=== PATIENT | female | born 1960 | race Caucasian/White ===

== ENCOUNTER 2022-11-04 22:42 | Emergency (ER) | payer BC, SELFPAY ==
[2022-11-04 22:56] VITALS: BP 165/88; PULSE 85; RESP 16; TEMP 36.7; O2SAT 98; BMI 24.2
--- NOTE | 2022-11-04 23:48 | ED_ITS ---
HPI - Abdominal Pain General Chief Complaint: Abdominal Pain Stated Complaint: FLANK PAIN, Hx kidney stones Time Seen by Provider: 11/04/22 23:25 Source: patient Mode of arrival: walk-in History of Present Illness HPI narrative: This 62-year-old female presents for evaluation of left flank pain with radiation into her left lower quadrant associated with hematuria and nausea. The patient states that she had some pink tinge in her urine yesterday but otherwise felt okay. She went to work today and came home and started having left-sided flank pain with radiation to left lower quadrant, increasing hematuria and nausea. She has not had a fever. She denies any chest pain or shortness of breath. She denies any dizziness or syncope. She had a kidney stone in the past that required lithotripsy with Dr. Mcnamara. Related Data Allergies Allergy/AdvReac Type Severity Reaction Status Date / Time Penicillins Allergy Severe Verified 11/04/22 22:55 Sulfa (Sulfonamide Allergy Severe Verified 11/04/22 22:55 Antibiotics) Review of Systems ROS Status of ROS 10 or more systems reviewed and unremarkable except as noted in history and below Exam Narrative Exam Narrative: Nurses note and vital signs reviewed and patient is not hypoxic. General: Nontoxic but uncomfortable-appearing middle-aged female, no respiratory distress, no active vomiting Skin: Warm, dry, no pallor noted. There is no rash noted. Head: Normocephalic, atraumatic Eye: Normal conjunctiva, no drainage, EOMI. PERRL Ears, Nose, Mouth, and Throat: oral mucosa is moist. Cardiovascular: Regular Rate and Rhythm S1-S2, no murmurs rubs or gallops, pulses are brisk and equal bilaterally Respiratory: Patient is in no distress, no accessory muscle use, lungs are clear to auscultation, no wheezing, rales or rhonchi Back: Left lower lumbar tenderness GI: Normal bowel sounds,Tenderness to palpation in the left lower quadrant, no rebound guarding rigidity appreciated left CVA tenderness Musculoskeletal: The patient has no evidence of calf tenderness, no pitting edema, symmetrical pulses noted bilaterally Neurological: A&O x4, normal speech Psychiatric: Cooperative Constitutional Vital Signs, click to edit/add: Last Vital Signs Temp 98.1 F 11/04/22 22:56 Pulse 85 11/04/22 22:56 Resp 16 11/04/22 22:56 BP 165/88 H 11/04/22 22:56 Pulse Ox 98 11/04/22 22:56 O2 Del Method Room Air 11/04/22 22:56 Course Reevaluation(s) Reevaluation #1: Pt re-evaluated and is feeling better. Time: 00:57 Consultations Consultation #1: Case discussed with Dr Mcnamara who will see the patient in his office in the next 1-2 days Time: 00:57 Vital Signs Vital signs: Vital Signs Temperature 98.1 F 11/04/22 22:56 Pulse Rate 85 11/04/22 22:56 Respiratory Rate 16 11/04/22 22:56 Blood Pressure 165/88 H 11/04/22 22:56 Pulse Oximetry 98 11/04/22 22:56 Oxygen Delivery Method Room Air 11/04/22 22:56 Temperature 98.1 F 11/04/22 22:56 Pulse Rate 85 11/04/22 22:56 Respiratory Rate 16 11/04/22 22:56 Blood Pressure 165/88 H 11/04/22 22:56 Pulse Oximetry 98 11/04/22 22:56 Oxygen Delivery Method Room Air 11/04/22 22:56 MDM - Abdominal Pain MDM Narrative Medical decision making narrative: This 62-year-old female with a history of kidney stones that has had to have lithotripsy in the past presents for evaluation of left flank pain and hematuria that started yesterday. She has not had a fever but has been cold. Her vital signs were stable with an elevated blood pressure. She was tender in the left flank and left lower quadrant. An IV was placed and she was medicated with IV fluids, Toradol and Zofran. On reevaluation she states she is feeling better. She has a normal white count and hemoglobin. Her electrolytes are normal The exception of a mildly elevated glucose at 141. She does not have a history of diabetes. She has a normal BUN/creatinine. CT scan of the abdomen and pelvis shows a 1 x 1 x 1 x 1 x 2.7 cm long calculus within the proximal left ureter with moderate to severe left hydronephrosis. It also shows large nonobstructive left renal staghorn calculi and scattered colonic diverticula without evidence of acute inflammation, normal appendix and status post hysterectomy. And reevaluation she states she is feeling better as far as her pain goes. The case was discussed with Dr. Mcnamara, he has taken care of this patient in the past. He states that he will see her as an outpatient in the office in the next 1-2 days. She will be discharged home with 2 [place] and Zofran and a prescription for the same. Her urinalysis does not show any infection but does show large blood. Medical Records Medical records narrative: The [address] [address] [address] Scan Report Signed Patient: KRYSTINA BANEGAS MR#: [id number] : 1960 Acct:[id number] Age/Sex: 62 / F ADM Date: 11/04/22 Loc: ER Attending Dr: Ordering Physician: Danilo Sanchez Date of Service: 11/04/22 Procedure(s): CT abdomen pelvis wo con Accession Number(s): [id number] cc: Sal Black M.D.~ The [place] [address] Patient Name: KRYSTINA BANEGAS MRN: [id number] date: 1960 Sex: F Assigned Patient Location: ER Current Patient Location: ER Accession/Order Number: [id number] Exam Date: 11/04/2022 23:54 Report Date: 11/05/2022 00:26 At the request of: DANILO SANCHEZ Procedure: CT abdomen pelvis wo con EXAM: CT abdomen pelvis wo con HISTORY: left flank pain COMPARISON: None. TECHNIQUE: Noncontrast axial CT images through the abdomen and pelvis were obtained with coronal and sagittal reformats. Dose reduction techniques were achieved by using automated exposure control and/or adjustment of mA and/or kV according to patient size and/or use of iterative reconstruction technique. FINDINGS: There is mild bibasilar atelectasis. Abdomen: Please note that the sensitivity for detection of focal lesions or vascular disease is markedly reduced without intravenous contrast. The liver and spleen are unremarkable. There is no intra or extrahepatic biliary duct dilatation. The gallbladder is unremarkable. There are large nonobstructive left renal staghorn calculi. There is a 1.1 x 1.1 x 2.7 cm long calculus within the proximal left ureter with moderate to severe left hydronephrosis. There is a right renal cyst. There are scattered colonic diverticula without evidence of acute inflammation. Otherwise, the pancreas, adrenal glands, right kidney, and bowel loops, including the appendix, are unremarkable. There is no mesenteric or retroperitoneal lymphadenopathy. There is a small fat-containing umbilical hernia. Pelvis: The bladder and rectum are unremarkable. There is no iliac or inguinal lymphadenopathy. The patient is status post hysterectomy. There is mild to moderate atherosclerotic disease. Bone windows show no aggressive osseous lesions. CT/CT abdomen pelvis wo con IMPRESSION: 1. There is a 1.1 x 1.1 x 2.7 cm long calculus within the proximal left ureter with moderate to severe left hydronephrosis. 2. Large nonobstructive left renal staghorn calculi. 2. Scattered colonic diverticula without evidence of acute inflammation. 4. Normal appendix. 5. Status post hysterectomy. Lab Data Labs: Lab Results 11/04/22 11/04/22 Range/Units 00:15 23:25 WBC 11.7 H (4.0-11.0) 10^3/uL RBC 4.62 (4.20-5.40) 10^6/uL Hgb 14.2 (12.0-16.0) g/dL Hct 43.1 (36.0-48.0) % MCV 93.3 (81.0-99.0) fL MCH 30.7 (26.7-34.0) pg MCHC 32.9 (29.9-35.2) g/dL RDW 12.4 (11.0-15.0) % Plt Count 184 (150-450) 10^3/uL MPV 10.8 (9.5-13.5) fL Neut % (Auto) 60.2 (43.0-75.0) % Lymph % (Auto) 26.3 (20.5-60.0) % [place] % (Auto) 10.8 (1.7-12.0) % Eos % (Auto) 1.8 (0.9-7.0) % Baso % (Auto) 0.5 (0.2-2.0) % Neut # (Auto) 7.0 H (1.4-6.5) 10^3/uL Lymph # (Auto) 3.1 (1.2-3.8) 10^3/uL [place] # (Auto) 1.3 H (0.3-0.8) 10^3/uL Eos # (Auto) 0.2 (0.0-0.7) 10^3/uL Baso # (Auto) 0.1 (0.0-0.1) 10^3/uL Abs Immat Gran (auto) 0.05 H (0.00-0.03) 10^3/uL Imm/Tot Granulo (auto) 0.4 (0.0-0.5) % Sodium 139 (136-145) mmol/L Potassium 3.9 (3.5-5.1) mmol/L Chloride 105 (98-107) mmol/L Carbon Dioxide 27.9 (21.0-32.0) mmol/L Anion Gap 10.0 BUN 17.0 (7.0-18.0) mg/dL Creatinine 0.75 (0.55-1.02) mg/dL Est GFR ( Amer) >60 (>=60) Est GFR (Non-Af Amer) >60 (>=60) BUN/Creatinine Ratio 22.7 Glucose 141 H (74-106) mg/dL Calcium 8.9 (8.5-10.1) mg/dL Total Bilirubin 0.4 (0.2-1.0) mg/dL AST 22 (15-37) U/L ALT 21 (14-59) U/L Alkaline Phosphatase 93 (46-116) U/L Total Protein 7.5 (6.4-8.2) g/dL Albumin 4.0 (3.4-5.0) g/dL Globulin 3.5 g/dL Albumin/Globulin Ratio 1.1 Urine Color Yellow (YELLOW) Urine Clarity Clear (CLEAR) Urine pH 6.0 (5.0-9.0) Ur Specific [place] 1.020 (1.005-1.025) Urine Protein Trace (NEG/TRACE) mg/dL Urine Glucose (UA) >=1000 A (NEGATIVE) mg/dL Urine Ketones Negative (NEGATIVE) mg/dL Urine Occult Blood Large A (NEGATIVE) Urine Nitrite Negative (NEGATIVE) Urine Bilirubin Negative (NEGATIVE) Urine Urobilinogen 0.2 (0.2-1.0) EU/dL Ur Leukocyte Esterase Negative (NEGATIVE) Urine RBC 20-50 A (0-2) #/HPF Urine WBC 0-2 A (NONE SEEN) #/HPF Ur Squamous Epith Cells Rare (NONE/RARE) #/LPF Urine Crystals None seen (None Seen) #/HPF Urine Bacteria Small A (NONE SEEN) #/HPF Urine Casts None seen (NONE SEEN) #/LPF Urine Mucus None seen (NONE SEEN) Urine Yeast Seen A (NONE SEEN) Ur Culture Indicated? Yes Discharge Plan Discharge Chief Complaint: Abdominal Pain Clinical Impression: Calculus of kidney Patient Disposition: Home, Self-Care Time of Disposition Decision: 01:09 Condition: Good Instructions: Kidney Stones (ED), Hydronephrosis (ED) Additional Instructions: call Dr Ham's office tomorrow for an appointment later this week. Use [place] for pain, zofran for nausea, Return to the ED for intractable pain, vomiting, inability to tolerate your medications or any concerns. Stand Alone Forms: Portal Instructions Referrals: Sal Black MD [Primary Care Provider] - 1 week Discharge Date/Time: 11/05/22 01:43
[2022-11-04 23:54] LABS: Basophils Absolute Auto 0.1 10^3/uL (0.0-0.1); Basophils Percent Auto 0.5 % (0.2-2.0); Eosinophils Absolute Auto 0.2 10^3/uL (0.0-0.7); Eosinophils Percent Auto 1.8 % (0.9-7.0); Hematocrit 43.1 % (36.0-48.0); Hemoglobin 14.2 g/dL (12.0-16.0); Immature Granulocytes Abs Auto 0.05 10^3/uL (0.00-0.03); Immature Granulocytes Pct Auto 0.4 % (0.0-0.5); Lymphocytes Absolute Auto 3.1 10^3/uL (1.2-3.8); Lymphocytes Percent Auto 26.3 % (20.5-60.0); Mean Corpuscular HGB Conc 32.9 g/dL (29.9-35.2); Mean Corpuscular Hemoglobin 30.7 pg (26.7-34.0); Mean Corpuscular Volume 93.3 fL (81.0-99.0); Mean Platelet Volume 10.8 fL (9.5-13.5); Monocytes Absolute Auto 1.3 10^3/uL (0.3-0.8); Monocytes Percent Auto 10.8 % (1.7-12.0); Neutrophils Percent Auto 60.2 % (43.0-75.0); Platelet Count 184 10^3/uL (150-450); Red Blood Count 4.62 10^6/uL (4.20-5.40); Red Cell Distribution Width 12.4 % (11.0-15.0); White Blood Count 11.7 10^3/uL (4.0-11.0)
[2022-11-05 00:06] LABS: Alanine Aminotransferase 21 U/L (14-59); Albumin Globulin Ratio 1.1; Alkaline Phosphatase 93 U/L (46-116); Aspartate Amino Transferase 22 U/L (15-37); BUN Creatinine Ratio 22.7; Bilirubin Total 0.4 mg/dL (0.2-1.0); Calcium 8.9 mg/dL (8.5-10.1); Carbon Dioxide 27.9 mmol/L (21.0-32.0); Chloride 105 mmol/L (98-107); Estimated GFR (African America >60 (>=60); Estimated GFR (Non-African Ame >60 (>=60); Globulin 3.5 g/dL; Glucose 141 mg/dL (74-106); Potassium 3.9 mmol/L (3.5-5.1); Sodium 139 mmol/L (136-145); Total Protein 7.5 g/dL (6.4-8.2)
[2022-11-05] MEDS: 0.9 % SODIUM CHLORIDE 1,000 ML 1000 ML IV (00:08)
[2022-11-05] MEDS: KETOROLAC TROMETHAMINE 30 MG/ML VIAL IVP (00:19)
[2022-11-05] MEDS: ONDANSETRON PF 4 MG/2 ML VIAL IV (00:19)
[2022-11-05 00:44] LABS: Bilirubin Urine NEGATIVE (NEGATIVE); Blood Urine LARGE (NEGATIVE); Clarity Urine CLEAR (CLEAR); Color Urine YELLOW (YELLOW); Glucose Urine UA >=1000 mg/dL (NEGATIVE); Ketones Urine NEGATIVE (NEGATIVE); Leukocyte Esterase Urine NEGATIVE (NEGATIVE); Nitrite Urine NEGATIVE (NEGATIVE); Protein Urine TRACE mg/dL (NEG/TRACE); Urobilinogen Urine 0.2 EU/dL (0.2-1.0)
[2022-11-05 00:56] LABS: RBC Urine 20-50 #/HPF (0-2); WBC Urine 0-2 #/HPF (NONE SEEN)
[2022-11-05 00:57] LABS: Cast Seen? NONE SEEN #/LPF (NONE SEEN); Crystals Seen? None Seen #/HPF (None Seen); Mucus Urine NONE SEEN (NONE SEEN); Squamous Epithelial Cell Urine RARE #/LPF (NONE/RARE)
[2022-11-05 00:59] LABS: Bacteria Urine SMALL #/HPF (NONE SEEN); Urine Culture Indicated YES
[2022-11-05] MEDS: HYDROCODONE/ACETAMINOPHEN 5-325 MG TABLET 1 TAB PO (01:30)
[2022-11-05] MEDS: HYDROCODONE/ACETAMINOPHEN 5-325 MG TABLET 2 TAB PO (01:30)
[2022-11-05] MEDS: ONDANSETRON 4 MG RAPDIS TABLET SL (01:31)
== END 2022-11-05 01:43 | disposition home or self-care (01) ==
PROVIDERS: Emergency Provider Emergency Medicine; PCP Family Medicine
DX: N20.0 Calculus of kidney (principal); Z90.710 Acquired absence of both cervix and uterus; Z87.442 Personal history of urinary calculi
CPT/HCPCS: 36415; 74176; 80053; 81001; 85025; 87086; 96374; 96375; 99284

== ENCOUNTER 2022-11-06 13:15 | Observation (INO) | payer BC, SELFPAY ==
[2022-11-06 12:42] VITALS: BP 144/82; PULSE 72; RESP 20; TEMP 36.5; O2SAT 95; BMI 24.4
[2022-11-06 14:05] VITALS: BP 142/82; PULSE 65; RESP 16; TEMP 36.5; O2SAT 98
[2022-11-06 15:02] LABS: Prothrombin Time 9.5 sec (9.0-11.6)
[2022-11-06 15:08] LABS: INR <0.93
[2022-11-06 15:16] LABS: Anion Gap 12.1; BUN Creatinine Ratio 15.1; Calcium 8.6 mg/dL (8.5-10.1); Carbon Dioxide 27.4 mmol/L (21.0-32.0); Chloride 104 mmol/L (98-107); Creatine Kinase 72 U/L (26-192); Creatine Kinase MB 1.25 ng/mL (<=3.60); Estimated GFR (African America >60 (>=60); Estimated GFR (Non-African Ame 53 (>=60); Glucose 128 mg/dL (74-106); Potassium 3.5 mmol/L (3.5-5.1); Sodium 140 mmol/L (136-145); Troponin I High Sensitivity 6.4 pg/mL (4.0-51.3)
[2022-11-06] MEDS: KETOROLAC TROMETHAMINE 30 MG/ML VIAL IVP (15:22)
[2022-11-06] MEDS: LACTATED RINGER'S SOLUTION 1,000 ML 100 ML IV (15:22)
[2022-11-06 16:14] VITALS: O2SAT 93
--- NOTE | 2022-11-06 17:34 | ECG_ITS ---
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
[2022-11-06 19:27] VITALS: O2SAT 94
[2022-11-06 19:54] VITALS: BP 130/72; PULSE 68; RESP 16; TEMP 36.7; O2SAT 93
[2022-11-07] VITALS (9 sets, daily range): BP systolic 109–146; BP diastolic 64–79; PULSE 62–88; RESP 12–17; TEMP 36.1–36.8; O2SAT 90–97
[2022-11-07] MEDS: LACTATED RINGER'S SOLUTION 1,000 ML 100 ML IV (00:38)
[2022-11-07 05:00] LABS: Basophils Percent Auto 0.3 % (0.2-2.0); Eosinophils Absolute Auto 0.3 10^3/uL (0.0-0.7); Eosinophils Percent Auto 2.7 % (0.9-7.0); Hematocrit 37.4 % (36.0-48.0); Hemoglobin 12.2 g/dL (12.0-16.0); Immature Granulocytes Abs Auto 0.04 10^3/uL (0.00-0.03); Immature Granulocytes Pct Auto 0.4 % (0.0-0.5); Lymphocytes Absolute Auto 2.1 10^3/uL (1.2-3.8); Lymphocytes Percent Auto 22.7 % (20.5-60.0); Mean Corpuscular HGB Conc 32.6 g/dL (29.9-35.2); Mean Corpuscular Hemoglobin 30.7 pg (26.7-34.0); Mean Platelet Volume 9.3 fL (9.5-13.5); Monocytes Absolute Auto 1.2 10^3/uL (0.3-0.8); Neutrophils Absolute Auto 5.5 10^3/uL (1.4-6.5); Neutrophils Percent Auto 60.9 % (43.0-75.0); Platelet Count 218 10^3/uL (150-450); Red Blood Count 3.98 10^6/uL (4.20-5.40); White Blood Count 9.1 10^3/uL (4.0-11.0)
[2022-11-07 05:02] LABS: Anion Gap 12.6; BUN Creatinine Ratio 16.5; Calcium 8.1 mg/dL (8.5-10.1); Carbon Dioxide 25.3 mmol/L (21.0-32.0); Chloride 107 mmol/L (98-107); Estimated GFR (African America >60 (>=60); Estimated GFR (Non-African Ame 58 (>=60); Glucose 148 mg/dL (74-106); Potassium 3.9 mmol/L (3.5-5.1); Sodium 141 mmol/L (136-145)
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
[2022-11-07] MEDS: LACTATED RINGER'S SOLUTION 1,000 ML 50 ML IV (06:54)
[2022-11-07] MEDS: GENTAMICIN SULFATE 120 MG in 0.9 % SODIUM CHLORIDE 100 ML 206 MG IV (07:36)
--- NOTE | 2022-11-07 07:48 | P.URON_ITS ---
Urology Surgery Operative Note Operative Note Procedure Date: 11/07/22 Time Out Performed: yes Pre-op Diagnosis: obstructing left ureteral stone and left renal pelvis stones Post-op Diagnosis: same as pre-op Procedures performed: #1. Cystoscopy. #2. Left retrograde pyelogram. #3. Placement of 6 Bahamian variable length left ureteral stent Anesthesia: General-LMA Primary Surgeon: Steve Mcnamara Complications: none Estimated blood loss (mL): 0 Findings: large 2 cm left mid ureteral calculus. Ipsilateral large renal pelvis calculi Specimens: non- Indications for Procedures: this lady has a 2.7 cm left proxximal ureteral calculus and ipsilateral renal pelvis calculi. She has been to the Emergency Room once. She was admitted for pain management yesterday. She now presents for cystoscopy and retrograde and left stent placement. She has signed an informed consent for these procedures after risks were explained. Detailed description of Procedure: The patient was brought to the operating room and placed on the operating room table in the supine position. SCDs were placed on the lower extremities and turned on and functioning during the entire case. Timeout was done by all parties in the room. We all agreed upon the patient's identification and the planned procedures for this patient. Genn. anesthesia was then administered. The patient was then repositioned into the modified dorsal lithotomy position. All pressure points were satisfactorily padded. Genitalia were sterilely prepped and draped in usual fashion.at this time I started by passing a 22 Bahamian Olympus cystoscope per urethra and into the bladder. Careful panendoscopy showed no evidence of any tumors or stones. While using fluoroscopy I could clearly see her large proximal ureteral calculus at the L3 level. I could also see the ipsilateral renal calculi. I then passed a 8 [place]amian cone-tipped catheter through the scope and cannulated the left ureter. Contrast was injected in a retrograde manner. Fortunately, contrast was able to get beyond the stone and into the kidney. I then passed a Glidewire through the scope and cannulated the left ureter. I was able to get the wire beyond the stone fairly easily. I then passed a 6 [place]amian variable length ureteral stent over the wire. When I got up to the stone the stone simply ascended towards the kidney. I was able to get the stent beyond the stone and beyond the renal calculi into the renal pelvis. The wire was removed and there were good curls in the kidney and in the bladder. The bladder was drained of its contents and the scope was then removed. She was then transferred to a [facility] bed and wheeled to PACU in stable condition.
[2022-11-07] MEDS: IOHEXOL 240 MG/ML - 50 ML VIAL INJ (08:03)
--- NOTE | 2022-11-12 10:06 | CM.DCFOLLOWU ---
Person spoke with: patient How are you feeling? better How is your pain? taking her pain meds and can tell when they wear off Did you understand your discharge instructions? yes Do you have any questions about your discharge instructions? no Were you given any prescriptions at discharge? yes Were you able to get your prescriptions filled? yes Do you understand how to take your medications as ordered? yes Do you have any questions about your follow up appointment and do you plan to keep your follow up appointment? no questions, pre-registered for x-ray tomorrow and follow up Friday Is there anything else that you would like to discuss? no Questions/Comments/Concerns/Other:
== END 2022-11-07 11:16 | disposition home or self-care (01) ==
LOC: ICU 19:18 → MS 11-07 07:07 → ICU 11-07 09:19 → MS 11-07 09:19
PROVIDERS: Urology; Admitting Provider Family Medicine; PCP Family Medicine; Visit Provider Family Medicine
PROC: (CPT 52332; principal; 2022-11-07 07:30)
DX: N13.2 Hydronephrosis with renal and ureteral calculous obstruction (principal); Z87.442 Personal history of urinary calculi; E11.9 Type 2 diabetes mellitus without complications; M19.90 Unspecified osteoarthritis, unspecified site; E78.00 Pure hypercholesterolemia, unspecified; Z90.710 Acquired absence of both cervix and uterus; Z79.899 Other long term (current) drug therapy; Z87.891 Personal history of nicotine dependence
CPT/HCPCS: 52332; 36415; 74420; 80048; 82550; 82553; 84484; 85025; 85610; 85730; 93005; 94761; 96374; C1874; G0378; G0379; J2704; Q9966

== ENCOUNTER 2022-11-13 08:26 | Outpatient (OUT) | payer BC, SELFPAY ==
--- NOTE | 2022-11-13 08:34 | XR_ITS ---
The [address] [address] Patient Name: KRYSTINA BANEGAS MRN: [id number] date: 1960 Sex: F Assigned Patient Location: [facility] Current Patient Location: [facility] Accession/Order Number: [id number] Exam Date: 11/13/2022 08:40 Report Date: 11/13/2022 09:15 At the request of: NON-STAFF PHYSICIAN Procedure: XR abdomen 1V EXAMINATION: XR abdomen 1V HISTORY: Kidney Stone N20.0 ; left kidney stone COMPARISON: CT abdomen pelvis 11/04/2022 FINDINGS: KIDNEY/URETER - RIGHT: No visible renal or ureteral calcifications. KIDNEY/URETER - LEFT: Multiple large calcifications throughout the renal collecting system and within the renal pelvis. Left ureteral stent which appears to be in good position. PELVIS: No convincing ureteral stones. Pelvic calcifications favor phleboliths. BOWEL: No abnormal dilation or deviation. BONES: No acute abnormality. OTHER: Negative. No abnormal gaseous collections. XR/XR abdomen 1V IMPRESSION: 1. Marked left nephrolithiasis (numerous large stones). Persistent large calcification within left renal pelvis. 2. Interval placement of left ureteral stent. Previously seen left ureteral stone is no longer present. Electronically authenticated by: RUBI MOODY Date: 11/13/2022 09:15
== END 2022-11-13 08:27 | disposition home or self-care (01) ==
LOC: RAD 08:26
PROVIDERS: PCP Family Medicine
DX: N20.0 Calculus of kidney (principal)
CPT/HCPCS: 74018

== ENCOUNTER 2022-12-23 13:03 | Outpatient (OUT) | payer BC, SELFPAY ==
[2022-12-23 10:12] LABS: Basophils Absolute Auto 0.1 10^3/uL (0.0-0.1); Basophils Percent Auto 0.7 % (0.2-2.0); Eosinophils Absolute Auto 0.3 10^3/uL (0.0-0.7); Eosinophils Percent Auto 3.5 % (0.9-7.0); Hematocrit 31.3 % (36.0-48.0); Hemoglobin 9.7 g/dL (12.0-16.0); Immature Granulocytes Abs Auto 0.04 10^3/uL (0.00-0.03); Immature Granulocytes Pct Auto 0.6 % (0.0-0.5); Lymphocytes Absolute Auto 2.4 10^3/uL (1.2-3.8); Mean Corpuscular Hemoglobin 30.2 pg (26.7-34.0); Mean Corpuscular Volume 97.5 fL (81.0-99.0); Mean Platelet Volume 8.8 fL (9.5-13.5); Monocytes Absolute Auto 0.6 10^3/uL (0.3-0.8); Monocytes Percent Auto 8.6 % (1.7-12.0); Neutrophils Absolute Auto 3.8 10^3/uL (1.4-6.5); Neutrophils Percent Auto 52.6 % (43.0-75.0); Platelet Count 388 10^3/uL (150-450); Red Blood Count 3.21 10^6/uL (4.20-5.40); Red Cell Distribution Width 13.2 % (11.0-15.0); White Blood Count 7.2 10^3/uL (4.0-11.0)
[2022-12-23 10:33] LABS: Anion Gap 12.1; BUN Creatinine Ratio 25.8; Calcium 8.7 mg/dL (8.5-10.1); Chloride 106 mmol/L (98-107); Estimated GFR (African America >60 (>=60); Estimated GFR (Non-African Ame >60 (>=60); Glucose 112 mg/dL (74-106); Potassium 4.1 mmol/L (3.5-5.1); Sodium 139 mmol/L (136-145)
[2022-12-23 11:40] LABS: Bilirubin Urine NEGATIVE (NEGATIVE); Blood Urine LARGE (NEGATIVE); Clarity Urine CLEAR (CLEAR); Color Urine LT. YELLOW (YELLOW); Glucose Urine UA >=1000 mg/dL (NEGATIVE); Ketones Urine NEGATIVE (NEGATIVE); Leukocyte Esterase Urine NEGATIVE (NEGATIVE); Nitrite Urine NEGATIVE (NEGATIVE); Protein Urine 30 mg/dL (NEG/TRACE); Specific Gravity Urine 1.025 (1.005-1.025); Urobilinogen Urine 0.2 EU/dL (0.2-1.0)
[2022-12-23 11:44] LABS: WBC Urine NONE SEEN #/HPF (NONE SEEN)
[2022-12-23 11:45] LABS: Bacteria Urine NONE SEEN #/HPF (NONE SEEN); Cast Seen? NONE SEEN #/LPF (NONE SEEN); Crystals Seen? None Seen #/HPF (None Seen); Mucus Urine NONE SEEN (NONE SEEN); RBC Urine 0-2 #/HPF (0-2); Squamous Epithelial Cell Urine NONE SEEN #/LPF (NONE/RARE); Urine Culture Indicated ALREADY ORDERED
== END 2022-12-23 13:04 | disposition home or self-care (01) ==
LOC: LAB 12-24 13:03
PROVIDERS: PCP Family Medicine
DX: N20.0 Calculus of kidney (principal); N39.0 Urinary tract infection, site not specified
CPT/HCPCS: 36415; 80048; 81001; 85025; 87086

== ENCOUNTER 2023-02-14 07:48 | Outpatient (OUT) | payer BC, SELFPAY ==
[2023-02-14 08:15] LABS: Basophils Absolute Auto 0.1 10^3/uL (0.0-0.1); Basophils Percent Auto 0.9 % (0.2-2.0); Eosinophils Absolute Auto 0.1 10^3/uL (0.0-0.7); Eosinophils Percent Auto 0.9 % (0.9-7.0); Hematocrit 37.6 % (36.0-48.0); Hemoglobin 11.5 g/dL (12.0-16.0); Immature Granulocytes Abs Auto 0.02 10^3/uL (0.00-0.03); Immature Granulocytes Pct Auto 0.4 % (0.0-0.5); Lymphocytes Absolute Auto 1.6 10^3/uL (1.2-3.8); Lymphocytes Percent Auto 30.6 % (20.5-60.0); Mean Corpuscular HGB Conc 30.6 g/dL (29.9-35.2); Mean Corpuscular Hemoglobin 26.4 pg (26.7-34.0); Mean Corpuscular Volume 86.4 fL (81.0-99.0); Mean Platelet Volume 9.1 fL (9.5-13.5); Monocytes Percent Auto 18.3 % (1.7-12.0); Neutrophils Absolute Auto 2.6 10^3/uL (1.4-6.5); Neutrophils Percent Auto 48.9 % (43.0-75.0); Platelet Count 266 10^3/uL (150-450); Red Blood Count 4.35 10^6/uL (4.20-5.40); Red Cell Distribution Width 13.8 % (11.0-15.0); White Blood Count 5.3 10^3/uL (4.0-11.0)
[2023-02-14 08:35] LABS: Bilirubin Urine NEGATIVE (NEGATIVE); Blood Urine NEGATIVE (NEGATIVE); Clarity Urine CLEAR (CLEAR); Color Urine LT. YELLOW (YELLOW); Glucose Urine UA >=1000 mg/dL (NEGATIVE); Ketones Urine NEGATIVE (NEGATIVE); Leukocyte Esterase Urine NEGATIVE (NEGATIVE); Nitrite Urine NEGATIVE (NEGATIVE); Protein Urine NEGATIVE (NEG/TRACE); Urobilinogen Urine 0.2 EU/dL (0.2-1.0)
[2023-02-14 08:53] LABS: WBC Urine 0-2 #/HPF (NONE SEEN)
[2023-02-14 08:53] LABS: Estimated Average Glucose 137 mg/dL; Glycohemoglobin A1C 6.4 % (4.5-6.2)
[2023-02-14 08:54] LABS: Bacteria Urine TRACE #/HPF (NONE SEEN); Cast Seen? NONE SEEN #/LPF (NONE SEEN); Crystals Seen? None Seen #/HPF (None Seen); Mucus Urine TRACE (NONE SEEN); RBC Urine 0-2 #/HPF (0-2); Squamous Epithelial Cell Urine FEW #/LPF (NONE/RARE); Urine Culture Indicated ALREADY ORDERED
[2023-02-14 09:38] LABS: Alanine Aminotransferase 30 U/L (14-59); Albumin Level 3.9 g/dL (3.4-5.0); Alkaline Phosphatase 77 U/L (46-116); Anion Gap 15.7; Aspartate Amino Transferase 21 U/L (15-37); BUN Creatinine Ratio 16.2; Bilirubin Total 0.3 mg/dL (0.2-1.0); Calcium 8.5 mg/dL (8.5-10.1); Carbon Dioxide 26.2 mmol/L (21.0-32.0); Chloride 104 mmol/L (98-107); Chol HDL Ratio 2.8; Cholesterol 151 mg/dL (<=200); Estimated GFR (African America >60 (>=60); Estimated GFR (Non-African Ame >60 (>=60); Free T3 1.98 pg/mL (2.18-3.98); Globulin 3.8 g/dL; Glucose 105 mg/dL (74-106); HDL Cholesterol 54 mg/dL (40-60); LDL Cholesterol Calculated 88.2 mg/dL; Potassium 3.9 mmol/L (3.5-5.1); Sodium 142 mmol/L (136-145); Thyroid Stimulating Hormone 1.332 uIU/mL (0.358-3.740); Total Protein 7.7 g/dL (6.4-8.2); Triglycerides 44 mg/dL (<=150); VLDL CHOLESTEROL 8.8 mg/dL
== END 2023-02-14 07:49 | disposition home or self-care (01) ==
LOC: LAB 07:53
PROVIDERS: PCP Family Medicine; Visit Provider Family Medicine
DX: Z00.00 Encounter for general adult medical examination without abnormal findings (principal); R50.9 Fever, unspecified
CPT/HCPCS: 36415; 80053; 80061; 81001; 82306; 83036; 83540; 84436; 84443; 84481; 85025; 87086; 87186

== ENCOUNTER 2023-04-01 14:57 | Outpatient (OUT) | payer BC, SELFPAY ==
--- NOTE | 2023-04-01 15:25 | MM_ITS ---
Patient Name: KRYSTINA BANEGAS MR#: [id number] : 1960 Exam Date: 04/01/2023 Ordering Doctor: DR Sal Black . RADIOLOGY REPORT PROCEDURE: MM TOMOSYNTHESIS SCREENING BI COMPARISON: MG MAMM SCREEN KASEY W CAD, 02/01/2020. MG MAMM SCREEN 3D KASEY CAD, 02/01/2021. INDICATIONS: screening Calculator Name NCI Breast Cancer Risk Assessment Tool 5 Year Breast Cancer Risk 1.10% Lifetime Breast Cancer Risk 5.20% Personal Breast Cancer No Personal Ovarian Cancer No Treatments None Family Cancers Aunt-paternal with breast cancer at age ~74. LOCATION: The [facility] BREAST COMPOSITION: Scattered areas fibroglandular density. FINDINGS: DIAGNOSTIC CATEGORY 2--BENIGN FINDING. NO CHANGE FROM COMPARISON. Scattered benign-appearing nodules are present. Scattered benign-appearing calcifications are present. Scattered benign-appearing lymph nodes are present. RIGHT BREAST: No significant suspicious finding. LEFT BREAST: No significant suspicious finding. RECOMMENDATIONS: ROUTINE MAMMOGRAM AND CLINICAL EVALUATION IN 12 MONTHS. PLEASE NOTE: A NORMAL MAMMOGRAM DOES NOT EXCLUDE THE POSSIBILITY OF BREAST CANCER. A CLINICALLY SUSPICIOUS PALPABLE LUMP SHOULD BE BIOPSIED. Dictated by: Saul Chiu MD on 04/02/2023 at 09:39 Approved by: Saul Chiu MD on 04/02/2023 at 09:41
== END 2023-04-01 14:58 | disposition home or self-care (01) ==
LOC: MAMMO 14:57
PROVIDERS: PCP Family Medicine; Visit Provider Family Medicine
DX: Z12.31 Encounter for screening mammogram for malignant neoplasm of breast (principal); Z80.3 Family history of malignant neoplasm of breast
CPT/HCPCS: 77063; 77067

== ENCOUNTER 2023-09-09 16:04 | Outpatient (OUT) | payer BC, SELFPAY ==
--- OUTSIDE RECORDS SUMMARY | 2023-09-09 16:14 | XMS_ITS | CCD ---
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 0737 Anesthesia Stop: 0850 Procedure: CYSTOURETHROSCOPY W/ URETEROSCOPY AND/OR PYELOSCOPY W/ LITHOTRIPSY INCLUDE INSERTION OF INDWELLING URETERAL STENT THULIUM (Left: Ureter) Diagnosis: Nephrolithiasis (Nephrolithiasis [N20.0]) Surgeons: Farheen Thompson MD Responsible Provider: Farzana Lopez MD Anesthesia Type: general ASA Status: 3 Anesthesia Type: general Airway Type: LMA Last Vitals Vitals Value Taken Time BP 130/70 01/06/2330 Temp 36.4 ?C (97.6 ?F) 01/06/23 0854 HR SpO2 75 01/06/23 0854 Resp 12 01/06/23929 SpO2 96 % 10/09/23 0930 Post Anesthesia Patient Status Patient Evaluation: bedside. Anticipated Disposition: phase 2 then home. Neurological Status: aware and responsive. Pulmonary Status: breathing comfortably on room air Airway Control: returned to baseline unsupported. Cardiovascular Status: stable. Pain Management: clinically adequate Postoperative Hydration: acceptable. Intraoperative Events: no significant anesthesia events Post Operative Nausea/Vomiting Status: no significant post operative nausea or vomiting Recommendation: continue current plan of care. Anesthesia Observations No Documentation SIGNATURE: Farzana Lopez MD PATIENT NAME: Krystina Saldivar DATE: January 06, 2023 TIME: 11:48 AM CSN: [id number] [facility] ANES PRE-OPon 01-06-2023 ANES PRE-OP HNO ID: [id number] Author: Farzana Lopez MD Service: Anesthesiology Author Type: Anesthesiologist Type: Anesthesia Preprocedure Evaluation Filed: 01/06/2023 7:24 AM Note Text: ANESTHESIOLOGY DAY OF SURGERY NOTE : 1960 Procedure Information Date/Time: 01/06/23729 Procedure: CYSTOURETHROSCOPY W/ URETEROSCOPY AND/OR PYELOSCOPY W/ LITHOTRIPSY INCLUDE INSERTION OF INDWELLING URETERAL STENT THULIUM (Left: Ureter) Location: AV OR01 / AV OR Surgeons: Farheen Thompson MD Estimated body mass index is 24.2 kg/m? as calculated from the following: Height as of 12/11/22: 167.6 cm (5' 6 ). Weight as of 12/11/22: 68 kg (149 lb 14.6 oz). Most recent hematocrit and potassium results: Hematocrit 28.0 12/12/2022 Potassium 4.0 12/11/2022 Relevant Problems ENDO (+) Diabetes mellitus type 2, controlled, without complications (HCC) -RENAL (+) Nephrolithiasis I - PHYSICAL EVALUATION AIRWAY Patient intubated: No. Tracheostomy tube not present Mallampati: II. Neck ROM: full ROM without neurological symptoms. Mouth opening: adequate. Short neck: no. Thick neck: no DENTAL Dental findings: teeth intact. II - ANESTHESIA PLAN ASA Score: 3 Anesthetic Plan: general Airway type: LMA The patient is not a current smoker. NPO Status: adequate Beta Maday Administration of chronic beta maday medication not planned. Monitoring Plan Monitoring plan: standard ASA. Post Procedure Analgesic Plan Postoperative analgesic plan: multimodal analgesia. Informed Consent Anesthetic risks, benefits, alternatives, personnel and consent discussed: yes. Patient / Responsible Alliance Party agrees to proceed: yes Patient / Surrogate agrees to blood products: Yes Significant changes in the patient condition since the History and Physical, not otherwise documented in primary service progress note: no. Potential Anesthesia issues that may suggest increased risk of complications or contraindication to planned procedure: none. Vitals Value Taken Time BP 110/72 01/06/23637 Pulse Resp 16 01/06/23637 Temp 36.1 ?C (97 ?F) 01/06/23637 SpO2 98 % 01/06/23637 Facility-Administered Medications as of 01/06/2023 Medication Dose Route Frequency - lidocaine (PF) 10 mg/mL (1 %) 1-2 mg injection (XYLOCAINE) 0.1-0.2 mL INTRADERMAL PRN - NaCl 0.9% iv infusion 75 mL/hr INTRAVENOUS CONTINUOUS - NaCl 0.9% iv flush bag 20 mL INTRAVENOUS PRN - ceFAZolin iv piggyback 2 g in D5W (iso-osmotic) 100 mL (ANCEF) 2 g INTRAVENOUS Pre-Op Once - [COMPLETED] ceFAZolin iv piggyback 1 g in D5W (iso-osmotic) 50 mL (ANCEF) 1 g INTRAVENOUS q 8 H - [] keTORolac 15 mg injection (Toradol) 15 mg INTRAVENOUS q 6 H PRN Outpatient Medications as of 01/06/2023 Medication Sig - simvastatin (ZOCOR) 20 mg tablet Take 20 mg by mouth daily at bedtime. - empagliflozin (JARDIANCE) 25 mg tablet Take 25 mg by mouth daily with breakfast. - solifenacin 10 mg tablet Take 5 mg by mouth once daily. - [] cephALEXin (KEFLEX) 500 mg capsule Take 1 capsule by mouth three times daily for 3 days. - [] phenazopyridine (PYRIDIUM) 200 mg tablet Take 1 tablet by mouth three times daily as needed for pain for up to 3 days. - tamsulosin (FLOMAX) 0.4 mg Take 1 capsule by mouth once daily for 14 days. 30 minutes after the same meal each day. - keTORolac (TORADOL) 10 mg tablet Take 10 mg by mouth every 12 hours as needed for pain. - ondansetron (ZOFRAN) 4 mg tablet Take 4 mg by mouth every 8 hours as needed for nausea/vomiting. - ibuprofen (MOTRIN) 800 mg tablet Take 800 mg by mouth every 6 hours as needed. I have interviewed and examined the patient. I have reviewed the medical record and/or the pre-anesthesia evaluation, pertinent labs, and test results. This contains updated information obtained within 48 hours of Surgery/Procedure. SIGNATURE: Farzana Lopez MD PATIENT NAME: Krystina Saldivar DATE: January 06, 2023 TIME: 7:24 AM CSN: [id number] [facility] CALCULI ANALYSISon 3 Calculus analysis [Interp] [facility] Comment on above: Order Comment: Speci men Type: CALCULUS SPECIMEN Ordering Facility: [facility] Address: [address] [place] [address] Result Comment: This test was developed and its performance characteristics determined by [facility] Pathology [facility] [place] (-[facility]). It has not been cleared or approved by the FDA. [facility] is regulated under CLIA as qualified to perform high-complexity testing. This test is used for clinical purposes. It should not be regarded as investigational or for research. Performed By: #### C SA #### [facility] CLIA [id number] [address] [place] [address] [place] CALCULUS COLOR BROWN Normal [facility] Comment on above: Order Comment: Speci men Type: CALCULUS SPECIMEN Ordering Facility: [facility] Address: [address] [place] [address] Performed By: #### C SA #### [facility] CLIA [id number] [address] [place] [address] [place] CALCULUS COMPOSITION 1 100% Uric Acid [facility] Comment on above: Order Comment: Speci men Type: CALCULUS SPECIMEN Ordering Facility: [facility] Address: [address] [place] [address] Performed By: #### C SA #### [facility] CLIA [id number] [id number] [place] CALCULUS SIZE AND WT Multiple pieces. 0.0774 GRAMS Normal [facility] Comment on above: Order Comment: Speci men Type: CALCULUS SPECIMEN Ordering Facility: [facility] Address: [address] [place] [address] Performed By: #### C SA #### [facility] CLIA [id number] [address] [place] CALCULUS TYPE CALCULI/CALCULUS Normal [facility] Comment on above: Order Comment: Speci men Type: CALCULUS SPECIMEN Ordering Facility: [facility] Address: [address] [place] [address] Performed By: #### C SA #### [facility] CLIA [id number] [address] [place] GLUCOSE, BLOOD (POC)on 01-06 Glucose [Mass/Vol] 93 mg/dL 74 - 99 mg/dL [facility] HISTORY PHYSICALon HISTORY PHYSICAL HNO ID: [id number] Author: Farheen Thompson MD Service: Urology Author Type: Physician Type: HANDP Filed: 01/06/2023 7:32 AM Note Text: Preoperative HANDP Chief complaint: Patient is here today for management of left kidney stones History, update from last visit: Previous notes, reviewed, no significant new changes, patient is doing well, denies fever, abdominal pain, nausea or vomiting, no new voiding symptoms or constipation. Examination: Patient is awake and alert , oriented to time, person, place. Chest: unlabored breathing, equal on both sides. Heart: regular rate and rhythm, normal peripheral pulsations. Abdomen: Soft, non tender, non distended All lab results, imaging reviewed and there was no change. Assessment and plan of management: Patient is here today for management of left kidney stones Plan for left URS All patient's questions were discussed in details, outline of procedure and recovery discussed. Surgical site : left ureter and kidney Farheen Thompson MD January 06, 2023 7:31 AM [facility] HISTORY PHYSICAL HNO ID: [id number] Author: Marisol Cameron PA-C Service: Anesthesiology Author Type: Physician Orthotic Aide Type: HANDP Filed: 01/06/2023 7:22 AM Note Text: Preoperative HISTORY AND PHYSICAL EXAM SERVICE DATE: 01/06/2023 SERVICE TIME: 7:15 AM Subjective: CC: nephrolithiasis HPI: Patient is a 62 year old female presenting to pre-anesthesia consultation. Patient has a history of kidney stones. She recently underwent left perc neph on 12/11/22. She continues to have left flank pain and hematuria with discomfort with urination if she is too active. No fever or chills, but she does have fatigue. She has been diagnosed with nephrolithiasis and recommended for CYSTOURETHROSCOPY W/ URETEROSCOPY AND/OR PYELOSCOPY W/ LITHOTRIPSY INCLUDE INSERTION OF INDWELLING URETERAL STENT THULIUM - Left which is scheduled to be done today. PAST MEDICAL HISTORY Diagnosis Date Arthritis Bilateral nephrolithiasis Diabetes mellitus (HCC) H/O: hysterectomy High cholesterol Staghorn calculus PAST SURGICAL HISTORY Procedure Laterality Date LIGATE FALLOPIAN TUBE Bilateral TOTAL ABDOM HYSTERECTOMY URETERAL STENT PLACEMENT 11/07/2022 No family history on file. Social History Tobacco Use Smoking status: Former Packs/day: 1 Types: Cigarettes Quit date: 03/31/1997 Years since quittin.7 Smokeless tobacco: Never Substance Use Topics Alcohol use: Yes Comment: social drinker on weekends Drug use: Never No current facility-administered medications on file prior to encounter. Current Outpatient Medications on File Prior to Encounter Medication Sig simvastatin (ZOCOR) 20 mg tablet Take 20 mg by mouth daily at bedtime. empagliflozin (JARDIANCE) 25 mg tablet Take 25 mg by mouth daily with breakfast. solifenacin 10 mg tablet Take 5 mg by mouth once daily. tamsulosin (FLOMAX) 0.4 mg Take 1 capsule by mouth once daily for 14 days. 30 minutes after the same meal each day. keTORolac (TORADOL) 10 mg tablet Take 10 mg by mouth every 12 hours as needed for pain. ondansetron (ZOFRAN) 4 mg tablet Take 4 mg by mouth every 8 hours as needed for nausea/vomiting. ibuprofen (MOTRIN) 800 mg tablet Take 800 mg by mouth every 6 hours as needed. ALLERGIES Allergen Reactions Penicillins Rash Verbal- not for sure of reaction Percocet [Oxycodone* Vomiting Sulfa (Sulfonamide * Rash Verbal- not for sure of reaction REVIEW OF SYSTEMS GENERAL: No weight loss, malaise or fevers NEURO: No history of headaches, syncope, paralysis, seizures or tremors RESPIRATORY: +former smoker Negative for cough, hemoptysis, wheezing, COPD, dyspnea or shortness of breath CARDIOVASCULAR: +HLD Negative for chest pain, leg swelling, hypertension, CHF or palpitations GI: No nausea, vomiting, or diarrhea : No history of dysuria, frequency or incontinence, See HPI ENDOCRINE: +DMII Denies any history of other endocrine symptoms/problems. HEMATOLOGY/LYMPHOLOGY : Negative for prolonged bleeding, bruising easily or swollen nodes SKIN: Negative for rashes Objective BP 110/72 Temp (Src) 97 (Temporal) Resp 16 SpO2 98% O2 Therapy: Room Air PHYSICAL EXAM: The remainder of the physical exam is noncontributory. GENERAL: Alert and oriented SKIN: Normal color, no rash, no lesions. LUNGS: Lungs clear to auscultation, Good diaphragmatic excursion CARDIAC: Normal S1 and S2; no rubs, murmurs, or gallops, RRR NEUROLOGICAL: Normal cognition and motor skills. Diagnostic tests reviewed for today's visit: Lab Value Units Date High Low HB 9.2 g/dL 12/12/2022 15.5 11.5 HCT 28.0 % 12/12/2022 46.0 36.0 WBC 15.79 k/uL 12/12/2022 11.00 3.70 PLT 238 k/uL 12/12/2022 400 150 NA 140 mmol/L 12/11/2022 144 136 K 4.0 mmol/L 12/11/2022 5.1 3.7 GLUC 265 mg/dL 12/11/2022 99 74 BUN 12 mg/dL 12/11/2022 21 7 CREAT 0.64 mg/dL 12/11/2022 0.96 0.58 PTSEC 9.7 sec 11/29/2022 13.0 9.7 INR 0.9 no uni* 11/29/2022 1.3 0.9 APTT 27.1 sec 11/29/2022 32.4 23.0 ALT 17 U/L 11/29/2022 38 7 AST 22 U/L 11/29/2022 35 13 TBILI 0.4 mg/dL 11/29/2022 1.3 0.2 TSH No results within date range. Lab Value Units Date High Low HCGQT No results within date range. UHCG No results within date range. HCG, BODY* No results within date range. Lab Value Units Date High Low ABORHD No results within date range. ABSCREEN No results within date range. No results found for: HBA1C No new labs or tests Labs reviewed from 12/23/22- Scanned into chart. Airway: METS: Climb a flight of stairs or walk up a hill (5.50 METs) Patient denies any chest pain or undue shortness of breath with the above physical activity. ANESTHESIA FINDINGS: Intubation History: No history of difficult intubation Significant Anesthesia Considerations: None Airway Exam: General: Normal appearance Mallampati Score is CLASS II Neck: Normal appearance and function, Distance from hyoid to mentum during neck extension is at least 3 finger breath (more content not included)... Normal [facility] OPERATIVE NOon 01-06-2023 OPERATIVE NO HNO ID: [id number] Author: Farheen Thompson MD Service: Urology Author Type: Physician Type: Operative Report Filed: 01/06/2023 8:49 AM Note Text: OPERATIVE/PROCEDURE REPORT LOG ID: [id number] NAME: Krystina Saldivar : 1960 Surgery/Procedure Date: 01/06/2023 Incision/Procedure Start Time: 7:56 AM Incision Close/Procedure End Time: 8:43 AM Surgeon(s)/Procedural ist(s) and Orthotic Aide(s): Surgeon(s) and Role: * Farheen Thompson MD - Primary * Kade Posey MD - Resident - Assisting Operation: Cystourethroscopy with: LEFT ureteroscopy and pyleoscopy with, stone extraction with removal of double J ureteral stent Physician time for fluoroscopic imaging and interpretation <1hr Anatomic Site: Kidney, Laterality: Left Ureter, Laterality: Left Approach: Endoscopic Device/ Drain: none EBL: 0ml IV Fluid Intake: 1500ml Urine Output: Not applicable/ Not measured Specimens/Cultures: ID Type Source Tests Collected by Time Destination 1 : Left Kidney Stones Calculus CALCULI/CALCULUS CALCULI ANALYSIS Farheen Thompson MD 01/06/2023 8:13 AM Anesthesia: General Findings: Stone Medicine Bow: Primary stone 6 mm lower pole; All other mm stones in the lower pole Irrigation: Deville bag; max pressure gravity Fluoroscopy: Time: 14.6 s; Cumulative dose: 1.95 mGy Anatomic Findings: stones in the lower pole. Very small round Other: edema at the ureteral orifice. Operative Indications: This is a 62 year old year old female with LEFT nephrolithiasis and s/p complex PCNL. Calculus/ calculi were identified on preoperative imaging and the patient after discussing the risks, benefits, and alternatives of the procedure has elected to pursue endoscopic management. Procedure Details: The patient was correctly identified and the operative plan was confirmed with the patient and the operative team. An appropriate dose of antibiotics (Ancef) was administered intravenously within 1 hour prior to the procedure and sequential compression devices were applied to the lower extremities and activated prior to induction of anesthesia. General anesthesia was induced. The patient was placed in lithotomy position. All pressure points were padded per protocol and the operative area was prepped and draped in the standard sterile fashion. Visualization Developer fluoroscopy was performed and the calculus identified on preoperative imaging appeared radiopaque. A rigid cystoscope was inserted into the urethral meatus, and cystourethroscopy was performed. A 0.038 glidewire was then passed through the left ureteral orifice advanced in retrograde fashion to the renal pelvis under fluoroscopic guidance. A Storz flexible ureteroscope was then advanced into the renal pelvis. Systematic pyeloscopy was performed.The stones were identified. The stones were removed using a Halo basket or N'Compass basket. A limited retrograde pyelogram was performed and there were no filling defects or extravasation noted. Pyeloscopy performed agai to ensure all calyces were seen. The scope was then removed and the ureter was examined upon removal of the scope, and there were no residual fragments or injury along the course of the ureter. The bladder was drained, stone fragments sent for analysis, the patient repositioned in supine position, extubated and transferred to the PACU in stable condition. Accidental Punctures or Lacerations: Not applicable Complications: None Pre-Op/Pre-Procedure Diagnosis: left calculus/calculi Post-Op/Post-Procedur e Diagnosis: consistent with pre-procedural diagnosis. Post-Op Plan of Care: F/up in 1 month I/primary surgeon/proceduralist performed the procedure with assistance. SIGNATURE: Farheen Thompson MD PATIENT NAME: Krystina Saldivar DATE: January 06, 2023 TIME: 8:45 AM PAGER/CONTACT #: [phone] [facility] 12-23-2022 BRIAN Telephone (UROBEAU) KRYSTINA SALDIVAR ([id number]) 1960 F Date Time Provider Department 12/23/22 NICHOLE MORGAN During your visit today, we recorded the following information about you: Nichole Morgan RN 12/23/2022 12:54 PM Addendum Called and spoke with patient to update her regarding her stone analysis results. Informed her that the stone was uric acid and that Dr. Thompson would like her to start potassium citrate for dissolution and prevention of stent encrustation. She would like patient to follow up with [facility] and complete a 24 hour urine test. Will request for [facility] to be sent to patient, provided office number to arrange follow up in about 6-8 weeks. Advised that she should complete the 24 hour urine test after her procedure in December. Patient states she completed her pre-op labs and culture today at [facility], will wait for those results to be sent over. Patient currently not scheduled for PACC or midlevel HANDP. Requested for schedulers to schedule patient for either Virtual PACC appointment since she just completed one on 11/29 or mid level HANDP morning of surgery. Patient voiced understanding. Nichole Morgan RN December 23, 2022 12:54 PM Nichole Morgan RN 12/25/2022 9:03 AM Signed Called patient to inform her that external labs and ucx were received. Given ucx results of mixed micro, will have 3 day course of antibiotics sent in to begin 3 days prior to surgery. Patient aware she should start on 01/03. Nichole Morgan RN December 25, 2022 9:02 AM Nichole Morgan RN 12/25/2022 9:03 AM Signed Addended by: NICHOLE MORGAN on: 12/25/2022 09:03 AM Modules accepted: Orders Matilda Gray MD 12/25/2022 5:19 PM Signed Addended by: MATILDA GRAY on: 12/25/2022 05:19 PM Modules accepted: Orders Allergies As of Date: 12/23/2022 Noted Allergy Reaction PENICILLINS 11/18/2022 2 - Rash Comments: Verbal- not for sure of reaction PERCOCET (OXYCODONE-ACETAMINOP HEN)11/18/2022 11 - Vomiting SULFA (SULFONAMIDE ANTIBIOTICS) 11/18/2022 2 - Rash Comments: Verbal- not for sure of reaction Date Reviewed: 12/11/2022 Reviewed by: Sweetie Zhu RN - Fully Assessed Reason for Visit: Results [95] Primary Visit Diagnosis:Urinary tract infection without hematuria, site unspecified [N39.0] Order(s):ciprofloxaci n HCl (CIPRO) 500 mg tabletTake 1 tablet by mouth twice daily for 3 days. Please start 3 days prior to surgeryDisp: 6 tabletRfl: 0 Prescriptions as of 12/25/2022 - ciprofloxacin HCl (CIPRO) 500 mg tablet Take 1 tablet by mouth twice daily for 3 days. Please start 3 days prior to surgery - potassium citrate ER (UROCIT-K 10) 10 mEq (1,080 mg) Take 2 tablets by mouth twice daily. - tamsulosin (FLOMAX) 0.4 mg Take 1 capsule by mouth once daily for 14 days. 30 minutes after the same meal each day. - simvastatin (ZOCOR) 20 mg tablet Take 20 mg by mouth daily at bedtime. - empagliflozin (JARDIANCE) 25 mg tablet Take 25 mg by mouth daily with breakfast. - keTORolac (TORADOL) 10 mg tablet Take 10 mg by mouth every 12 hours as needed for pain. - solifenacin 10 mg tablet Take 5 mg by mouth once daily. - ondansetron (ZOFRAN) 4 mg tablet Take 4 mg by mouth every 8 hours as needed for nausea/vomiting. - ibuprofen (MOTRIN) 800 mg tablet Take 800 mg by mouth every 6 hours as needed. Problem List As Of Date 12/23/2022 Noted Resolved Nephrolithiasis [N20.0] 11/29/2022 Diabetes mellitus type 2, controlled, without c*11/29/2022 Hypercholesteremia [E78.00] 11/29/2022 Prescriptions ordered this encounter Disp Refills Start End CIPROFLOXACIN 500 MG TABLET 6 ta* 0 12/25/2022 12/28/2022 Route: ORAL Sig: Take 1 tablet by mouth twice daily for 3 days. Please start 3 days prior to surgery Encounter Status:Closed by NICHOLE MORGAN on 12/23/22 [facility] Luis 12-17-2022 CNPN Telephone (ALEX) KRYSTINA SALDIVAR ([id number]) 1960 F Date Time Provider Department 12/17/22 NICHOLE MORGAN During your visit today, we recorded the following information about you: Nichole Morgan RN 12/17/2022 10:58 AM Addendum Called and spoke with patient regarding incoming call message and symptoms: Patient had LPCNL surgery on 12/11/[address] Thompson. Patient states that she started to have numbness in her right hip down to her right knee cap since Friday12/13/2022. Since last night she also started to develop some numbness in her right arm, describing it as a heavy, tingling feeling, especially when she tries to lift her right arm up. She currently denies any erythema, swelling or pain in her arm or leg, also denies any chest tightness, shortness of breath, chest pain radiating to her right arm, facial weakness or trouble speaking. Patient is still able to walk despite the numbness, has still been able to sweep the floors, do her laundry and go for walks. Overall, her legs have not had any improvement since Friday, and her right arm continues to feel numb and tingly. Patient also states that since surgery her blood sugars have been elevated around 250-300. She spoke with her primary care provider today who prescribed Metformin, which she will take in combination with her Jardiance. Primary care provider advised that his office will be reaching back out to her today at some point regarding her numbness as well. Strongly encourage patient to go to the emergency room given right sided numbness and tingling and acute onset of right arm numbness. Voiced concerns for symptoms of a possible stroke. Patient states that she will continue to monitor but would ultimately like to speak with her PCP when he returns her call. She states she will have a low threshold for the emergency room should her numbness become worse or she develops any of the symptoms described above. Will provide update to Dr. Thompson. Patient would also like her stent removed locally after her 01/06 procedure and is inquiring if this can be set up now for two weeks after her surgery. Advised will consult with Dr. Thompson regarding this as well. Nichole Morgan RN December 17, 2022 10:35 AM ----- Message from Qian Sellers sent at 12/17/2022 8:58 AM EDT ----- Regarding: Post op update Contact: Pt has numbness down upper right leg, from hip to kneecap, feels like it's asleep. She said her sugar levels have also been high. She spoke with her local pcp and he recommended she reach out to our office. Could someone please advise and call her back? Thank you. Nichole Morgan RN 12/18/2022 10:19 AM Addendum Called and spoke with patient to to discuss update and inquire how she is feeling today. Patient states that her right arm is starting to feel better and the numbness has decreased, however, her right leg numbness has not decreased at this time. She also reports waking up last night with some mild, sharp pain in her right leg, She is not sure if it was just the way she was sleeping on her leg, but it is currently not painful. Patient states that she still has not heard from her primary care provider, but he should be following up with her today. Advised that there is a low suspicion for post-op neuropraxia since there was a 48 hour delay with the onset of symptoms. Again encouraged patient to report to the emergency room should her symptoms worsen, if she develops any severe continuous pain, or she develops any of the symptoms discussed yesterday. Patient voiced understanding. Nichole Morgan RN December 18, 2022 10:18 AM Allergies As of Date: 12/17/2022 Noted Allergy Reaction PENICILLINS 11/18/2022 2 - Rash Comments: Verbal- not for sure of reaction PERCOCET (OXYCODONE-ACETAMINOP HEN)11/18/2022 11 - Vomiting SULFA (SULFONAMIDE ANTIBIOTICS) 11/18/2022 2 - Rash Comments: Verbal- not for sure of reaction Date Reviewed: 12/11/2022 Reviewed by: Sweetie Zhu RN - Fully Assessed Reason for Visit: Returning Patient's Call [[id number]] Prescriptions as of 12/18/2022 - tamsulosin (FLOMAX) 0.4 mg Take 1 capsule by mouth once daily for 14 days. 30 minutes after the same meal each day. - simvastatin (ZOCOR) 20 mg tablet Take 20 mg by mouth daily at bedtime. - empagliflozin (JARDIANCE) 25 mg tablet Take 25 mg by mouth daily with breakfast. - keTORolac (TORADOL) 10 mg tablet Take 10 mg by mouth every 12 hours as needed for pain. - solifenacin 10 mg tablet Take 5 mg by mouth once daily. - ondansetron (ZOFRAN) 4 mg tablet Take 4 mg by mouth every 8 hours as needed for nausea/vomiting. - ibuprofen (MOTRIN) 800 mg tablet Take 800 mg by mouth every 6 hours as needed. Problem List As Of Date 12/17/2022 Noted Resolved (more content not included)... Normal [facility] 12-13-2022 [facility] Telephone (URFMOB) KRYSTINA SALDIVAR ([id number]) 1960 F Date Time Provider Department 12/13/22 FARHEEN THOMPSON During your visit today, we recorded the following information about you: Camila Chaney 12/13/2022 9:35 AM Signed Patient scheduled for surgery on 01/06 at [facility] for CYSTOURETHROSCOPY W/ URETEROSCOPY AND/OR PYELOSCOPY W/ LITHOTRIPSY INCLUDE INSERTION OF INDWELLING URETERAL STENT . Patient will be informed of surgery time the day before surgery between 1pm-4pm. [facility] will contact patient if appointment is needed. Was Urine Culture ordered or done: Yes done at local hospital Does patient have catheter or nephrostomy tube:No If yes was Urology nurse appointment made: NA Was lab appointment made: NA Date range patient was told to go to lab: NA Faxed order to local hospital Allergies As of Date: 12/13/2022 Noted Allergy Reaction PENICILLINS 11/18/2022 2 - Rash Comments: Verbal- not for sure of reaction PERCOCET (OXYCODONE-ACETAMINOP HEN)11/18/2022 11 - Vomiting SULFA (SULFONAMIDE ANTIBIOTICS) 11/18/2022 2 - Rash Comments: Verbal- not for sure of reaction Date Reviewed: 12/11/2022 Reviewed by: Sweetie Zhu, RN - Fully Assessed Reason for Visit: Scheduling [3921] Prescriptions as of 12/13/2022 - cephALEXin (KEFLEX) 500 mg capsule Take 1 capsule by mouth three times daily for 3 days. - phenazopyridine (PYRIDIUM) 200 mg tablet Take 1 tablet by mouth three times daily as needed for pain for up to 3 days. - tamsulosin (FLOMAX) 0.4 mg Take 1 capsule by mouth once daily for 14 days. 30 minutes after the same meal each day. - simvastatin (ZOCOR) 20 mg tablet Take 20 mg by mouth daily at bedtime. - empagliflozin (JARDIANCE) 25 mg tablet Take 25 mg by mouth daily with breakfast. - keTORolac (TORADOL) 10 mg tablet Take 10 mg by mouth every 12 hours as needed for pain. - solifenacin 10 mg tablet Take 5 mg by mouth once daily. - ondansetron (ZOFRAN) 4 mg tablet Take 4 mg by mouth every 8 hours as needed for nausea/vomiting. - ibuprofen (MOTRIN) 800 mg tablet Take 800 mg by mouth every 6 hours as needed. Problem List As Of Date 12/13/2022 Noted Resolved Nephrolithiasis [N20.0] 11/29/2022 Diabetes mellitus type 2, controlled, without c*11/29/2022 Hypercholesteremia [E78.00] 11/29/2022 Encounter Status:Closed by CAMILA CHANEY on 12/13/22 Normal [facility] CBC W Auto Differential pane l (Bld)on 12-12-2022 Basophils (Bld) [#/Vol] 10*3/uL Normal <0.11 [facility] Comment on above: Order Comment: Speci men Type: BLOOD SPECIMENOrdering Facility: [facility] Address: [address] [place] [address] Performed By: #### 5 7021-8 ####[facility] LABIA [id number] [address] [place] Basophils/100 WBC (Bld) 0.1 % Normal [facility] Comment on above: Order Comment: Speci men Type: BLOOD SPECIMENOrdering Facility: [facility] Address: [address] [place] [address] Performed By: #### 5 7021-8 ####[facility] LABCLIA [id number] [place] [address] [place] Differential cell count method Nom (Bld) Auto Normal [facility] Comment on above: Order Comment: Speci men Type: BLOOD SPECIMENOrdering Facility: [facility] Address: [address] [address] Performed By: #### 5 7021-8 ####[facility] LABCLIA [id number] [address] [place] Eosinophils (Bld) [#/Vol] 10*3/uL Normal <0.46 [facility] Comment on above: Order Comment: Speci men Type: BLOOD SPECIMENOrdering Facility: [facility] Address: [address] [place] [address] Performed By: #### 5 7021-8 ####[facility] LABCLIA [id number] [place] [address] [place] Eosinophils/100 WBC (Bld) 0.0 % Normal [facility] Comment on above: Order Comment: Speci men Type: BLOOD SPECIMENOrdering Facility: [facility] Address: [address] [place] [address] Performed By: #### 5 7021-8 ####[facility] LABCLIA [id number] [place] [address] [place] Erythrocyte distribution width (RBC) [Ratio] 12.0 % Normal 11.5-15.0 [facility] Comment on above: Order Comment: Speci men Type: BLOOD SPECIMENOrdering Facility: [facility] Address: [address] [place], [place] [address] Performed By: #### 5 7021-8 ####[facility] LABCLIA [id number] [place] [address] [place] Hematocrit (Bld) [Volume fraction] 28.8 % Low 36.0-46.0 [facility] Comment on above: Order Comment: Speci men Type: BLOOD SPECIMENOrdering Facility: [facility] Address: [address] [place], [place] [address] Performed By: #### 5 7021-8 ####[facility] LABCLIA [id number] [place] [address] [place] Hemoglobin (Bld) [Mass/Vol] 9.6 g/dL Low 11.5-15.5 [facility] Comment on above: Order Comment: Speci men Type: BLOOD SPECIMENOrdering Facility: [facility] Address: [address] Performed By: #### 5 7021-8 ####[facility] LABCLIA [id number] [place] [address] [place] Immature granulocytes (Bld) [#/Vol] 0.07 10*3/uL Normal <0.10 [facility] Comment on above: Order Comment: Speci men Type: BLOOD SPECIMENOrdering Facility: [facility] Address: [address] Performed By: #### 5 7021-8 ####[facility] LABCLIA [id number] [address] STATES OF [facility] Immature granulocytes/100 WBC (Bld) 0.8 % Normal [facility] Comment on above: Order Comment: Speci men Type: BLOOD SPECIMENOrdering Facility: [facility] Address: [address] [place], [place] [address] Performed By: #### 5 7021-8 ####[facility] LABCLIA [id number] [place] [address] [place] Lymphocytes (Bld) [#/Vol] 0.89 10*3/uL Low 1.00-4.00 [facility] Comment on above: Order Comment: Speci men Type: BLOOD SPECIMENOrdering Facility: [facility] Address: [address] Performed By: #### 5 7021-8 ####[facility] LABCLIA [id number] [place] [address] [place] Lymphocytes/100 WBC (Bld) 10.1 % Normal [facility] Comment on above: Order Comment: Speci men Type: BLOOD SPECIMENOrdering Facility: [facility] Address: [address] [place], [place] [address] Performed By: #### 5 7021-8 ####[facility] LABCLIA [id number] [address] STATES [facility] MCH (RBC) [Entitic mass] 30.7 pg Normal 26.0-34.0 [facility] Comment on above: Order Comment: Speci men Type: BLOOD SPECIMENOrdering Facility: [facility] Address: [address] [place] [address] Performed By: #### 5 7021-8 ####[facility] LABCLIA [id number] [address] MCHC (RBC) [Mass/Vol] 33.3 g/dL Normal 30.5-36.0 [facility] Comment on above: Order Comment: Speci men Type: BLOOD SPECIMENOrdering Facility: [facility] Address: [address] [place] [address] Performed By: #### 5 7021-8 ####[facility] LABIA [id number] [address] OF [facility] MCV (RBC) [Entitic vol] 92.0 fL Normal 80.0-100.0 [facility] Comment on above: Order Comment: Speci men Type: BLOOD SPECIMENOrdering Facility: [facility] Address: [address] [place] [address] Performed By: #### 5 7021-8 ####[facility] LABIA [id number] [place] [address] [place] Monocytes (Bld) [#/Vol] 0.21 10*3/uL Normal <0.87 [facility] Comment on above: Order Comment: Speci men Type: BLOOD SPECIMENOrdering Facility: [facility] Address: [address] [place], [place] [address] Performed By: #### 5 7021-8 ####[facility] LABCLIA [id number] [address] [place] Monocytes/100 WBC (Bld) 2.4 % Normal [facility] Comment on above: Order Comment: Speci men Type: BLOOD SPECIMENOrdering Facility: [facility] Address: [address] Performed By: #### 5 7021-8 ####[facility] LABCLIA [id number] [place] [address] [place] Neutrophils (Bld) [#/Vol] 7.66 10*3/uL High 1.45-7.50 [facility] Comment on above: Order Comment: Speci men Type: BLOOD SPECIMENOrdering Facility: [facility] Address: [address] [address] Performed By: #### 5 7021-8 ####[facility] LABCLIA [id number] [place] [address] [place] Neutrophils/100 WBC (Bld) 86.6 % Normal [facility] Comment on above: Order Comment: Speci men Type: BLOOD SPECIMENOrdering Facility: [facility] Address: [address] Performed By: #### 5 7021-8 ####[facility] LABCLIA [id number] [place] [address] [place] Nucleated RBC (Bld) [#/Vol] 10*3/uL Normal <0.01 [facility] Comment on above: Order Comment: Speci men Type: BLOOD SPECIMENOrdering Facility: [facility] Address: [address] Performed By: #### 5 7021-8 ####[facility] LABCLIA [id number] [place] [address] [place] Nucleated RBC/100 WBC (Bld) [Ratio] 0.0 /100 WBC Normal [facility] Comment on above: Order Comment: Speci men Type: BLOOD SPECIMENOrdering Facility: [facility] Address: [address] Performed By: #### 5 7021-8 ####[facility] LABCLIA [id number] [place] [address] [place] Platelet mean volume (Bld) [Entitic vol] 9.4 fL Normal 9.0-12.7 [facility] Comment on above: Order Comment: Speci men Type: BLOOD SPECIMENOrdering Facility: [facility] Address: [address] [place], [place] [address] Performed By: #### 5 7021-8 ####[facility] LABIA [id number] [place] [address] [place] Platelets (Bld) [#/Vol] 220 10*3/uL Normal 150-400 [facility] Comment on above: Order Comment: Speci men Type: BLOOD SPECIMENOrdering Facility: [facility] Address: [address] [place], [place] [address] Performed By: #### 5 7021-8 ####[facility] LABIA [id number] [place] [address] [place] RBC (Bld) [#/Vol] 3.13 10*6/uL Low 3.90-5.20 [facility] Comment on above: Order Comment: Speci men Type: BLOOD SPECIMENOrdering Facility: [facility] Address: [address] [place], [place] [address] Performed By: #### 5 7021-8 ####[facility] LABIA [id number] [place] [address] [place] WBC (Bld) [#/Vol] 8.84 10*3/uL Normal 3.70-11.00 [facility] Comment on above: Order Comment: Speci men Type: BLOOD SPECIMENOrdering Facility: [facility] Address: [address] [place], [place] [address] Performed By: #### 5 7021-8 ####[facility] LABIA [id number] [place] [address] [place] CBC panel Auto (Bld)on 12-12 Erythrocyte distribution width (RBC) [Ratio] 11.9 % Normal 11.5-15.0 [facility] Comment on above: Order Comment: Speci men Type: BLOOD SPECIMEN Ordering Facility: [facility] Address: [address] [place] [address] Performed By: #### 5 8410-2 #### [facility] LAB IA [id number] [address] [place] [address] [place] Hematocrit (Bld) [Volume fraction] 28.0 % Low 36.0-46.0 [facility] Comment on above: Order Comment: Speci men Type: BLOOD SPECIMEN Ordering Facility: [facility] Address: [address] [place] [address] Performed By: #### 5 8410-2 #### [facility] LAB [place] [id number] [address] [place] [address] [place] Hemoglobin (Bld) [Mass/Vol] 9.2 g/dL Low 11.5-15.5 [facility] Comment on above: Order Comment: Speci men Type: BLOOD SPECIMEN Ordering Facility: [facility] Address: [address] [place] [address] Performed By: #### 5 8410-2 #### [facility] [place] [id number] [address] [place] [address] [place] MCH (RBC) [Entitic mass] 30.4 pg Normal 26.0-34.0 [facility] Comment on above: Order Comment: Speci men Type: BLOOD SPECIMEN Ordering Facility: [facility] Address: [address] [place] [address] Performed By: #### 5 8410-2 #### [facility] CLIA [id number] [address] [place] [address] [place] MCHC (RBC) [Mass/Vol] 32.9 g/dL Normal 30.5-36.0 [facility] Comment on above: Order Comment: Speci men Type: BLOOD SPECIMEN Ordering Facility: [facility] Address: [address] [place] [address] Performed By: #### 5 8410-2 #### [facility] CLIA [id number] [address] [place] [address] [place] MCV (RBC) [Entitic vol] 92.4 fL Normal 80.0-100.0 [facility] Comment on above: Order Comment: Speci men Type: BLOOD SPECIMEN Ordering Facility: [facility] Address: [address] Performed By: #### 5 8410-2 #### [facility] CLIA [id number] [address] [place] [address] [place] Nucleated RBC (Bld) [#/Vol] 10*3/uL Normal <0.01 [facility] Comment on above: Order Comment: Speci men Type: BLOOD SPECIMEN Ordering Facility: [facility] Address: [address] [place] [address] Performed By: #### 5 8410-2 #### [facility] CLIA [id number] [address] [place] [address] [place] Platelet mean volume (Bld) [Entitic vol] 9.6 fL Normal 9.0-12.7 [facility] Comment on above: Order Comment: Speci men Type: BLOOD SPECIMEN Ordering Facility: [facility] Address: [address] [place] [address] Performed By: #### 5 8410-2 #### [facility] CLIA [id number] [address] [place] [address] [place] Platelets (Bld) [#/Vol] 238 10*3/uL Normal 150-400 [facility] Comment on above: Order Comment: Speci men Type: BLOOD SPECIMEN Ordering Facility: [facility] Address: [address] [id number] Performed By: #### 5 8410-2 #### [facility] CLIA [id number] [address] [place] [address] [place] RBC (Bld) [#/Vol] 3.03 10*6/uL Low 3.90-5.20 [facility] Comment on above: Order Comment: Speci men Type: BLOOD SPECIMEN Ordering Facility: [facility] Address: [address] [place] [address] Performed By: #### 5 8410-2 #### [facility] CLIA [id number] [address] [place] [address] [place] WBC (Bld) [#/Vol] 15.79 10*3/uL High 3.70-11.00 [facility] Comment on above: Order Comment: Speci men Type: BLOOD SPECIMEN Ordering Facility: [facility] Address: [address] [place] [address] Performed By: #### 5 8410-2 #### [facility] CLIA [id number] [address] [place] [address] [place] CNDSon 12-12-2022 CNDS HNO ID: [id number] Author: Farheen Thompson MD Service: Urology Author Type: Physician Type: Discharge Summary Filed: 12/12/2022 6:50 PM Note Text: [place] [address] or ([phone]) [facility] D E N T I A L I N F O R M A T I O N STANDARD [facility] DOCUMENT DISCHARGE SUMMARY Patient Name: Krystina Saldivar Patient Admission Date: 12/11/2022 Discharge Date: 12/12/2022 Attending Physician: Farheen Thompson MD Principal Diagnosis: Left Nephrolithiasis Operations During Hospitalization: Procedure(s) (LRB): standard and mini PERC NEPHROLITHOTOMY LITHOTRIPSY,STONE EXTRACTION,ANTEGRADE URETEROSCOPY,STENT PLACEMENT WHEN PERFORMED INCD IMAGING UP TO 2cm (Left) Procedures Performed While Hospitalized: Intubation Reason for Hospitalization: 62 year old female with of Arthritis,DM, Nephrolithiasis, left staghorn calculus. Hospital Course: Krystina Saldivar underwent Procedure(s) (LRB): standard and mini PERC NEPHROLITHOTOMY LITHOTRIPSY,STONE EXTRACTION,ANTEGRADE URETEROSCOPY,STENT PLACEMENT WHEN PERFORMED INCD IMAGING UP TO 2cm (Left) on 12/11/2022. Subsequently was transferred to a regular nursing unit. Pain was initially controlled with intravenous/oral analgesia. Then diet was advanced as tolerated and they were transitioned to oral pain medication as well as restarted on prior to admission medications. On post-operative day 1, CT Flank showed few residual left renal calculi which was non unexpected given the complexity and size of her initial stone burden. She was afebrile for approximately 24 hours, without signs of ongoing blood loss, ambulating without difficulty, tolerating a regular diet, passing flatus, and pain was adequately controlled with oral medication. The patient was discharged home with a plan for a second stage URS to remove the residual stones. The bishop catheter was removed and she passed a trial of void. Patient Condition at Discharge: Improved Discharge Disposition: Home Information Provided to the Patient: Patient was given a copy of Discharge Instructions Discharge Medications: Medication List START taking these medications cephALEXin 500 mg capsule Commonly known as: KEFLEX Take 1 capsule by mouth three times daily for 3 days. phenazopyridine 200 mg tablet Commonly known as: PYRIDIUM Take 1 tablet by mouth three times daily as needed for pain for up to 3 days. tamsulosin 0.4 mg Commonly known as: FLOMAX Take 1 capsule by mouth once daily for 14 days. 30 minutes after the same meal each day. CONTINUE taking these medications ibuprofen 800 mg tablet Commonly known as: MOTRIN JARDIANCE 25 mg tablet Generic drug: empagliflozin keTORolac 10 mg tablet Commonly known as: Toradol solifenacin 10 mg tablet ZOCOR 20 mg tablet Generic drug: simvastatin ZOFRAN 4 mg tablet Generic drug: ondansetron Where to Get Your Medications These medications were sent to e- [id number] [place] [address] - [address] [place] [address] [address] cephALEXin 500 mg capsule phenazopyridine 200 mg tablet tamsulosin 0.4 mg Future Appointments: No future appointments. Electronically SIGNED by Licensed Independent Practitioner: Kade Lake MD [facility] STAFF PHYSICIAN NOTE OF PERSONAL INVOLVEMENT IN CARE I have reviewed the consult/ progress note obtained and documented by the fellow, resident or mid level provider and I personally participated in the romero components as well as updated the note. I have discussed the case and management of the patient's care. Farheen Thompson MD [facility] KRYSTINA SALDIVAR ([id number]) 1960 F Date Time Provider Department 12/12/22 ELA ROB During your visit today, we recorded the following information about you: Ela Rob RN 12/12/2022 12:26 PM Signed Called patient to discuss scheduling surgery with Dr. Thompson. No answer, VM left. Ela Christian RN, RN 12/12/2022 1:15 PM Signed [facility] Sam[facility] RN (Call me) Pt missed your call below. She can be reached at the above number when you have a chance. Thanks Ela Rob RN 12/12/2022 1:30 PM Signed Returned patient's call and discussed scheduling her URS with Dr. Thompson. Patient agreed to first available January 06. She will do blood work and urine locally 2 weeks prior. Will fax orders to [facility]. Fax #: [phone] Patient is faxing short term disability paperwork to our office to fill out. Discussed return date for work to be January 13 to give time for recovery after PCNL and URS. 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 - phenazopyridine (PYRIDIUM) 200 mg tablet Take 1 tablet by mouth three times daily as needed for pain for up to 3 days. - tamsulosin (FLOMAX) 0.4 mg Take 1 capsule by mouth once daily for 14 days. 30 minutes after the same meal each day. - simvastatin (ZOCOR) 20 mg tablet Take 20 mg by mouth daily at bedtime. - empagliflozin (JARDIANCE) 25 mg tablet Take 25 mg by mouth daily with breakfast. - keTORolac (TORADOL) 10 mg tablet Take 10 mg by mouth every 12 hours as needed for pain. - solifenacin 10 mg tablet Take 5 mg by mouth once daily. - ondansetron (ZOFRAN) 4 mg tablet Take 4 mg by mouth every 8 hours as needed for nausea/vomiting. - ibuprofen (MOTRIN) 800 mg tablet Take 800 mg by mouth every 6 hours as needed. Facility-Administered Medications as of 12/12/2022 - ceFAZolin iv piggyback 1 g in D5W (iso-osmotic) 50 mL (ANCEF) - NaCl 0.9% iv flush bag - dextrose 15 gram/32 mL 15 g (TRUEPLUS) - glucagon 1 mg injection - dextrose 10% iv bolus - acetaminophen 650 mg tab(s) (TYLENOL) - docusate sodium 100 mg cap(s) (COLACE) - insulin lispro injection (rapid acting) (HumaLOG) - lactated ringers iv infusion - heparin 5,000 Units injection - phenazopyridine 200 mg tab(s) (PYRIDIUM) - trospium 20 mg tab(s) (SANCTURA) - tamsulosin 0.4 mg cap(s) (FLOMAX) - keTORolac 15 mg injection (Toradol) Problem List As Of Date 12/12/2022 Noted Resolved Nephrolithiasis [N20.0] 11/29/2022 Diabetes mellitus type 2, controlled, without c*11/29/2022 Hypercholesteremia [E78.00] 11/29/2022 Encounter Status:Closed by ELA ROB RN on 12/12/[address] [facility] [address] FLANK WO IVCONon 12-13-19 CT FLANK WO IVCON * * *Final Report* * * DATE OF EXAM: Dec 12 2022 7:26AM [facility] 0529 - CT FLANK WO IVCON / PROCEDURE REASON: Nephrolithiasis, symptomatic/complicat ed * * * * Physician Interpretation * * * * EXAMINATION: CT ABDOMEN AND PELVIS WITHOUT IV CONTRAST (Renal stone protocol) CLINICAL HISTORY: left staghorn calculus ?now 1 Day Post-Op?s/p L PCNL, URS and L JJ stent placement 12/11/2022. Assess for retained stones ? TECHNIQUE: Non-contrast imaging of the abdomen and pelvis was performed through the urinary tract. Study performed without intravenous or oral contrast to evaluate for urinary tract calculus. MQ: [id number] Contrast: IV contrast: None Oral contrast: None CT Radiation dose: Integrated dose-length product (DLP) for this visit = 182 mGy*cm. CT Dose Reduction Employed: Automated exposure control (AEC) COMPARISON: 11/04/2022 RESULT: Limitations: Unenhanced imaging is limited for the evaluation of some renal and other intra-abdominal and pelvic pathology. Urinary Tract: Right kidney and ureter: No calculus. No hydronephrosis. 1.1 cm RIGHT posterior interpolar region cyst. Left kidney and ureter: LEFT nephroureteral stent in place. Minimal bullous of the collecting system. Few residual small renal calculi are seen; largest lower pole calculus measures 6 mm (2:53, interpolar region calculus measures 5 mm (2:49) cluster of calculi in the upper calyceal system measures 7 mm. Small amount of calyceal gas, an expected change. Trace perinephric hemorrhagic products (2:50). Bladder: Urinary bladder is decompressed by a Bishop catheter. Abdomen and Pelvis: Liver: Unremarkable. Biliary: The gallbladder is unremarkable. Spleen: No splenomegaly. Pancreas: Unremarkable. Adrenals: Normal. GI Tract: No bowel dilation. Lymph Nodes: No lymphadenopathy. Mesentery/peritoneum: No ascites. Vasculature: Atherosclerotic aortoiliac calcification, no aneurysm. Pelvis: No mass or ascites. Bones and Soft Tissues: No acute abnormality. Lower thorax: Unremarkable. Visualization Developer (topogram) images: No additional findings. IMPRESSION: Few residual LEFT renal calculi as described. Mild colitis of the LEFT renal collecting system. Nephroureteral stent in place. Trace LEFT perinephric hemorrhagic products Reliability Specialist[facility] Transcribe Date/Time: Dec 12 2022 8:37A Dictated by : JENNIFER JEFF MD This examination was interpreted and the report reviewed and electronically signed by: JENNIFER JEFF MD on Dec 12 2022 8:47AM EST [id number] Normal [facility] Gas and Carbon monoxide pane l (BldV)on 12-12-2022 BASE DEFICIT, VENOUS -5 mmol/L Low -2-[facility] Comment on above: Order Comment: Speci men Type: VENOUS BLOOD SPECIMEN Ordering Facility: [facility] Address: [address] [place], [place] [address] Performed By: #### 2 4344-4 #### [facility] CLIA [id number] [address] [facility] [place] [address] [place] Body temperature 98.6 [degF] Normal [facility] Comment on above: Order Comment: Speci men Type: VENOUS BLOOD SPECIMEN Ordering Facility: [facility] Address: [address] [place], [place] [address] Performed By: #### 2 4344-4 #### [facility] CLIA [id number] [address] [place] [address] [place] Calcium.ionized (Bld) [Mass/Vol] 1.19 mmol/L Normal 1.08-1.30 [facility] Comment on above: Order Comment: Speci men Type: VENOUS BLOOD SPECIMEN Ordering Facility: [facility] Address: [address] [place], [place] [address] Performed By: #### 2 4344-4 #### [facility] [place] [id number] [address] [place] [address] [place] Calcium.ionized adjusted to pH 7.4 (BldA) [Moles/Vol] 1.20 mmol/L Normal 1.08-1.30 [facility] Comment on above: Order Comment: Speci men Type: VENOUS BLOOD SPECIMEN Ordering Facility: [facility] Address: [address] [place], [place] [address] Performed By: #### 2 4344-4 #### [facility] [place] [id number] [address] [place] [address] [place] Carboxyhemoglobin (BldV) [Mass fraction] 1.8 % Normal 0.0-2.0 [facility] Comment on above: Order Comment: Speci men Type: VENOUS BLOOD SPECIMEN Ordering Facility: [facility] Address: [address] [place] [address] Result Comment: Carb oxyhemoglobin Reference Range for Smokers: 2.0-8.0% Performed By: #### 2 4344-4 #### [facility] [place] [id number] [address] [place] [address] [place] CO2 (BldV) [Partial pressure] 28 mm[Hg] Low 42-55 [facility] Comment on above: Order Comment: Speci men Type: VENOUS BLOOD SPECIMEN Ordering Facility: [facility] Address: [address] [place] [address] Performed By: #### 2 4344-4 #### [facility] CLIA [id number] [address] [place] [address] [place] Glucose [Mass/Vol] 264 mg/dL High 60-105 [facility] Comment on above: Order Comment: Speci men Type: VENOUS BLOOD SPECIMEN Ordering Facility: [facility] Address: [address] [place] [address] Performed By: #### 2 4344-4 #### [facility] CLIA [id number] [address] [place] [address] [place] HCO3 (Bld) [Moles/Vol] 18 mmol/L Low 24-28 [facility] Comment on above: Order Comment: Speci men Type: VENOUS BLOOD SPECIMEN Ordering Facility: [facility] Address: [address] Performed By: #### 2 4344-4 #### [facility] CLIA [id number] [address] [place] [id number] [place] Hematocrit (Bld) [Volume fraction] 31.9 % Low 36.0-46.0 [facility] Comment on above: Order Comment: Speci men Type: VENOUS BLOOD SPECIMEN Ordering Facility: [facility] Address: [address] [place] [address] Performed By: #### 2 4344-4 #### [facility] CLIA [id number] [address] [place] [id number] [place] Hemoglobin (Bld) [Mass/Vol] 10.3 g/dL Low 11.5-15.5 [facility] Comment on above: Order Comment: Speci men Type: VENOUS BLOOD SPECIMEN Ordering Facility: [facility] Address: [address] [place] [address] Performed By: #### 2 4344-4 #### [facility] CLIA [id number] [address] [place] [id number] [place] Lactate [Moles/Vol] 4.0 mmol/L High 0.5-2.2 [facility] Comment on above: Order Comment: Speci men Type: VENOUS BLOOD SPECIMEN Ordering Facility: [facility] Address: [address] Performed By: #### 2 4344-4 #### [facility] CLIA [id number] [address] [place] [address] [place] Methemoglobin (Bld) [Mass fraction] 1.8 % High 0.0-1.5 [facility] Comment on above: Order Comment: Speci men Type: VENOUS BLOOD SPECIMEN Ordering Facility: [facility] Address: [address] [place] [address] Performed By: #### 2 4344-4 #### [facility] CLIA [id number] [address] [place] [address] [place] O2 THERAPY RA=Room Air Normal [facility] Comment on above: Order Comment: Speci men Type: VENOUS BLOOD SPECIMEN Ordering Facility: [facility] Address: [address] [place], [place] [address] Performed By: #### 2 4344-4 #### [facility] CLIA [id number] [address] [place] [address] [place] Oxygen (BldV) [Partial pressure] 113 mm[Hg] High 35-45 [facility] Comment on above: Order Comment: Speci men Type: VENOUS BLOOD SPECIMEN Ordering Facility: [facility] Address: [address] [place], [place] [address] Performed By: #### 2 4344-4 #### [facility] CLIA [id number] [address] [place] [address] [place] Oxygen saturation in Venous blood 99 % High 60-85 [facility] Comment on above: Order Comment: Speci men Type: VENOUS BLOOD SPECIMEN Ordering Facility: [facility] Address: [address] [place] [id number] Performed By: #### 2 4344-4 #### [facility] CLIA [id number] [address] [place] [address] [place] Oxyhemoglobin (BldV) [Mass fraction] 95 % High 60-85 [facility] Comment on above: Order Comment: Speci men Type: VENOUS BLOOD SPECIMEN Ordering Facility: [facility] Address: [address] [place] [address] Performed By: #### 2 4344-4 #### [facility] CLIA [id number] [address] [place] [address] [place] pH (BldV) 7.42 [pH] Normal 7.32-7.42 [facility] Comment on above: Order Comment: Speci men Type: VENOUS BLOOD SPECIMEN Ordering Facility: [facility] Address: [address] Performed By: #### 2 4344-4 #### [facility] CLIA [id number] [address] [place] [address] [place] Potassium [Moles/Vol] 4.3 mmol/L Normal 3.5-5.0 [facility] Comment on above: Order Comment: Speci men Type: VENOUS BLOOD SPECIMEN Ordering Facility: [facility] Address: [address] [place] [address] Performed By: #### 2 4344-4 #### [facility] CLIA [id number] [address] [place] [address] [place] Sodium [Moles/Vol] 137 mmol/L Normal 136-144 [facility] Comment on above: Order Comment: Speci men Type: VENOUS BLOOD SPECIMEN Ordering Facility: [facility] Address: [address] [place] [address] Performed By: #### 2 4344-4 #### [facility] CLIA [id number] [address] [place] [address] [place] ANES POSTPROC EVALon 023 ANES POSTPROC EVAL HNO ID: [id number] Author: Fran Medina MD Service: ? Author Type: Anesthesiologist Type: Anesthesia Postprocedure Evaluation Filed: 12/11/2022 6:30 PM Note Text: POST ANESTHESIA EVALUATION NOTE : 1960 Procedure Summary Date: 12/11/22 Room / Location: [address] Anesthesia Start: 1500 Anesthesia Stop: 1759 Procedure: standard and mini PERC NEPHROLITHOTOMY LITHOTRIPSY,STONE EXTRACTION,ANTEGRADE URETEROSCOPY,STENT PLACEMENT WHEN PERFORMED INCD IMAGING UP TO 2cm (Left: Kidney) Diagnosis: Nephrolithiasis (Nephrolithiasis [N20.0]) Surgeons: Farheen Thompson MD Responsible Provider: Fran Medina MD Anesthesia Type: general ASA Status: 3 Anesthesia Type: general Airway Type: ETT Last Vitals Vitals Value Taken Time BP 90/60 12/11/22 1815 Temp 12/11/22 1827 Pulse 71 12/11/22 1826 Resp 8 12/11/22 1826 SpO2 98 % 12/11/22 1826 Vitals shown include unvalidated device data. Post Anesthesia Patient Status Patient Evaluation: bedside. Neurological Status: sleepy but arousable. Pulmonary Status: breathing comfortably on supplemental oxygen Airway Control: returned to baseline unsupported. Cardiovascular Status: stable. Pain Management: clinically adequate Intraoperative Events: no significant anesthesia events Post Operative Nausea/Vomiting Status: no significant post operative nausea or vomiting Recommendation: continue current plan of care. Other Remarks: Baseline B/P appears to be systolic of 120. Intraoperatively had episodes of hypotension that responded to pressors and fluid.. Anesthesia Observations No Documentation SIGNATURE: Fran Medina MD PATIENT NAME: Krystina Saldivar DATE: December 11, 2022 TIME: 6:27 PM CSN: [id number] Normal [facility] ANES PRE-OPon 12-11-2022 ANES PRE-OP HNO ID: [id number] Author: Fran Medina MD Service: ? Author Type: Anesthesiologist Type: Anesthesia Preprocedure Evaluation Filed: 12/11/2022 3:29 PM Note Text: ANESTHESIOLOGY DAY OF SURGERY NOTE : 1960 Procedure Information Anesthesia Start Date/Time: 12/11/22 1500 Procedure: standard and mini PERC NEPHROLITHOTOMY LITHOTRIPSY,STONE EXTRACTION,ANTEGRADE URETEROSCOPY,STENT PLACEMENT WHEN PERFORMED INCD IMAGING UP TO 2cm (Left: Kidney) Location: MAIN OR[facility] Surgeons: Farheen Thompson MD Estimated body mass index is 23.89 kg/m? as calculated from the following: Height as of 11/29/22: 167.6 cm (5' 6 ). Weight as of 11/29/22: 67.1 kg (148 lb). Most recent hematocrit and potassium results: Hematocrit 44.3 11/29/2022 Potassium 4.2 11/29/2022 Relevant Problems No relevant active problems I - PHYSICAL EVALUATION AIRWAY Patient intubated: No. Tracheostomy tube not present Mallampati: II. TM distance: >3 FB. Neck ROM: full ROM without neurological symptoms. Mouth opening: adequate. Short neck: no. Thick neck: no II - ANESTHESIA PLAN ASA Score: 2 Anesthetic Plan: general Airway type: ETT Beta Maday Monitoring Plan Monitoring plan: standard ASA. Post Procedure Analgesic Plan Postoperative analgesic plan: multimodal analgesia. Informed Consent Anesthetic risks, benefits, alternatives, personnel and consent discussed: yes. Patient / Responsible Alliance Party agrees to proceed: yes Patient / Surrogate agrees to blood products: Yes Potential Anesthesia issues that may suggest increased risk of complications or contraindication to planned procedure: none. Vitals Value Taken Time BP 153/74 12/11/22 1034 Pulse Resp 18 12/11/22 1034 Temp 36.4 ?C (97.5 ?F) 12/11/22 1034 SpO2 99 % 12/11/22 1034 Facility-Administered Medications as of 12/11/2022 Medication Dose Route Frequency - lidocaine (PF) 10 mg/mL (1 %) 1-2 mg injection (XYLOCAINE) 0.1-0.2 mL INTRADERMAL PRN Or - lidocaine 1% 0.25 mL subcutaneous j-tip syringe (XYLOCAINE) 0.25 mL SUBCUTANEOUS PRN - NaCl 0.9% iv infusion 75 mL/hr INTRAVENOUS CONTINUOUS - NaCl 0.9% iv flush bag 20 mL INTRAVENOUS PRN - ceFAZolin iv piggyback 2 g in D5W (iso-osmotic) 100 mL (ANCEF) 2 g INTRAVENOUS Pre-Op Once No current outpatient medications on file as of 12/11/2022. I have interviewed and examined the patient. I have reviewed the medical record and/or the pre-anesthesia evaluation, pertinent labs, and test results. This contains updated information obtained within 48 hours of Surgery/Procedure. SIGNATURE: Fran Medina MD PATIENT NAME: Krystina Saldivar DATE: December 11, 2022 TIME: 3:29 PM CSN: [id number] Normal [facility] PRE-OP HNO ID: [id number] Author: Marek Friedman MD Service: ? Author Type: Anesthesiologist Type: Anesthesia Preprocedure Evaluation Filed: 12/11/2022 2:02 PM Note Text: ANESTHESIOLOGY DAY OF SURGERY NOTE : 1960 Procedure Information Date/Time: 12/11/22 1215 Procedure: standard and mini PERC NEPHROLITHOTOMY LITHOTRIPSY,STONE EXTRACTION,ANTEGRADE URETEROSCOPY,STENT PLACEMENT WHEN PERFORMED INCD IMAGING UP TO 2cm (Left: Kidney) Location: MA[facility] OR[facility] Surgeons: Farheen Thompson MD Estimated body mass index is 23.89 kg/m? as calculated from the following: Height as of 11/29/22: 167.6 cm (5' 6 ). Weight as of 11/29/22: 67.1 kg (148 lb). Most recent hematocrit and potassium results: Hematocrit 44.3 11/29/2022 Potassium 4.2 11/29/2022 Relevant Problems ENDO (+) Diabetes mellitus type 2, controlled, without complications (HCC) -RENAL (+) Nephrolithiasis I - PHYSICAL EVALUATION AIRWAY Patient intubated: No. Tracheostomy tube not present Mallampati: I. TM distance: >3 FB. Neck ROM: full ROM without neurological symptoms. Mouth opening: adequate. Short neck: no. Thick neck: no II - ANESTHESIA PLAN ASA Score: 3 Anesthetic Plan: general NPO Status: adequate Beta Maday Monitoring Plan Monitoring plan: standard ASA. Post Procedure Analgesic Plan Postoperative analgesic plan: multimodal analgesia. Informed Consent Anesthetic risks, benefits, alternatives, personnel and consent discussed: yes. Patient / Responsible Alliance Party agrees to proceed: yes Patient / Surrogate agrees to blood products: blood products not planned DNR status not reviewed with patient and/or family prior to surgery. Significant changes in the patient condition since the History and Physical, not otherwise documented in primary service progress note: no. Potential Anesthesia issues that may suggest increased risk of complications or contraindication to planned procedure: none. Vitals Value Taken Time BP 153/74 12/11/22 1034 Pulse Resp 18 12/11/22 1034 Temp 36.4 ?C (97.5 ?F) 12/11/22 1034 SpO2 99 % 12/11/22 1034 Facility-Administered Medications as of 12/11/2022 Medication Dose Route Frequency - lidocaine (PF) 10 mg/mL (1 %) 1-2 mg injection (XYLOCAINE) 0.1-0.2 mL INTRADERMAL PRN Or - lidocaine 1% 0.25 mL subcutaneous j-tip syringe (XYLOCAINE) 0.25 mL SUBCUTANEOUS PRN - NaCl 0.9% iv infusion 75 mL/hr INTRAVENOUS CONTINUOUS - NaCl 0.9% iv flush bag 20 mL INTRAVENOUS PRN - ceFAZolin iv piggyback 2 g in D5W (iso-osmotic) 100 mL (ANCEF) 2 g INTRAVENOUS Pre-Op Once No current outpatient medications on file as of 12/11/2022. I have interviewed and examined the patient. I have reviewed the medical record and/or the pre-anesthesia evaluation, pertinent labs, and test results. This contains updated information obtained within 48 hours of Surgery/Procedure. SIGNATURE: Marek Friedman MD PATIENT NAME: Krystina Saldivar DATE: December 11, 2022 TIME: 2:02 PM CSN: [id number] Normal [facility] BRIEF OP NOTon 12-11-2022 BRIEF OP NOT HNO ID: [id number] Author: Kade Posey MD Service: Urology Author Type: Resident Type: Brief Op Note Filed: 12/11/2022 5:47 PM Note Text: BRIEF OPERATIVE NOTE LOG ID: [id number] Surgery/Procedure Date: 12/11/2022 Incision/Procedure Start Time: 3:31 PM Incision Close/Procedure End Time: 5:34PM Surgeon(s)/Procedural ist(s) and Orthotic Aide(s): Surgeon(s) and Role: * Farheen Thompson MD - Primary * Kade Posey MD - Resident - Assisting No Additional Staff Procedure(s): Procedure(s): standard and mini PERC NEPHROLITHOTOMY LITHOTRIPSY,STONE EXTRACTION,ANTEGRADE URETEROSCOPY,STENT PLACEMENT WHEN PERFORMED INCD IMAGING UP TO 2cm Anesthesia: General Findings: Numerous large stones in Left renal pelvis and calyces. Removal of Left JJ stent, placement of new 6x26 JJ stent Estimated Blood Loss: 150 mls Specimens: ID Type Source Tests Collected by Time Destination 1 : Calculus CALCULI/CALCULUS CALCULI ANALYSIS Farheen Thompson MD 12/11/2022 5:22 PM Complications: None DRAINS: 16F Bishop catheter, Left 6x26 JJ stent Pre-Op/Pre-Procedure Diagnosis: Pre-Op Diagnosis Codes: * Nephrolithiasis [N20.0] Post-Op/Post-Procedur e Diagnosis: Same as Preop SIGNATURE: Kade Lake MD PATIENT NAME: Krystina Saldivar DATE: December 11, 2022 TIME: 5:44 PM PAGER/CONTACT #: [phone] Normal [facility] Basic metabolic 2000 panelon 12-11-2022 Anion gap [Moles/Vol] 8 mmol/L Low 9-18 [facility] Comment on above: Order Comment: Speci men Type: VENOUS BLOOD SPECIMEN Ordering Facility: [facility] Address: [address] [place] [address] Performed By: #### 2 4344-4 #### [facility] CLIA [id number] [address] [place] [address] [place] Calcium [Mass/Vol] 7.7 mg/dL Low 8.5-10.2 [facility] Comment on above: Order Comment: Speci men Type: VENOUS BLOOD SPECIMEN Ordering Facility: [facility] Address: [address] [place] [address] Performed By: #### 2 4344-4 #### [facility] CLIA [id number] [address] [place] [address] [place] Chloride [Moles/Vol] 112 mmol/L High 97-105 [facility] Comment on above: Order Comment: Speci men Type: VENOUS BLOOD SPECIMEN Ordering Facility: [facility] Address: [address] Performed By: #### 2 4344-4 #### [facility] CLIA [id number] [address] [place] [address] [place] CO2 [Moles/Vol] 20 mmol/L Low 22-30 [facility] Comment on above: Order Comment: Speci men Type: VENOUS BLOOD SPECIMEN Ordering Facility: [facility] Address: [address] [place] [address] Performed By: #### 2 4344-4 #### [facility] CLIA [id number] [facility] [place] Creatinine [Mass/Vol] 0.64 mg/dL Normal 0.58-0.96 [facility] Comment on above: Order Comment: Speci men Type: VENOUS BLOOD SPECIMEN Ordering Facility: [facility] Address: [address] Performed By: #### 2 4344-4 #### [facility] CLIA [id number] [address] [place] [address] [facility] Creatinine and Glomerular filtration rate.predicted panel (S/P/Bld) 101 mL/min/1.73m??? Normal >=60 [facility] Comment on above: Order Comment: Speci men Type: VENOUS BLOOD SPECIMEN Ordering Facility: [facility] Address: [address] Result Comment: Aranza mated Glomerular Filtration Rate (eGFR) is calculated using the 2020 CKD-EPI creatinine equation. This equation utilizes serum creatinine, sex, and age as parameters. The creatinine assay has traceable calibration to isotope dilution-mass spectrometry. Refer to KDIGO guidelines for clinical interpretation. In patients with unstable renal function, e.g. those with acute kidney injury, the eGFR may not accurately reflect actual GFR. Performed By: #### 2 4344-4 #### [facility] CLIA [id number] [address] [place] [address] [place] Glucose [Mass/Vol] 265 mg/dL High 74-99 [facility] Comment on above: Order Comment: Speci men Type: VENOUS BLOOD SPECIMEN Ordering Facility: [facility] Address: [address] [address] Result Comment: The [place] [employer] (ADA) provides guidance for cutoff values for fasting glucose and random glucose. The ADA defines fasting as no caloric intake for at least 8 hours. Fasting plasma glucose results between 100 to 125 mg/dL indicate increased risk for diabetes (prediabetes). Fasting plasma glucose results greater than or equal to 126 mg/dL meet the criteria for diagnosis of diabetes. In the absence of unequivocal hyperglycemia, results should be confirmed by repeat testing. In a patient with classic symptoms of hyperglycemia or hyperglycemic crisis, random plasma glucose results greater than or equal to 200 mg/dL meet the criteria for diagnosis of diabetes. Reference: Standards of Medical Care in Diabetes 2016, [place] [employer]. Diabetes Care. 2016.39(Suppl 1). Performed By: #### 2 4344-4 #### [facility] CLIA [id number] [address] [place] [address] [place] Potassium [Moles/Vol] 4.0 mmol/L Normal 3.7-5.1 [facility] Comment on above: Order Comment: Speci men Type: VENOUS BLOOD SPECIMEN Ordering Facility: [facility] Address: [address] Performed By: #### 2 4344-4 #### [facility] CLIA [id number] [address] [place] [address] [place] Sodium [Moles/Vol] 140 mmol/L Normal 136-144 [facility] Comment on above: Order Comment: Speci men Type: VENOUS BLOOD SPECIMEN Ordering Facility: [facility] Address: [address] [address] Performed By: #### 2 4344-4 #### [facility] CLIA [id number] [address] [place] [address] [place] Urea nitrogen [Mass/Vol] 12 mg/dL Normal 7-21 [facility] Comment on above: Order Comment: Speci men Type: VENOUS BLOOD SPECIMEN Ordering Facility: [facility] Address: [address] [place] [address] Performed By: #### 2 4344-4 #### [facility] CLIA [id number] [address] [place] [address] [place] CALCULI ANALYSISon 3 Calculus analysis [Interp] Normal [facility] Comment on above: Order Comment: Speci men Type: VENOUS BLOOD SPECIMEN Ordering Facility: [facility] Address: [address] [place] [address] Result Comment: This test was developed and its performance characteristics determined by [facility] [place] ([facility]). It has not been cleared or approved by the FDA. [facility] is regulated under CLIA as qualified to perform high-complexity testing. This test is used for clinical purposes. It should not be regarded as investigational or for research. Performed By: #### 2 4344-4 #### [facility] CLIA [id number] [address] [place] [address] [place] CALCULUS COLOR FABIAN Normal [facility] Comment on above: Order Comment: Speci men Type: VENOUS BLOOD SPECIMEN Ordering Facility: [facility] Address: [address] Performed By: #### 2 4344-4 #### [facility] CLIA [id number] [address] [place] [place] [address] [place] CALCULUS COMPOSITION 1 100% Uric Acid Normal [facility] Comment on above: Order Comment: Speci men Type: VENOUS BLOOD SPECIMEN Ordering Facility: [facility] Address: [address] [place] [address] Performed By: #### 2 4344-4 #### [facility] CLIA [id number] [address] [place] [address] [place] CALCULUS SIZE AND WT Multiple pieces. 6.9620 GRAMS Normal [facility] Comment on above: Order Comment: Speci men Type: VENOUS BLOOD SPECIMEN Ordering Facility: [facility] Address: [address] [place] [address] Performed By: #### 2 4344-4 #### [facility] CLIA [id number] [address] [place] [address] [place] CALCULUS TYPE Calculus, CALCULI/CALCULUS Normal [facility] Comment on above: Order Comment: Speci men Type: VENOUS BLOOD SPECIMEN Ordering Facility: [facility] Address: [address] [place] [address] Performed By: #### 2 4344-4 #### [facility] CLIA [id number] [address] [place] [address] [place] CBC W Auto Differential pane l (Bld)on 12-11-2022 Basophils (Bld) [#/Vol] 0.03 10*3/uL Normal <0.11 [facility] Comment on above: Order Comment: Speci men Type: BLOOD SPECIMENOrdering Facility: [facility] Address: [address] [place] [address] Performed By: #### 5 7021-8 ####[facility] [id number] [place] [address] [place] Basophils/100 WBC (Bld) 0.4 % Normal [facility] Comment on above: Order Comment: Speci men Type: BLOOD SPECIMENOrdering Facility: [facility] Address: [address] [place] [address] Performed By: #### 5 7021-8 ####[facility] [id number] [place] [address] [place] Differential cell count method Nom (Bld) Auto Normal [facility] Comment on above: Order Comment: Speci men Type: BLOOD SPECIMENOrdering Facility: [facility] Address: [address] Performed By: #### 5 7021-8 ####[facility] [id number] [place] [address] [place] Eosinophils (Bld) [#/Vol] 0.09 10*3/uL Normal <0.46 [facility] Comment on above: Order Comment: Speci men Type: BLOOD SPECIMENOrdering Facility: [facility] Address: [address] Performed By: #### 5 7021-8 ####[facility] [id number] [address] [place] Eosinophils/100 WBC (Bld) 1.2 % Normal [facility] Comment on above: Order Comment: Speci men Type: BLOOD SPECIMENOrdering Facility: [facility] Address: [address] [place], [place] [address] Performed By: #### 5 7021-8 ####[facility] [id number] [place] [address] [place] Erythrocyte distribution width (RBC) [Ratio] 12.0 % Normal 11.5-15.0 [facility] Comment on above: Order Comment: Speci men Type: BLOOD SPECIMENOrdering Facility: [facility] Address: [address] Performed By: #### 5 7021-8 ####[facility]IA [id number] [place] [address] [place] Hematocrit (Bld) [Volume fraction] 35.2 % Low 36.0-46.0 [facility] Comment on above: Order Comment: Speci men Type: BLOOD SPECIMENOrdering Facility: [facility] Address: [address] Performed By: #### 5 7021-8 ####[facility]IA [id number] [place] [address] [place] Hemoglobin (Bld) [Mass/Vol] 11.4 g/dL Low 11.5-15.5 [facility] Comment on above: Order Comment: Speci men Type: BLOOD SPECIMENOrdering Facility: [facility] Address: [address] [place] [address] Performed By: #### 5 7021-8 ####[facility] [id number] [place] [address] [place] Immature granulocytes (Bld) [#/Vol] 0.05 10*3/uL Normal <0.10 [facility] Comment on above: Order Comment: Speci men Type: BLOOD SPECIMENOrdering Facility: [facility] Address: [address] [place] [address] Performed By: #### 5 7021-8 ####[facility]IA [id number] [place] [address] [place] Immature granulocytes/100 WBC (Bld) 0.7 % Normal [facility] Comment on above: Order Comment: Speci men Type: BLOOD SPECIMENOrdering Facility: [facility] Address: [address] [place] [address] Performed By: #### 5 7021-8 ####[facility]IA [id number] [place] [address] [place] Lymphocytes (Bld) [#/Vol] 1.35 10*3/uL Normal 1.00-4.00 [facility] Comment on above: Order Comment: Speci men Type: BLOOD SPECIMENOrdering Facility: [facility] Address: [address] [place] [address] Performed By: #### 5 7021-8 ####[facility]IA [id number] [place] [address] [place] Lymphocytes/100 WBC (Bld) 18.2 % Normal [facility] Comment on above: Order Comment: Speci men Type: BLOOD SPECIMENOrdering Facility: [facility] Address: [address] [place], [place] [address] Performed By: #### 5 7021-8 ####[facility]CLIA [id number] [address] STATES OF [facility] MCH (RBC) [Entitic mass] 30.4 pg Normal 26.0-34.0 [facility] Comment on above: Order Comment: Speci men Type: BLOOD SPECIMENOrdering Facility: [facility] Address: [address] [place], [place] [address] Performed By: #### 5 7021-8 ####[facility]IA [id number] [address] [place] MCHC (RBC) [Mass/Vol] 32.4 g/dL Normal 30.5-36.0 [facility] Comment on above: Order Comment: Speci men Type: BLOOD SPECIMENOrdering Facility: [facility] Address: [address] [place], [place] [address] Performed By: #### 5 7021-8 ####[facility]CLIA [id number] [place] [address] [place] MCV (RBC) [Entitic vol] 93.9 fL Normal 80.0-100.0 [facility] Comment on above: Order Comment: Speci men Type: BLOOD SPECIMENOrdering Facility: [facility] Address: [address] [place], [place] [address] Performed By: #### 5 7021-8 ####[facility]IA [id number] [place] [address] [place] Monocytes (Bld) [#/Vol] 0.20 10*3/uL Normal <0.87 [facility] Comment on above: Order Comment: Speci men Type: BLOOD SPECIMENOrdering Facility: [facility] Address: [address] Performed By: #### 5 7021-8 ####[facility]IA [id number] [address] [place] Monocytes/100 WBC (Bld) 2.7 % Normal [facility] Comment on above: Order Comment: Speci men Type: BLOOD SPECIMENOrdering Facility: [facility] Address: [address] Performed By: #### 5 7021-8 ####[facility]IA [id number] [place] [address] [place] Neutrophils (Bld) [#/Vol] 5.69 10*3/uL Normal 1.45-7.50 [facility] Comment on above: Order Comment: Speci men Type: BLOOD SPECIMENOrdering Facility: [facility] Address: [address] Performed By: #### 5 7021-8 ####[facility]IA [id number] [place] [address] [place] Neutrophils/100 WBC (Bld) 76.8 % Normal [facility] Comment on above: Order Comment: Speci men Type: BLOOD SPECIMENOrdering Facility: [facility] Address: [address] Performed By: #### 5 7021-8 ####[facility]IA [id number] [place] [address] [place] Nucleated RBC (Bld) [#/Vol] 10*3/uL Normal <0.01 [facility] Comment on above: Order Comment: Speci men Type: BLOOD SPECIMENOrdering Facility: [facility] Address: [address] Performed By: #### 5 7021-8 ####[facility]IA [id number] [place] [address] [place] Nucleated RBC/100 WBC (Bld) [Ratio] 0.0 /100 WBC Normal [facility] Comment on above: Order Comment: Speci men Type: BLOOD SPECIMENOrdering Facility: [facility] Address: [address] [place] [address] Performed By: #### 5 7021-8 ####[facility]IA [id number] [place] [address] [place] Platelet mean volume (Bld) [Entitic vol] 9.2 fL Normal 9.0-12.7 [facility] Comment on above: Order Comment: Speci men Type: BLOOD SPECIMENOrdering Facility: [facility] Address: [address] [place] [address] Performed By: #### 5 7021-8 ####[facility]IA [id number] [place] [address] [place] Platelets (Bld) [#/Vol] 216 10*3/uL Normal 150-400 [facility] Comment on above: Order Comment: Speci men Type: BLOOD SPECIMENOrdering Facility: [facility] Address: [address] [place], [place] [address] Performed By: #### 5 7021-8 ####[facility]IA [id number] [place] [address] [place] RBC (Bld) [#/Vol] 3.75 10*6/uL Low 3.90-5.20 [facility] Comment on above: Order Comment: Speci men Type: BLOOD SPECIMENOrdering Facility: [facility] Address: [address] [place], [place] [address] Performed By: #### 5 7021-8 ####[facility]IA [id number] [place] [address] [place] WBC (Bld) [#/Vol] 7.41 10*3/uL Normal 3.70-11.00 [facility] Comment on above: Order Comment: Speci men Type: BLOOD SPECIMENOrdering Facility: [facility] Address: [address] [facility] [place] [address] Performed By: #### 5 7021-8 ####[facility]IA [id number] FÁTIMA RAMIREZ [id number] [place] [address] [place] OPERATIVE NOon 12-11-2022 OPERATIVE NO HNO ID: [id number] Author: Farheen Thompson MD Service: Urology Author Type: Physician Type: Operative Report Filed: 12/12/2022 12:49 PM Note Text: OPERATIVE/PROCEDURE REPORT LOG ID: [id number] NAME: Krystina Saldivar : 1960 Surgery/Procedure Date: 12/11/2022 Incision/Procedure Start Time: 3:31 PM Incision Close/Procedure End Time: 5:34 PM Surgeon(s)/Procedural ist(s) and Orthotic Aide(s): Surgeon(s) and Role: * Farheen Thompson MD - Primary * Kade Posey MD - Resident - Assisting Procedure(s): Cystourethroscopy Laterality: LEFT Retrograde pyelogram Percutaneous renal access with ultrasound guidance and fluoroscopic confirmation Flexible ureteroscopy - antegrade and retrograde Dilation of renal access tract to 18Fr percutaneous nephrolithotomy > 2 cm max dimension, using Laser lithotripsy Antegrade flexible ureteroscopy Retrograde JJ stent insertion after Removal of indwelling stent physician time for fluoroscopic imaging and interpretation >1hr Anesthesia: General Findings Stone Medicine Bow: Primary stone 37 mm renal pelvis and lower pole; Additional stone(s) 10 mm, 20, 11mm upper pole and additional lower pole stones. Access: 1 tract(s), combined fluoroscopic/ultrasou nd-guided access without endoscopic visualization, lower pole calyx; 6 puncture attempt(s) - the needle became clogged with stone substance and the wires would not pass through and leading to several access attempts in the same lower pole calyx. Sheath: 18 Fr x 13 cm ClearPetra mini-PCNL sheath, 5 mm incision Lithotriptor: N/A Laser: 365-micron SOLTIVE thulium fiber laser; 1 J and 10 Hz Irrigation: Pressurized-bag; max pressure 90 mmHg Anatomic Findings: The stones were all round ranging from mm in size to several cm. Compound lower pole calyx. Ureter was clear of stone Operative Indications: This is a 62 year old year old female with a complex left staghorn calculus and s/p ureteral stent for ureteral stone obstruction who after discussing the risks, benefits, and alternatives of the procedure has elected to pursue management of their condition via the aforementioned surgery. Procedure Details: The patient was correctly identified and the operative plan was confirmed with the patient and the operative team. A weight appropriate dose of prophylactic antibiotics (Ancef) was administered intravenously prior to the procedure and sequential compression devices were applied to the lower extremities and activated prior to induction of anesthesia. General anesthesia was induced. The patient was then placed in the prone position. All pressure points were padded per protocol and the operative area was prepped and draped in the standard sterile fashion. A flexible cystoscope was inserted into the urethral meatus, and cystourethroscopy was performed. Attention was turned to the left ureteral orifice, which was successfully cannulated using a 0.038 hybrid guidewire and advanced to the kidney with good coil noted in the kidney on fluoroscopy alongside the ureteral stent. The stent was then grasped and externalized and then cannulated with a 0.038 glidewire which was advanced to the renal pelvis. The stent was removed intact. The glidewire was secured as a safety wire. A retrograde pyelogram was performed. Using the [id number] Ultrasound probe, renal US was performed. The target lower pole calyx was selected. The 18-gauge Chiba percutaneous access needle was then used to access the calyx with ultrasound guidance and a needle guide. Once the needle was within the collecting system, the inner stylet was removed but no efflux was observed. A retrograde pyelogram was performed and the needle appeared in. Next, a 0.038 hybrid wire advanced through the needle and into the renal pelvis. A 4Fr glidecatheter was advanced over the wire and into the renal pelvis but with attempts to manipulate the wire down the ureter, the access was lost. With US, access was obtained again in the same calyx. This time the needle became occluded with stone debris and the wires could not advance. Two new needles were utilized until a wire could be advanced. This time it curled in the occluded calyx. An 5mm incision was made in the skin. Serial dilation of the renal access tract was performed with the 6Fr and 8Fr fascial dilators followed by the dual lumen catheter with fluoroscopic guidance and confirmation, and to place a working wire; Amplatz Stiff Wire. The 18Fr x 13cm ClearPetra suction renal access sheath was advanced over the working wire and entered the collecting system fluoroscopically. Rigid nephroscopy was then performed, and immediately numerous small round stones were visualized and removed with suction through the sheath. Laser lithotripsy was used to fragment larger smooth stones and the fragments evacuated. The lower pole calyx was a compound calyx and there was a very large stone sandip (more content not included)... Normal [facility] Bacteria Ur Culton 3 Bacteria identified Cx Nom (U) CULTURE, URINE: No growth (<1,000 CFU/ml) Normal [facility] Comment on above: Performed By: #### 6 30-4 ####[facility] [id number] [place] [address] [place] [facility] CBC W Auto Differential pane l (Bld)on 11-29-2022 Basophils (Bld) [#/Vol] 0.05 10*3/uL Normal <0.11 [facility] Comment on above: Order Comment: Speci men Type: BLOOD SPECIMENOrdering Facility: [facility] Address: [address] [address] Performed By: #### 5 7021-8 ####[facility] [id number] [address] [place] Basophils/100 WBC (Bld) 0.6 % Normal [facility] Comment on above: Order Comment: Speci men Type: BLOOD SPECIMENOrdering Facility: [facility] Address: [address] [address] Performed By: #### 5 7021-8 ####[facility]IA [id number] [address] [place] Differential cell count method Nom (Bld) Auto Normal [facility] Comment on above: Order Comment: Speci men Type: BLOOD SPECIMENOrdering Facility: [facility] Address: [address] Performed By: #### 5 7021-8 ####[facility] [id number] [place] [address] [place] Eosinophils (Bld) [#/Vol] 0.28 10*3/uL Normal <0.46 [facility] Comment on above: Order Comment: Speci men Type: BLOOD SPECIMENOrdering Facility: [facility] Address: [address] Performed By: #### 5 7021-8 ####[facility]IA [id number] [address] [place] Eosinophils/100 WBC (Bld) 3.6 % Normal [facility] Comment on above: Order Comment: Speci men Type: BLOOD SPECIMENOrdering Facility: [facility] Address: [address] [place], [place] [address] Performed By: #### 5 7021-8 ####[facility] [id number] [place] [address] [place] Erythrocyte distribution width (RBC) [Ratio] 11.9 % Normal 11.5-15.0 [facility] Comment on above: Order Comment: Speci men Type: BLOOD SPECIMENOrdering Facility: [facility] Address: [address] Performed By: #### 5 7021-8 ####[facility]IA [id number] [address] [place] Hematocrit (Bld) [Volume fraction] 44.3 % Normal 36.0-46.0 [facility] Comment on above: Order Comment: Speci men Type: BLOOD SPECIMENOrdering Facility: [facility] Address: [address] [place], [place] [address] Performed By: #### 5 7021-8 ####[facility] [id number] [place] [address] [place] Hemoglobin (Bld) [Mass/Vol] 14.4 g/dL Normal 11.5-15.5 [facility] Comment on above: Order Comment: Speci men Type: BLOOD SPECIMENOrdering Facility: [facility] Address: [address] [place] [address] Performed By: #### 5 7021-8 ####[facility]IA [id number] [place] [address] [place] Immature granulocytes (Bld) [#/Vol] 10*3/uL Normal <0.10 [facility] Comment on above: Order Comment: Speci men Type: BLOOD SPECIMENOrdering Facility: [facility] Address: [address] [place] [address] Performed By: #### 5 7021-8 ####[facility] LABIA [id number] [address] [place] Immature granulocytes/100 WBC (Bld) 0.3 % Normal [facility] Comment on above: Order Comment: Speci men Type: BLOOD SPECIMENOrdering Facility: [facility] Address: [address] [place] [address] Performed By: #### 5 7021-8 ####[facility] LABIA [id number] [place] [address] [place] Lymphocytes (Bld) [#/Vol] 2.82 10*3/uL Normal 1.00-4.00 [facility] Comment on above: Order Comment: Speci men Type: BLOOD SPECIMENOrdering Facility: [facility] Address: [address] [place] [address] Performed By: #### 5 7021-8 ####[facility] LABIA [id number] [id number], [place] [address] [place] Lymphocytes/100 WBC (Bld) 35.9 % Normal [facility] Comment on above: Order Comment: Speci men Type: BLOOD SPECIMENOrdering Facility: [facility] Address: [address] [place], [place] [id number] Performed By: #### 5 7021-8 ####[facility] LABCLIA [id number] [address] MCH (RBC) [Entitic mass] 30.3 pg Normal 26.0-34.0 [facility] Comment on above: Order Comment: Speci men Type: BLOOD SPECIMENOrdering Facility: [facility] Address: [address] [place], [place] [address] Performed By: #### 5 7021-8 ####[facility] LABIA [id number] [address] [place] MCHC (RBC) [Mass/Vol] 32.5 g/dL Normal 30.5-36.0 [facility] Comment on above: Order Comment: Speci men Type: BLOOD SPECIMENOrdering Facility: [facility] Address: [address] [place], [place] [address] Performed By: #### 5 7021-8 ####[facility] LABIA [id number] [address] [place] MCV (RBC) [Entitic vol] 93.3 fL Normal 80.0-100.0 [facility] Comment on above: Order Comment: Speci men Type: BLOOD SPECIMENOrdering Facility: [facility] Address: [address] [place], [place] [id number] Performed By: #### 5 7021-8 ####[facility] LABCLIA [id number] [address] [place] Monocytes (Bld) [#/Vol] 0.69 10*3/uL Normal <0.87 [facility] Comment on above: Order Comment: Speci men Type: BLOOD SPECIMENOrdering Facility: [facility] Address: [address] Performed By: #### 5 7021-8 ####[facility] LABCLIA [id number] [address] [place] Monocytes/100 WBC (Bld) 8.8 % Normal [facility] Comment on above: Order Comment: Speci men Type: BLOOD SPECIMENOrdering Facility: [facility] Address: [address] Performed By: #### 5 7021-8 ####[facility] LABCLIA [id number] [place] [address] [place] Neutrophils (Bld) [#/Vol] 4.00 10*3/uL Normal 1.45-7.50 [facility] Comment on above: Order Comment: Speci men Type: BLOOD SPECIMENOrdering Facility: [facility] Address: [address] Performed By: #### 5 7021-8 ####[facility] LABIA [id number] [address] [place] Neutrophils/100 WBC (Bld) 50.8 % Normal [facility] Comment on above: Order Comment: Speci men Type: BLOOD SPECIMENOrdering Facility: [facility] Address: [address] Performed By: #### 5 7021-8 ####[facility] LABCLIA [id number] [place] [address] [place] Nucleated RBC (Bld) [#/Vol] 10*3/uL Normal <0.01 [facility] Comment on above: Order Comment: Speci men Type: BLOOD SPECIMENOrdering Facility: [facility] Address: [address] Performed By: #### 5 7021-8 ####[facility] LABCLIA [id number] [place] [address] [place] Nucleated RBC/100 WBC (Bld) [Ratio] 0.0 /100 WBC Normal [facility] Comment on above: Order Comment: Speci men Type: BLOOD SPECIMENOrdering Facility: [facility] Address: [address] [place] [address] Performed By: #### 5 7021-8 ####[facility] LABCLIA [id number] [place] [address] [place] Platelet mean volume (Bld) [Entitic vol] 11.1 fL Normal 9.0-12.7 [facility] Comment on above: Order Comment: Speci men Type: BLOOD SPECIMENOrdering Facility: [facility] Address: [address] [place] [address] Performed By: #### 5 7021-8 ####[facility] LABCLIA [id number] [place] [address] [place] Platelets (Bld) [#/Vol] 152 10*3/uL Normal 150-400 [facility] Comment on above: Order Comment: Speci men Type: BLOOD SPECIMENOrdering Facility: [facility] Address: [address] [place], [place] [address] Performed By: #### 5 7021-8 ####[facility] LABCLIA [id number] [place] [address] [place] RBC (Bld) [#/Vol] 4.75 10*6/uL Normal 3.90-5.20 [facility] Comment on above: Order Comment: Speci men Type: BLOOD SPECIMENOrdering Facility: [facility] Address: [address] [place], [place] [address] Performed By: #### 5 7021-8 ####[facility] LABCLIA [id number] [place] [address] [place] WBC (Bld) [#/Vol] 7.86 10*3/uL Normal 3.70-11.00 [facility] Comment on above: Order Comment: Speci men Type: BLOOD SPECIMENOrdering Facility: [facility] Address: [address] [id number] Performed By: #### 5 7021-8 ####[facility] LABCLIA [id number] FÁTIMA RAMIREZ [id number] [facility] CNOVon 11-29-2022 CNOV Office Visit (UROLMN ) KRYSTINA SALDIVAR ([id number]) 1960 F Date Time Provider Department 11/29/22 3:00 PM JOSH NOEL During your visit today, we recorded the following information about you: Pulse Blood pressure Weight Height 70/minute 122/81 67.1 kg 1.676 m Josh Noel APRN.CEMETERY LABORER 11/29/2022 3:57 PM Signed [facility] PRE-OP NOTE Krystina Saldivar is a 62 year old female. Pre-op Date: November 29, 2022 Date of Procedure: 12/11/22 Procedure/Surgery: standard and mini PERC NEPHROLITHOTOMY LITHOTRIPSY,STONE EXTRACTION,ANTEGRADE URETEROSCOPY,STENT PLACEMENT WHEN PERFORMED INCD IMAGING UP TO 2cm Diagnosis: nephrolithiasis Primary Surgeon: MD Thompson Anna There were no vitals taken for this visit. Pain Assessment: Are you currently having pain? No 0 on a scale of 0 to 10 Surgical Guide Book Status: Patient given book today. Dialysis Guide Book Status: N/A Allergies Reviewed: Yes Medications Reviewed: Yes Is patient currently on oral steroids?: No Has the patient had a UTI in the past month?: No. Does the patient have any artificial joints (last 2 years), metal parts, pacemakers or cardiac/ureteral stents in place?: No Does the patient have diabetes?: Yes Is the patient routinely taking anticoagulants?: No. Can the patient have an IV put in either arm?: Yes Urine Dip Complete?: Yes URINE CULTURE COMPLETE?: Yes Ostomy/Stoma Nurse appointment made/completed: N/A IMPACT/Medical Clearance: Cleared per [facility] - Yes [facility]: Cleared per [facility] - N/A All testing on cureform has been scheduled: Yes Consent Signed: Yes. DOS Orders Placed and Signed: No. Pre-op HANDP Done by Impact: Yes. PATIENT INSTRUCTIONS FOR SURGERY 1.) DO NOT HAVE ANYTHING TO EAT AFTER MIDNIGHT THE DAY BEFORE SURGERY except for certain morning medications as instructed by the doctor. Candy, mints, gum, and smoking are NOT permitted. You may drink clear liquids (Sprite, water, romeo carlos) up to two hours before your arrival time on the day of surgery. 2.) Medications to be taken on the morning of surgery with a few sips of water: per IMPACT 3.) Please bring all your prescribed inhalers (if you have any you normally take) to the hospital. 4.) Arrival time: Call for arrival. 5.) Prep given: No 6.) Lovenox instructions given: N/A 7.) Patient reminded that surgery time provided day before surgery is tentative based on potential changes with transplants. Recommendations: This patient is optimally prepared for surgery pending LABS. Josh Noel APRN.CNP Electronically signed Josh Noel APRN.CNP 11/29/2022 3:23 PM Signed Dietary Restrictions: - No solid food after midnight. - You may have 12 ounces of clear liquids (water, clear juices such as apple juice or gatorade, carbonated beverages, clear tea, black coffee, jello) until 2 hours before scheduled arrival at facility. - Do not drink any alcohol after midnight the night before your surgery. Arrival Time: Your arrival time will be provided to you the day before surgery. If you do not hear from surgery scheduling by 3:00 pm the day prior to your surgery, you can contact Urology Surgery at [phone]. We would like to reminded you that surgery time provided is tentative based on potential changes with transplant surgeries. Please check in at desk J1-9 in the [facility] ([facility] [place], [address] [place] [address]) Medications: Unless instructed differently below, stay on all of your medications until your surgery. Approved medications to take the morning of surgery with a sip of water: per anesthesia Blood Thinning Medications: - Stop NSAIDS (Ibuprofen, Advil, Aleve, Motrin, Celebrex, Mobic, etc.) 7 days before surgery, as directed by your surgeon. - Stop Aspirin 7 days before surgery, as directed by your surgeon. - Stop Vitamin E, ALL multi-vitamins, herbals and dietary supplements 7 days before surgery. - You may take Tylenol (Acetaminophen) or any of your pain medications that do not contain aspirin or NSAIDS as needed. Important Reminders: - If you are prescribed inhalers for breathing, continue using them. - Candy, mints, and tobacco products are NOT permitted the morning of surgery. - Hearing aids, dentures and glasses may be worn the morning of surgery. - NO jewelry, body piercings, makeup, hairpins or contacts are to be worn the day of surgery. Allergies As of Date: 11/29/2022 Noted Allergy Reaction PENICILLINS 11/18/2022 2 - Rash Comments: Verbal- not for sure of reaction PERCOCET (OXYCODONE-ACETAMINOP HEN)11/18/2022 11 - Vomiting SULFA (SULFONAMIDE ANTIBIOTICS) 11/18/2022 2 - Rash Comments: Verbal- not for sure of reaction Date Reviewed: 11/29/2022 Reviewed by: Josh Noel APRN.CEMETERY LABORER - Fully Assessed Reason for Visit: Pre-Op Exam [87] Primary Visit Diagnosis:Pre-op chest exam [Z01.8 (more content not included)... Normal [facility] Comprehensive metabolic 2000 panelon 11-29-2022 Albumin [Mass/Vol] 4.8 g/dL Normal 3.9-4.9 [facility] Comment on above: Order Comment: Speci mone Type: BLOOD SPECIMENOrdering Facility: [facility] Address: [address] [id number] Performed By: #### 2 4323-8 ####[facility] LABCLIA [id number] [place] [address] [place] ALP [Catalytic activity/Vol] 84 U/L Normal 34-123 [facility] Comment on above: Order Comment: Speci men Type: BLOOD SPECIMENOrdering Facility: [facility] Address: [address] [address] Performed By: #### 2 4323-8 ####[facility] LABCLIA [id number] [address] [place] ALT [Catalytic activity/Vol] 17 U/L Normal 7-38 [facility] Comment on above: Order Comment: Speci men Type: BLOOD SPECIMENOrdering Facility: [facility] Address: [address] [address] Performed By: #### 2 4323-8 ####[facility] LABCLIA [id number] [place] [address] [place] Anion gap [Moles/Vol] 11 mmol/L Normal 9-18 [facility] Comment on above: Order Comment: Speci men Type: BLOOD SPECIMENOrdering Facility: [facility] Address: [address] [address] Performed By: #### 2 4323-8 ####[facility] LABCLIA [id number] [address] [place] AST [Catalytic activity/Vol] 22 U/L Normal 13-35 [facility] Comment on above: Order Comment: Speci men Type: BLOOD SPECIMENOrdering Facility: [facility] Address: [address] Performed By: #### 2 4323-8 ####[facility] LABCLIA [id number] [place] [address] [place] Bilirubin [Mass/Vol] 0.4 mg/dL Normal 0.2-1.3 [facility] Comment on above: Order Comment: Speci men Type: BLOOD SPECIMENOrdering Facility: [facility] Address: [address] [address] Performed By: #### 2 4323-8 ####[facility] LABCLIA [id number] [place] [address] [place] Calcium [Mass/Vol] 9.6 mg/dL Normal 8.5-10.2 [facility] Comment on above: Order Comment: Speci men Type: BLOOD SPECIMENOrdering Facility: [facility] Address: [address] [place] [address] Performed By: #### 2 4323-8 ####[facility] LABCLIA [id number] [place] [address] [place] Chloride [Moles/Vol] 105 mmol/L Normal 97-105 [facility] Comment on above: Order Comment: Speci men Type: BLOOD SPECIMENOrdering Facility: [facility] Address: [address] [place] [address] Performed By: #### 2 4323-8 ####[facility] LABCLIA [id number] [place] [address] [place] CO2 [Moles/Vol] 23 mmol/L Normal 22-30 [facility] Comment on above: Order Comment: Speci men Type: BLOOD SPECIMENOrdering Facility: [facility] Address: [address] [place] [address] Performed By: #### 2 4323-8 ####[facility] LABCLIA [id number] [place] [address] [place] Creatinine [Mass/Vol] 0.60 mg/dL Normal 0.58-0.96 [facility] Comment on above: Order Comment: Speci men Type: BLOOD SPECIMENOrdering Facility: [facility] Address: [address] [place] [address] Performed By: #### 2 4323-8 ####[facility] LABCLIA [id number] [place] [address] [place] Creatinine and Glomerular filtration rate.predicted panel (S/P/Bld) 102 mL/min/1.73m??? Normal >=60 [facility] Comment on above: Order Comment: [place] Type: BLOOD SPECIMENOrdering Facility: [facility] Address: [address] [place] [address] Result Comment: Aranza mated Glomerular Filtration Rate (eGFR) is calculated using the 2020 CKD-EPI creatinine equation. This equation utilizes serum creatinine, sex, and age as parameters. The creatinine assay has traceable calibration to isotope dilution-mass spectrometry. Refer to KDIGO guidelines for clinical interpretation. In patients with unstable renal function, e.g. those with acute kidney injury, the eGFR may not accurately reflect actual GFR. Performed By: #### 2 4323-8 ####[facility] LABIA [id number] [place] [address] [place] Glucose [Mass/Vol] 89 mg/dL Normal 74-99 [facility] Comment on above: Order Comment: [place] Type: BLOOD SPECIMENOrdering Facility: [facility] Address: [address] [address] Result Comment: The [place] [employer] (ADA) provides guidance for cutoff values for fasting glucose and random glucose. The ADA defines fasting as no caloric intake for at least 8 hours. Fasting plasma glucose results between 100 to 125 mg/dL indicate increased risk for diabetes (prediabetes). Fasting plasma glucose results greater than or equal to 126 mg/dL meet the criteria for diagnosis of diabetes. In the absence of unequivocal hyperglycemia, results should be confirmed by repeat testing. In a patient with classic symptoms of hyperglycemia or hyperglycemic crisis, random plasma glucose results greater than or equal to 200 mg/dL meet the criteria for diagnosis of diabetes. Reference: Standards of Medical Care in Diabetes 2016, [place] [employer]. Diabetes Care. 2016.39(Suppl 1). Performed By: #### 2 4323-8 ####[facility] [id number] [place] [address] [place] Potassium [Moles/Vol] 4.2 mmol/L Normal 3.7-5.1 [facility] Comment on above: Order Comment: [place] Type: BLOOD SPECIMENOrdering Facility: [facility] Address: [address] [id number] Performed By: #### 2 4323-8 ####[facility] LABCLIA [id number] [place] [address] [place] Protein [Mass/Vol] 7.6 g/dL Normal 6.3-8.0 [facility] Comment on above: Order Comment: Speci men Type: BLOOD SPECIMENOrdering Facility: [facility] Address: [address] [place] [address] Performed By: #### 2 4323-8 ####[facility] LABCLIA [id number] [place] [address] [place] Sodium [Moles/Vol] 139 mmol/L Normal 136-144 [facility] Comment on above: Order Comment: Speci men Type: BLOOD SPECIMENOrdering Facility: [facility] Address: [address] [place] [address] Performed By: #### 2 4323-8 ####[facility] LABCLIA [id number] [place] [address] [place] Urea nitrogen [Mass/Vol] 16 mg/dL Normal 7-21 [facility] Comment on above: Order Comment: Speci men Type: BLOOD SPECIMENOrdering Facility: [facility] Address: [address] [place] [address] Performed By: #### 2 4323-8 ####[facility] LABCLIA [id number] [place] [address] [place] HISTORY PHYSICALon HISTORY PHYSICAL HNO ID: [id number] Author: Jonel Montano, DO Service: ? Author Type: Resident Type: HANDP Filed: 12/02/2022 10:59 PM Note Text: HISTORY AND PHYSICAL EXAMINATION SERVICE DATE: 11/29/2022 SERVICE TIME: 1236 PRIMARY CARE PHYSICIAN: No primary care provider on file. REASON FOR VISIT: Krystina Saldivar is a 62 year old female who is scheduled for standard and mini PERC NEPHROLITHOTOMY LITHOTRIPSY,STONE EXTRACTION,ANTEGRADE URETEROSCOPY,STENT PLACEMENT WHEN PERFORMED INCD IMAGING UP TO 2cm at the request of Dr. Farheen Thompson for consultation. My final recommendation will be communicated back to the requesting physician by way of shared medical record or letter. The patient has the following: There is no problem list on file for this patient. Subjective CHIEF COMPLAINT: nephrolithiasis HPI: Patient is a 62 year old year old female who is scheduled for standard and mini PERC NEPHROLITHOTOMY LITHOTRIPSY,STONE EXTRACTION,ANTEGRADE URETEROSCOPY,STENT PLACEMENT WHEN PERFORMED INCD IMAGING UP TO 2cm on 12/11/2022. Denies any fevers, chills, nausea, vomiting, SOB or chest pain. PAST MEDICAL HISTORY Diagnosis Date Arthritis Bilateral nephrolithiasis Diabetes mellitus (HCC) H/O: hysterectomy High cholesterol Staghorn calculus PAST SURGICAL HISTORY Procedure Laterality Date LIGATE FALLOPIAN TUBE Bilateral TOTAL ABDOM HYSTERECTOMY URETERAL STENT PLACEMENT 11/07/2022 No family history on file. SOCIAL HISTORY: Social History Tobacco Use Smoking status: Former Packs/day: 1 Types: Cigarettes Quit date: 03/31/1997 Years since quittin.6 Smokeless tobacco: Never Substance Use Topics Alcohol use: Yes Comment: social drinker on weekends Drug use: Never Prior to Admission medications as of 11/18/22 1717 Medication Sig Last Dose Taking simvastatin (ZOCOR) 20 mg tablet Take 20 mg by mouth daily at bedtime. empagliflozin (JARDIANCE) 25 mg tablet Take 25 mg by mouth daily with breakfast. keTORolac (TORADOL) 10 mg tablet Take 10 mg by mouth every 12 hours as needed for pain. solifenacin 10 mg tablet Take 5 mg by mouth once daily. ondansetron (ZOFRAN) 4 mg tablet Take 4 mg by mouth every 8 hours as needed for nausea/vomiting. ibuprofen (MOTRIN) 800 mg tablet Take 800 mg by mouth every 6 hours as needed. No medication comments found. ALLERGIES Allergen Reactions Penicillins Rash Verbal- not for sure of reaction Percocet [Oxycodone* Vomiting Sulfa (Sulfonamide * Rash Verbal- not for sure of reaction COVID VACCINATION STATUS: Fully vaccinated REVIEW OF SYSTEMS: PAIN ASSESSMENT: General: No weight loss, malaise or fevers. Neuro: No history of TIA's, stroke, PROPERTY HANDLER tumor, impaired sensorium, hemiplegia, paraplegia or quadraplegia. No neurological symptoms or problems. Respiratory: No history of current cough or dyspnea, or pneumonia in the past 6 weeks. No history of respiratory/pulmonary symptoms or problems. Cardiovascular: No history of HTN requiring medication, no history of angina, CHF, UT, cardiac surgery or stents. Denies rest pain, gangrene or revascularization/amp utation for PVD. No history of cardiovascular symptoms or problems. GI: No history of GI symptoms or problems. No history of esophageal varices, recent ascites, or ETOH greater than 2 drinks per day. : nephrolithiasis, denies dysuria, gross hematuria, or incontinence. 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 : Denies, No LMP recorded. Endocrine: diabetes om jardiance. Hematology: No history of bleeding or clotting disorder. Pt is not taking anti-coagulation or platelet medications. No history of hematological symptoms or problems. Oncology: No history of CA metastasis, chemo within 30 days, or radiotherapy within 90 days. Has not lost 10% of body wt in 6 months. No history of oncological symptoms or problems. Psych: No history of psychiatric symptoms or problems. Musculoskeletal: Negative for joint pain or swelling, back pain or muscle pain. Skin: Negative for lesions, rash and itching. Objective PHYSICAL EXAM: VITALS: 11/29/22 1237 BP: 122/81 BP Site: Right Arm BP Position: Sitting BP Cuff Size: Regular Adult Pulse: 70 Temp: 36.7 ?C (98 ?F) TempSrc: Temporal SpO2: 98% Weight: 67.5 kg (148 lb 12.8 oz) Height: 167.6 cm (5' 6 ) General: Alert and oriented, No acute distress Skin: Normal color, no rash, no lesions. HEENT: EOM, pupils equal, round and reactive. Cardiovascular: Normal S1 AND S2, no rubs, murmurs or gallops. No JVD. Pulse regular. Lungs: Normal breath sounds, no wheezes or crackles. Abdomen: Soft, non-tender, no rigidity. Extremities: No deformity, no edema or tenderness, no joint swelling or clubbing. Neurological: Normal cognition and motor skills. Gait normal. No weakness or sensory deficit. Pulses: Carotid and radial pulses normal +2. Diagnostic tests reviewed for today (more content not included)... Normal [facility] PT panel Coag (PPP)on 2022 INR Coag (PPP) [Relative time] 0.9 {INR} Normal 0.9-1.3 [facility] Comment on above: Order Comment: [place]addy [place] Type: VENOUS BLOOD SPECIMEN Ordering Facility: [facility] Address: [address] [place], [place] [id number] Result Comment: Lynne min K Antagonist (VKA) Therapeutic Range: INR 2 to 3 (Target INR of 2.5) Note: For patients treated with VKA drugs, such as warfarin, the [place] [employer] 2012 Guideline recommends a therapeutic INR range of 2 to 3 (target INR of 2.5). This recommendation includes high-risk patients with antiphospholipid syndrome with previous arterial or venous thromboembolism, current-generation mechanical or bioprosthetic aortic heart valve replacement. Note: Patients with mechanical aortic valve replacement and additional risk factors for thromboembolic events (atrial fibrillation, previous thromboembolism, LV dysfunction, hypercoagulable conditions) or an older generation mechanical AVR (i.e., ball in-Cage) or any mechanical MVR should have a INR therapeutic range of 2.5 to 3.5 (target INR of 3). Demetra GH, et al. Chest 2012, 141:7S-47S Salvatore RA, et al. JACC 2017, 70: 252-289 Performed By: #### 2 4344-4 #### [facility] CLIA [id number] [address] [place] [address] [place] PT Coag (PPP) [Time] 9.7 s Normal 9.7-13.0 [facility] Comment on above: Order Comment: [place]addy [place] Type: VENOUS BLOOD SPECIMEN Ordering Facility: [facility] Address: [address] [place] [id number] Performed By: #### 2 4344-4 #### [facility] CLIA [id number] [address] [place] [address] [place] TYPE AND SCREEN,30 DAYon ABO A Normal [facility] Comment on above: Order Comment: [place] Type: VENOUS BLOOD SPECIMEN Ordering Facility: [facility] Address: [address] Performed By: #### 2 4344-4 #### [facility] CLIA [id number] [address] [place] [address] [place] HISTORICAL AB SCR STATUS Negative Normal [facility] Comment on above: Order Comment: Speci men Type: VENOUS BLOOD SPECIMEN Ordering Facility: [facility] Address: [address] Performed By: #### 2 4344-4 #### [facility] CLIA [id number] [address] [place] [address] [place] Rh Nom (Bld) Positive Normal [facility] Comment on above: Order Comment: Speci men Type: VENOUS BLOOD SPECIMEN Ordering Facility: [facility] Address: [address] [place] [address] Performed By: #### 2 4344-4 #### [facility] CLIA [id number] [address] [place] [address] [place] Urinalysis complete panel (U )on 11-29-2022 Bilirubin Ql (U) Negative Normal Negative [facility] Comment on above: Order Comment: Speci men Type: URINE SPECIMENOrdering Facility: [facility] Address: [address] [place], [place] [address] Performed By: #### 2 4356-8 ####[facility] [id number] [place] [address] [place] Clarity (Unsp spec) Cloudy Abnormal Clear [facility] Comment on above: Order Comment: Speci men Type: URINE SPECIMENOrdering Facility: [facility] Address: [address] [place], [place] [address] Performed By: #### 2 4356-8 ####[facility] [id number] [place] [address] [place] Color (U) Colorless Normal Yellow [facility] Comment on above: Order Comment: Speci men Type: URINE SPECIMENOrdering Facility: [facility] Address: [address] Performed By: #### 2 4356-8 ####[facility] [id number] [place] [address] [place] Epithelial cells LM.HPF (Urine sed) [#/Area] Few Normal [facility] Comment on above: Order Comment: Speci men Type: URINE SPECIMENOrdering Facility: [facility] Address: [address] Performed By: #### 2 4356-8 ####[facility] [id number] [place] [address] [place] Glucose Test strip (U) [Mass/Vol] 4+ Abnormal Trace, Negative [facility] Comment on above: Order Comment: Speci men Type: URINE SPECIMENOrdering Facility: [facility] Address: [address] Performed By: #### 2 4356-8 ####[facility] [id number] [place] [address] [place] Hemoglobin Ql (U) 3+ Abnormal Negative, Trace [facility] Comment on above: Order Comment: Speci men Type: URINE SPECIMENOrdering Facility: [facility] Address: [address] Performed By: #### 2 4356-8 ####[facility] [id number] [place] [address] [place] Ketones Ql (U) 1+ Abnormal Trace, Negative [facility] Comment on above: Order Comment: Speci men Type: URINE SPECIMENOrdering Facility: [facility] Address: [address] Performed By: #### 2 4356-8 ####[facility] [id number] [address] [place] Leukocyte esterase Test strip Ql (U) 75 Nikos/uL Abnormal Negative, 25 Nikos/uL [facility] Comment on above: Order Comment: Speci men Type: URINE SPECIMENOrdering Facility: [facility] Address: [address] [place] [address] Performed By: #### 2 4356-8 ####[facility] [id number] [place] [address] [place] Nitrite Ql (U) Negative Normal Negative [facility] Comment on above: Order Comment: Speci men Type: URINE SPECIMENOrdering Facility: [facility] Address: [address] [place] [address] Performed By: #### 2 4356-8 ####[facility] [id number] [place] [address] [place] pH (U) 5.5 [pH] Normal 5.0-8.0 [facility] Comment on above: Order Comment: Speci men Type: URINE SPECIMENOrdering Facility: [facility] Address: [address] [place] [address] Performed By: #### 2 4356-8 ####[facility] [id number] [place] [address] [place] Protein (U) [Mass/Vol] 1+ Abnormal Trace , Negative [facility] Comment on above: Order Comment: Speci men Type: URINE SPECIMENOrdering Facility: [facility] Address: [address] [place] [address] Performed By: #### 2 4356-8 ####[facility] [id number] [place] [address] [place] RBC LM.HPF (Urine sed) [#/Area] 11-25 /HPF Abnormal 0-3 /HPF [facility] Comment on above: Order Comment: Speci men Type: URINE SPECIMENOrdering Facility: [facility] Address: [address] [address] Performed By: #### 2 4356-8 ####[facility] [id number] [address] STATES OF [facility] Specific gravity (U) [Rel density] 1.029 Normal 1.005-1.030 [facility] Comment on above: Order Comment: Speci men Type: URINE SPECIMENOrdering Facility: [facility] Address: [address] [place] [address] Performed By: #### 2 4356-8 ####[facility] [id number] [place] [address] [place] Urobilinogen Ql (U) Negative Normal Negative [facility] Comment on above: Order Comment: Speci men Type: URINE SPECIMENOrdering Facility: [facility] Address: [address] [place] [address] Performed By: #### 2 4356-8 ####[facility] [id number] [place] [address] [place] WBC LM.HPF (Urine sed) [#/Area] 6-10 /HPF Abnormal 0-5 /HPF [facility] Comment on above: Order Comment: Speci men Type: URINE SPECIMENOrdering Facility: [facility] Address: [address] [place] [address] Performed By: #### 2 4356-8 ####[facility] [id number] [place] [address] [place] aPTT PPPon 11-29-2022 aPTT Coag (PPP) [Time] 27.1 s Normal 23.0-32.4 [facility] Comment on above: Order Comment: Speci men Type: VENOUS BLOOD SPECIMEN Ordering Facility: [facility] Address: [address] [place] [address] Performed By: #### 2 4344-4 #### [facility] CLIA [id number] [address] [id number] [place] Luis 11-25-2022 ALIEN Telephone (ALEX) KRYSTINA SALDIVAR ([id number]) 1960 F Date Time Provider Department 11/25/22 NICHOLE MORGAN During your visit today, we recorded the following information about you: Nichole Morgan RN 11/25/2022 11:41 AM Signed Called and spoke with patient to inquire about moving surgery to 12/25. Patient states that she would rather not move her surgery date as she does not want to be out of work for too long. Will update Dr. Thompson and keep surgery scheduled as is. 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 - empagliflozin (JARDIANCE) 25 mg tablet Take 25 mg by mouth daily with breakfast. - keTORolac (TORADOL) 10 mg tablet Take 10 mg by mouth every 12 hours as needed for pain. - solifenacin 10 mg tablet Take 5 mg by mouth once daily. - ondansetron (ZOFRAN) 4 mg tablet Take 4 mg by mouth every 8 hours as needed for nausea/vomiting. - ibuprofen (MOTRIN) 800 mg tablet Take 800 mg by mouth every 6 hours as needed. Problem List As Of Date: 11/25/2022 (None) Encounter Status:Closed by NICHOLE MORGAN on 11/25/22 Normal [facility] RAD - MISCon 11-19-2022 RAD - MISC [id number] .00CD:127 Normal [facility] RAD - MISC [id number] .00CD:127 Normal [facility] Basic metabolic 2000 panelon 11-18-2022 Anion gap [Moles/Vol] 11 mmol/L Normal 9-18 [facility] Comment on above: Order Comment: Speci men Type: BLOOD SPECIMEN Ordering Facility: [facility] Address: [address] [place] [address] Performed By: #### 2 4321-2 #### [facility] [place] [id number] [address] [place] [address] [place] Calcium [Mass/Vol] 9.2 mg/dL Normal 8.5-10.2 [facility] Comment on above: Order Comment: Speci men Type: BLOOD SPECIMEN Ordering Facility: [facility] Address: [address] [place] [address] Performed By: #### 2 4321-2 #### [facility] [place] [id number] [address] [place] [address] [place] Chloride [Moles/Vol] 106 mmol/L High 97-105 [facility] Comment on above: Order Comment: Speci men Type: BLOOD SPECIMEN Ordering Facility: [facility] Address: [address] [place] [address] Performed By: #### 2 4321-2 #### [facility] CLIA [id number] [address] [place] [address] [place] CO2 [Moles/Vol] 24 mmol/L Normal 22-30 [facility] Comment on above: Order Comment: Speci men Type: BLOOD SPECIMEN Ordering Facility: [facility] Address: [address] [address] Performed By: #### 2 4321-2 #### [facility] CLIA [id number] [place] Creatinine [Mass/Vol] 0.70 mg/dL Normal 0.58-0.96 [facility] Comment on above: Order Comment: [place]addy [place] Type: BLOOD SPECIMEN Ordering Facility: [facility] Address: [address] [address] Performed By: #### 2 4321-2 #### [facility] CLIA [id number] [address] STATES OF [facility] Creatinine and Glomerular filtration rate.predicted panel (S/P/Bld) 99 mL/min/1.73m??? Normal >=60 [facility] Comment on above: Order Comment: Maddy [facility] Type: BLOOD SPECIMEN Ordering Facility: [facility] Address: [address] [address] Result Comment: Aranza mated Glomerular Filtration Rate (eGFR) is calculated using the 2020 CKD-EPI creatinine equation. This equation utilizes serum creatinine, sex, and age as parameters. The creatinine assay has traceable calibration to isotope dilution-mass spectrometry. Refer to KDIGO guidelines for clinical interpretation. In patients with unstable renal function, e.g. those with acute kidney injury, the eGFR may not accurately reflect actual GFR. Performed By: #### 2 4321-2 #### [facility] CLIA [id number] [address] [place] [address] [place] Glucose [Mass/Vol] 97 mg/dL Normal 74-99 [facility] Comment on above: Order Comment: Maddy [facility] Type: BLOOD SPECIMEN Ordering Facility: [facility] Address: [address] [address] Result Comment: The [place] [employer] (ADA) provides guidance for cutoff values for fasting glucose and random glucose. The ADA defines fasting as no caloric intake for at least 8 hours. Fasting plasma glucose results between 100 to 125 mg/dL indicate increased risk for diabetes (prediabetes). Fasting plasma glucose results greater than or equal to 126 mg/dL meet the criteria for diagnosis of diabetes. In the absence of unequivocal hyperglycemia, results should be confirmed by repeat testing. In a patient with classic symptoms of hyperglycemia or hyperglycemic crisis, random plasma glucose results greater than or equal to 200 mg/dL meet the criteria for diagnosis of diabetes. Reference: Standards of Medical Care in Diabetes 2016, [place] [employer]. Diabetes Care. 2016.39(Suppl 1). Performed By: #### 2 4321-2 #### [facility] [place] [id number] [address] [place] [address] [place] Potassium [Moles/Vol] 4.4 mmol/L Normal 3.7-5.1 [facility] Comment on above: Order Comment: Kevini mone Type: BLOOD SPECIMEN Ordering Facility: [facility] Address: [address] [place] [address] Performed By: #### 2 4321-2 #### [facility] [place] [id number] [address] [place] [address] [place] Sodium [Moles/Vol] 141 mmol/L Normal 136-144 [facility] Comment on above: Order Comment: [place] Type: BLOOD SPECIMEN Ordering Facility: [facility] Address: [address] [place] [address] Performed By: #### 2 4321-2 #### [facility] IA [id number] [place] [address] [place] Urea nitrogen [Mass/Vol] 20 mg/dL Normal 7-21 [facility] Comment on above: Order Comment: Kevini men Type: BLOOD SPECIMEN Ordering Facility: [facility] Address: [address] [place] [address] Performed By: #### 2 4321-2 #### [facility] [place] [id number] [address] [place] [address] [place] Anion gap [Moles/Vol] 11 mmol/L 9 - 18 mmol/L [facility] Calcium [Mass/Vol] 9.2 mg/dL 8.5 - 10. 2 mg/dL [facility] Chloride [Moles/Vol] 106 mmol/L High 97 - 10 5 mmol/L [facility] CO2 [Moles/Vol] 24 mmol/L 22 - 30 mmol/L [facility] Creatinine [Mass/Vol] 0.70 mg/dL 0.58 - 0.96 mg/dL [facility] Estimated Glomerular Filtration Rate 99 mL/min/1.73m >=60 mL/min/1.73m [facility] Glucose [Mass/Vol] 97 mg/dL 74 - 99 mg/dL [facility] Potassium [Moles/Vol] 4.4 mmol/L 3.7 - 5.1 mmol/L [facility] Sodium [Moles/Vol] 141 mmol/L 136 - 144 mmol/L [facility] Urea nitrogen [Mass/Vol] 20 mg/dL 7 - 21 mg/dL [facility] CBC panel Auto (Bld)on 11-18 Erythrocyte distribution width (RBC) [Ratio] 11.9 % Normal 11.5-15.0 [facility] Comment on above: Order Comment: Speci men Type: BLOOD SPECIMEN Ordering Facility: [facility] Address: [address] [address] Performed By: #### 5 8410-2 #### [facility] CLIA [id number] [address] [place] [address] [place] Hematocrit (Bld) [Volume fraction] 41.6 % Normal 36.0-46.0 [facility] Comment on above: Order Comment: Speci men Type: BLOOD SPECIMEN Ordering Facility: [facility] Address: [address] [address] Performed By: #### 5 8410-2 #### [facility] CLIA [id number] [address] [place] [address] [place] Hemoglobin (Bld) [Mass/Vol] 13.1 g/dL Normal 11.5-15.5 [facility] Comment on above: Order Comment: Speci men Type: BLOOD SPECIMEN Ordering Facility: [facility] Address: [address] [address] Performed By: #### 5 8410-2 #### [facility] CLIA [id number] [address] [place] [address] [place] MCH (RBC) [Entitic mass] 29.7 pg Normal 26.0-34.0 [facility] Comment on above: Order Comment: Speci men Type: BLOOD SPECIMEN Ordering Facility: [facility] Address: [address] [address] Performed By: #### 5 8410-2 #### [facility] CLIA [id number] [address] [place] [address] [place] MCHC (RBC) [Mass/Vol] 31.5 g/dL Normal 30.5-36.0 [facility] Comment on above: Order Comment: Speci men Type: BLOOD SPECIMEN Ordering Facility: [facility] Address: [address] [place] [address] Performed By: #### 5 8410-2 #### [facility] [place] [id number] [address] [place] [address] [place] MCV (RBC) [Entitic vol] 94.3 fL Normal 80.0-100.0 [facility] Comment on above: Order Comment: Speci men Type: BLOOD SPECIMEN Ordering Facility: [facility] Address: [address] [place] [address] Performed By: #### 5 8410-2 #### [facility] [place] [id number] [address] [place] [address] [place] Nucleated RBC (Bld) [#/Vol] 10*3/uL Normal <0.01 [facility] Comment on above: Order Comment: Speci men Type: BLOOD SPECIMEN Ordering Facility: [facility] Address: [address] [address] Performed By: #### 5 8410-2 #### [facility] [place] [id number] [address] [place] [address] [place] Platelet mean volume (Bld) [Entitic vol] 9.6 fL Normal 9.0-12.7 [facility] Comment on above: Order Comment: Speci men Type: BLOOD SPECIMEN Ordering Facility: [facility] Address: [address] Performed By: #### 5 8410-2 #### [facility] [place] [id number] [address] [place] [address] [place] Platelets (Bld) [#/Vol] 295 10*3/uL Normal 150-400 [facility] Comment on above: Order Comment: Speci men Type: BLOOD SPECIMEN Ordering Facility: [facility] Address: [address] [address] Performed By: #### 5 8410-2 #### [facility] [place] [id number] [address] [place] [address] [place] RBC (Bld) [#/Vol] 4.41 10*6/uL Normal 3.90-5.20 [facility] Comment on above: Order Comment: Speci men Type: BLOOD SPECIMEN Ordering Facility: [facility] Address: [address] [address] Performed By: #### 5 8410-2 #### [facility] [place] [id number] [address] [place] [address] [place] WBC (Bld) [#/Vol] 8.94 10*3/uL Normal 3.70-11.00 [facility] Comment on above: Order Comment: Speci men Type: BLOOD SPECIMEN Ordering Facility: [facility] Address: [address] [address] Performed By: #### 5 8410-2 #### [facility] [place] [id number] [address] [place] Erythrocyte distribution width (RBC) [Ratio] 11.9 % 11.5 - 15.0 % [facility] Hematocrit (Bld) [Volume fraction] 41.6 % 36.0 - 46.0 % [facility] Hemoglobin (Bld) [Mass/Vol] 13.1 g/dL 11.5 - 15.5 g/dL [facility] MCH (RBC) [Entitic mass] 29.7 pg 26.0 - 34.0 pg [facility] MCHC (RBC) [Mass/Vol] 31.5 g/dL 30.5 - 36.0 g/dL [facility] MCV (RBC) [Entitic vol] 94.3 fL 80.0 - 100.0 fL [facility] Nucleated RBC (Bld) [#/Vol] <0.01 k/uL [facility] Platelet mean volume (Bld) [Entitic vol] 9.6 fL 9.0 - 12.7 fL [facility] Platelets (Bld) [#/Vol] 295 10*3/uL 150 - 400 k/uL [facility] RBC (Bld) [#/Vol] 4.41 10*6/uL 3.90 - 5.2 0 m/uL [facility] WBC (Bld) [#/Vol] 8.94 10*3/uL 3.70 - 11. 00 k/uL [facility] CNOVon 11-18-2022 CNOV Office Visit (UROLAV ) KRYSTINA SALDIVAR ([id number]) 1960 F Date Time Provider Department 11/18/22 4:00 PM FARHEEN THOMPSON UROREBECCAV During your visit today, we recorded the following information about you: Farheen Thompson MD 11/18/2022 5:23 PM Signed [facility] NEW PATIENT HISTORY AND PHYSICAL EXAM PATIENT INFO: Krystina Saldivar 62 year old REFERRING M.D.: Natalia Haque [address] [place] [address] PCP: No primary care provider on file. Date of Service: November 18, [address] Haque for an opinion regarding nephrolithiasis and my final recommendations will be communicated back to the requesting physician by way of shared Medical record or letter via US mail. CHIEF COMPLAINT: Nephrolithiasis HPI: This is a 62 year old female arthritis, diabetes (jardiance), high cholesterol, history of kidney stones, history of renal stones, history of ureteral stones, history of hysterectomy and tubal ligation, and presenting with left nonobstructing staghorn calculus. Urinary symptoms include incomplete bladder emptying, urinary frequency and urgency, nocturia (2 times per night). She has been seen at [facility] most recently in the ER on November 04 with left flank pain that radiated to her left lower lower quadrant, gross hematuria and nausea. CT scan obtained with a 1.1 x 2.7 cm stone in the left proximal ureter with severe hydro kidney also filled with stone. Recommended to have a PCNL On November 07, 2022, Dr. Haque, a left retrograde pyelogram was performed with placement of a 6 Scottish variable length ureteral stent without difficulty. Left ureteral stone may have been advanced into the kidney. Limited available notes reference large left kidney stone and has been recommended PCNL last week. The patient denies flank pain, fever, shaking chills, gross hematuria, urgency, frequency, dysuria, incontinence, nausea, and vomiting at this time. She has some pelvic pressure with the stent in place. Nervous about surgery Personal hx of stones: yes, 2017 Family Hx of stones: yes, several sisters. Paternal grandfather. PATHOLOGY: Stone Analysis: None to review Urine Culture None to review LABS: No results found for: CREAT No results found for: PSA URINALYSIS: No results found for: PH , SPGR , UGLUC , UBILI , UKET , UHB , UPROT , UROBIL , NITRITES , UWBC , SSA IMAGING: Imaging Reviewed. Radiology report may be copied below for ease of reference. November 04, 2022 CT abdomen without contrast The liver and spleen are unremarkable. There is no intra or extrahepatic biliary duct dilatation. The gallbladder is unremarkable. There are large nonobstructive left renal staghorn calculi. There is a 1.1 x 1.1 x 2.7 cm long calculus within the left proximal ureter with moderate to severe left hydroureteronephrosis . There is a right renal cyst. There are scattered colonic diverticuli without evidence of acute inflammation. Otherwise the pancreas, adrenal glands, right kidney, and bowel loops including the appendix are unremarkable. There is no mesenteric or retroperitoneal lymphadenopathy there is a small fat-containing umbilical hernia. Pelvis: The bladder and rectum are unremarkable. There is no iliac or inguinal lymphadenopathy. The status post hysterectomy. There is mild to moderate atherosclerotic disease. Bone windows show no aggressive osseous lesions. HISTORIES PAST MEDICAL HISTORY Diagnosis Date Arthritis Bilateral nephrolithiasis Diabetes mellitus (HCC) H/O: hysterectomy High cholesterol Staghorn calculus PAST SURGICAL HISTORY Procedure Laterality Date LIGATE FALLOPIAN TUBE Bilateral TOTAL ABDOM HYSTERECTOMY URETERAL STENT PLACEMENT 11/07/2022 Social History Tobacco Use Smoking status: Former Packs/day: 1 Types: Cigarettes Quit date: 03/31/1997 Years since quittin.6 Smokeless tobacco: Never Substance Use Topics Alcohol use: Yes Comment: social drinker on weekends Drug use: Never ALLERGIES: ALLERGIES Allergen Reactions Penicillins Rash Verbal- not for sure of reaction Percocet [Oxycodone* Vomiting Sulfa (Sulfonamide * Rash Verbal- not for sure of reaction MEDICATIONS: Current Outpatient Medications Medication Sig simvastatin (ZOCOR) 20 mg tablet Take 20 mg by mouth daily at bedtime. empagliflozin (JARDIANCE) 25 mg tablet Take 25 mg by mouth daily with breakfast. keTORolac (TORADOL) 10 mg tablet Take 10 mg by mouth every 12 hours as needed for pain. solifenacin 10 mg tablet Take 5 mg by mouth once daily. ondansetron (ZOFRAN) 4 mg tablet Take 4 mg by mouth every 8 hours as needed for nausea/vomiting. No current facility-administered medications for this visit. REVIEW OF SYSTEMS General: No weight loss, malaise or fevers., SEE HPI ENMT: N (more content not included)... [facility] KRYST[facility] SAL[facility]AR ([id number]) 1960 F Date Time Provider Department 11/18/22 FARHEEN THOMPSON During your visit today, we recorded the following information about you: Senait Durán RN 11/18/2022 3:02 PM Signed Received via fax OSH medical records. Patient is scheduled to see Dr. Thompson on 11/18/2022 at 4pm. Records given to Dr. Thompson for further review. Will send to scanning after review by provider. 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 Formson 11-18-2022 Forms [id number] .[id number]:127 Normal [facility] PTH INTACT BLDon 11-18-2022 Parathyrin.intact [Mass/Vol] 51 pg/mL 15 - 65 pg/mL [facility] Parathyrin.intact [Mass/Vol] 51 pg/mL Eitzen 15-65 [facility] Comment on above: Order Comment: Speci men Type: BLOOD SPECIMEN Ordering Facility: [facility] Address: [address] [place] [address] Performed By: #### 2 [id number] #### [facility] CLIA [id number] [address] [place] [address] [place] RAD - MISCon 11-18-2022 RAD - MISC [id number] .[id number]:127 Normal [facility] Patient Educationon 11-16-19 Patient Education Nephrology Percutaneous Nephrolithotomy Percutaneous nephrolithotomy is a procedure to remove kidney stones. Kidney stones are deposits that form inside your kidneys and can cause pain. You may need this procedure if: ? You have large kidney stones. Kidney stones that are bigger than 2 cm (0.78 inch) wide may require this procedure. ? Your kidney stones are oddly shaped. ? Other treatments have not been successful in helping the kidney stones to pass. ? You have developed an infection due to the kidney stones. Tell a health care provider about: ? Any allergies you have. ? All medicines you are taking, including vitamins, herbs, eye drops, creams, and qmfd-puc-nuwhecw medicines. ? Any problems you or family members have had with anesthetic medicines. ? Any blood disorders you have. ? Any surgeries you have had. ? Any medical conditions you have. ? Whether you are or may be . ? Whether you use any tobacco products, including cigarettes, chewing tobacco, or e-cigarettes. What are the risks? Generally, this is a safe procedure. However, problems may occur, including: ? Infection. ? Bleeding. This may include blood in your urine. ? Allergic reactions to medicines. ? Damage to other structures or organs. ? Kidney damage. ? Holes in the kidney. These often heal on their own. ? Numbness or tingling in the affected area. ? Inability to remove all the stones. You may need a different procedure to complete treatment. What happens before the procedure? Staying hydrated Follow instructions from your health care provider about hydration, which may include: ? Up to 2 hours before the procedure ? you may continue to drink clear liquids, such as water, clear fruit juice, black coffee, and plain tea. Eating and drinking restrictions Follow instructions from your health care provider about eating and drinking, which may include: ? 8 hours before the procedure ? stop eating heavy meals or foods, such as meat, fried foods, or fatty foods. ? 6 hours before the procedure ? stop eating light meals or foods, such as toast or cereal. ? 6 hours before the procedure ? stop drinking milk or drinks that contain milk. ? 2 hours before the procedure ? stop drinking clear liquids. Medicines Ask your health care provider about: ? Changing or stopping your regular medicines. This is especially important if you are taking diabetes medicines or blood thinners. ? Taking medicines such as aspirin and ibuprofen. These medicines can thin your blood. Do not take these medicines unless your health care provider tells you to take them. ? Taking qbim-xog-igwqwjm medicines, vitamins, herbs, and supplements. Tests You may have tests, including: ? Blood tests. ? Urine tests. ? Tests to check how your heart is working. ? Imaging studies. These are used to identify: ? The size and number (stone burden) of the kidney stones. ? The position of the kidney stones. General instructions ? Plan to have someone take you home from the hospital or clinic. ? Plan to have a responsible adult care for you for at least 24 hours after you leave the hospital or clinic. This is important. ? Ask your health care provider how your surgical site will be marked or identified. ? Ask your health care provider what steps will be taken to help prevent infection. These may include: ? Removing hair at the surgery site. ? Washing skin with a germ-killing soap. ? Taking antibiotic medicine. What happens during the procedure? ? An IV will be inserted into one of your veins. ? The site of the procedure will be marked. ? You will be given one or more of the following: ? A medicine to help you relax (sedative). ? A medicine to numb the area (local anesthetic). ? A medicine to make you fall asleep (general anesthetic). ? A medicine that is injected into your spine to numb the area below and slightly above the injection site (spinal anesthetic). ? A medicine that is injected into an area of your body to numb everything below the injection site (regional anesthetic). ? A thin tube (urinary catheter) will be put in your bladder to drain urine during and after the procedure. ? Your surgeon will make a small cut (incision) in your lower back. ? A tube will be inserted through the incision into your kidney. ? Each kidney stone will be removed through this tube. Larger stones may need to be broken up with a high-intensity light beam (laser) or other tools. ? After all of the stones have been removed, your health care provider may put in tubes to drain your bladder. Based on your condition: ? An internal tube, called a stent, may be put in your ureter. This will help drain urine from your kidney to your bladder. ? A surgical drain (nephrostomy tube) may be put in your kidney. The tube comes out through the incision in your lower back. This will help to drain urine (more content not included)... Normal [facility] Consent for Procedure/Surger yon 11-07-2022 Consent for Procedure/Surgery [id number] .[id number]:127 Normal [facility] ED Note-Physicianon 11-08-19 ED Note-Physician [id number] .00CD:127 [facility] Formson 11-07-2022 Forms [id number] .[id number]:127 Normal [facility] Lab Reportson 11-07-2022 Lab Reports [id number] .[id number]:127 Normal [facility] Operative Reporton Operative Report [id number] .[id number]:127 Normal [facility] RAD - CT Reporton 11-07-2022 RAD - CT Report [id number] .00CD:127 [facility] Ambulatory Visit Summaryon 0 11-06-2022 Ambulatory Visit Summary KRYSTINA SALDIVAR :1960 Visit Date:11/06/2022 Ambulatory Visit Instructions Your Diagnosis Ureteral stone with hydronephrosis Renal stones History of kidney stones Renal cyst Tests Performed Urnls Dip Stick Auto w/o Microscopy POC 25258 Your Care Team Attending Physician - SHABNAM SULLIVAN, Natalia Dickerson Primary Care Physician - Sal Jackson MD This Is Your Medications List Contact prescribing physician if questions or concerns acetaminophen-hydroco done (acetaminophen-hydroc odone 325 mg-5 mg oral tablet) empagliflozin (Jardiance 25 mg oral tablet) ondansetron (ondansetron 4 mg Tab) simvastatin (simvastatin 20 mg Tab) Procedures Performed Cystoscopy, Hysterectomy, Hysterectomy, TL - Tubal ligation. Discharge Vitals Heart Rate (Peripheral) 78 Blood Pressure 145/91 Height 152 cm Height 60 in Weight 69 kg Weight 151.8 lb BMI 29.86 What to do next You Need to Schedule the Following Appointments Follow Up with SHABNAM SULLIVAN, Natalia Dickerson, STEPHANIE When: Where: [facility] [address] , [place] [address]- Medications What When Instructions Unchanged acetaminophen-hydroco done (acetaminophen-hydroc odone 325 mg-5 mg oral tablet) Contact prescribing physician if questions or concerns Unchanged empagliflozin (Jardiance 25 mg oral tablet) Contact prescribing physician if questions or concerns Unchanged ondansetron (ondansetron 4 mg Tab) Contact prescribing physician if questions or concerns Unchanged simvastatin (simvastatin 20 mg Tab) Contact prescribing physician if questions or concerns Test Results Urnls Dip Stick Auto w/o Microscopy POC 52418 (11/06/2022) Bilirubin Urine Dipstick - Negative Blood Urine Dipstick - Trace-intact Glucose Urine Dipstick - 2+ 500 mg/dl Ketones Urine Dipstick - Negative Leukocytes Urine Dipstick - Negative Nitrite Urine Dipstick - Negative Protein Urine Dipstick - Negative Specific [place] Urine Dipstick - 1.010 Urine Appearance Urine Dipstick - Clear Urine Color Urine Dipstick - Yellow Urobilinogen Urine Dipstick - Normal 0.2-1 EU/dl pH Urine Dipstick - 5.5 Allergies Dilantin (Rash) Percocet 10/325 (Nausea) penicillin (Rash) sulfa drugs (Rash) Problems Ongoing - Any problem that you are currently receiving treatment for. Arthritis Diabetes High cholesterol History of kidney stones Renal cyst Renal stones Ureteral stone with hydronephrosis Education Materials Dietary Guidelines to Help Prevent Kidney Stones Kidney stones are deposits of minerals and salts that form inside your kidneys. Your risk of developing kidney stones may be greater depending on your diet, your lifestyle, the medicines you take, and whether you have certain medical conditions. Most people can lower their chances of developing kidney stones by following the instructions below. Your dietitian may give you more specific instructions depending on your overall health and the type of kidney stones you tend to develop. What are tips for following this plan? Reading food labels ? Choose foods with no salt added or low-salt labels. Limit your salt (sodium) intake to less than 1,500 mg a day. ? Choose foods with calcium for each meal and snack. Try to eat about 300 mg of calcium at each meal. Foods that contain 200?500 mg of calcium a serving include: ? 8 oz (237 mL) of milk, calcium-fortifiednon- dairy milk, and calcium-fortifiedfrui t juice. Calcium-fortified means that calcium has been added to these drinks. ? 8 oz (237 mL) of kefir, yogurt, and soy yogurt. ? 4 oz (114 g) of tofu. ? 1 oz (28 g) of cheese. ? 1 cup (150 g) of dried figs. ? 1 cup (91 g) of cooked broccoli. ? One 3 oz (85 g) can of sardines or mackerel. Most people need 1,000?1,500 mg of calcium a day. Talk to your dietitian about how much calcium is recommended for you. Shopping ? Buy plenty of fresh fruits and vegetables. Most people do not need to avoid fruits and vegetables, even if these foods contain nutrients that may contribute to kidney stones. ? When shopping for convenience foods, choose: ? Whole pieces of fruit. ? Pre-made salads with dressing on the side. ? Low-fat fruit and yogurt smoothies. ? Avoid buying frozen meals or prepared deli foods. These can be high in sodium. ? Look for foods with live cultures, such as yogurt and kefir. ? Choose high-fiber grains, such as whole-wheat breads, oat bran, and wheat cereals. Cooking ? Do not add salt to food when cooking. Place a salt shaker on the table and allow each person to add his or her own salt to taste. ? Use vegetable protein, such as beans, textured vegetable protein (TVP), or tofu, instead of meat in pasta, casseroles, and soups. Meal planning ? Eat less salt, if told by your dietitian. To do this: ? Avoid eating processed or pre-made food. ? Avoid eating fast food. ? Eat less anim (more content not included)... Normal [facility] Ambulatory Visit Summary KRYSTINA SALDIVAR :1960 Visit Date:11/06/2022 Ambulatory Visit Instructions Your Diagnosis Ureteral stone with hydronephrosis Renal stones History of kidney stones Renal cyst Tests Performed Urnls Dip Stick Auto w/o Microscopy POC 81040 Your Care Team Attending Physician - Natalia HAQUE MD Primary Care Physician - Sal Jackson MD This Is Your Medications List Contact prescribing physician if questions or concerns acetaminophen-hydroco done (acetaminophen-hydroc odone 325 mg-5 mg oral tablet) empagliflozin (Jardiance 25 mg oral tablet) ondansetron (ondansetron 4 mg Tab) simvastatin (simvastatin 20 mg Tab) Procedures Performed Cystoscopy, Hysterectomy, Hysterectomy, TL - Tubal ligation. Discharge Vitals Heart Rate (Peripheral) 78 Blood Pressure 145/91 Height 152 cm Height 60 in Weight 69 kg Weight 151.8 lb BMI 29.86 What to do next You Need to Schedule the Following Appointments Follow Up with SHABNAM SULLIVAN, STEPHANIE Dickinson When: Where: [facility] [address], [place] [address]- Medications What When Instructions Unchanged acetaminophen-hydroco done (acetaminophen-hydroc odone 325 mg-5 mg oral tablet) Contact prescribing physician if questions or concerns Unchanged empagliflozin (Jardiance 25 mg oral tablet) Contact prescribing physician if questions or concerns Unchanged ondansetron (ondansetron 4 mg Tab) Contact prescribing physician if questions or concerns Unchanged simvastatin (simvastatin 20 mg Tab) Contact prescribing physician if questions or concerns Test Results Urnls Dip Stick Auto w/o Microscopy POC 70597 (11/06/2022) Bilirubin Urine Dipstick - Negative Blood Urine Dipstick - Trace-intact Glucose Urine Dipstick - 2+ 500 mg/dl Ketones Urine Dipstick - Negative Leukocytes Urine Dipstick - Negative Nitrite Urine Dipstick - Negative Protein Urine Dipstick - Negative Specific [place] Urine Dipstick - 1.010 Urine Appearance Urine Dipstick - Clear Urine Color Urine Dipstick - Yellow Urobilinogen Urine Dipstick - Normal 0.2-1 EU/dl pH Urine Dipstick - 5.5 Allergies Dilantin (Rash) Percocet 10/325 (Nausea) penicillin (Rash) sulfa drugs (Rash) Problems Ongoing - Any problem that you are currently receiving treatment for. Arthritis Diabetes High cholesterol History of kidney stones Renal cyst Renal stones Ureteral stone with hydronephrosis Education Materials Dietary Guidelines to Help Prevent Kidney Stones Kidney stones are deposits of minerals and salts that form inside your kidneys. Your risk of developing kidney stones may be greater depending on your diet, your lifestyle, the medicines you take, and whether you have certain medical conditions. Most people can lower their chances of developing kidney stones by following the instructions below. Your dietitian may give you more specific instructions depending on your overall health and the type of kidney stones you tend to develop. What are tips for following this plan? Reading food labels ? Choose foods with no salt added or low-salt labels. Limit your salt (sodium) intake to less than 1,500 mg a day. ? Choose foods with calcium for each meal and snack. Try to eat about 300 mg of calcium at each meal. Foods that contain 200?500 mg of calcium a serving include: ? 8 oz (237 mL) of milk, calcium-fortifiednon- dairy milk, and calcium-fortifiedfrui t juice. Calcium-fortified means that calcium has been added to these drinks. ? 8 oz (237 mL) of kefir, yogurt, and soy yogurt. ? 4 oz (114 g) of tofu. ? 1 oz (28 g) of cheese. ? 1 cup (150 g) of dried figs. ? 1 cup (91 g) of cooked broccoli. ? One 3 oz (85 g) can of sardines or mackerel. Most people need 1,000?1,500 mg of calcium a day. Talk to your dietitian about how much calcium is recommended for you. Shopping ? Buy plenty of fresh fruits and vegetables. Most people do not need to avoid fruits and vegetables, even if these foods contain nutrients that may contribute to kidney stones. ? When shopping for convenience foods, choose: ? Whole pieces of fruit. ? Pre-made salads with dressing on the side. ? Low-fat fruit and yogurt smoothies. ? Avoid buying frozen meals or prepared deli foods. These can be high in sodium. ? Look for foods with live cultures, such as yogurt and kefir. ? Choose high-fiber grains, such as whole-wheat breads, oat bran, and wheat cereals. Cooking ? Do not add salt to food when cooking. Place a salt shaker on the table and allow each person to add his or her own salt to taste. ? Use vegetable protein, such as beans, textured vegetable protein (TVP), or tofu, instead of meat in pasta, casseroles, and soups. Meal planning ? Eat less salt, if told by your dietitian. To do this: ? Avoid eating processed or pre-made food. ? Avoid eating fast food. ? Eat less anim (more content not included)... Normal [facility] Patient Educationon 11-07-19 Patient Education Nephrology Dietary Guidelines to Help Prevent Kidney Stones Kidney stones are deposits of minerals and salts that form inside your kidneys. Your risk of developing kidney stones may be greater depending on your diet, your lifestyle, the medicines you take, and whether you have certain medical conditions. Most people can lower their chances of developing kidney stones by following the instructions below. Your dietitian may give you more specific instructions depending on your overall health and the type of kidney stones you tend to develop. What are tips for following this plan? Reading food labels ? Choose foods with no salt added or low-salt labels. Limit your salt (sodium) intake to less than 1,500 mg a day. ? Choose foods with calcium for each meal and snack. Try to eat about 300 mg of calcium at each meal. Foods that contain 200?500 mg of calcium a serving include: ? 8 oz (237 mL) of milk, calcium-fortifiednon- dairy milk, and calcium-fortifiedfrui t juice. Calcium-fortified means that calcium has been added to these drinks. ? 8 oz (237 mL) of kefir, yogurt, and soy yogurt. ? 4 oz (114 g) of tofu. ? 1 oz (28 g) of cheese. ? 1 cup (150 g) of dried figs. ? 1 cup (91 g) of cooked broccoli. ? One 3 oz (85 g) can of sardines or mackerel. Most people need 1,000?1,500 mg of calcium a day. Talk to your dietitian about how much calcium is recommended for you. Shopping ? Buy plenty of fresh fruits and vegetables. Most people do not need to avoid fruits and vegetables, even if these foods contain nutrients that may contribute to kidney stones. ? When shopping for convenience foods, choose: ? Whole pieces of fruit. ? Pre-made salads with dressing on the side. ? Low-fat fruit and yogurt smoothies. ? Avoid buying frozen meals or prepared deli foods. These can be high in sodium. ? Look for foods with live cultures, such as yogurt and kefir. ? Choose high-fiber grains, such as whole-wheat breads, oat bran, and wheat cereals. Cooking ? Do not add salt to food when cooking. Place a salt shaker on the table and allow each person to add his or her own salt to taste. ? Use vegetable protein, such as beans, textured vegetable protein (TVP), or tofu, instead of meat in pasta, casseroles, and soups. Meal planning ? Eat less salt, if told by your dietitian. To do this: ? Avoid eating processed or pre-made food. ? Avoid eating fast food. ? Eat less animal protein, including cheese, meat, poultry, or fish, if told by your dietitian. To do this: ? Limit the number of times you have meat, poultry, fish, or cheese each week. Eat a diet free of meat at least 2 days a week. ? Eat only one serving each day of meat, poultry, fish, or seafood. ? When you prepare animal protein, cut pieces into small portion sizes. For most meat and fish, one serving is about the size of the palm of your hand. ? Eat at least five servings of fresh fruits and vegetables each day. To do this: ? Keep fruits and vegetables on hand for snacks. ? Eat one piece of fruit or a handful of berries with breakfast. ? Have a salad and fruit at lunch. ? Have two kinds of vegetables at dinner. ? Limit foods that are high in a substance called oxalate. These include: ? Spinach (cooked), rhubarb, beets, sweet potatoes, and Chinese chard. ? Peanuts. ? Potato chips, kiswahili fries, and baked potatoes with skin on. ? Nuts and nut products. ? Chocolate. ? If you regularly take a diuretic medicine, make sure to eat at least 1 or 2 servings of fruits or vegetables that are high in potassium each day. These include: ? Avocado. ? Banana. ? [place], prune, carrot, or tomato juice. ? Baked potato. ? Cabbage. ? Beans and split peas. Lifestyle ? Drink enough fluid to keep your urine pale yellow. This is the most important thing you can do. Spread your fluid intake throughout the day. ? If you drink alcohol: ? Limit how much you use to: ? 0?1 drink a day for women who are not . ? 0?2 drinks a day for men. ? Be aware of how much alcohol is in your drink. In the [place] one drink equals one 12 oz bottle of beer (355 mL), one 5 oz glass of wine (148 mL), or one 1? oz glass of hard liquor (44 mL). ? Lose weight if told by your health care provider. Work with your dietitian to find an eating plan and weight loss strategies that work best for you. General information ? Talk to your health care provider and dietitian about taking daily supplements. You may be told the following depending on your health and the cause of your kidney stones: ? Not to take supplements with vitamin C. ? To take a calcium supplement. ? To take a daily probiotic supplement. ? To take other supplements such as magnesium, fish oil, or vitamin B6. ? Take klnc-nwm-dlyravu and prescription medicines only as told by your health care provider. These include supplements. What foods should I limit? Limit your in (more content not included)... Normal [facility] Urology Office/Clinic Noteon 11-06-2022 Urology Office/Clinic Note Chief Complaint Pt is here for [facility] ER f/u for kidney stones HPI Staff Krystina is a 62 y.o. female new Pt follow up to [facility] due to abdominal and Lt flank pain. CT scan done 11/04/22 shows 1.1 x 1.1 x 2.7 cm long calculus within the proximal left ureter with moderate to severe left hydronephrosis. Large nonobstructive left renal staghorn calculi. Dysuria: denies Incomplete bladder emptying: yes Hematuria: denies Frequency yes Urgency: yes Nocturia: 2x a night Stream: little stream Leaking: denies Post void dripping: denies Wearing pads/ Depends: denies Urge incontinence: denies Stress incontinence: denies Incontinence without Sensory Awareness: denies Abdominal pain: severe Flank pain: severe Sexual complaints: _ History of Present Illness Tests reviewed: reviewed UA, ER records, CT. I have reviewed the previous health record information and history for this patient from [facility]. I have reviewed and verified the staff HPI to be accurate for this encounter. There have been no associated fever, chills, flank pain, or blood in the urine. Denies any urinary infections since last encounter. Review of Systems PHQ Score Initial Depression Screen Score: 0 ROS - Provider Constitutional: denies weight loss, denies hot flashes. Eyes: denies eye problems. Gastrointestinal: denies nausea, denies vomiting. Cardiovascular: denies chest pain or angina. Integumentary: no dryness Musculoskeletal: denies musculoskeletal symptoms. ENMT: denies otolaryngeal symptoms. Respiratory: no shortness of breath. Heme/Lymph: denies easy bleeding tendency, denies easy bruising tendency. Psychiatric: no confusion, no anxiety. Genitourinary: See HPI. Physical Exam Vitals & Measurements HR: 78(Peripheral) BP: 145/91 HT: 60 in HT: 152 cm WT: 69 kg WT: 151.8 lb BMI: 29.86 General Appearance: alert , no acute distress, well nourished, well developed female. Head: normocephalic . Eyes: normal orbit and globe. ENMT: normal examination of external ears. Chest: Lungs CTA, respirations non labored . Cardiovascular: regular rate and rhythm. Abdomen: soft, non distended, no tenderness, no mass or organomegaly, no hernia. Genitourinary: bladder nonpalpable, no flank tenderness. Lymph Nodes: unremarkable palpation of the cervical area. Skin: warm, dry, no bruising. Psychiatric: cooperative, affect appropriate for age, normal judgement, euthymic mood. Assessment/Plan Krystina is a 62 yo female new pt following up to [facility] ER visit on 11/04/22 due to L flank pain that radiated into her LLQ with hematuria and nausea. 1. Ureteral stone with hydronephrosis (N13.2: Hydronephrosis with renal and ureteral calculous obstruction) CT AP wo con 11/04/22 - 1.1 x 1.1 x 2.7 cm long calculus within the proximal left ureter with moderate to severe left hydronephrosis. Personal review: L kidney is half full of stone. Significant stone in ureter. UA today negative for blood and infection. Reviewed imaging with pt. Possible that a stent placement will not be possible due to large stone burden in ureter. She would then require PCNL. She understands this would require interventional radiology and transfer to [facility]. Pt's PCP, Dr. Jackson, wanted her to be admitted today. Would be able to go back to work if stent placement is successful, however, she will require staged procedures. -Pt to be admitted to [facility] today so she can have an IV started and have pain meds and nausea meds for comfort. She is not to eat or drink after midnight tonight. -Pt to call HR at her workplace to figure out [facility] paperwork. -Will schedule cysto and L stent placement for tomorrow. The procedural risks, benefits, details, and treatment alternatives have been discussed with the patient. These include bleeding, infection, inability to break or retrieve all of the stone, injury to the ureter (the tube which connects the kidney to the bladder), injury to the kidney scarring of the ureter, and need for repeat procedures, among others. Full informed consent has been obtained. Will order General anesthesia. 2. Renal stones (N20.0: Calculus of kidney) CT AP wo con 11/04/22 - Large nonobstructive left renal staghorn calculi occupying the lower half of her L kidney. Personal review: L kidney is half full of stone. Significant stone in ureter. Will require PCNL for L kidney. 3. History of kidney stones (Z87.442: Personal history of urinary calculi) Had lithotripsy [place] [address] Haque. 4. Renal cyst (N28.1: Cyst of kidney, acquired) CT AP wo con 11/04/22 - R renal cyst. Follow-up With When Contact Information Natalia HAQUE MD, [facility] [address] [place] [address]- Additional Instructions: schedule L stent placement Patient Education Dietary Guidelines to Help Prevent Kidney Stones I, Rosalinda Rodgers, personally scribed for Dr. Haque on 11/06/2022 11:43:23. . Documentation recorde (more content not included)... Normal [facility] Comment on above: Result Comment: Elec tronically Signed By: Natalia HAQUE MD\.br\Date and Time Signed: 11/06/22 11:51 EDT\.br\Electronically Co-Signed By: Rosalinda Rodgers\.br\Date and Time Co-Signed: 11/06/22 11:44 EDT\.br\Electronically Co-Signed By: Rosalinda Rodgers\.br\Date and Time Co-Signed: 11/06/22 11:45 EDT BNPon 06-21-2022 Natriuretic peptide B (Bld) [Mass/Vol] 75.0 pg/mL Normal <=900.0 [facility] Comment on above: Performed By: #### B TRAVEL OCCUPATIONAL THERAPIST, CMP, TSH, T7 #### [facility] [address] [address] [address] Kris Brito CBC AUTO DIFFon 06-21-2022 BASO # 0.0 103/ul Normal 0.0-0.1 [facility] Comment on above: Performed By: #### B TRAVEL OCCUPATIONAL THERAPIST, CMP, TSH, T7 #### [facility] [address] [place] [address] Dr. Kris Brito Basophils/100 WBC (Bld) 0.6 % Normal 0.2-2.0 [facility] Comment on above: Performed By: #### B TRAVEL OCCUPATIONAL THERAPIST, CMP, TSH, T7 #### [facility] [address] [place] [address] Dr. Kris Brito EO # 0.3 103/ul Normal 0.0-0.7 [facility] Comment on above: Performed By: #### B TRAVEL OCCUPATIONAL THERAPIST, CMP, TSH, T7 #### [facility] [address] [place] [address] Dr. Kris Brito Eosinophils/100 WBC (Bld) 3.6 % Normal 0.9-7.0 [facility] Comment on above: Performed By: #### B TRAVEL OCCUPATIONAL THERAPIST, CMP, TSH, T7 #### [facility] [address] [place] [address] Dr. Kris Brito Erythrocyte distribution width (RBC) [Ratio] 12.7 % Normal 11.0-15.0 [facility] Comment on above: Performed By: #### B TRAVEL OCCUPATIONAL THERAPIST, CMP, TSH, T7 #### [facility] [address] [place] [address] Dr. Kris Brito Hematocrit (Bld) [Volume fraction] 43.1 % Normal 36.0-48.0 [facility] Comment on above: Performed By: #### B TRAVEL OCCUPATIONAL THERAPIST, CMP, TSH, T7 #### [facility] [address] [place] [address] Dr. Kris Brito Hemoglobin (Bld) [Mass/Vol] 14.0 g/dL Normal 12.0-16.0 [facility] Comment on above: Performed By: #### B TRAVEL OCCUPATIONAL THERAPIST, CMP, TSH, T7 #### [facility] [address] [place] [address] Dr. Kris Brito IG # 0.02 10e3/ul Normal 0.00-0.03 [facility] Comment on above: Performed By: #### B TRAVEL OCCUPATIONAL THERAPIST, CMP, TSH, T7 #### [facility] [address] [place] [address] Dr. Kris Brito IG % 0.3 % Normal 0.0-0.5 [facility] Comment on above: Performed By: #### B TRAVEL OCCUPATIONAL THERAPIST, CMP, TSH, T7 #### [facility] [address] [place] [address] Dr. Kris Brito LYMPH # 2.5 103/ul Normal 1.2-3.8 [facility] Comment on above: Performed By: #### B TRAVEL OCCUPATIONAL THERAPIST, CMP, TSH, T7 #### [facility] [address] [place] [address] Dr. Kris Brito Lymphocytes/100 WBC (Bld) 36.1 % Normal 20.5-60.0 [facility] Comment on above: Performed By: #### B TRAVEL OCCUPATIONAL THERAPIST, CMP, TSH, T7 #### [facility] [address] [place] [address] Dr. Kris Brito MANUAL DIFF REQ NO Normal [facility] Comment on above: Performed By: #### B TRAVEL OCCUPATIONAL THERAPIST, CMP, TSH, T7 #### [facility] [address] [place] [address] Dr. Kris Brito MCH (RBC) [Entitic mass] 30.0 pg Normal 26.7-34.0 [facility] Comment on above: Performed By: #### B TRAVEL OCCUPATIONAL THERAPIST, CMP, TSH, T7 #### [facility] [address] [place] [address] Dr. Kris Brito MCHC (RBC) [Mass/Vol] 32.5 g/dL Normal 29.9-35.2 [facility] Comment on above: Performed By: #### B TRAVEL OCCUPATIONAL THERAPIST, CMP, TSH, T7 #### [facility] [address] [place] [address] Dr. Kris Brito MCV (RBC) [Entitic vol] 92.5 fL Normal 81.0-99.0 [facility] Comment on above: Performed By: #### B TRAVEL OCCUPATIONAL THERAPIST, CMP, TSH, T7 #### [facility] [address] [place] [address] Dr. Kris Brito MONO # 0.7 103/ul Normal 0.3-0.8 [facility] Comment on above: Performed By: #### B TRAVEL OCCUPATIONAL THERAPIST, CMP, TSH, T7 #### [facility] [address] [place] [address] Dr. Kris Brito Monocytes/100 WBC (Bld) 10.5 % Normal 1.7-12.0 [facility] Comment on above: Performed By: #### B TRAVEL OCCUPATIONAL THERAPIST, CMP, TSH, T7 #### [facility] [address] [place] [address] Dr. Kris Brito NEUT # 3.4 103/ul Normal 1.4-6.5 [facility] Comment on above: Performed By: #### B TRAVEL OCCUPATIONAL THERAPIST, CMP, TSH, T7 #### [facility] [address] [place] [address] Dr. Kris Brito Neutrophils/100 WBC (Bld) 48.9 % Normal 43.0-75.0 [facility] Comment on above: Performed By: #### B TRAVEL OCCUPATIONAL THERAPIST, CMP, TSH, T7 #### [facility] [address] [place] [address] Dr. Kris Brito Platelet mean volume (Bld) [Entitic vol] 8.9 fL Critically low 9.5-13.5 [facility] Comment on above: Performed By: #### B TRAVEL OCCUPATIONAL THERAPIST, CMP, TSH, T7 #### [facility] [address] [place] [address] Dr. Kris Brito PLT 247 103/ul Normal 150-450 [facility] Comment on above: Performed By: #### B TRAVEL OCCUPATIONAL THERAPIST, CMP, TSH, T7 #### [facility] [address] [place] [address] Dr. Kris Brito RBC 4.66 106/ul Normal 4.20-5.40 [facility] Comment on above: Performed By: #### B TRAVEL OCCUPATIONAL THERAPIST, CMP, TSH, T7 #### [facility] [address] [place] [address] Dr. Kris Brito WBC 7.0 103/ul Normal 4.0-11.0 [facility] Comment on above: Performed By: #### B TRAVEL OCCUPATIONAL THERAPIST, CMP, TSH, T7 #### [facility] [address] [place] [address] Dr. Kris Brito FREE THYROXINE INDEX T7on FTI 2.55 Normal 1.30-4.50 [facility] Comment on above: Performed By: #### B TRAVEL OCCUPATIONAL THERAPIST, CMP, TSH, T7 #### [facility] [address] [place] [address] Dr. Kris Brito T3U 34.0 % Normal 30.0-39.0 [facility] Comment on above: Performed By: #### B TRAVEL OCCUPATIONAL THERAPIST, CMP, TSH, T7 #### [facility] [address] [place] [address] Dr. Kris Brito T4 [Mass/Vol] 7.50 ug/dL Normal 4.80-13.90 [facility] Comment on above: Performed By: #### B TRAVEL OCCUPATIONAL THERAPIST, CMP, TSH, T7 #### [facility] [address] [place] [address] Dr. Kris Brito IRONon 06-21-2022 Iron [Mass/Vol] 128.0 ug/dL Normal 50.0-170.0 [facility] Comment on above: Performed By: #### B TRAVEL OCCUPATIONAL THERAPIST, CMP, TSH, T7 #### [facility] [address] [place] [address] Dr. Kris Brito PROF 14(COMP METB)on 023 Albumin [Mass/Vol] 3.9 g/dL Normal 3.4-5.0 [facility] Comment on above: Performed By: #### B TRAVEL OCCUPATIONAL THERAPIST, CMP, TSH, T7 #### [facility] [address] [place] [address] Dr. Kris Brito Albumin/Globulin [Mass ratio] 1.1 {ratio} Normal [facility] Comment on above: Performed By: #### B TRAVEL OCCUPATIONAL THERAPIST, CMP, TSH, T7 #### [facility] [address] [place] [address] Dr. Kris Brito ALP [Catalytic activity/Vol] 82 U/L Normal 46-116 [facility] Comment on above: Performed By: #### B TRAVEL OCCUPATIONAL THERAPIST, CMP, TSH, T7 #### [facility] [address] [address] [address] Kris Brito ALT [Catalytic activity/Vol] 23 U/L Normal 14-59 [facility] Comment on above: Performed By: #### B TRAVEL OCCUPATIONAL THERAPIST, CMP, TSH, T7 #### [facility] [address] [address] [address] Kris Brito Anion gap [Moles/Vol] 11.2 mmol/L Normal [facility] Comment on above: Performed By: #### B TRAVEL OCCUPATIONAL THERAPIST, CMP, TSH, T7 #### [facility] [address] [address] [address] Kris Brito AST [Catalytic activity/Vol] 21 U/L Normal 15-37 [facility] Comment on above: Performed By: #### B TRAVEL OCCUPATIONAL THERAPIST, CMP, TSH, T7 #### [facility] [address] [place] [address] Dr. Kris Brito Bilirubin [Mass/Vol] 0.7 mg/dL Normal 0.2-1.0 [facility] Comment on above: Performed By: #### B TRAVEL OCCUPATIONAL THERAPIST, CMP, TSH, T7 #### [facility] [address] [address] [address] Kris Brito Calcium [Mass/Vol] 8.9 mg/dL Normal 8.5-10.1 [facility] Comment on above: Performed By: #### B TRAVEL OCCUPATIONAL THERAPIST, CMP, TSH, T7 #### [facility] [address] [address] [address] Kris Brito Chloride [Moles/Vol] 109 mmol/L Critically high 98-107 [facility] Comment on above: Performed By: #### B TRAVEL OCCUPATIONAL THERAPIST, CMP, TSH, T7 #### [facility] [address] [address] [address] Kris Brito CO2 [Moles/Vol] 26.8 mmol/L Normal 21.0-32.0 [facility] Comment on above: Performed By: #### B TRAVEL OCCUPATIONAL THERAPIST, CMP, TSH, T7 #### [facility] [address] [address] [address] Kris Brito Creatinine [Mass/Vol] 0.60 mg/dL Normal 0.55-1.02 [facility] Comment on above: Performed By: #### B TRAVEL OCCUPATIONAL THERAPIST, CMP, TSH, T7 #### [facility] [address] [place] [address] Dr. Kris Brito EGFR-AF QATARI >60 Normal >=60 [facility] Comment on above: Performed By: #### B TRAVEL OCCUPATIONAL THERAPIST, CMP, TSH, T7 #### [facility] [address] [place] [address] Dr. Kris Brito EGFR-NON AF QATARI >60 Normal >=60 [facility] Comment on above: Performed By: #### B TRAVEL OCCUPATIONAL THERAPIST, CMP, TSH, T7 #### [facility] [address] [place] [address] Dr. Kris Brito Globulin (S) [Mass/Vol] 3.4 g/dL Normal [facility] Comment on above: Performed By: #### B TRAVEL OCCUPATIONAL THERAPIST, CMP, TSH, T7 #### [facility] [address] [place] [address] Dr. Kris Brito Glucose [Mass/Vol] 118 mg/dL Critically high 74-106 [facility] Comment on above: Performed By: #### B TRAVEL OCCUPATIONAL THERAPIST, CMP, TSH, T7 #### [facility] [address] [place] [address] Dr. Kris Brito Potassium [Moles/Vol] 4.0 mmol/L Normal 3.5-5.1 [facility] Comment on above: Performed By: #### B TRAVEL OCCUPATIONAL THERAPIST, CMP, TSH, T7 #### [facility] [address] [place] [address] Dr. Kris Brito Protein [Mass/Vol] 7.3 g/dL Normal 6.4-8.2 [facility] Comment on above: Performed By: #### B TRAVEL OCCUPATIONAL THERAPIST, CMP, TSH, T7 #### [facility] [address] [place] [address] Dr. Kris Brito Sodium [Moles/Vol] 143 mmol/L Normal 136-145 [facility] Comment on above: Performed By: #### B TRAVEL OCCUPATIONAL THERAPIST, CMP, TSH, T7 #### [facility] [address] [place] [address] Dr. Kris Brito Urea nitrogen [Mass/Vol] 12.0 mg/dL Normal 7.0-18.0 [facility] Comment on above: Performed By: #### B TRAVEL OCCUPATIONAL THERAPIST, CMP, TSH, T7 #### [facility] [address] [place] [address] Dr. Kris Brito Urea nitrogen/Creatinine [Mass ratio] 20.0 mg/mg Normal [facility] Comment on above: Performed By: #### B TRAVEL OCCUPATIONAL THERAPIST, CMP, TSH, T7 #### [facility] [address] [place] [address] Dr. Kris Brito TSHon 06-21-2022 TSH 1.617 uIU/mL Normal 0.358-3.740 [facility] Comment on above: Performed By: #### B TRAVEL OCCUPATIONAL THERAPIST, CMP, TSH, T7 #### [facility] [address] [place] [address] Dr. Kris Brito INSULINon 02-15-2022 Insulin 24.8 uIU/mL Normal 2.6-24.9 [facility] Comment on above: Performed By: #### I NSULIN #### [facility] [address] [place] [address] Dr. Kris Brito CBC AUTO DIFFon 02-14-2022 BASO # 0.1 103/ul Normal 0.0-0.1 [facility] Comment on above: Performed By: #### B TRAVEL OCCUPATIONAL THERAPIST, CMP, TSH, T7 #### [facility] [address] [place] [address] Dr. Kris Brito Basophils/100 WBC (Bld) 0.9 % Normal 0.2-2.0 [facility] Comment on above: Performed By: #### B TRAVEL OCCUPATIONAL THERAPIST, CMP, TSH, T7 #### [facility] [address] [place] [address] Dr. Kris Brito EO # 0.2 103/ul Normal 0.0-0.7 [facility] Comment on above: Performed By: #### B TRAVEL OCCUPATIONAL THERAPIST, CMP, TSH, T7 #### [facility] [address] [place] [address] Dr. Kris Brito Eosinophils/100 WBC (Bld) 3.0 % Normal 0.9-7.0 [facility] Comment on above: Performed By: #### B TRAVEL OCCUPATIONAL THERAPIST, CMP, TSH, T7 #### [facility] [address] [place] [address] Dr. Kris Brito Erythrocyte distribution width (RBC) [Ratio] 12.7 % Normal 11.0-15.0 [facility] Comment on above: Performed By: #### B TRAVEL OCCUPATIONAL THERAPIST, CMP, TSH, T7 #### [facility] [address] [place] [address] Dr. Kris Brito Hematocrit (Bld) [Volume fraction] 43.1 % Normal 36.0-48.0 [facility] Comment on above: Performed By: #### B TRAVEL OCCUPATIONAL THERAPIST, CMP, TSH, T7 #### [facility] [address] [place] [address] Dr. Kris Brito Hemoglobin (Bld) [Mass/Vol] 14.1 g/dL Normal 12.0-16.0 [facility] Comment on above: Performed By: #### B TRAVEL OCCUPATIONAL THERAPIST, CMP, TSH, T7 #### [facility] [address] [place] [address] Dr. Kris Brito IG # 0.03 10e3/ul Normal 0.00-0.03 [facility] Comment on above: Performed By: #### B TRAVEL OCCUPATIONAL THERAPIST, CMP, TSH, T7 #### [facility] [address] [place] [address] Dr. Kris Brito IG % 0.4 % Normal 0.0-0.5 [facility] Comment on above: Performed By: #### B TRAVEL OCCUPATIONAL THERAPIST, CMP, TSH, T7 #### [facility] [address] [place] [address] Dr. Kris Brito LYMPH # 2.1 103/ul Normal 1.2-3.8 [facility] Comment on above: Performed By: #### B TRAVEL OCCUPATIONAL THERAPIST, CMP, TSH, T7 #### [facility] [address] [place] [address] Dr. Kris Brito Lymphocytes/100 WBC (Bld) 30.0 % Normal 20.5-60.0 [facility] Comment on above: Performed By: #### B TRAVEL OCCUPATIONAL THERAPIST, CMP, TSH, T7 #### [facility] [address] [place] [address] Dr. Kris Brito MANUAL DIFF REQ NO Normal [facility] Comment on above: Performed By: #### B TRAVEL OCCUPATIONAL THERAPIST, CMP, TSH, T7 #### [facility] [address] [place] [address] Dr. Kris Brito MCH (RBC) [Entitic mass] 29.9 pg Normal 26.7-34.0 [facility] Comment on above: Performed By: #### B TRAVEL OCCUPATIONAL THERAPIST, CMP, TSH, T7 #### [facility] [address] [place] [address] Dr. Kris Brito MCHC (RBC) [Mass/Vol] 32.7 g/dL Normal 29.9-35.2 [facility] Comment on above: Performed By: #### B TRAVEL OCCUPATIONAL THERAPIST, CMP, TSH, T7 #### [facility] [address] [place] [address] Dr. Kris Brito MCV (RBC) [Entitic vol] 91.5 fL Normal 81.0-99.0 [facility] Comment on above: Performed By: #### B TRAVEL OCCUPATIONAL THERAPIST, CMP, TSH, T7 #### [facility] [address] [place] [address] Dr. Kris Brito MONO # 0.7 103/ul Normal 0.3-0.8 [facility] Comment on above: Performed By: #### B TRAVEL OCCUPATIONAL THERAPIST, CMP, TSH, T7 #### [facility] [address] [place] [address] Dr. Kris Brito Monocytes/100 WBC (Bld) 9.2 % Normal 1.7-12.0 [facility] Comment on above: Performed By: #### B TRAVEL OCCUPATIONAL THERAPIST, CMP, TSH, T7 #### [facility] [address] [place] [address] Dr. Kris Brito NEUT # 4.0 103/ul Normal 1.4-6.5 [facility] Comment on above: Performed By: #### B TRAVEL OCCUPATIONAL THERAPIST, CMP, TSH, T7 #### [facility] [address] [address] [address] Kris Brito Neutrophils/100 WBC (Bld) 56.5 % Normal 43.0-75.0 [facility] Comment on above: Performed By: #### B TRAVEL OCCUPATIONAL THERAPIST, CMP, TSH, T7 #### [facility] [address] [address] [address] Kris Brito Platelet mean volume (Bld) [Entitic vol] 8.9 fL Critically low 9.5-13.5 [facility] Comment on above: Performed By: #### B TRAVEL OCCUPATIONAL THERAPIST, CMP, TSH, T7 #### [facility] [address] [place] [address] Dr. Kris Brito PLT 292 103/ul Normal 150-450 [facility] Comment on above: Performed By: #### B TRAVEL OCCUPATIONAL THERAPIST, CMP, TSH, T7 #### [facility] [address] [place] [address] Dr. Kris Brito RBC 4.71 106/ul Normal 4.20-5.40 [facility] Comment on above: Performed By: #### B TRAVEL OCCUPATIONAL THERAPIST, CMP, TSH, T7 #### [facility] [address] [place] [address] Dr. Kris Brito WBC 7.0 103/ul Normal 4.0-11.0 [facility] Comment on above: Performed By: #### B TRAVEL OCCUPATIONAL THERAPIST, CMP, TSH, T7 #### [facility] [address] [place] [address] Dr. Kris Brito FREE THYROXINE INDEX T7on FTI 2.81 Normal 1.30-4.50 [facility] Comment on above: Performed By: #### B TRAVEL OCCUPATIONAL THERAPIST, CMP, TSH, T7 #### [facility] [address] [place] [address] Dr. Kris Brito T3U 33.0 % Normal 30.0-39.0 [facility] Comment on above: Performed By: #### B TRAVEL OCCUPATIONAL THERAPIST, CMP, TSH, T7 #### [facility] [address] [place] [address] Dr. Kris Brito T4 [Mass/Vol] 8.50 ug/dL Normal 4.80-13.90 [facility] Comment on above: Performed By: #### B TRAVEL OCCUPATIONAL THERAPIST, CMP, TSH, T7 #### [facility] [address] [address] [address] Kris Brito GLYCOHEMOGLOBIN A1Con 2021 ADA RECOMMENDATION SEE BELOW Normal [facility] Comment on above: Result Comment: ADA RECOMMENDED LIMIT 4.0 - 6.0 ADA THERAPEUTIC TARGET < 7.0 ACTION SUGGESTED > 7.0 Performed By: #### A 1C #### [facility] [address] [place] [address] Dr. Krsi Brito Glucose [Mass/Vol] 146 mg/dL Normal [facility] Comment on above: Performed By: #### A 1C #### [facility] [address] [place] [address] Dr. Kris Brito HbA1c (Bld) [Mass fraction] 6.7 % Critically high 4.5-6.2 [facility] Comment on above: Performed By: #### A 1C #### [facility] [address] [place] [address] Dr. Kris Brito IRONon 02-14-2022 Iron [Mass/Vol] 62.0 ug/dL Normal 50.0-170.0 [facility] Comment on above: Performed By: #### B TRAVEL OCCUPATIONAL THERAPIST, CMP, TSH, T7 #### [facility] [address] [place] [address] Dr. Kris Brito LIPID PROFILEon 02-14-2022 CHOL-HDL RATIO NORM SEE BELOW Normal [facility] Comment on above: Result Comment: 3.3 - 4.4 LOW RISK 4.4 - 7.1 AVERAGE RISK 7.1 - 11.0 MODERATE RISK >11.0 HIGH RISK Performed By: #### B TRAVEL OCCUPATIONAL THERAPIST, CMP, TSH, T7 #### [facility] [address] [place] [address] Dr. Kris Brito Cholesterol [Mass/Vol] 143 mg/dL Normal <=200 [facility] Comment on above: Performed By: #### B TRAVEL OCCUPATIONAL THERAPIST, CMP, TSH, T7 #### [facility] [address] [place] [address] Dr. Kris Brito Cholesterol in HDL [Mass/Vol] 60 mg/dL Normal 40-60 [facility] Comment on above: Performed By: #### B TRAVEL OCCUPATIONAL THERAPIST, CMP, TSH, T7 #### [facility] [address] [address] [address] Kris Brito Cholesterol in LDL [Mass/Vol] 72.6 mg/dL Normal [facility] Comment on above: Performed By: #### B TRAVEL OCCUPATIONAL THERAPIST, CMP, TSH, T7 #### [facility] [address] [address] [address] Kris Brito Cholesterol.total/Chol esterol in HDL [Mass ratio] 2.4 {ratio} Normal [facility] Comment on above: Performed By: #### B TRAVEL OCCUPATIONAL THERAPIST, CMP, TSH, T7 #### [facility] [address] [address] [address] Kris Brito HDL NORMAL > or = 60 mg/dl - LO W CARDIOVASCULAR RISK <40 mg/dl - HIGH CARDIOVASCULAR RISK Normal [facility] Comment on above: Performed By: #### B TRAVEL OCCUPATIONAL THERAPIST, CMP, TSH, T7 #### [facility] [address] [address] [address] Kris Brito LDL CALC NORMAL SEE BELOW Normal [facility] Comment on above: Result Comment: <100 mg/dl OPTIMAL 100 - 129 mg/dl NEAR OR ABOVE OPTIMAL 130 - 159 mg/dl BORDERLINE HIGH 160 - 189 mg/dl HIGH >190 mg/dl VERY HIGH Performed By: #### B TRAVEL OCCUPATIONAL THERAPIST, CMP, TSH, T7 #### [facility] [address] [address] [address] Kris Brito Triglyceride [Mass/Vol] 52 mg/dL Normal <=150 [facility] Comment on above: Performed By: #### B TRAVEL OCCUPATIONAL THERAPIST, CMP, TSH, T7 #### [facility] [address] [address] [address] Kris Brito VLDL CALC 10.4 mg/dL Normal [facility] Comment on above: Performed By: #### B TRAVEL OCCUPATIONAL THERAPIST, CMP, TSH, T7 #### [facility] [address] [address] [address] Kris Brito PROF 14(COMP METB)on 022 Albumin [Mass/Vol] 3.9 g/dL Normal 3.4-5.0 [facility] Comment on above: Performed By: #### B TRAVEL OCCUPATIONAL THERAPIST, CMP, TSH, T7 #### [facility] [address] [place] [address] Dr. Kris Brito Albumin/Globulin [Mass ratio] 1.1 {ratio} Normal [facility] Comment on above: Performed By: #### B TRAVEL OCCUPATIONAL THERAPIST, CMP, TSH, T7 #### [facility] [address] [place] [address] Dr. Kris Brito ALP [Catalytic activity/Vol] 69 U/L Normal 46-116 [facility] Comment on above: Performed By: #### B TRAVEL OCCUPATIONAL THERAPIST, CMP, TSH, T7 #### [facility] [address] [address] [address] Kris Brito ALT [Catalytic activity/Vol] 23 U/L Normal 14-59 [facility] Comment on above: Performed By: #### B TRAVEL OCCUPATIONAL THERAPIST, CMP, TSH, T7 #### [facility] [address] [address]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 for a litholink and I mailed her the blood work orders. documented in this encounter [facility] 08-26-2023 Note HNO ID: [id number] Author: ALEXANDRIA MARIN PA-C Service: ? Author Type: Physician Orthotic Aide Type: Progress Notes Filed: 08/27/2023 12:36 Note Text: This visit was conducted as a virtual visit. I have communicated my name and active licensure. The patient's identity and physical location were verified at the time of this visit. 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 Chief complaint: Kidney stones Krystina Saldivar is a 63 year old female who presents today for kidney stone management and prevention counseling. Interval hx Feb 25, 2023 s/p L URS and L miniPCNL w/ Dr. Thompson on 01/06/23 and 12/11/22, respectively. Uric acid. She completed a Litholink 24-hour urine collection and US prior to today's visit for review. - Reviewed recent US imaging: small LLP stone - Per Dr. Thompson: Looks like she may have a residual stone that was hiding in her lower pole on US but not on the end fluoro from the OR. Would leave it for now and keep monitoring or obtain CT in a few months with follow up with me - Patient agrees to monitor with US - Taking vitamin D 50mcg for recently low vitamin D, which may help lower urinary calcium level - Increase fluid intake, decrease sodium intake, and increase dietary citrus as tolerable - Kcitrate BID continue - New US and LL in about 6 months Interval hx August 26, 2023 Patient returns to clinic having completed new Litholink and US showing small left kidneys stones, perhaps suggesting slight dissolution with potassium citrate when compared to previous US findings. There is no height or weight on file to calculate BMI. PAST MEDICAL HISTORY Diagnosis Date Arthritis Bilateral nephrolithiasis Diabetes mellitus (HCC) H/O: hysterectomy High cholesterol Staghorn calculus PAST SURGICAL HISTORY Procedure Laterality Date LIGATE FALLOPIAN TUBE Bilateral TOTAL ABDOM HYSTERECTOMY URETERAL STENT PLACEMENT 11/07/2022 No family history on file. Social History Tobacco Use Smoking status: Former Packs/day: 1 Types: Cigarettes Quit date: 03/31/1997 Years since quittin.4 Smokeless tobacco: Never Substance Use Topics Alcohol use: Yes Comment: social drinker on weekends Drug use: Never Current Outpatient Medications on File Prior to Visit Medication Sig potassium citrate ER (UROCIT-K) 10 mEq (1,080 mg) take 2 tablets by mouth twice a day tamsulosin (FLOMAX) 0.4 mg Take 1 capsule by mouth once daily. 30 minutes after the same meal each day. keTORolac (TORADOL) 10 mg tablet Take 1 tablet by mouth every 12 hours as needed for pain. phenazopyridine (PYRIDIUM) 100 mg tablet Take 1 tablet by mouth three times a day as needed for pain. simvastatin (ZOCOR) 20 mg tablet Take 20 mg by mouth daily at bedtime. empagliflozin (JARDIANCE) 25 mg tablet Take 25 mg by mouth daily with breakfast. solifenacin 10 mg tablet Take 5 mg by mouth once daily. ondansetron (ZOFRAN) 4 mg tablet Take 4 mg by mouth every 8 hours as needed for nausea/vomiting. ibuprofen (MOTRIN) 800 mg tablet Take 800 mg by mouth every 6 hours as needed. No current facility-administered medications on file prior to visit. ALLERGIES Allergen Reactions Penicillins Rash Verbal- not for sure of reaction Percocet [Oxycodone* Vomiting Sulfa (Sulfonamide * Rash Verbal- not for sure of reaction Results Only on 05/11/2023 Component Date Value Ref Range Status CYSTINE, URINE, QUALITATIVE 05/11/2023 CANCELED Final-Edited Comment: Test not performed. Previous test results on file. Result canceled by the ancillary. URINE VOLUME (PRESERVED) 05/11/2023 2,010 500 - 4,000 mL/24 hr Final CALCIUM OXALATE SATURATION 05/11/2023 8.67 6.00 - 10.00 Final CALCIUM, URINE 05/11/2023 425 (H) <200 mg/24 hr Final OXALATE, URINE 05/11/2023 41 (H) 20 - 40 mg/24 hr Final The urine Ox result was verified by repeat analysis. CITRATE, URINE 05/11/2023 2,535 >550 mg/24 hr Final CALCIUM PHOSPHATE SATURATION 05/11/2023 1.95 0.50 - 2.00 Final PH, 24 HR, URINE 05/11/2023 5.992 5.800 - 6.200 Final URIC ACID SATURATION 05/11/2023 0.88 <1.00 Final URIC ACID, URINE 05/11/2023 883 (H) <750 mg/24 hr Final SODIUM, URINE 05/11/2023 273 (H) 50 - 150 mmol/24 hr Final POTASSIUM, URINE 05/11/2023 99 20 - 100 mmol/24 hr Final MAGNESIUM, URINE 05/11/2023 142 (H) 30 - 120 mg/24 hr Final PHOSPHORUS, URINE 05/11/2023 1,424 (H) 600 - 1,200 mg/24 hr Final AMMONIUM, URINE 05/11/2023 17 15 - 60 mmol/24 hr Final CHLORIDE, URINE 05/11/2023 228 70 - 250 mmol/24 hr Final SULFATE, URINE 05/11/2023 52 20 - 80 meq/24 hr Final UREA NITROGEN, URINE 05/11/2023 12.65 6.00 - 14.00 g/24 hr Final PROTEIN CATABOLIC RATE 05/11/2023 1.4 0.8 - 1.4 g/kg/24 hr Final CREATININE, URINE 05/11/2023 1,155 Not Applic. mg/24 hr Final CREATININE/KG BOD (more content not included)... [facility] 08-26-2023 History of Presen t illness Narrative This visit was conducted as a virtual visit. I have communicated my name and active licensure. The patient's identity and physical location were verified at the time of this visit. 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 Chief complaint: Kidney stones Krystina Saldivar is a 63 year old female who presents today for kidney stone management and prevention counseling. Interval hx Feb 25, 2023 s/p L URS and L miniPCNL w/ Dr. Thompson on 01/06/23 and 12/11/22, respectively. Uric acid. She completed a Litholink 24-hour urine collection and US prior to today's visit for review. - Reviewed recent US imaging: small LLP stone - Per Dr. Thompson: Looks like she may have a residual stone that was hiding in her lower pole on US but not on the end fluoro from the OR. Would leave it for now and keep monitoring or obtain CT in a few months with follow up with me - Patient agrees to monitor with US - Taking vitamin D 50mcg for recently low vitamin D, which may help lower urinary calcium level - Increase fluid intake, decrease sodium intake, and increase dietary citrus as tolerable - Kcitrate BID continue - New US and LL in about 6 months Interval hx August 26, 2023 Patient returns to clinic having completed new Litholink and US showing small left kidneys stones, perhaps suggesting slight dissolution with potassium citrate when compared to previous US findings. There is no height or weight on file to calculate BMI. PAST MEDICAL HISTORY Diagnosis Date Arthritis Bilateral nephrolithiasis Diabetes mellitus (HCC) H/O: hysterectomy High cholesterol Staghorn calculus PAST SURGICAL HISTORY Procedure Laterality Date LIGATE FALLOPIAN TUBE Bilateral TOTAL ABDOM HYSTERECTOMY URETERAL STENT PLACEMENT 11/07/2022 No family history on file. Social History Tobacco Use Smoking status: Former Packs/day: 1 Types: Cigarettes Quit date: 03/31/1997 Years since quittin.4 Smokeless tobacco: Never Substance Use Topics Alcohol use: Yes Comment: social drinker on weekends Drug use: Never Current Outpatient Medications on File Prior to Visit Medication Sig potassium citrate ER (UROCIT-K) 10 mEq (1,080 mg) take 2 tablets by mouth twice a day tamsulosin (FLOMAX) 0.4 mg Take 1 capsule by mouth once daily. 30 minutes after the same meal each day. keTORolac (TORADOL) 10 mg tablet Take 1 tablet by mouth every 12 hours as needed for pain. phenazopyridine (PYRIDIUM) 100 mg tablet Take 1 tablet by mouth three times a day as needed for pain. simvastatin (ZOCOR) 20 mg tablet Take 20 mg by mouth daily at bedtime. empagliflozin (JARDIANCE) 25 mg tablet Take 25 mg by mouth daily with breakfast. solifenacin 10 mg tablet Take 5 mg by mouth once daily. ondansetron (ZOFRAN) 4 mg tablet Take 4 mg by mouth every 8 hours as needed for nausea/vomiting. ibuprofen (MOTRIN) 800 mg tablet Take 800 mg by mouth every 6 hours as needed. No current facility-administered medications on file prior to visit. ALLERGIES Allergen Reactions Penicillins Rash Verbal- not for sure of reaction Percocet [Oxycodone* Vomiting Sulfa (Sulfonamide * Rash Verbal- not for sure of reaction Results Only on 05/11/2023 Component Date Value Ref Range Status CYSTINE, URINE, QUALITATIVE 05/11/2023 CANCELED Final-Edited Comment: Test not performed. Previous test results on file. Result canceled by the ancillary. URINE VOLUME (PRESERVED) 05/11/2023 2,010 500 - 4,000 mL/24 hr Final CALCIUM OXALATE SATURATION 05/11/2023 8.67 6.00 - 10.00 Final CALCIUM, URINE 05/11/2023 425 (H) <200 mg/24 hr Final OXALATE, URINE 05/11/2023 41 (H) 20 - 40 mg/24 hr Final The urine Ox result was verified by repeat analysis. CITRATE, URINE 05/11/2023 2,535 >550 mg/24 hr Final CALCIUM PHOSPHATE SATURATION 05/11/2023 1.95 0.50 - 2.00 Final PH, 24 HR, URINE 05/11/2023 5.992 5.800 - 6.200 Final URIC ACID SATURATION 05/11/2023 0.88 <1.00 Final URIC ACID, URINE 05/11/2023 883 (H) <750 mg/24 hr Final SODIUM, URINE 05/11/2023 273 (H) 50 - 150 mmol/24 hr Final POTASSIUM, URINE 05/11/2023 99 20 - 100 mmol/24 hr Final MAGNESIUM, URINE 05/11/2023 142 (H) 30 - 120 mg/24 hr Final PHOSPHORUS, URINE 05/11/2023 1,424 (H) 600 - 1,200 mg/24 hr Final AMMONIUM, URINE 05/11/2023 17 15 - 60 mmol/24 hr Final CHLORIDE, URINE 05/11/2023 228 70 - 250 mmol/24 hr Final SULFATE, URINE 05/11/2023 52 20 - 80 meq/24 hr Final UREA NITROGEN, URINE 05/11/2023 12.65 6.00 - 14.00 g/24 hr Final PROTEIN CATABOLIC RATE 05/11/2023 1.4 0.8 - 1.4 g/kg/24 hr Final CREATININE, URINE 05/11/2023 1,155 Not Applic. mg/24 hr Final CREATININE/KG BODY WEIGHT 05/11/2023 17.6 8.7 - 20.3 mg/24 hr/kg Final CALCIUM/KG BODY WEIGHT 05/11/2023 6.5 (H) <4.0 mg/24 hr/kg Final CALCIUM/CREATININE RATIO 05/11/2023 368 (H) 51 - 262 mg/g creat Final COMMENT 05/11/2023 Note Final Stone Panel/ Litholink: Latest Ref Rng 12/28/2022 05/11/2023 CYSTINE, URINE, QUALITATIVE Neg CANCELED URINE VOLUME (PRESERVED) 500 - 4,000 mL/24 hr 2,110 2,010 CALCIUM OXALATE SATURATION 6.00 - 10.00 6.05 8.67 CALCIUM, URINE <200 mg/24 hr 502 (H) 425 (H) OXALATE, URINE 20 - 40 mg/24 hr 24 41 (H) Citrate, Urine >550 mg/24 hr 2,212 2,535 CALCIUM PHOSPHATE SATURATION 0.50 - 2.00 0.73 1.95 PH, 24 HR, URINE 5.800 - 6.200 5.501 (L) 5.992 URIC ACID SATURATION <1.00 1.42 (H) 0.88 URIC ACID, URINE <750 mg/24 hr 660 883 (H) SODIUM, URINE 50 - 150 mmol/24 hr 222 (H) 273 (H) POTASSIUM, URINE 20 - 100 mmol/24 hr 99 99 Magnesium, Urine 30 - 120 mg/24 hr 119 142 (H) Phosphorus, Urine 600 - 1,200 mg/24 hr 1,049 1,424 (H) AMMONIUM, URINE 15 - 60 mmol/24 hr 17 17 CHLORIDE, URINE 70 - 250 mmol/24 hr 227 228 SULFATE, URINE 20 - 80 meq/24 hr 35 52 Urea Nitrogen, Urine 6.00 - 14.00 g/24 hr 8.69 12.65 Protein Catabolic Rate 0.8 - 1.4 g/kg/24 hr 1.0 1.4 CREATININE, URINE Not Applic. mg/24 hr 1,144 1,155 CREATININE/KG BODY WEIGHT 8.7 - 20.3 mg/24 hr/kg 17.0 17.6 CALCIUM/KG BODY WEIGHT <4.0 mg/24 hr/kg 7.5 (H) 6.5 (H) CALCIUM/CREATININE RATIO 51 - 262 mg/g creat 439 (H) 368 (H) Comment Note Note Images: US 08/19/23: Right Kidney: -Renal length: 11.2 cm -Parenchyma: Normal parenchymal echogenicity. Normal parenchymal thickness. -Collecting system: No hydronephrosis. -Calculus: No echogenic, shadowing calculus. -Lesion: There is a 1.5 cm cyst in the upper pole of the right kidney. Left Kidney: -Renal length: 11.4 cm -Parenchyma: Normal parenchymal echogenicity. Normal parenchymal thickness. -Collecting system: No hydronephrosis. -Calculus: Multiple nonobstructing calculi are seen throughout the left kidney measuring up to 3 mm. -Lesion: None. Bladder: The urinary bladder is incompletely distended. Ureteral jets were not visualized. US 02/14/23: Right Kidney: -Renal length: 10.2 cm -Parenchyma: Normal parenchymal echogenicity. Normal parenchymal thickness. -Collecting system: No hydronephrosis. -Calculus: No echogenic, shadowing calculus. -Lesion: 1.4 cm midpole cyst demonstrating thin internal septation is identified. Left Kidney: -Renal length: 11.0 cm -Parenchyma: Normal parenchymal echogenicity. Normal parenchymal thickness. -Collecting system: No hydronephrosis. -Calculus: 0.7 cm nonobstructive calculus at the lower pole is noted. -Lesion: None. Bladder: Poorly distended, grossly unremarkable. 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 - Continue current vitamin D - Reviewed Litholink 24-hour urine collection results. Emphasis on increasing fluid (water!) intake, increasing dietary citrus, decreasing sodium intake, decreasing animal flesh proteins, and decreasing/monitoring high oxalate foods and pair with calcium rich foods. - Metabolic lab work ordered to assess underlying stone and/or hypercalcinuria etiologies. Reassess vitamin D level. According to your 24 hour urine collection results: Elevated URIC ACID - Recommend decreasing your 'flesh protein' intake (fish,chicken, beef & pork). Decreasing portion sizes and frequency during the day can help reduce uric acid levels. A portion size is 4-6 oz/day or about the size of a deck of cards. High CALCIUM - Recommend a low sodium diet <2000mg/d. Read food labels, choose low sodium options, avoid canned, frozen or boxed meals, eat more fresh foods and reduce consumption of fast food, convenience meals and processed meats. Also recommend starting a fish oil supplement (2000 mg/day), which helps disperse the extra urine calcium. Elevated OXALATES - Oxalates are plant-based foods. We do not typically advise complete avoidance of oxalate foods, but rather smaller portion sizes and fewer servings. A low oxalate diet is typically < 50 mg per day. The romero to managing oxalates is to pair their consumption with a serving of calcium - that or ensure you are having calcium at every meal. Calcium binds with oxalates in the gut during digestion, helping them be excreted through the stool rather than buildup in urine. We also recommend adding Vitamin B6 daily (initially 50 mg but no more than 150 mg). This assists in breaking down oxalates. Some newer research is showing that adding a daily probiotic, fish oil (2000 mg/day), and a high fiber diet have been helpful for patients with high oxalate levels. Certain supplements (Vit C > 500 mg/day, tumeric, and cranberry) are high oxalate supplements - we advise against these in cases where oxalate levels are high. LOW VOLUME - THE #1 REASON STONES FORM IS NOT ENOUGH FLUIDS! We recommend increasing your fluid intake to 2.5-3 L/day or 80-100 ounces/day. Not only increase fluids during the day but also drink 1-2 glasses of water before bed, get up at least once through the night to urinate, and then drink another glass of water before returning to sleep. High SODIUM - Recommend a low sodium diet <2000 mg/day. Read food labels, choose low sodium options, avoid canned, frozen or boxed meals, eat more fresh foods and reduce consumption of fast food, convenience meals and processed meats. General stone prevention guidelines: Fluid intake - #1 reason why people form stones - not enough fluid! Recommend increasing water/fluid intake (2.5-3 L/day or 80-100 fluid oz/day), including nighttime hydration. We recommend emptying your bladder and drinking 1-2 glasses of water prior to bed, then getting up at least once during the night to empty your bladder again and drinking 1 more glass of water before returning to bed. All fluids count but water is best. [place] intake - Recommend increasing dietary citrate intake. Adding more fruits & vegetables to your diet; in particular citrus fruits (amy/limes/lemonade/melons/to matoes). One can add 4 oz of lemon juice diluted in 32 oz of water daily to start. If diet changes are too difficult we can prescribe a medication, potassium citrate, that can help increase your citrate levels. Sodium intake - Recommend a low sodium diet <2000mg/d. Read food labels, choose low sodium options, avoid canned, frozen or boxed meals, eat more fresh foods, and possibly add a fish oil supplement daily (2000mg/d) Calcium intake - Recommend 2-3 servings of calcium per day. Not advisable for stone patients to restrict calcium intake as it is very important for good bone, muscle, and tissue health. Decrease soft drinks (has phosphoric acid). Protein intake: about 1 g of protein per kilo body weight per day. Patients with high urine oxalate: avoid spinach, nuts, seeds, potatoes. Foods like banana, avocado, soybean, gege, cereals are good for you. RTC in 6 months w/ new US and Litholink. Total time counseling (via Zoom) 30 minutes, total clinic visit 30 minutes Alexandria Marin PA-C documented in this encounter [facility] 08-19-2023 Note HNO ID: [id number] Author: YKLIE NAGY RT(Jayla) Service: ? Author Type: Technologist Type: Progress Notes Filed: 08/19/2023 15:40 Note Text: Radiology Service Progress Note PATIENT NAME: Krystina Saldivar DATE OF SERVICE: August 19, 2023 TIME: 3:40 PM PATIENT IDENTITY VERIFICATION COMPLETED USING TWO (2) IDENTIFIERS: Name and Date of confirmed by patient verbally. FALL SCREENING: Has the patient had 2 falls in the last year or 1 fall with injury or currently using an Ambulatory Assistive Device (Walker, Cane, Wheelchair, Crutches, etc.)? No PATIENT GENDER DATA: Female. status: : No status: NO. PATIENT RELEVANT IMPLANT DATA REVIEWED: Not Applicable PATIENT PRESENTS WITH AN IMPLANTABLE OR ATTACHED SALES PROFESSIONAL BILINGUAL: No RADIOLOGY DEPARTMENT: Ultrasound PERIPHERAL IV DATA: Not applicable SIGNED BY: Kylie Nagy RDMS, RVT August 19, 2023 3:40 PM [facility] 08-19-2023 History of Presen t illness Narrative Radiology Service Progress Note PATIENT NAME: Krystina Saldivar DATE OF SERVICE: August 19, 2023 TIME: 3:40 PM PATIENT IDENTITY VERIFICATION COMPLETED USING TWO (2) IDENTIFIERS: Name and Date of confirmed by patient verbally. FALL SCREENING: Has the patient had 2 falls in the last year or 1 fall with injury or currently using an Ambulatory Assistive Device (Walker, Cane, Wheelchair, Crutches, etc.)? No PATIENT GENDER DATA: Female. status: : No status: NO. PATIENT RELEVANT IMPLANT DATA REVIEWED: Not Applicable PATIENT PRESENTS WITH AN IMPLANTABLE OR ATTACHED SALES PROFESSIONAL BILINGUAL: No RADIOLOGY DEPARTMENT: Ultrasound PERIPHERAL IV DATA: Not applicable SIGNED BY: Kylie Nagy RDMS, RVT August 19, 2023 3:40 PM documented in this encounter [facility] 06-30-2023 Miscellaneous Notes Refill request for the following med Last ov 02/25/2023 with Alexandria Follow up 08/26/2023 Requested Prescriptions Pending Prescriptions Disp Refills potassium citrate ER (UROCIT-K) 10 mEq (1,080 mg) [Pharmacy Med Name: POTASSIUM CITRATE ER 10 MEQ TB] 120 tablet 5 Sig: take 2 tablets by mouth twice a day documented in this encounter [facility] 03-01-2023 Note HNO ID: [id number] Author: Note, Interface Service: ? Author Type: ? Type: Progress Notes Filed: 03/01/2023 5:55 AM Note Text: Epic Scheduled Downtime: 03/01/2023 1:00:00 AM to 03/01/2023 5:38:00 AM [facility] 02-26-2023 Miscellaneous Notes I called Krystina and I got her scheduled for a follow up in six months and an US beforehand. documented in this encounter [facility] 02-25-2023 Note HNO ID: [id number] Author: Alexandria Marin PA-C Service: ? Author Type: Physician Orthotic Aide Type: Progress Notes Filed: 02/26/2023 12:26 PM Note Text: This visit was conducted as a virtual visit. I have communicated my name and active licensure. The patient's identity and physical location were verified at the time of this visit. 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 Chief complaint: Kidney stones Krystina Saldivar is a 62 year old female who presents today for kidney stone management and prevention counseling. s/p L URS and L miniPCNL w/ Dr. Thompson on 01/06/23 and 12/11/22, respectively. Uric acid. Pt currently: no fever, no chills, no nausea, no vomiting, no dysuria, no gross hematuria, no renal colic She completed a Litholink 24-hour urine collection and US prior to today's visit for review. There is no height or weight on file to calculate BMI. PAST MEDICAL HISTORY Diagnosis Date Arthritis Bilateral nephrolithiasis Diabetes mellitus (HCC) H/O: hysterectomy High cholesterol Staghorn calculus PAST SURGICAL HISTORY Procedure Laterality Date LIGATE FALLOPIAN TUBE Bilateral TOTAL ABDOM HYSTERECTOMY URETERAL STENT PLACEMENT 11/07/2022 No family history on file. Social History Tobacco Use Smoking status: Former Packs/day: 1 Types: Cigarettes Quit date: 03/31/1997 Years since quittin.9 Smokeless tobacco: Never Substance Use Topics Alcohol use: Yes Comment: social drinker on weekends Drug use: Never Current Outpatient Medications on File Prior to Visit Medication Sig tamsulosin (FLOMAX) 0.4 mg Take 1 capsule by mouth once daily. 30 minutes after the same meal each day. keTORolac (TORADOL) 10 mg tablet Take 1 tablet by mouth every 12 hours as needed for pain. phenazopyridine (PYRIDIUM) 100 mg tablet Take 1 tablet by mouth three times a day as needed for pain. potassium citrate ER (UROCIT-K 10) 10 mEq (1,080 mg) Take 2 tablets by mouth twice daily. simvastatin (ZOCOR) 20 mg tablet Take 20 mg by mouth daily at bedtime. empagliflozin (JARDIANCE) 25 mg tablet Take 25 mg by mouth daily with breakfast. solifenacin 10 mg tablet Take 5 mg by mouth once daily. ondansetron (ZOFRAN) 4 mg tablet Take 4 mg by mouth every 8 hours as needed for nausea/vomiting. ibuprofen (MOTRIN) 800 mg tablet Take 800 mg by mouth every 6 hours as needed. No current facility-administered medications on file prior to visit. ALLERGIES Allergen Reactions Penicillins Rash Verbal- not for sure of reaction Percocet [Oxycodone* Vomiting Sulfa (Sulfonamide * Rash Verbal- not for sure of reaction Admission on 01/06/2023, Discharged on 01/06/2023 Component Date Value Ref Range Status Glucose, Point of Care 01/06/2023 93 74 - 99 mg/dL Final Comment: Location:[facility], [id number] [place] [address], [id number] The Accu-Chek Inform II glucose meter has not been approved for testing on patients receiving intensive medical intervention or therapy and results from this point of care glucose test should not be used for patient management decisions in these cases. Inaccurate results may also occur from other interfering factors, such as N-acetylcysteine (blood concentrations of greater than 5mg/dL), galactose, extremes of hematocrit (<10 or >65), or high doses of ascorbic acid (vitamin C) greater than 3mg/dL. Consider alternate testing mechanisms (e.g. core lab, blood gas instrument) in the above situations. Calculus Type 01/06/2023 CALCULI/CALCULUS Final Calculus Color 01/06/2023 BROWN Final Calculus Size and Weight 01/06/2023 Multiple pieces. 0.0774 GRAMS Final Calculus Composition 1 01/06/2023 100% Uric Acid Final Calculus Analysis 01/06/2023 Final This test was developed and its performance characteristics determined by [facility] [place] ([facility] It has not been cleared or approved by the FDA. [facility] is regulated under CLIA as qualified to perform high-complexity testing. This test is used for clinical purposes. It should not be regarded as investigational or for research. Stone composition: Calculus Composition 1 100% Uric Acid 100% Uric Acid Images: US 02/14/23: Right Kidney: -Renal length: 10.2 cm -Parenchyma: Normal parenchymal echogenicity. Normal parenchymal thickness. -Collecting system: No hydronephrosis. -Calculus: No echogenic, shadowing calculus. -Lesion: 1.4 cm midpole cyst demonstrating thin internal septation is identified. Left Kidney: -Renal length: 11.0 cm -Parenchyma: Normal parenchymal echogenicity. Normal parenchymal thickness. -Collecting system: No hydronephrosis. -Calculus: 0.7 cm nonobstructive calculus a (more content not included)... [facility] 02-25-2023 History of Presen t illness Narrative This visit was conducted as a virtual visit. I have communicated my name and active licensure. The patient's identity and physical location were verified at the time of this visit. 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 Chief complaint: Kidney stones Krystina Saldivar is a 62 year old female who presents today for kidney stone management and prevention counseling. s/p L URS and L miniPCNL w/ Dr. Thompson on 01/06/23 and 12/11/22, respectively. Uric acid. Pt currently: no fever, no chills, no nausea, no vomiting, no dysuria, no gross hematuria, no renal colic She completed a Litholink 24-hour urine collection and US prior to today's visit for review. There is no height or weight on file to calculate BMI. PAST MEDICAL HISTORY Diagnosis Date Arthritis Bilateral nephrolithiasis Diabetes mellitus (HCC) H/O: hysterectomy High cholesterol Staghorn calculus PAST SURGICAL HISTORY Procedure Laterality Date LIGATE FALLOPIAN TUBE Bilateral TOTAL ABDOM HYSTERECTOMY URETERAL STENT PLACEMENT 11/07/2022 No family history on file. Social History Tobacco Use Smoking status: Former Packs/day: 1 Types: Cigarettes Quit date: 03/31/1997 Years since quittin.9 Smokeless tobacco: Never Substance Use Topics Alcohol use: Yes Comment: social drinker on weekends Drug use: Never Current Outpatient Medications on File Prior to Visit Medication Sig tamsulosin (FLOMAX) 0.4 mg Take 1 capsule by mouth once daily. 30 minutes after the same meal each day. keTORolac (TORADOL) 10 mg tablet Take 1 tablet by mouth every 12 hours as needed for pain. phenazopyridine (PYRIDIUM) 100 mg tablet Take 1 tablet by mouth three times a day as needed for pain. potassium citrate ER (UROCIT-K 10) 10 mEq (1,080 mg) Take 2 tablets by mouth twice daily. simvastatin (ZOCOR) 20 mg tablet Take 20 mg by mouth daily at bedtime. empagliflozin (JARDIANCE) 25 mg tablet Take 25 mg by mouth daily with breakfast. solifenacin 10 mg tablet Take 5 mg by mouth once daily. ondansetron (ZOFRAN) 4 mg tablet Take 4 mg by mouth every 8 hours as needed for nausea/vomiting. ibuprofen (MOTRIN) 800 mg tablet Take 800 mg by mouth every 6 hours as needed. No current facility-administered medications on file prior to visit. ALLERGIES Allergen Reactions Penicillins Rash Verbal- not for sure of reaction Percocet [Oxycodone* Vomiting Sulfa (Sulfonamide * Rash Verbal- not for sure of reaction Admission on 01/06/2023, Discharged on 01/06/2023 Component Date Value Ref Range Status Glucose, Point of Care 01/06/2023 93 74 - 99 mg/dL Final Comment: Location:[facility], [address] [place] [address], [facility] The Accu-Chek Inform II glucose meter has not been approved for testing on patients receiving intensive medical intervention or therapy and results from this point of care glucose test should not be used for patient management decisions in these cases. Inaccurate results may also occur from other interfering factors, such as N-acetylcysteine (blood concentrations of greater than 5mg/dL), galactose, extremes of hematocrit (<10 or >65), or high doses of ascorbic acid (vitamin C) greater than 3mg/dL. Consider alternate testing mechanisms (e.g. core lab, blood gas instrument) in the above situations. Calculus Type 01/06/2023 CALCULI/CALCULUS Final Calculus Color 01/06/2023 BROWN Final Calculus Size and Weight 01/06/2023 Multiple pieces. 0.0774 GRAMS Final Calculus Composition 1 01/06/2023 100% Uric Acid Final Calculus Analysis 01/06/2023 Final This test was developed and its performance characteristics determined by [facility] [place] ([facility]). It has not been cleared or approved by the FDA. [facility] is regulated under CLIA as qualified to perform high-complexity testing. This test is used for clinical purposes. It should not be regarded as investigational or for research. Stone composition: Calculus Composition 1 100% Uric Acid 100% Uric Acid Images: US 02/14/23: Right Kidney: -Renal length: 10.2 cm -Parenchyma: Normal parenchymal echogenicity. Normal parenchymal thickness. -Collecting system: No hydronephrosis. -Calculus: No echogenic, shadowing calculus. -Lesion: 1.4 cm midpole cyst demonstrating thin internal septation is identified. Left Kidney: -Renal length: 11.0 cm -Parenchyma: Normal parenchymal echogenicity. Normal parenchymal thickness. -Collecting system: No hydronephrosis. -Calculus: 0.7 cm nonobstructive calculus at the lower pole is noted. -Lesion: None. Bladder: Poorly distended, grossly unremarkable. Stone Panel/ Litholink: Component Latest Ref Rng & Units 12/28/2022 CYSTINE, URINE, QUALITATIVE Negative Neg URINE VOLUME (PRESERVED) 500 - 4,000 mL/24 hr 2,110 CALCIUM OXALATE SATURATION 6.00 - 10.00 6.05 CALCIUM, URINE <200 mg/24 hr 502 (H) OXALATE, URINE 20 - 40 mg/24 hr 24 Citrate, Urine >550 mg/24 hr 2,212 CALCIUM PHOSPHATE SATURATION 0.50 - 2.00 0.73 PH, 24 HR, URINE 5.800 - 6.200 5.501 (L) URIC ACID SATURATION <1.00 1.42 (H) URIC ACID, URINE <750 mg/24 hr 660 SODIUM, URINE 50 - 150 mmol/24 hr 222 (H) POTASSIUM, URINE 20 - 100 mmol/24 hr 99 Magnesium, Urine 30 - 120 mg/24 hr 119 Phosphorus, Urine 600 - 1,200 mg/24 hr 1,049 AMMONIUM, URINE 15 - 60 mmol/24 hr 17 CHLORIDE, URINE 70 - 250 mmol/24 hr 227 SULFATE, URINE 20 - 80 meq/24 hr 35 Urea Nitrogen, Urine 6.00 - 14.00 g/24 hr 8.69 Protein Catabolic Rate 0.8 - 1.4 g/kg/24 hr 1.0 CREATININE, URINE Not Applic. mg/24 hr 1,144 CREATININE/KG BODY WEIGHT 8.7 - 20.3 mg/24 hr/kg 17.0 CALCIUM/KG BODY WEIGHT <4.0 mg/24 hr/kg 7.5 (H) CALCIUM/CREATININE RATIO 51 - 262 mg/g creat 439 (H) Comment Note 24-Hour Diet Recall: Fluids: + water, + tea, + diet soda, + sports drinks Assessment/Plan: N20.0 Nephrolithiasis (primary encounter diagnosis) R34 Urine volume deficient E55.9 Vitamin D deficiency R82.994 Hypercalcinuria E87.0 Hypernatriuria E72.9 Aciduria (HCC) - Reviewed recent US imaging: small LLP stone - Per Dr. Thompson: Looks like she may have a residual stone that was hiding in her lower pole on US but not on the end fluoro from the OR. Would leave it for now and keep monitoring or obtain CT in a few months with follow up with me - Patient agrees to monitor with US - Taking vitamin D 50mcg for recently low vitamin D, which may help lower urinary calcium level - Increase fluid intake, decrease sodium intake, and increase dietary citrus as tolerable - Kcitrate BID continue - New US and LL in about 6 months According to your 24 hour urine collection results: LOW URINE PH - (Recommend increasing dietary citrate intake. Adding more fruits & vegetables to your diet; in particular citrus fruits like amy, limes, oranges, melons and tomatoes. (You may also try Charla Mist, Sprite, diet lemonade, or Crystal Light lemonade.) Adding 4 oz of lemon juice to 32 oz of water is also another option. HIGH CALCIUM - Recommend a low sodium diet <2000mg/d. Read food labels, choose low sodium options, avoid canned, frozen or boxed meals, eat more fresh foods and reduce consumption of fast food, convenience meals and processed meats. Also recommend starting a fish oil supplement (2000 mg/day), which helps disperse the extra urine calcium. Low VOLUME - THE #1 REASON STONES FORM IS NOT ENOUGH FLUIDS! We recommend increasing your fluid intake to 2.5-3 L/day or 80-100 ounces/day. Not only increase fluids during the day but also drink 1-2 glasses of water before bed, get up at least once through the night to urinate, and then drink another glass of water before returning to sleep. HIGH SODIUM - Recommend a low sodium diet <2000 mg/day. Read food labels, choose low sodium options, avoid canned, frozen or boxed meals, eat more fresh foods and reduce consumption of fast food, convenience meals and processed meats. General stone prevention guidelines: Fluid intake - #1 reason why people form stones - not enough fluid! Recommend increasing water/fluid intake (2.5-3 L/day or 80-100 fluid oz/day), including nighttime hydration. We recommend emptying your bladder and drinking 1-2 glasses of water prior to bed, then getting up at least once during the night to empty your bladder again and drinking 1 more glass of water before returning to bed. All fluids count but water is best. [place] intake - Recommend increasing dietary citrate intake. Adding more fruits & vegetables to your diet; in particular citrus fruits (amy/limes/lemonade/melons/to matoes). One can add 4 oz of lemon juice diluted in 32 oz of water daily to start. If diet changes are too difficult we can prescribe a medication, potassium citrate, that can help increase your citrate levels. Sodium intake - Recommend a low sodium diet <2000mg/d. Read food labels, choose low sodium options, avoid canned, frozen or boxed meals, eat more fresh foods, and possibly add a fish oil supplement daily (2000mg/d) Calcium intake - Recommend 2-3 servings of calcium per day. Not advisable for stone patients to restrict calcium intake as it is very important for good bone, muscle, and tissue health. Decrease soft drinks (has phosphoric acid). Protein intake: about 1 g of protein per kilo body weight per day. Patients with high urine oxalate: avoid spinach, nuts, seeds, potatoes. Foods like banana, avocado, soybean, gege, cereals are good for you. RTC in 6 months w/ new US and LL. Total time counseling (via Zoom) 30 minutes, total clinic visit 30 minutes Alexandria Marin PA-C documented in this encounter [facility] 02-18-2023 Miscellaneous Notes Called patient to discuss external urine culture results that were received as no recent order was submitted for patient to complete. No answer, LVM with phone number to return call. Nichole Morgan RN February 18, 2023 12:55 PM documented in this encounter [facility] 02-14-2023 Note HNO ID: [id number] Author: Nedra Queen RDMS Service: ? Author Type: Edging Catcher Type: Progress Notes Filed: 02/14/2023 10:48 AM Note Text: Radiology Service Progress Note PATIENT NAME: Krystina Saldivar DATE OF SERVICE: February 14, 2023 TIME: 10:20 AM PATIENT IDENTITY VERIFICATION COMPLETED USING TWO (2) IDENTIFIERS: Name and Date of confirmed by patient verbally. FALL SCREENING: Has the patient had 2 falls in the last year or 1 fall with injury or currently using an Ambulatory Assistive Device (Walker, Cane, Wheelchair, Crutches, etc.)? No PATIENT GENDER DATA: Female. status: : No status: N/A PATIENT RELEVANT IMPLANT DATA REVIEWED: Not Applicable RADIOLOGY DEPARTMENT: Ultrasound PERIPHERAL IV DATA: Not applicable SIGNED BY: Nedra Queen RDMS February 14, 2023 10:20 AM [facility] 02-14-2023 History of Presen t illness Narrative Radiology Service Progress Note PATIENT NAME: Krystina Saldivar DATE OF SERVICE: February 14, 2023 TIME: 10:20 AM PATIENT IDENTITY VERIFICATION COMPLETED USING TWO (2) IDENTIFIERS: Name and Date of confirmed by patient verbally. FALL SCREENING: Has the patient had 2 falls in the last year or 1 fall with injury or currently using an Ambulatory Assistive Device (Walker, Cane, Wheelchair, Crutches, etc.)? No PATIENT GENDER DATA: Female. status: : No status: N/A PATIENT RELEVANT IMPLANT DATA REVIEWED: Not Applicable RADIOLOGY DEPARTMENT: Ultrasound PERIPHERAL IV DATA: Not applicable SIGNED BY: Nedra Queen RDMS February 14, 2023 10:20 AM documented in this encounter [facility] 01-11-2023 Note HNO ID: [id number] Author: Note, Interface Service: ? Author Type: ? Type: Progress Notes Filed: 01/11/2023 3:48 AM Note Text: Epic Scheduled Downtime: 01/11/2023 1:00:00 AM to 01/11/2023 1:28:00 AM [facility] 01-11-2023 Note HNO ID: [id number] Author: Note, Interface Service: ? Author Type: ? Type: Progress Notes Filed: 01/11/2023 2:35 AM Note Text: Epic Scheduled Downtime: 01/11/2023 1:00:00 AM to 01/11/2023 1:28:00 AM [facility] 01-07-2023 Miscellaneous Notes Called and spoke with spoke with patient regarding incoming all message. Patient had surgery yesterday and states that she has not yet had a bowel movement and is concerned as she is having significant stomach pain. Reassured patient that constipation after surgery is normal given the anesthesia and pain medications. She states she took Miralax about a half hour ago. Instructed patient to give that some time to work and also recommended Colace and increasing fluid and fiber intake. Instructed patient as well to take the prescribed Toradol to help with discomfort. Discussed that it may take a few days for her bowels to regulate and start moving. Advised to reach out if symptoms progress or worsen or if any other questions or concerns arise. Patient voiced understanding. Nichole Morgan RN January 07, 2023 4:20 PM ----- Message from Qian Sellers sent at 01/07/2023 3:58 PM EDT ----- Regarding: Post op med concern Contact: Pt not able to have BM, very bad stomach pain. Took miralax about a half ago. Also feeling nauseous. Requesting someone clinical give her a call to discuss. Thank you! documented in this encounter [facility] 01-06-2023 Note HNO ID: [id number] Author: Reshma Dominguez APRN.RENEWABLE ENERGY TECHNICIAN Service: ? Author Type: Nurse Diamond Driller Helper Type: Anesthesia Procedure Notes Filed: 01/06/2023 7:57 AM Note Text: ANESTHESIOLOGY PROCEDURE NOTE Airway General Information Procedure Start Time/Medication Administration: 01/06/2023 7:46 AM Patient location during procedure: OR Staffing Anesthesiologist: Farzana Lopez MD RENEWABLE ENERGY TECHNICIAN: Reshma Dominguez APRN.RENEWABLE ENERGY TECHNICIAN Performed by: anesthesiologist Indications and Patient Condition Indications for airway management: anesthesia Preoxygenated: yes anesthesia circuit Patient position: sniffing Method: asleep Difficult Mask: No Final Airway Details Final airway type: supraglottic airway Number of attempts at approach: 2 Ventilation between attempts: BVM Final Supraglottic Airway: LMA Flexible Size 4 Seal Adequate: yes Airway not difficult Comments trial #1- I-gel 3 did not seat well, +leak trial #2- flexible size 4 seated well SIGNATURE: Reshma Dominguez APRN.RENEWABLE ENERGY TECHNICIAN PATIENT NAME: Krystina Saldivar DATE: January 06, 2023 TIME: 7:56 AM CSN: [id number] [facility] 01-06-2023 Surgical operatio n note OPERATIVE/PROCEDURE REPORT LOG ID: [id number] NAME: Krystina Saldivar : 1960 Surgery/Procedure Date: 01/06/2023 Incision/Procedure Start Time: 7:56 AM Incision Close/Procedure End Time: 8:43 AM Surgeon(s)/Proceduralist(s) and Orthotic Aide(s): Surgeon(s) and Role: * Farheen Thompson MD - Primary * Kade Posey MD - Resident - Assisting Operation: Cystourethroscopy with: LEFT ureteroscopy and pyleoscopy with, stone extraction with removal of double J ureteral stent Physician time for fluoroscopic imaging and interpretation <1hr Anatomic Site: Kidney, Laterality: Left Ureter, Laterality: Left Approach: Endoscopic Device/ Drain: none EBL: 0ml IV Fluid Intake: 1500ml Urine Output: Not applicable/ Not measured Specimens/Cultures: ID Type Source Tests Collected by Time Destination 1 : Left Kidney Stones Calculus CALCULI/CALCULUS CALCULI ANALYSIS Farheen Thompson MD 01/06/2023 8:13 AM Anesthesia: General Findings: Stone Medicine Bow: Primary stone 6 mm lower pole; All other mm stones in the lower pole Irrigation: Deville bag; max pressure gravity Fluoroscopy: Time: 14.6 s; Cumulative dose: 1.95 mGy Anatomic Findings: stones in the lower pole. Very small round Other: edema at the ureteral orifice. Operative Indications: This is a 62 year old year old female with LEFT nephrolithiasis and s/p complex PCNL. Calculus/ calculi were identified on preoperative imaging and the patient after discussing the risks, benefits, and alternatives of the procedure has elected to pursue endoscopic management. Procedure Details: The patient was correctly identified and the operative plan was confirmed with the patient and the operative team. An appropriate dose of antibiotics (Ancef) was administered intravenously within 1 hour prior to the procedure and sequential compression devices were applied to the lower extremities and activated prior to induction of anesthesia. General anesthesia was induced. The patient was placed in lithotomy position. All pressure points were padded per protocol and the operative area was prepped and draped in the standard sterile fashion. Visualization Developer fluoroscopy was performed and the calculus identified on preoperative imaging appeared radiopaque. A rigid cystoscope was inserted into the urethral meatus, and cystourethroscopy was performed. A 0.038 glidewire was then passed through the left ureteral orifice advanced in retrograde fashion to the renal pelvis under fluoroscopic guidance. A Storz flexible ureteroscope was then advanced into the renal pelvis. Systematic pyeloscopy was performed.The stones were identified. The stones were removed using a Halo basket or N'Compass basket. A limited retrograde pyelogram was performed and there were no filling defects or extravasation noted. Pyeloscopy performed agai to ensure all calyces were seen. The scope was then removed and the ureter was examined upon removal of the scope, and there were no residual fragments or injury along the course of the ureter. The bladder was drained, stone fragments sent for analysis, the patient repositioned in supine position, extubated and transferred to the PACU in stable condition. Accidental Punctures or Lacerations: Not applicable Complications: None Pre-Op/Pre-Procedure Diagnosis: left calculus/calculi Post-Op/Post-Procedure Diagnosis: consistent with pre-procedural diagnosis. Post-Op Plan of Care: F/up in 1 month I/primary surgeon/proceduralist performed the procedure with assistance. SIGNATURE: Farheen Thompson MD PATIENT NAME: Krystina Saldivar DATE: January 06, 2023 TIME: 8:45 AM PAGER/CONTACT #: [phone] documented in this encounter [facility] 01-06-2023 History and physical note Preoperative H&P Chief complaint: Patient is here today for management of left kidney stones History, update from last visit: Previous notes, reviewed, no significant new changes, patient is doing well, denies fever, abdominal pain, nausea or vomiting, no new voiding symptoms or constipation. Examination: Patient is awake and alert , oriented to time, person, place. Chest: unlabored breathing, equal on both sides. Heart: regular rate and rhythm, normal peripheral pulsations. Abdomen: Soft, non tender, non distended All lab results, imaging reviewed and there was no change. Assessment and plan of management: Patient is here today for management of left kidney stones Plan for left URS All patient's questions were discussed in details, outline of procedure and recovery discussed. Surgical site : left ureter and kidney Farheen Thompson MD January 06, 2023 7:31 AM Preoperative HISTORY AND PHYSICAL EXAM SERVICE DATE: 01/06/2023 SERVICE TIME: 7:15 AM Subjective: CC: nephrolithiasis HPI: Patient is a 62 year old female presenting to pre-anesthesia consultation. Patient has a history of kidney stones. She recently underwent left perc neph on 12/11/22. She continues to have left flank pain and hematuria with discomfort with urination if she is too active. No fever or chills, but she does have fatigue. She has been diagnosed with nephrolithiasis and recommended for CYSTOURETHROSCOPY W/ URETEROSCOPY AND/OR PYELOSCOPY W/ LITHOTRIPSY INCLUDE INSERTION OF INDWELLING URETERAL STENT THULIUM - Left which is scheduled to be done today. PAST MEDICAL HISTORY Diagnosis Date Arthritis Bilateral nephrolithiasis Diabetes mellitus (HCC) H/O: hysterectomy High cholesterol Staghorn calculus PAST SURGICAL HISTORY Procedure Laterality Date LIGATE FALLOPIAN TUBE Bilateral TOTAL ABDOM HYSTERECTOMY URETERAL STENT PLACEMENT 11/07/2022 No family history on file. Social History Tobacco Use Smoking status: Former Packs/day: 1 Types: Cigarettes Quit date: 03/31/1997 Years since quittin.7 Smokeless tobacco: Never Substance Use Topics Alcohol use: Yes Comment: social drinker on weekends Drug use: Never No current facility-administered medications on file prior to encounter. Current Outpatient Medications on File Prior to Encounter Medication Sig simvastatin (ZOCOR) 20 mg tablet Take 20 mg by mouth daily at bedtime. empagliflozin (JARDIANCE) 25 mg tablet Take 25 mg by mouth daily with breakfast. solifenacin 10 mg tablet Take 5 mg by mouth once daily. tamsulosin (FLOMAX) 0.4 mg Take 1 capsule by mouth once daily for 14 days. 30 minutes after the same meal each day. keTORolac (TORADOL) 10 mg tablet Take 10 mg by mouth every 12 hours as needed for pain. ondansetron (ZOFRAN) 4 mg tablet Take 4 mg by mouth every 8 hours as needed for nausea/vomiting. ibuprofen (MOTRIN) 800 mg tablet Take 800 mg by mouth every 6 hours as needed. ALLERGIES Allergen Reactions Penicillins Rash Verbal- not for sure of reaction Percocet [Oxycodone* Vomiting Sulfa (Sulfonamide * Rash Verbal- not for sure of reaction REVIEW OF SYSTEMS GENERAL: No weight loss, malaise or fevers NEURO: No history of headaches, syncope, paralysis, seizures or tremors RESPIRATORY: +former smoker Negative for cough, hemoptysis, wheezing, COPD, dyspnea or shortness of breath CARDIOVASCULAR: +HLD Negative for chest pain, leg swelling, hypertension, CHF or palpitations GI: No nausea, vomiting, or diarrhea : No history of dysuria, frequency or incontinence, See HPI ENDOCRINE: +DMII Denies any history of other endocrine symptoms/problems. HEMATOLOGY/LYMPHOLOGY: Negative for prolonged bleeding, bruising easily or swollen nodes SKIN: Negative for rashes Objective BP 110/72 Temp (Src) 97 (Temporal) Resp 16 SpO2 98% O2 Therapy: Room Air PHYSICAL EXAM: The remainder of the physical exam is noncontributory. GENERAL: Alert and oriented SKIN: Normal color, no rash, no lesions. LUNGS: Lungs clear to auscultation, Good diaphragmatic excursion CARDIAC: Normal S1 and S2; no rubs, murmurs, or gallops, RRR NEUROLOGICAL: Normal cognition and motor skills. Diagnostic tests reviewed for today's visit: Lab Value Units Date High Low HB 9.2 g/dL 12/12/2022 15.5 11.5 HCT 28.0 % 12/12/2022 46.0 36.0 WBC 15.79 k/uL 12/12/2022 11.00 3.70 PLT 238 k/uL 12/12/2022 400 150 NA 140 mmol/L 12/11/2022 144 136 K 4.0 mmol/L 12/11/2022 5.1 3.7 GLUC 265 mg/dL 12/11/2022 99 74 BUN 12 mg/dL 12/11/2022 21 7 CREAT 0.64 mg/dL 12/11/2022 0.96 0.58 PTSEC 9.7 sec 11/29/2022 13.0 9.7 INR 0.9 no uni* 11/29/2022 1.3 0.9 APTT 27.1 sec 11/29/2022 32.4 23.0 ALT 17 U/L 11/29/2022 38 7 AST 22 U/L 11/29/2022 35 13 TBILI 0.4 mg/dL 11/29/2022 1.3 0.2 TSH No results within date range. Lab Value Units Date High Low HCGQT No results within date range. UHCG No results within date range. HCG, BODY* No results within date range. Lab Value Units Date High Low ABORHD No results within date range. ABSCREEN No results within date range. No results found for: HBA1C No new labs or tests Labs reviewed from 12/23/22- Scanned into chart. Airway: METS: Climb a flight of stairs or walk up a hill (5.50 METs) Patient denies any chest pain or undue shortness of breath with the above physical activity. ANESTHESIA FINDINGS: Intubation History: No history of difficult intubation Significant Anesthesia Considerations: None Airway Exam: General: Normal appearance Mallampati Score is CLASS II Neck: Normal appearance and function, Distance from hyoid to mentum during neck extension is at least 3 finger breaths Mouth: Normal tongue size and Mouth opening greater than 2 finger breaths Dentition: Intact and Caps/crowns Airway History: No abnormal airway history STOP BANG Score: Criteria: Age over 50 (62 year old) Score = 1 Assessment/Plan nephrolithiasis - surgery scheduled today former smoker - quit smoking 1997 with 1 ppd x 20 years. No use of an inhaler. Denies any SOB, MANN, cough, wheezing. Lungs CTAB and SpO2 98% RA. HLD - stable continue medications - simvastatin (Zocor) DM- Taking Jardiance, fasting BS range 130-150s. Today fasting BS 93. No recent A1c found. PLAN This patient is optimally prepared for surgery. CONSULTS: Patient does not require consults for optimization at this time. The Following Tests/Procedures Have Been Initiated: none, patient was seen the same day in pre op of procedure/surgery Planned Anesthetic: Per anesthesia choice Instructions Given to Patient: none, patient was seen the same day in pre op of procedure/surgery SIGNATURE: Marisol Cameron PA-C PATIENT NAME: Krystina Saldivar DATE: 01/06/2023 TIME: 7:15 AM PAGER: documented in this encounter [facility] 01-06-2023 Hospital Discharg e instructions Kade Posey MD - 01/06/2023 7:25 AM EDT Images from the original note were not included. The [place] [id number] or [phone] CC-CARE DISCHARGE INSTRUCTIONS C O N F I D E N T I A L I N F O R M A T I O N --------- This is a summary of your hospital stay. Please read it carefully and share it with your family and healthcare providers. PATIENT NAME: Krystina Saldivar ADMISSION DATE: January 06, 2023 DISCHARGE DATE: January 06, 2023 DIAGNOSIS: Nephrolithiasis SURGERIES: Cystoscopy, Left ureteroscopy, removal of stones, removal of left ureteral stent SURGEON: Farheen Thompson MD IMPORTANT TESTS/PROCEDURES: none CONCERNING SYMPTOMS OR WARNING SIGNS Please call your doctor's office ([phone]) and ask to speak to your doctor's nurse information consultant if you experience: -Signs of infection (fever over 101F, swelling) -Symptoms of dehydration (weakness, fatigue, dizziness when standing or walking, high heart rate, low urine output or very dark urine) -Severe abdominal pain -Persistent nausea/vomiting with abdominal bloating -Ongoing bleeding from your urethra Please present to the local Emergency Department if you experience: -New onset chest pain -Shortness of breath that persists/worsens -Any symptom that you feel warrants immediate attention FURTHER QUESTIONS -If you have any further questions, please feel free to call [facility] ([phone]) and ask to speak with your doctor's nurse information consultant PENDING TEST RESULTS: Stone analysis FOLLOW-UP INFORMATION Please follow-up as recommended by your provider. The office phone numbers for Dr. Thompson are as follows: [facility]: [phone] [facility] Office [phone] If you would like an appointment at the [facility], please call the [facility] appointment line ([phone]) to request an appointment Frequently Asked Questions Pathology and Follow-Up: Q: When will I get my results? A: This is one the most important questions to answer after any surgery. This will take about 5-7 days and will be released on Lore Q: When am I seeing my surgeon again? A: We do our very best to schedule post-operative visits before discharge. The best way to confirm your appointment details is with the urology office during regular business hours. These appointments can also be found on Lore. Important Phone Numbers to make appointments: Urology Office and Appointment Line: [phone] [facility] (Not Urology) Appointment Line: [phone] [facility] Radiology: [phone] [facility] Interventional Radiology: [phone] Outpatient Lab: [phone] or [phone] Q: What is Lore? A: Lore is an online tool. It allows you to manage your healthcare. You can communicate with caregivers too. Visit [email or web address] to register. You need an e-mail address to make an account. Urology Discharge Instructions FOLLOWING Ureteroscopy PCNL DIET: You can resume your regular diet. We encourage you to eat well-balanced and nutritious Meals. ACTIVITY: Please restrain from strenuous activity for 2 weeks. Please walk daily as much as tolerated, making exercise a part of your daily life. Do not drive while using narcotics for pain control. GENERAL EXPECTATIONS: There is no skin incision but your urinary tract is very sensitive. After your operation, it is common to have some pain on your side, as well as urinary symptoms (urgency, mild burning) after stone surgery. This is normal and resolves within a few days. It is also normal to see blood in your urine, including small clots for up to 2 weeks fromthe surgery. The urine may clear up entirely, and then turn bloody again a few days later depending on your activity level; do not be alarmed. Stay well hydrated, as this will help the urine clear. STENTS: None What is a ureteral stent? A ureteral stent (also called a double J stent) is a soft, hollow tube about 10- to 12 inches long made of a flexible plastic material. It is a very thin tube about the size of a coffee swizzle stick. It isplaced in the ureter, which is the muscular tube that drains urine from the kidney to the bladder. Each end of the stent is shaped like a pigtail. One end of the tube sits in the kidney, and one end sits in the bladder as an anchor. What does a ureteral stent do? A ureteral stent holds the ureter open. Without the stent, urine may not be able to drain from the kidney to the bladder. The stent is kept in place until swelling from the procedure goes down or any blockage has been cleared. When is a ureteral stent used? A stent is used in a number of situations. Your surgeon will decide if a stent is necessary at the end of your procedure. Does a ureteral stent cause any symptoms? The degree of discomfort varies from patient to patient. Some patients do not experience any symptoms while the stent is in place. However, when there are symptoms, one of the more commonly seen is bladder irritation. Bladder irritation can cause: ? an increase in the number of times needed to pass urine (frequency) ? a feeling of the need to pass urine right now (urgency) ? a feeling that the bladder has not completely emptied ? painful urination, including a burning sensation, bladder and kidney pain, and/ or groin pain Some patients experience leakage of urine, especially women. Stents can also make you feel tired. Almost every patient will see blood in his/her urine while the stent is in place. The bleeding can come and go. Please note that you may actually see more blood in your urine as you start to feel better. This is because as you feel better, you begin to increase your activity. Activity causes the stent to irritate the lining of the bladder and ureter as it moves up and down with your movements. Your urine may range in color from pink to escobar red. Follow these steps to decrease or relieve any symptoms you may have while the ureteral stent is in place: ? Drink liquids. The most important step is to drink 1 to 2 liters of fluids a day. Fluids keep the ureter clear and draining well, decrease the amount of blood in the urine, and reduce the risk of infection. Fluids also help keep kidney stones and bladder stones from redeveloping. ? Take medications as prescribed. The most common medication used to treat ureteral stent spasms is oxybutynin or ditropan. Sometimes Flomax is used as well or instead. These medications calm down the ureter and bladder. (They act like a sedative for the urinary tract.) ? Take pain medication only as needed. ? Use heat to increase your comfort level. Taking a hot shower or bath or using a heatingpad can increase your comfort level. (Be CAREFUL. Don t keep the temperature so high that you might burn yourself) Pain while passing urine, should improve with TIME and by taking your medications as directed until your stents are finally removed. How is a stent removed? Typically, a stent is removed using a cystoscope. Cystoscopy is an outpatient procedure that only takes a few minutes to perform and causes very little discomfort. It is performed in a procedure room on floor Q9. A cystoscope is a small flexible scope that is inserted into the urethra. Before the cystoscope is inserted, a local anesthetic gel (lidocaine) is used to numb the urethra. Because this is an in-office procedure, you do NOT need a putaway driver to take you home. Also, there are no dietary restrictions before your procedure. You may eat and drink as you normally do. Please take all of your medications as directed. There is no need to stop taking blood thinners such as coumadin or aspirin. Your urologist may decide to attach a pull-out string to the stent. This string hangs out of the urethra (the opening where urine exits the body). The stent is easily removed by pulling on the string that is attached to the stent. On rare occasions, the string breaks and the stent can t be easily removed. In this case, the stent is removed by cystoscopy. Note: If a string is left, it is uncommon for a stent to fall out on its own. If you notice that the stent has passed with your urine, please call the office. It may or may not need to be replaced. One third of patients will have some cramps in the kidney after the stent is removed that usually resolves after 48 hours. Women are more likely to experience this symptom but it can occur in both men and women. When should I call my doctor s office for possible immediate help? Call the doctor s office: ? If your urine is the color of tomato juice or if you are seeing blood clots. ? If you are having constant and unbearable pain associated with the stent. ? If you have symptoms of a urinary tract infection (temperature > than 101 F) pain while passing urine, or generally not feeling well). ? It the stent gets dislodged or falls out. ? If you notice a significant change in the amount of blood in your urine. ? If you need to be reassured that the symptoms you are having are normal parts of the healing process. MEDICATIONS: Toradol (Ketorolac): Toradol (Ketorolac) is a non-steroidal anti-inflammatory (NSAID) medication. To be used for first line of defense against pain/discomfort. Do not use ibuprofen or other NSAIDS if you are using this medication. , Flomax: You have been prescribed Flomax to treat pain that may be cause by your stent. If you are not taking Flomax previously, then stop taking 2 days after stent removal., and Pyridium: You have been prescribed Pyridium, a urinary analgesic, to help with bladder discomfort. This medication will turn your urine orange temporarily; it will resolve once you stop taking your medications. Antibiotics:None FOLLOW-UP: You will be called to schedule a follow up with Dr. Thompson in 1 month with renal bladder Ultrasound WARNING SIGNS: -If you are experiencing these symptoms, go to your local emergency room: -Fever greater than 101 degrees Fahrenheit, chills, nausea or vomiting -Severe or persistent bleeding in the urine or from your incision without relief from rest and hydration, especially if your urine is ketchup colored or if your urine is so red you cannot see through it. If this happens, seek medical care at your nearest emergency room immediately. -Increasing pain unrelieved by medications -Inability to urinate over 6 hours Office number for general questions (NOT for emergencies): [phone] FOLLOW THESE INSTRUCTIONS REGARDING ANESTHESIA: 1. Do not drink alcoholic beverages including beer and wine for 24 hours. Alcohol enhances the effects of anesthesia and sedation. 2. Do not drive a motor vehicle, operate machinery or power tools for 24 hours. Children should not ride bikes or skate boards, play on gym sets, etc for 24 hours. 3. Do not make any important decisions or sign important papers for 24 hours. 4. A responsible adult must be with your for the first 24 hour period after discharge. You may experience dizziness and sleepiness following surgery. Rest at home with moderate activity as tolerated. 5. Certain anesthetics and pain medications may produce nausea and vomiting. 6. A raspy voice for 24 - 48 hours is normal and should go away without treatment. 7. A sore area around the intravenous site on the arm will go away in a few days. 8. Low grade fever is normal but if fever is higher than 101 degrees F, call your physician. Kade Lake MD documented in this encounter [facility] 12-23-2022 Miscellaneous Notes Called and spoke with patient to update her regarding her stone analysis results. Informed her that the stone was uric acid and that Dr. Thompson would like her to start potassium citrate for dissolution and prevention of stent encrustation. She would like patient to follow up with [facility] and complete a 24 hour urine test. Will request for [facility] to be sent to patient, provided office number to arrange follow up in about 6-8 weeks. Advised that she should complete the 24 hour urine test after her procedure in December. Patient states she completed her pre-op labs and culture today at [facility], will wait for those results to be sent over. Patient currently not scheduled for PACC or midlevel H&P. Requested for schedulers to schedule patient for either Virtual PACC appointment since she just completed one on 11/29 or mid level H&P morning of surgery. Patient voiced understanding. Nichole Morgan RN December 23, 2022 12:54 PM documented in this encounter [facility] 12-17-2022 Miscellaneous Notes Called and spoke with patient regarding incoming call message and symptoms: Patient had LPCNL surgery on 12/11/[address] Thompson. Patient states that she started to have numbness in her right hip down to her right knee cap since Friday12/13/2022. Since last night she also started to develop some numbness in her right arm, describing it as a heavy, tingling feeling, especially when she tries to lift her right arm up. She currently denies any erythema, swelling or pain in her arm or leg, also denies any chest tightness, shortness of breath, chest pain radiating to her right arm, facial weakness or trouble speaking. Patient is still able to walk despite the numbness, has still been able to sweep the floors, do her laundry and go for walks. Overall, her legs have not had any improvement since Friday, and her right arm continues to feel numb and tingly. Patient also states that since surgery her blood sugars have been elevated around 250-300. She spoke with her primary care provider today who prescribed Metformin, which she will take in combination with her Jardiance. Primary care provider advised that his office will be reaching back out to her today at some point regarding her numbness as well. Strongly encourage patient to go to the emergency room given right sided numbness and tingling and acute onset of right arm numbness. Voiced concerns for symptoms of a possible stroke. Patient states that she will continue to monitor but would ultimately like to speak with her PCP when he returns her call. She states she will have a low threshold for the emergency room should her numbness become worse or she develops any of the symptoms described above. Will provide update to Dr. Thompson. Patient would also like her stent removed locally after her 01/06 procedure and is inquiring if this can be set up now for two weeks after her surgery. Advised will consult with Dr. Thompson regarding this as well. Nichole Morgan RN December 17, 2022 10:35 AM ----- Message from Qian Sellers sent at 12/17/2022 8:58 AM EDT ----- Regarding: Post op update Contact: Pt has numbness down upper right leg, from hip to kneecap, feels like it's asleep. She said her sugar levels have also been high. She spoke with her local pcp and he recommended she reach out to our office. Could someone please advise and call her back? Thank you. documented in this encounter [facility] 12-13-2022 Miscellaneous Notes Patient scheduled for surgery on 01/06 at [facility] for CYSTOURETHROSCOPY W/ URETEROSCOPY AND/OR PYELOSCOPY W/ LITHOTRIPSY INCLUDE INSERTION OF INDWELLING URETERAL STENT . Patient will be informed of surgery time the day before surgery between 1pm-4pm. [facility] will contact patient if appointment is needed. Was Urine Culture ordered or done: Yes done at local hospital Does patient have catheter or nephrostomy tube:No If yes was Urology nurse appointment made: NA Was lab appointment made: NA Date range patient was told to go to lab: NA Faxed order to local hospital documented in this encounter [facility] 12-12-2022 Miscellaneous Notes Returned patient's call and discussed scheduling her URS with Dr. Thompson. Patient agreed to first available January 06. She will do blood work and urine locally 2 weeks prior. Will fax orders to [facility]. Fax #: [phone] Patient is faxing short term disability paperwork to our office to fill out. Discussed return date for work to be January 13 to give time for recovery after PCNL and URS. Ela Rob RN Images from the original note were not included. Rob Castle Samantha RN (Call me) Pt missed your call below. She can be reached at the above number when you have a chance. Thanks Called patient to discuss scheduling surgery with Dr. Thompson. No answer, VM left. Ela Rob RN documented in this encounter [facility] 12-12-2022 Note HNO ID: [id number] Author: Sabiha Erazo RT(Jayla) Service: Radiology Author Type: Technologist Type: Progress Notes Filed: 12/12/2022 7:22 AM Note Text: Radiology Service Progress Note PATIENT NAME: Krystina Saldivar DATE OF SERVICE: December 12, 2022 TIME: 7:22 AM PATIENT IDENTITY VERIFICATION COMPLETED USING TWO (2) IDENTIFIERS: Name and Date of confirmed by patient verbally and Name and Date of confirmed by identification band. FALL SCREENING: Has the patient had 2 falls in the last year or 1 fall with injury or currently using an Ambulatory Assistive Device (Walker, Cane, Wheelchair, Crutches, etc.)? Inpatient: Screened on floor PATIENT GENDER DATA: Female. status: : No status: NO. PATIENT RELEVANT IMPLANT DATA REVIEWED: Yes RADIOLOGY DEPARTMENT: CT; Exam(s) Completed: Flank PERIPHERAL IV DATA: Not applicable SIGNED BY: Sabiha Erazo, RT(R) December 12, 2022 7:22 AM [facility] 12-12-2022 Note HNO ID: [id number] Author: Kade Posey MD Service: Urology Author Type: Resident Type: Progress Notes Filed: 12/12/2022 7:05 AM Note Text: [facility] UROLOGY PROGRESS NOTE Name: Krystina Saldivar Bed: G090 [id number]/[id number] Date: December 11, 2022 After Hours [facility] Urology Service Pager: [phone] ASSESSMENT Krystina Saldivar is a 62 year old female with history of Arthritis,DM, Nephrolithiasis, left staghorn calculus now 1 Day Post-Op s/p L PCNL, URS and L JJ stent placement 12/11/2022 INTERVAL/SUBJECTIVE -Doing well post op -Vital signs within normal limits, afebrile -Hgb 11.4>9.6 (from 14.4 preop) -Cr 0.64 -Pain: Controlled -N/V: No - UOP clear red, Bishop PLAN Neuro - Pain controlled CV - Monitor vitals Heme - Hb Slightly trending down, will recheck Hb this AM Ppx: SCDs for DVT ppx Resp - Encouraged IS, deep breathing sating well ID - no leukocytosis. afebrile. Jaylin-op Abx Ancef for 24 hrs GI - Colace, supp as needed.CC Diet /Renal: - Monitor UOP - Keep Bihsop for now - Get CT in AM to check for residual stones Endo - Insulin scale Dispo/Teaching - Anticipate DC home Today Discussed with attending physician Dr Cece Lake MD Urology PGY2 [facility] For weekend or after hours issues [place] [phone] Active Problem DM, POA- Started her on Insulin scale in house Nephrolithiasis,POA- s/p L PCNL Objective Vital Signs BP 99/53 Pulse 95 Temp 36.9 ?C (98.4 ?F) (Oral) Resp 18 Ht 167.6 cm (5' 6 ) Wt 68 kg (149 lb 14.6 oz) SpO2 94% BMI 24.20 kg/m? Body mass index is 24.2 kg/m?. Input and Output Intake/Output Summary (Last 24 hours) at 12/12/2022 0640 Last data filed at 12/12/2022 0529 Gross per 24 hour Intake 3401 ml Output 1675 ml Net 1726 ml Physical Exam General: Well-appearing, no acute distress Wound: Incision clean, dry, and intact : Bishop catheter present and Urine clear red Recent Labs 12/12/22 0117 12/11/22 1801 WBC 8.84 7.41 HB 9.6* 11.4* HCT 28.8* 35.2* PLT 220 216 NA -- 140 K -- 4.0 CHLOR -- 112* CO2 -- 20* BUN -- 12 CREAT -- 0.64 GLUC -- 265* Imaging Reviewed [facility] 12-11-2022 Note HNO ID: [id number] Author: Kade Posey MD Service: Urology Author Type: Resident Type: Progress Notes Filed: 12/11/2022 9:04 PM Note Text: [facility] UROLOGY PROGRESS NOTE Name: Krystina Saldivar Bed: G090 [id number]/G090-05 Date: December 11, 2022 After Hours [facility] Urology Service Pager: [phone] ASSESSMENT Krystian Saldivar is a 62 year old female with history of Arthritis,DM, Nephrolithiasis, left staghorn calculus now Day of Surgery s/p L PCNL, URS and L JJ stent placement INTERVAL/SUBJECTIVE -Doing well post op -Vital signs within normal limits, afebrile -Hgb 11.4 (from 14.4 preop) -Cr 0.64 -Pain: Controlled -N/V: No - UOP light pink, Bishop PLAN Neuro - Pain controlled CV - Monitor vitals Heme - FU AM CBC Ppx: CDs for DVT ppx Resp - Encouraged IS, deep breathing sating well ID - nO leukocytosis. afebrile. Jaylin-op Abx Ancef for 24 hrs GI - Colace, supp as needed.CC Diet /Renal: - Monitor UOP - Keep Bishop for now - Get CT in AM to check for residual stones Endo - Insulin scale Dispo/Teaching - Anticipate DC home tomorrow Discussed with attending physician Dr Cece Lake MD Urology PGY2 [facility] [place] For weekend or after hours issues [place] [phone] Active Problem DM, POA- Started her on Insulin scale in house Nephrolithiasis,POA- s/p L PCNL Objective Vital Signs BP 88/52 Pulse 84 Temp 36.6 ?C (97.9 ?F) (Oral) Resp 18 Ht 167.6 cm (5' 6 ) Wt 68 kg (149 lb 14.6 oz) SpO2 97% BMI 24.20 kg/m? Body mass index is 24.2 kg/m?. Input and Output Intake/Output Summary (Last 24 hours) at 12/11/20222099 Last data filed at 12/11/20221950 Gross per 24 hour Intake 2350 ml Output 900 ml Net 1450 ml Physical Exam General: Well-appearing, no acute distress Wound: Incision clean, dry, and intact : Bishop catheter present and Urine light pink Recent Labs 12/11/22 1801 WBC 7.41 HB 11.4* HCT 35.2* PLT 216 NA 140 K 4.0 CHLOR 112* CO2 20* BUN 12 CREAT 0.64 GLUC 265* Imaging Reviewed [facility] 12-11-2022 Note HNO ID: [id number] Author: Rodo Henry APRN.RENEWABLE ENERGY TECHNICIAN Service: ? 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 Staffing RENEWABLE ENERGY TECHNICIAN: Rodo Henry APRN.RENEWABLE ENERGY TECHNICIAN Performed by: RENEWABLE ENERGY TECHNICIAN Indications and Patient Condition Indications for airway management: anesthesia Preoxygenated: yes Patient position: sniffing Method: asleep Cricoid Pressure: No Final Airway Details Final airway type: endotracheal airway Final Endotracheal Airway: ETT Cuffed: yes Successful intubation technique: direct laryngoscopy Endotracheal tube insertion site: oral Blade: Ольга Blade size: #3 ETT size (mm): 7.0 Measured from: lips Measurement (cm): 21 Placement verified by: chest auscultation and capnometry Cormack-Lehane Classification: grade I - full view of glottis Number of attempts at approach: 1 Airway not difficult SIGNATURE: Rodo Henry APRN.CRNA PATIENT NAME: Krystina Saldivar DATE: December 11, 2022 TIME: 3:21 PM CSN: [id number] [facility] 11-29-2022 Note HNO ID: [id number] Author: Josh Noel APRN.CNP Service: ? Author Type: Nurse Practitioner Type: Progress Notes Filed: 11/29/2022 3:57 PM Note Text: [facility] PRE-OP NOTE Krystina Saldivar is a 62 year old female. Pre-op Date: November 29, 2022 Date of Procedure: 12/11/22 Procedure/Surgery: standard and mini PERC NEPHROLITHOTOMY LITHOTRIPSY,STONE EXTRACTION,ANTEGRADE URETEROSCOPY,STENT PLACEMENT WHEN PERFORMED INCD IMAGING UP TO 2cm Diagnosis: nephrolithiasis Primary Surgeon: MD Thompson Anna There were no vitals taken for this visit. Pain Assessment: Are you currently having pain? No 0 on a scale of 0 to 10 Surgical Guide Book Status: Patient given book today. Dialysis Guide Book Status: N/A Allergies Reviewed: Yes Medications Reviewed: Yes Is patient currently on oral steroids?: No Has the patient had a UTI in the past month?: No. Does the patient have any artificial joints (last 2 years), metal parts, pacemakers or cardiac/ureteral stents in place?: No Does the patient have diabetes?: Yes Is the patient routinely taking anticoagulants?: No. Can the patient have an IV put in either arm?: Yes Urine Dip Complete?: Yes URINE CULTURE COMPLETE?: Yes Ostomy/Stoma Nurse appointment made/completed: N/A IMPACT/Medical Clearance: Cleared per IMPACT - Yes [facility]: Cleared per [facility] - N/A All testing on cureform has been scheduled: Yes Consent Signed: Yes. DOS Orders Placed and Signed: No. Pre-op HANDP Done by Impact: Yes. PATIENT INSTRUCTIONS FOR SURGERY 1.) DO NOT HAVE ANYTHING TO EAT AFTER MIDNIGHT THE DAY BEFORE SURGERY except for certain morning medications as instructed by the doctor. Candy, mints, gum, and smoking are NOT permitted. You may drink clear liquids (Sprite, water, romeo carlos) up to two hours before your arrival time on the day of surgery. 2.) Medications to be taken on the morning of surgery with a few sips of water: per IMPACT 3.) Please bring all your prescribed inhalers (if you have any you normally take) to the hospital. 4.) Arrival time: Call for arrival. 5.) Prep given: No 6.) Lovenox instructions given: N/A 7.) Patient reminded that surgery time provided day before surgery is tentative based on potential changes with transplants. Recommendations: This patient is optimally prepared for surgery pending LABS. Josh Noel APRN.ALIE Electronically signed [facility] 11-29-2022 Instructions Josh Noel APRN.CNP - 11/29/2022 3:23 PM EDT Dietary Restrictions: - No solid food after midnight. - You may have 12 ounces of clear liquids (water, clear juices such as apple juice or gatorade, carbonated beverages, clear tea, black coffee, jello) until 2 hours before scheduled arrival at facility. - Do not drink any alcohol after midnight the night before your surgery. Arrival Time: Your arrival time will be provided to you the day before surgery. If you do not hear from surgery scheduling by 3:00 pm the day prior to your surgery, you can contact Urology Surgery at [phone]. We would like to reminded you that surgery time provided is tentative based on potential changes with transplant surgeries. Please check in at desk J1[address]9 in the [facility] ( building, [address] [place] [address]) Medications: Unless instructed differently below, stay on all of your medications until your surgery. Approved medications to take the morning of surgery with a sip of water: per anesthesia Blood Thinning Medications: - Stop NSAIDS (Ibuprofen, Advil, Aleve, Motrin, Celebrex, Mobic, etc.) 7 days before surgery, as directed by your surgeon. - Stop Aspirin 7 days before surgery, as directed by your surgeon. - Stop Vitamin E, ALL multi-vitamins, herbals and dietary supplements 7 days before surgery. - You may take Tylenol (Acetaminophen) or any of your pain medications that do not contain aspirin or NSAIDS as needed. Important Reminders: - If you are prescribed inhalers for breathing, continue using them. - Candy, mints, and tobacco products are NOT permitted the morning of surgery. - Hearing aids, dentures and glasses may be worn the morning of surgery. - NO jewelry, body piercings, makeup, hairpins or contacts are to be worn the day of surgery. documented in this encounter [facility] 11-29-2022 History of Presen t illness Narrative [facility] PRE-OP NOTE Krystina Saldivar is a 62 year old female. Pre-op Date: November 29, 2022 Date of Procedure: 12/11/22 Procedure/Surgery: standard and mini PERC NEPHROLITHOTOMY LITHOTRIPSY,STONE EXTRACTION,ANTEGRADE URETEROSCOPY,STENT PLACEMENT WHEN PERFORMED INCD IMAGING UP TO 2cm Diagnosis: nephrolithiasis Primary Surgeon: MD hTompson Anna There were no vitals taken for this visit. Pain Assessment: Are you currently having pain? No 0 on a scale of 0 to 10 Surgical Guide Book Status: Patient given book today. Dialysis Guide Book Status: N/A Allergies Reviewed: Yes Medications Reviewed: Yes Is patient currently on oral steroids?: No Has the patient had a UTI in the past month?: No. Does the patient have any artificial joints (last 2 years), metal parts, pacemakers or cardiac/ureteral stents in place?: No Does the patient have diabetes?: Yes Is the patient routinely taking anticoagulants?: No. Can the patient have an IV put in either arm?: Yes Urine Dip Complete?: Yes URINE CULTURE COMPLETE?: Yes Ostomy/Stoma Nurse appointment made/completed: N/A IMPACT/Medical Clearance: Cleared per IMPACT - Yes [facility]: Cleared per PACE - N/A All testing on cureform has been scheduled: Yes Consent Signed: Yes. DOS Orders Placed and Signed: No. Pre-op H&P Done by Impact: Yes. PATIENT INSTRUCTIONS FOR SURGERY 1.) DO NOT HAVE ANYTHING TO EAT AFTER MIDNIGHT THE DAY BEFORE SURGERY except for certain morning medications as instructed by the doctor. Candy, mints, gum, and smoking are NOT permitted. You may drink clear liquids (Sprite, water, romeo carlos) up to two hours before your arrival time on the day of surgery. 2.) Medications to be taken on the morning of surgery with a few sips of water: per IMPACT 3.) Please bring all your prescribed inhalers (if you have any you normally take) to the hospital. 4.) Arrival time: Call for arrival. 5.) Prep given: No 6.) Lovenox instructions given: N/A 7.) Patient reminded that surgery time provided day before surgery is tentative based on potential changes with transplants. Recommendations: This patient is optimally prepared for surgery pending LABS. Josh Noel APRN.CEMETERY LABORER documented in this encounter [facility] 11-29-2022 Note Patient Outreach (UR OLMN) KRYSTINA SALDIVAR ([id number]) 1960 F Date Time Provider Department 11/29/22 JOSH NOEL During your visit today, we recorded the following information about you: Allergies As of Date: 11/29/2022 Noted Allergy Reaction PENICILLINS 11/18/2022 2 - Rash Comments: Verbal- not for sure of reaction PERCOCET (OXYCODONE-ACETAMINOPHEN) 023 11 - Vomiting SULFA (SULFONAMIDE ANTIBIOTICS) 11/18/2022 2 - Rash Comments: Verbal- not for sure of reaction Date Reviewed: 11/29/2022 Reviewed by: Josh Noel APRN.CEMETERY LABORER - Fully Assessed Visit Diagnosis:Screening for genitourinary condition [Z13.89] Order(s):URINALYSIS, REFLEX MICROSCOPIC [QPZ2092] Order #: [id number] Prescriptions as of 12/02/2022 - simvastatin (ZOCOR) 20 mg tablet Take 20 mg by mouth daily at bedtime. - empagliflozin (JARDIANCE) 25 mg tablet Take 25 mg by mouth daily with breakfast. - keTORolac (TORADOL) 10 mg tablet Take 10 mg by mouth every 12 hours as needed for pain. - solifenacin 10 mg tablet Take 5 mg by mouth once daily. - ondansetron (ZOFRAN) 4 mg tablet Take 4 mg by mouth every 8 hours as needed for nausea/vomiting. - ibuprofen (MOTRIN) 800 mg tablet Take 800 mg by mouth every 6 hours as needed. Problem List As Of Date 11/29/2022 Noted Resolved Nephrolithiasis [N20.0] 11/29/2022 Diabetes mellitus type 2, controlled, without c*11/29/2022 Hypercholesteremia [E78.00] 11/29/2022 Encounter Status:Closed by JENISE PRODUSER on 12/02/22 [facility] 11-29-2022 Instructions Jonel Montano, - 11/29/2022 1:08 PM EDT PATIENT PREOPERATIVE INSTRUCTIONS Farheen Thompson MD has scheduled you for your procedure at this surgery center: [facility] [place] Scheduling Office: [phone] --[address] [place] [address]. Please read below carefully for your personalized instructions. Dietary Restrictions: - Nothing to eat or drink after midnight except for a sip of water with approved medications. Medications: Unless instructed differently below, stay on all of your medications until your surgery. If you start any new medications after today's visit, please contact your surgeon. Pre-Surgery Med Instructions Medication Instructions simvastatin (ZOCOR) 20 mg tablet Take the day of surgery with a small sip of water empagliflozin (JARDIANCE) 25 mg tablet Stop 4 days before surgery solifenacin 10 mg tablet Take the day of surgery with a small sip of water ondansetron (ZOFRAN) 4 mg tablet Take as needed ibuprofen (MOTRIN) 800 mg tablet Stop 7 days before surgery If you start any new medications after today's visit, please contact the surgeon's office. Blood Thinning Medications: - Stop NSAIDS (Ibuprofen, Advil, Aleve, Motrin, Celebrex, Mobic, etc.) 7 days before surgery, as directed by your surgeon. - Stop Aspirin 7 days before surgery, as directed by your surgeon. Important Reminders: - Candy, mints, and tobacco products are NOT permitted the morning of surgery. - Hearing aids, dentures and glasses may be worn the morning of surgery. - NO jewelry, body piercings, makeup, hairpins or contacts are to be worn the day of surgery. If you develop symptoms such as a fever, cold, or flu, or have other changes to your health within TWO DAYS of scheduled surgery or the morning of surgery, please contact the surgery center above. Personal Belongings: -Please have photo ID and insurance cards. -If you do not have a copy of advance directives on file with us, please bring a copy with you on the day of surgery. - Leave ALL valuables and money at home or with family members. For Outpatient Procedures: - YOU MUST HAVE A RESPONSIBLE RETAIL COSMETICS SALES COUNTER MANAGER TAKE YOU HOME. A AGRICULTURAL TECHNICAL OFFICER OR REVERSE ENGINEER CANNOT BE MADE A RESPONSIBLE RETAIL COSMETICS SALES COUNTER MANAGER. - We recommend that a responsible person stays with you overnight to take care of you. - You cannot stay in a hotel alone after outpatient surgery. You will not be permitted to have your surgery, if you do not have someone to take care of you. Arrival Time for Surgery: - To obtain your arrival time for surgery, call your physician's office the day before your surgery. - If your surgery is scheduled for Friday, call the Friday before. Your surgeon s pre assembly wirer will tell you what time to call the office. - If you have not reached the departmental pre assembly wirer by 5 P.M., call [phone] after 5 P.M. the day before your surgery. Please be aware that emergency situations arise, which may delay or change your surgical time. If this happens, we will notify you as soon as possible and regret any inconvenience. If you already have an Advance Directive, please fax a copy to [phone] or email to for it to be added to your chart. If you do not have an Advance Directive, you can find the appropriate form and more information at [email or web address]. We recommend that you complete the Advance Directive form found on the website and bring it with you the day of your surgery. It can be witnessed and scanned into your chart that day. Jonel Montano, DO documented in this encounter [facility] 11-29-2022 History and physical note HISTORY AND PHYSICAL EXAMINATION SERVICE DATE: 11/29/2022 SERVICE TIME: 1236 PRIMARY CARE PHYSICIAN: No primary care provider on file. REASON FOR VISIT: Krystina Saldivar is a 62 year old female who is scheduled for standard and mini PERC NEPHROLITHOTOMY LITHOTRIPSY,STONE EXTRACTION,ANTEGRADE URETEROSCOPY,STENT PLACEMENT WHEN PERFORMED INCD IMAGING UP TO 2cm at the request of Dr. Farheen Thompson for consultation. My final recommendation will be communicated back to the requesting physician by way of shared medical record or letter. The patient has the following: There is no problem list on file for this patient. Subjective CHIEF COMPLAINT: nephrolithiasis HPI: Patient is a 62 year old year old female who is scheduled for standard and mini PERC NEPHROLITHOTOMY LITHOTRIPSY,STONE EXTRACTION,ANTEGRADE URETEROSCOPY,STENT PLACEMENT WHEN PERFORMED INCD IMAGING UP TO 2cm on 12/11/2022. Denies any fevers, chills, nausea, vomiting, SOB or chest pain. PAST MEDICAL HISTORY Diagnosis Date Arthritis Bilateral nephrolithiasis Diabetes mellitus (HCC) H/O: hysterectomy High cholesterol Staghorn calculus PAST SURGICAL HISTORY Procedure Laterality Date LIGATE FALLOPIAN TUBE Bilateral TOTAL ABDOM HYSTERECTOMY URETERAL STENT PLACEMENT 11/07/2022 No family history on file. SOCIAL HISTORY: Social History Tobacco Use Smoking status: Former Packs/day: 1 Types: Cigarettes Quit date: 03/31/1997 Years since quittin.6 Smokeless tobacco: Never Substance Use Topics Alcohol use: Yes Comment: social drinker on weekends Drug use: Never Prior to Admission medications as of 11/18/22 7397 Medication Sig Last Dose Taking simvastatin (ZOCOR) 20 mg tablet Take 20 mg by mouth daily at bedtime. empagliflozin (JARDIANCE) 25 mg tablet Take 25 mg by mouth daily with breakfast. keTORolac (TORADOL) 10 mg tablet Take 10 mg by mouth every 12 hours as needed for pain. solifenacin 10 mg tablet Take 5 mg by mouth once daily. ondansetron (ZOFRAN) 4 mg tablet Take 4 mg by mouth every 8 hours as needed for nausea/vomiting. ibuprofen (MOTRIN) 800 mg tablet Take 800 mg by mouth every 6 hours as needed. No medication comments found. ALLERGIES Allergen Reactions Penicillins Rash Verbal- not for sure of reaction Percocet [Oxycodone* Vomiting Sulfa (Sulfonamide * Rash Verbal- not for sure of reaction COVID VACCINATION STATUS: Fully vaccinated REVIEW OF SYSTEMS: PAIN ASSESSMENT: General: No weight loss, malaise or fevers. Neuro: No history of TIA's, stroke, PROPERTY HANDLER tumor, impaired sensorium, hemiplegia, paraplegia or quadraplegia. No neurological symptoms or problems. Respiratory: No history of current cough or dyspnea, or pneumonia in the past 6 weeks. No history of respiratory/pulmonary symptoms or problems. Cardiovascular: No history of HTN requiring medication, no history of angina, CHF, UT, cardiac surgery or stents. Denies rest pain, gangrene or revascularization/amputation for PVD. No history of cardiovascular symptoms or problems. GI: No history of GI symptoms or problems. No history of esophageal varices, recent ascites, or ETOH greater than 2 drinks per day. : nephrolithiasis, denies dysuria, gross hematuria, or incontinence. 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 : Denies, No LMP recorded. Endocrine: diabetes om jardiance. Hematology: No history of bleeding or clotting disorder. Pt is not taking anti-coagulation or platelet medications. No history of hematological symptoms or problems. Oncology: No history of CA metastasis, chemo within 30 days, or radiotherapy within 90 days. Has not lost 10% of body wt in 6 months. No history of oncological symptoms or problems. Psych: No history of psychiatric symptoms or problems. Musculoskeletal: Negative for joint pain or swelling, back pain or muscle pain. Skin: Negative for lesions, rash and itching. Objective PHYSICAL EXAM: VITALS: 11/29/22 1237 BP: 122/81 BP Site: Right Arm BP Position: Sitting BP Cuff Size: Regular Adult Pulse: 70 Temp: 36.7 C (98 F) TempSrc: Temporal SpO2: 98% Weight: 67.5 kg (148 lb 12.8 oz) Height: 167.6 cm (5' 6 ) General: Alert and oriented, No acute distress Skin: Normal color, no rash, no lesions. HEENT: EOM, pupils equal, round and reactive. Cardiovascular: Normal S1 & S2, no rubs, murmurs or gallops. No JVD. Pulse regular. Lungs: Normal breath sounds, no wheezes or crackles. Abdomen: Soft, non-tender, no rigidity. Extremities: No deformity, no edema or tenderness, no joint swelling or clubbing. Neurological: Normal cognition and motor skills. Gait normal. No weakness or sensory deficit. Pulses: Carotid and radial pulses normal +2. Diagnostic tests reviewed for today's visit: Lab Value Units Date High Low HB 13.1 g/dL 11/18/2022 15.5 11.5 HCT 41.6 % 11/18/2022 46.0 36.0 WBC 8.94 k/uL 11/18/2022 11.00 3.70 PLT 295 k/uL 11/18/2022 400 150 NA 141 mmol/L 11/18/2022 144 136 K 4.4 mmol/L 11/18/2022 5.1 3.7 GLUC 97 mg/dL 11/18/2022 99 74 BUN 20 mg/dL 11/18/2022 21 7 CREAT 0.70 mg/dL 11/18/2022 0.96 0.58 Most recent labs Assessment/Plan Hypercholesteremia On simvastatin. Plan: Continue Simvastatin day of surgery. METS: Climb a flight of stairs or walk up a hill (5.50 METs) Participate in moderate recreational activities, such as golf, bowling, dancing, doubles tennis, or throwing a baseball or football (6.00 METs) Do heavy work around the house, such as scrubbing floors, lifting or moving heavy furniture (8.00 METs) ANESTHESIA FINDINGS: Intubation History: No history of difficult intubation Significant Anesthesia Considerations: None Airway Exam: General: Normal appearance Mallampati Score is CLASS I ULBT: Class I - Lower incisors can bite the upper lip above the jade line Neck: Normal appearance and function, Distance from hyoid to mentum during neck extension is at least 3 finger breaths Mouth: Normal tongue size Dentition: Intact Airway History: No abnormal airway history PLAN This patient is optimally prepared for surgery. CONSULTS: Patient does not require consults for optimization at this time. The Following Tests/Procedures Have Been Initiated: Orders Placed This Encounter Confirm Blood Type Standing Status: Future Standing Expiration Date: 01/29/2023 Order Specific Question: Did Blood Bank direct you to place this order: Answer: No - Presurgical Workflow Planned Anesthetic: Per anesthesia choice Instructions Given to Patient: Instructions located in the after visit summary. Patient given verbal and written preop instructions and voices comprehension and compliance. SIGNATURE: Jonel Montano DO PATIENT NAME: Krystina Saldivar DATE: November 29, 2022 TIME: 12:36 PM documented in this encounter [facility] 11-25-2022 Miscellaneous Notes Called and spoke with patient to inquire about moving surgery to 12/25. Patient states that she would rather not move her surgery date as she does not want to be out of work for too long. Will update Dr. Thompson and keep surgery scheduled as is. Nichole Morgan RN November 25, 2022 11:41 AM documented in this encounter [facility] 11-18-2022 Note HNO ID: [id number] Author: Farheen Thompson MD Service: ? Author Type: Physician Type: Progress Notes Filed: 11/18/2022 5:23 PM Note Text: [facility] NEW PATIENT HISTORY AND PHYSICAL EXAM PATIENT INFO: Krystina Saldivar 62 year old REFERRING M.D.: Natalia Haque [address] [place] [address] PCP: No primary care provider on file. Date of Service: November 18, [address] Haque for an opinion regarding nephrolithiasis and my final recommendations will be communicated back to the requesting physician by way of shared Medical record or letter via US mail. CHIEF COMPLAINT: Nephrolithiasis HPI: This is a 62 year old female arthritis, diabetes (jardiance), high cholesterol, history of kidney stones, history of renal stones, history of ureteral stones, history of hysterectomy and tubal ligation, and presenting with left nonobstructing staghorn calculus. Urinary symptoms include incomplete bladder emptying, urinary frequency and urgency, nocturia (2 times per night). She has been seen at [facility] most recently in the ER on November 04 with left flank pain that radiated to her left lower lower quadrant, gross hematuria and nausea. CT scan obtained with a 1.1 x 2.7 cm stone in the left proximal ureter with severe hydro kidney also filled with stone. Recommended to have a PCNL On November 07, 2022, Dr. Haque, a left retrograde pyelogram was performed with placement of a 6 Scottish variable length ureteral stent without difficulty. Left ureteral stone may have been advanced into the kidney. Limited available notes reference large left kidney stone and has been recommended PCNL last week. The patient denies flank pain, fever, shaking chills, gross hematuria, urgency, frequency, dysuria, incontinence, nausea, and vomiting at this time. She has some pelvic pressure with the stent in place. Nervous about surgery Personal hx of stones: yes, 2017 Family Hx of stones: yes, several sisters. Paternal grandfather. PATHOLOGY: Stone Analysis: None to review Urine Culture None to review LABS: No results found for: CREAT No results found for: PSA URINALYSIS: No results found for: PH , SPGR , UGLUC , UBILI , UKET , UHB , UPROT , UROBIL , NITRITES , UWBC , SSA IMAGING: Imaging Reviewed. Radiology report may be copied below for ease of reference. November 04, 2022 CT abdomen without contrast The liver and spleen are unremarkable. There is no intra or extrahepatic biliary duct dilatation. The gallbladder is unremarkable. There are large nonobstructive left renal staghorn calculi. There is a 1.1 x 1.1 x 2.7 cm long calculus within the left proximal ureter with moderate to severe left hydroureteronephrosis. There is a right renal cyst. There are scattered colonic diverticuli without evidence of acute inflammation. Otherwise the pancreas, adrenal glands, right kidney, and bowel loops including the appendix are unremarkable. There is no mesenteric or retroperitoneal lymphadenopathy there is a small fat-containing umbilical hernia. Pelvis: The bladder and rectum are unremarkable. There is no iliac or inguinal lymphadenopathy. The status post hysterectomy. There is mild to moderate atherosclerotic disease. Bone windows show no aggressive osseous lesions. HISTORIES PAST MEDICAL HISTORY Diagnosis Date Arthritis Bilateral nephrolithiasis Diabetes mellitus (HCC) H/O: hysterectomy High cholesterol Staghorn calculus PAST SURGICAL HISTORY Procedure Laterality Date LIGATE FALLOPIAN TUBE Bilateral TOTAL ABDOM HYSTERECTOMY URETERAL STENT PLACEMENT 11/07/2022 Social History Tobacco Use Smoking status: Former Packs/day: 1 Types: Cigarettes Quit date: 03/31/1997 Years since quittin.6 Smokeless tobacco: Never Substance Use Topics Alcohol use: Yes Comment: social drinker on weekends Drug use: Never ALLERGIES: ALLERGIES Allergen Reactions Penicillins Rash Verbal- not for sure of reaction Percocet [Oxycodone* Vomiting Sulfa (Sulfonamide * Rash Verbal- not for sure of reaction MEDICATIONS: Current Outpatient Medications Medication Sig simvastatin (ZOCOR) 20 mg tablet Take 20 mg by mouth daily at bedtime. empagliflozin (JARDIANCE) 25 mg tablet Take 25 mg by mouth daily with breakfast. keTORolac (TORADOL) 10 mg tablet Take 10 mg by mouth every 12 hours as needed for pain. solifenacin 10 mg tablet Take 5 mg by mouth once daily. ondansetron (ZOFRAN) 4 mg tablet Take 4 mg by mouth every 8 hours as needed for nausea/vomiting. No current facility-administered medications for this visit. REVIEW OF SYSTEMS General: No weight loss, malaise or fevers., SEE HPI ENMT: No earaches, No hearing loss, No nose, sinus problems or snoring, No dry mouth, mouth ulcers or sore throat, No thrush Endocrine: (DM, thyroid) - yes, diabetes Eyes:Not Sig (more content not included)... [facility] 11-18-2022 Instructions Farheen Thompson MD - 11/18/2022 4:18 PM EDT Images from the original note were not included. Percutaneous Nephrolithotomy (PCNL) is the best treatment for large stones in the kidney. General anesthesia is needed to do a PCNL. PCNL involves making a half-inch incision (cut) in the back or side, just large enough to allow a rigid telescope (nephroscope) to be passed into the hollow center part of the kidney where the stone is located. Ultrasound lithotripsy is the most common technology utilized to fragment the stones. An instrument passes through the nephroscope breaks up the stone and suctions out the pieces. The ability to suction pieces makes PCNL the best treatment choice for large stones. The procedure is typically a ONE-day inpatient procedure. The PCNL procedure requires general anesthesia and takes approximately 3 hours. Patients are transferred to the gutierrez after awakening in the recovery room. A ureteral stent is typically placed during the procedure to prevent post operative flank pain. You will return to the clinic after about 7 days for suture and stent removal. Alternatively, a tube can be left in the kidney to drain urine into a bag outside of the body. This will allow for drainage of urine and stop any bleeding. The tube is left in overnight or for a few days. Post operative pain is variable and oral medications along with antibiotics will be given prior to discharge. Post-operative pain usually disappears in two weeks. Patients can usually return to work after the back suture is removed. ---A ureteral stent is a temporary, small plastic tube that is placed in your ureter that helps drain urine from your kidney into your bladder by a urologist. A stent may be placed to help unblock your kidney if a stone or obstruction is present. Here is a video with more information on ureteral stents: https://youtu.be/[email or web address] Video on PCNL: [email or web address].org/p [email or web address] If you have any additional questions regarding this procedure, please reach out to our team. Warm regards, Your [facility] documented in this encounter [facility] 11-18-2022 History of Presen t illness Narrative [facility] NEW PATIENT HISTORY AND PHYSICAL EXAM PATIENT INFO: Krystina Saldivar 62 year old REFERRING M.D.: Natalia Haque [address] [place] [address] PCP: No primary care provider on file. Date of Service: November 18, [address] Haque for an opinion regarding nephrolithiasis and my final recommendations will be communicated back to the requesting physician by way of shared Medical record or letter via US mail. CHIEF COMPLAINT: Nephrolithiasis HPI: This is a 62 year old female arthritis, diabetes (jardiance), high cholesterol, history of kidney stones, history of renal stones, history of ureteral stones, history of hysterectomy and tubal ligation, and presenting with left nonobstructing staghorn calculus. Urinary symptoms include incomplete bladder emptying, urinary frequency and urgency, nocturia (2 times per night). She has been seen at [facility] most recently in the ER on November 04 with left flank pain that radiated to her left lower lower quadrant, gross hematuria and nausea. CT scan obtained with a 1.1 x 2.7 cm stone in the left proximal ureter with severe hydro kidney also filled with stone. Recommended to have a PCNL On November 07, 2022, Dr. Haque, a left retrograde pyelogram was performed with placement of a 6 Scottish variable length ureteral stent without difficulty. Left ureteral stone may have been advanced into the kidney. Limited available notes reference large left kidney stone and has been recommended PCNL last week. The patient denies flank pain, fever, shaking chills, gross hematuria, urgency, frequency, dysuria, incontinence, nausea, and vomiting at this time. She has some pelvic pressure with the stent in place. Nervous about surgery Personal hx of stones: yes, 2017 Family Hx of stones: yes, several sisters. Paternal grandfather. PATHOLOGY: Stone Analysis: None to review Urine Culture None to review LABS: No results found for: CREAT No results found for: PSA URINALYSIS: No results found for: PH , SPGR , UGLUC , UBILI , UKET , UHB , UPROT , UROBIL , NITRITES , UWBC , SSA IMAGING: Imaging Reviewed. Radiology report may be copied below for ease of reference. November 04, 2022 CT abdomen without contrast The liver and spleen are unremarkable. There is no intra or extrahepatic biliary duct dilatation. The gallbladder is unremarkable. There are large nonobstructive left renal staghorn calculi. There is a 1.1 x 1.1 x 2.7 cm long calculus within the left proximal ureter with moderate to severe left hydroureteronephrosis. There is a right renal cyst. There are scattered colonic diverticuli without evidence of acute inflammation. Otherwise the pancreas, adrenal glands, right kidney, and bowel loops including the appendix are unremarkable. There is no mesenteric or retroperitoneal lymphadenopathy there is a small fat-containing umbilical hernia. Pelvis: The bladder and rectum are unremarkable. There is no iliac or inguinal lymphadenopathy. The status post hysterectomy. There is mild to moderate atherosclerotic disease. Bone windows show no aggressive osseous lesions. HISTORIES PAST MEDICAL HISTORY Diagnosis Date Arthritis Bilateral nephrolithiasis Diabetes mellitus (HCC) H/O: hysterectomy High cholesterol Staghorn calculus PAST SURGICAL HISTORY Procedure Laterality Date LIGATE FALLOPIAN TUBE Bilateral TOTAL ABDOM HYSTERECTOMY URETERAL STENT PLACEMENT 11/07/2022 Social History Tobacco Use Smoking status: Former Packs/day: 1 Types: Cigarettes Quit date: 03/31/1997 Years since quittin.6 Smokeless tobacco: Never Substance Use Topics Alcohol use: Yes Comment: social drinker on weekends Drug use: Never ALLERGIES: ALLERGIES Allergen Reactions Penicillins Rash Verbal- not for sure of reaction Percocet [Oxycodone* Vomiting Sulfa (Sulfonamide * Rash Verbal- not for sure of reaction MEDICATIONS: Current Outpatient Medications Medication Sig simvastatin (ZOCOR) 20 mg tablet Take 20 mg by mouth daily at bedtime. empagliflozin (JARDIANCE) 25 mg tablet Take 25 mg by mouth daily with breakfast. keTORolac (TORADOL) 10 mg tablet Take 10 mg by mouth every 12 hours as needed for pain. solifenacin 10 mg tablet Take 5 mg by mouth once daily. ondansetron (ZOFRAN) 4 mg tablet Take 4 mg by mouth every 8 hours as needed for nausea/vomiting. No current facility-administered medications for this visit. REVIEW OF SYSTEMS General: No weight loss, malaise or fevers., SEE HPI ENMT: No earaches, No hearing loss, No nose, sinus problems or snoring, No dry mouth, mouth ulcers or sore throat, No thrush Endocrine: (DM, thyroid) - yes, diabetes Eyes:Not Significant Respiratory: Negative for cough, wheezing or shortness of breath. Cardiovascular: Negative for chest pain, leg swelling or palpitations. Anticoagulation meds - No Gastrointestinal: Negative for abdominal discomfort, blood in stools or black stools or change in bowel habits Bowel surgery No, IBS No Genitourinary: see HPI Musculoskeletal: Negative for joint pain or swelling, back pain or muscle pain. History of gout No Skin: Negative for lesions, rash, and itching. Neuro: No history of headaches, syncope, paralysis, seizures or tremors History of CVA -No The remainder of the ROS was reviewed and was negative. PHYSICAL EXAMINATION There were no vitals taken for this visit. There is no height or weight on file to calculate BMI. General: No acute distress Eyes: Eyes: Scleral icterus - No, Skin: No obvious suspicious rashes or lesions. Back: No CVA tenderness to palpation/percussion. Visible Spinal anomaly -No ENMT: no masses, lesions. Lymphatic: Neck supple, no lymphadenopathy. Cardiovascular: No Cyanosis, No edema. Respiratory: Non labored breathing, no cough, no use of accessory muscles. Gastrointestinal: Abdomen is Non-distended, soft, nontender. Musculoskeletal: Good attending anesthesiologist strength. Neurologic: Normal gait. Sensation grossly intact. Alert and Oriented Genitourinary: FEMALE EXAM: Exam NOT Indicated PROBLEMS & PLAN: 1. Staghorn calculus - ICD9: 592.0, ICD10: N20.0 (primary diagnosis) 2. Screening for genitourinary condition - ICD9: V81.6, ICD10: Z13.89 The renal calculus fills multiple calyces in the renal pelvis and the proximal ureter. HU varies between the 500s to high 700s. Will likely require multiple accesses if PCNL is pursued. Mini PCNL x 2 vs standard and mini with URS May need multiple surgeries Skin to stone distance in the upper pole is 7.5cm and lower pole 7.7 cm multiple of the calyces are parallel Discussed with the patient possible treatment options for kidney stones. Surveillance with continued imaging and symptom monitoring: Risk of stone movement, urinary obstruction, pain and renal dysfunction along with complicated UTI and hematuria and requiring an ER visit for urgent care. Ureteroscopy: Would need multiple procedures for stone clearance, prolonged stent placement, risk of infection and sepsis. Injury to the ureter, stricture formation,.Residual stone and fragments. PCNL: best chance of stone free from one procedure but for her will require either multiple procedures and /or multiple accesses. Risks are : Bleeding, blood transfusion risk approximately 5%. If arterial injury may need angio-embolization by IR. Pneumothorax risk approximately 1%, may need chest tube placed in the OR or postoperatively. Injury to the bowel, adjacent structures. Need to hospitalization, additional procedure, 2nd look, prolonged drainage from nephrostomy tube or ureteral stent. General Stone prevention - high fluid intake: Target daily urine output more than 2 L; if heart condition tolerable. - dietary sodium restriction: Less than 9539-7645 mg per day. - increase dietary citrate intake: lemon/coquille, melon and tomato has potassium citrate - adequate dietary calcium intake: (1200 mg per day)-do not limit calcium intake. - decrease soft drinks(has phosphoric acid) which acidifies urine and increase stone risk - protein intake: about 1 g of protein per kilo body weight per day . - patients with high urine oxalate: avoid Spinach, nuts, seeds, potatoes. Foods like banana, avocado, soybean, gege, cereals are good for you 24 hour urine test / [facility] for more personalized stone prevention and metabolic evaluation. Stone labs She selected PCNL - planning for end of November/ when able. December 11 will be requested to start. The patient decided to proceed with the above plan. The patient was given the opportunity to have all questions answered and appeared to be satisfied with our discussion. Some elements of this note may be copied from previous versions, however, all data and information has been reviewed and verified and is accurate for today November 18, 2022 Farheen Thompson MD Associate Staff documented in this encounter [facility] 11-18-2022 Miscellaneous Notes Received via fax OSH medical records. Patient is scheduled to see Dr. Thompson on 11/18/2022 at 4pm. Records given to Dr. Thompson for further review. Will send to scanning after review by provider. Senait Durán RN documented in this encounter [facility] 11-20-2021 Note PROCEDURE: XR TIB_FI B RT 2V COMPARISON: 11/09/21 HISTORY: Pain of right lower leg FINDINGS: BONES:No fracture, acute abnormality, or significant arthropathy. SOFT TISSUES:Negative. No visible soft tissue swelling. EFFUSION:None visible. OTHER: Negative. IMPRESSION: No acute abnormality Electronically authenticated by: FARZANA BRAND Date: 2021-11-20 11:25 [facility] Evaluation note Diagnosis Staghorn calculus- Primary Calculus of kidney Screening for genitourinary condition Screening for other and unspecified genitourinary condition documented in this encounter [facility]* Diagnosis Nephrolithiasis- Primary Calculus of kidney documented in this encounter [facility] note* Diagnosis Pre-op chest exam- Primary Pre-operative respiratory examination Nephrolithiasis Calculus of kidney [facility] Preop examination- Primary Preoperative examination, unspecified Nephrolithiasis Calculus of kidney Controlled type 2 diabetes mellitus without complication, without long-term current use of insulin (HCC) Hypercholesteremia Pure hypercholesterolemia Nephrolithiasis Calculus of kidney documented in this encounter [facility] note* Diagnosis Screening for genitourinary condition Screening for other and unspecified genitourinary condition Nephrolithiasis Calculus of kidney documented in this encounter [facility]* Diagnosis Nephrolithiasis Calculus of kidney documented in this encounter [facility] note* Diagnosis Nephrolithiasis Calculus of kidney documented in this encounter [facility] note* Diagnosis Nephrolithiasis- Primary Calculus of kidney Urine volume deficient Oliguria and anuria Vitamin D deficiency Unspecified vitamin D deficiency Hypercalcinuria Unspecified disorders of calcium metabolism Hypernatriuria Hyperosmolality and/or hypernatremia Aciduria (HCC) Other nonspecific finding on examination of urine documented in this encounter [facility] note* Diagnosis Nephrolithiasis Calculus of kidney documented in this encounter [facility] note* Diagnosis Nephrolithiasis- Primary Calculus of kidney Urine volume deficient Oliguria and anuria Hypercalcinuria Unspecified disorders of calcium metabolism Hyperoxaluria Other specified disorders of carbohydrate transport and metabolism Hyperuricosuria Other nonspecific finding on examination of urine Hypernatriuria Hyperosmolality and/or hypernatremia 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 in this [facility] (narrative)* Diagnostic Procedure Only (Routine) - Authorized Specialty Diagnoses / Procedures Referred By Deion t Referred To Contact US IMAGING Diagnoses Nephrolithiasis Procedures US KIDNEY/BLADDER US RETROPERITONEAL REAL TIME W/[place] [address] [place] [address] [place] [address] Referral ID Status Reason Start Date Expiration Date Visits Requested Visits Authorized [id number] Authorized Auto-Generat ed Referral 02/06/2023 02/05/2024 1 1 [facility] (narrative)* Diagnostic Procedure Only (Routine) - Authorized Specialty Diagnoses / Procedures Referred By Contzeny t Referred To Contact US IMAGING Diagnoses Nephrolithiasis Procedures US KIDNEY/BLADDER US RETROPERITONEAL REAL TIME W/IMAGE COMPLETE Alexandria Marin PA-C [address] [place] [address] [place] [address] Referral ID Status Reason Start Date Expiration Date Visits Requested Visits Authorized [id number] Authorized Auto-Generat ed Referral 03/26/2024 1 1 [facility] for [facility] (narrative)* Diagnostic Procedure Only (Routine) - Pending Review Specialty Diagnoses / Procedures Referred By Contac t Referred To Contact US IMAGING Diagnoses Nephrolithiasis Urine volume deficient Hypercalcinuria Hyperoxaluria Hyperuricosuria Hypernatriuria Renal cyst Procedures US KIDNEY/BLADDER US RETROPERITONEAL REAL TIME W/IMAGE COMPLETE Alexandria Marin PA-C [address] [place] [address] [facility] Referral ID Status Reason Start Date Expiration Date Visits Requested Visits Authorized [id number] Pending Review Auto-Generat ed Referral 08/27/2023 09/24/2024 1 1 [facility] visit Narrative* Diagnostic Procedure Only (Routine) - Closed Specialty Diagnoses / Procedures Referred By Contac t Referred To Contact US IMAGING Diagnoses Nephrolithiasis Procedures US KIDNEY/BLADDER US RETROPERITONEAL REAL TIME W/[place] [address] [place] [address] [place] [address] Referral ID Status Reason Start Date Expiration Date V isits Requested Visits Authorized [id number] Closed Auto-Generate d Referral 02/06/2023 02/05/2024 1 1 [facility] N[facility]* Diagnostic Procedure Only (Routine) - Closed Specialty Diagnoses / Procedures Referred By Contac t Referred To Contact US IMAGING Diagnoses Nephrolithiasis Procedures US KIDNEY/BLADDER US RETROPERITONEAL REAL TIME W/IMAGE COMPLETE Alexandria Marin PA-C [address] [place] [address] [facility] [address] Referral ID Status Reason Start Date Expiration Date V isits Requested Visits Authorized [id number] Closed Auto-Generate d Referral 02/25/2023 03/26/2024 1 1 [facility] Summary Purpose Family History No Family History Records FoundNo Family History Records FoundNo Family History Records FoundNo Family History Records FoundNo Family History Records Found Advance Directives No Advanced Directives Records FoundNo Advanced Directives Records FoundNo Advanced Directives Records FoundNo Advanced Directives Records FoundNo Advanced Directives Records Found Reason for Referral Specialty Diagnoses / Procedures Referred By Contac t Referred To Contact Diagnoses Nephrolithiasis Procedures REFER TO PACC - PRE ANESTHESIA CONSULTATION CLINIC OFFICE/OUTPATIENT [facility] 60-[place] [address] [place] [address] Referral ID Status Reason Start Date Expiration Date Visits Requested Visits Authorized [id number] Authorized PCP Requested Referral 11/18/2022 11/18/2023 1 1 Medications Administered Section Inactive Administered Medications - up to 3 most recent administrations Medication Order MAR Action Action Date Dose Rate Site fentaNYL 50 mcg/mL 50 mcg injection (SUBLIMAZE) 50 mcg, INTRAVENOUS, EVERY 10 MINUTES NEEDED, 4 doses, Starting on Fri01/06/23 at 0901, Until Fri01/07/23 at 0305, FIRST LINE THERAPY for mild, moderate, or severe pain, USE FOR MILD PAIN ONLY IF PATIENT IS UNABLE TO TOLERATE ORAL THERAPY, Recovery or Phase I (only) HYDROmorphone 0.2 mg injection (DILAUDID) 0.2 mg, INTRAVENOUS, EVERY 5 MINUTES NEEDED, 10 doses, Starting on Fri01/06/23 at 0901, Until Fri01/07/23 at 0305, SECOND LINE THERAPY for mild, moderate, or severe pain, USE FOR MILD PAIN ONLY IF PATIENT IS UNABLE TO TOLERATE ORAL THERAPY, Recovery or Phase I (only) lactated ringers iv infusion 5-35 mL/hr, INTRAVENOUS, CONTINUOUS, Starting on Fri01/06/23 at 0930, Until Fri01/07/23 at 0305, Recovery or Phase I (only) NaCl 0.9% iv infusion 75 mL/hr, INTRAVENOUS, CONTINUOUS, Starting on Fri01/06/23 at 0630, Until Fri01/06/23 at 0852, Preprocedure New Bag/Syringe/Bottle 01/06/2023 8:14 AM EDT 500 mL/hr Rate/Dose Change 01/06/2023 7:38 AM EDT 1000 mL /hr Continued by Anesthesia 01/06/2023 7:37 AM EDT 75 mL/hr ondansetron (PF) 4 mg injection (ZOFRAN) 4 mg, INTRAVENOUS, EVERY 6 HOURS NEEDED, Starting on Fri01/06/23 at 0901, Until Fri01/07/23 at 0305, Nausea/Vomiting - First Line - Parenteral, EVERY 6 HOURS NEEDED Give IV push over 2 minutes. Use when patient unable to take medications by mouth., Recovery or Phase I (only) ondansetron 4 mg tab(s) (ZOFRAN) 4 mg, ORAL, EVERY 6 HOURS NEEDED, Starting on Fri01/06/23 at 0901, Until Fri01/07/23 at 0305, Nausea/Vomiting - First Line - Enteral, EVERY 6 HOURS NEEDED Use when patient able to take medications by mouth., Recovery or Phase I (only) Additional Source Comments INFORMATION SOURCE (unrecogn ized section and content) DATE CREATED AUTHOR 06/24/2022 Jovanni Ace [facility] DATE CREATED AUTHOR AUTHOR'S ORGANIZ ATION 11/20/2022 [facility] DATE CREATED AUTHOR AUTHOR'S ORGANIZ ATION 03/03/2023 [facility] DATE CREATED AUTHOR AUTHOR'S ORGANIZ ATION 08/22/2023 [facility] DATE CREATED AUTHOR AUTHOR'S ORGANIZ ATION 08/27/2023 [facility] l Source Comments (unrecognize d section and content) In the event this informatio n is protected by the Federal Confidentiality of Alcohol and Drug Abuse Patient Records regulations: The Federal rules restrict any use of the information to criminally investigate or prosecute any alcohol or drug abuse patient.[facility] FoundationIn the event this information is protected by the Federal Confidentiality of Alcohol and Drug Abuse Patient Records regulations: The Federal rules restrict any use of the information to criminally investigate or prosecute any alcohol or drug abuse patient.[facility] FoundationIn the event this information is protected by the Federal Confidentiality of Alcohol and Drug Abuse Patient Records regulations: The Federal rules restrict any use of the information to criminally investigate or prosecute any alcohol or drug abuse patient.[facility] FoundationIn the event this information is protected by the Federal Confidentiality of Alcohol and Drug Abuse Patient Records regulations: The Federal rules restrict any use of the information to criminally investigate or prosecute any alcohol or drug abuse patient.[facility] FoundationIn the event this information is protected by the Federal Confidentiality of Alcohol and Drug Abuse Patient Records regulations: The Federal rules restrict any use of the information to criminally investigate or prosecute any alcohol or drug abuse patient.[facility] FoundationIn the event this information is protected by the Federal Confidentiality of Alcohol and Drug Abuse Patient Records regulations: The Federal rules restrict any use of the information to criminally investigate or prosecute any alcohol or drug abuse patient.[facility] FoundationIn the event this information is protected by the Federal Confidentiality of Alcohol and Drug Abuse Patient Records regulations: The Federal rules restrict any use of the information to criminally investigate or prosecute any alcohol or drug abuse patient.[facility] FoundationIn the event this information is protected by the Federal Confidentiality of Alcohol and Drug Abuse Patient Records regulations: The Federal rules restrict any use of the information to criminally investigate or prosecute any alcohol or drug abuse patient.[facility] FoundationIn the event this information is protected by the Federal Confidentiality of Alcohol and Drug Abuse Patient Records regulations: The Federal rules restrict any use of the information to criminally investigate or prosecute any alcohol or drug abuse patient.[facility] FoundationIn the event this information is protected by the Federal Confidentiality of Alcohol and Drug Abuse Patient Records regulations: The Federal rules restrict any use of the information to criminally investigate or prosecute any alcohol or drug abuse patient.[facility] FoundationIn the event this information is protected by the Federal Confidentiality of Alcohol and Drug Abuse Patient Records regulations: The Federal rules restrict any use of the information to criminally investigate or prosecute any alcohol or drug abuse patient.[facility] FoundationIn the event this information is protected by the Federal Confidentiality of Alcohol and Drug Abuse Patient Records regulations: The Federal rules restrict any use of the information to criminally investigate or prosecute any alcohol or drug abuse patient.[facility] FoundationIn the event this information is protected by the Federal Confidentiality of Alcohol and Drug Abuse Patient Records regulations: The Federal rules restrict any use of the information to criminally investigate or prosecute any alcohol or drug abuse patient.[facility] FoundationIn the event this information is protected by the Federal Confidentiality of Alcohol and Drug Abuse Patient Records regulations: The Federal rules restrict any use of the information to criminally investigate or prosecute any alcohol or drug abuse patient.[facility] FoundationIn the event this information is protected by the Federal Confidentiality of Alcohol and Drug Abuse Patient Records regulations: The Federal rules restrict any use of the information to criminally investigate or prosecute any alcohol or drug abuse patient.[facility] FoundationIn the event this information is protected by the Federal Confidentiality of Alcohol and Drug Abuse Patient Records regulations: The Federal rules restrict any use of the information to criminally investigate or prosecute any alcohol or drug abuse patient.[facility] FoundationIn the event this information is protected by the Federal Confidentiality of Alcohol and Drug Abuse Patient Records regulations: The Federal rules restrict any use of the information to criminally investigate or prosecute any alcohol or drug abuse patient.[facility] FoundationIn the event this information is protected by the Federal Confidentiality of Alcohol and Drug Abuse Patient Records regulations: The Federal rules restrict any use of the information to criminally investigate or prosecute any alcohol or drug abuse patient.[facility] FoundationIn the event this information is protected by the Federal Confidentiality of Alcohol and Drug Abuse Patient Records regulations: The Federal rules restrict any use of the information to criminally investigate or prosecute any alcohol or drug abuse patient.[facility] FoundationIn the event this information is protected by the Federal Confidentiality of Alcohol and Drug Abuse Patient Records regulations: The Federal rules restrict any use of the information to criminally investigate or prosecute any alcohol or drug abuse patient.[facility] FoundationIn the event this information is protected by the Federal Confidentiality of Alcohol and Drug Abuse Patient Records regulations: The Federal rules restrict any use of the information to criminally investigate or prosecute any alcohol or drug abuse patient.[facility] FoundationIn the event this information is protected by the Federal Confidentiality of Alcohol and Drug Abuse Patient Records regulations: The Federal rules restrict any use of the information to criminally investigate or prosecute any alcohol or drug abuse patient.[facility] FoundationIn the event this information is protected by the Federal Confidentiality of Alcohol and Drug Abuse Patient Records regulations: The Federal rules restrict any use of the information to criminally investigate or prosecute any alcohol or drug abuse patient.[facility] Reason for Visit (unrecogniz ed section and content) 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 Consult Kidney Stones Reason Comments Pre-Op Exam Reason Comments Scheduling Reason Comments Returning Patient's Call Reason Comments Results Specialty Diagnoses / Procedures Referred By Deion lewis Referred To Contact Diagnoses Nephrolithiasis Procedures CYSTO/URETERO W/LITHOTRIPSY &INDWELL STENT INSRT CYSTOURETHROSCOPY W/ URETEROSCOPY AND/OR PYELOSCOPY W/ LITHOTRIPSY INCLUDE INSERTION OF INDWELLING URETERAL STENT Av Surgery [address] [place] [address] Referral ID Status Reason Start Date Expiration Date Visits Re quested Visits Authorized [id number] 1 Reason Comments Radiology US Reason Comments Follow Up Kidney Stones Reason Comments Appointment Reason Comments Refill Request Care Teams (unrecognized sec tion and content) Java J2Ee Application Developer Relationship Specialty Start Date End Date Sal Jackson MD [address] [place] [address] PCP - General Family Medicine 12/11/22 Java J2Ee Application Developer Relationship Specialty Start Date End Date Sal Jackson MD [address] [place] [address] PCP - General Family Medicine 12/11/22 Java J2Ee Application Developer Relationship Specialty Start Date End Date Sal Jackson MD [address] [place] [phone] PCP - General Family Medicine 12/11/22 Java J2Ee Application Developer Relationship Specialty Start Date End Date Sal Jackson MD [address] [place] [address] PCP - General Family Medicine 12/11/22 Java J2Ee Application Developer Relationship Specialty Start Date End Date Sal Jackson MD [address] [place] [address] PCP - General Family Medicine 12/11/22 Java J2Ee Application Developer Relationship Specialty Start Date End Date Sal Jackson MD [address] [place] [address] PCP - General Family Medicine 12/11/22 Java J2Ee Application Developer Relationship Specialty Start Date End Date Sal Jackson MD [address] [place] [address] PCP - General Family Medicine 12/11/22 Java J2Ee Application Developer Relationship Specialty Start Date End Date Sal Jackson MD [address] [place] [address] PCP - General Family Medicine 12/11/22 Java J2Ee Application Developer Relationship Specialty Start Date End Date Sal Jackson MD [address] [place] [address] PCP - General Family Medicine 12/11/22 Java J2Ee Application Developer Relationship Specialty Start Date End Date Sal Jackson MD [address] [place] [address] PCP - General Family Medicine 12/11/22 Scheduled Active and Recently Administ ered Medications (unrecognized section and content) Medication Order 01/04/2023 01/05/2023 01/06/2023 ceFAZolin iv piggyback 2 g in D5W (iso-osmotic) 100 mL (ANCEF) (COMPLETED) 2 g, INTRAVENOUS, at 200 mL/hr, Administer over 30 Minutes, PRE-OP ONCE, 1 dose, On Fri01/06/23 at 0630, Urology Cases PRE-OP ANTIBIOTIC ADMINISTER ONLY IN SURGICAL AREA DO NOT ADMINSTER ON THE FLOOR Refrigerate, Antimicrobial indication: Prophylaxis, Preprocedure 0646 (Sent with Vale ent - Provider: Mira Monique RN)0748 (Given - Provider: Reshma Dominguez APRN.RENEWABLE ENERGY TECHNICIAN) Continuous Medication Order 01/04/2023 01/05/2023 01/06/2023 lactated ringers iv infusion 5-35 mL/hr, INTRAVENOUS, CONTINUOUS, Starting on Fri01/06/23 at 0930, Until Fri01/07/23 at 0305, Recovery or Phase I (only) 0930 (Due) NaCl 0.9% iv infusion (CANCELED) 75 mL/hr, INTRAVENOUS, CONTINUOUS, Starting on Fri01/06/23 at 0630, Until Fri01/06/23 at 0852, Preprocedure 0646 (New Bag/Syring e/Bottle - Provider: Mira Monique RN)0737 (Continued by Anesthesia - Provider: Reshma Dominguez APRN.CRNA)0738 (Rate/Dose Change - Provider: Reshma Dominguez APRN.CRNA)0814 (New Bag/Syringe/Bottle - Provider: Reshma Dominguez APRN.CRNA)0826 (Infusion Complete - Provider: Reshma Dominguez APRN.CRNA) PRN Medication Order 01/04/2023 01/05/2023 01/06/2023 fentaNYL 50 mcg/mL 50 mcg injection (SUBLIMAZE) 50 mcg, INTRAVENOUS, EVERY 10 MINUTES NEEDED, 4 doses, Starting on Fri01/06/23 at 0901, Until Fri01/07/23 at 0305, FIRST LINE THERAPY for mild, moderate, or severe pain, USE FOR MILD PAIN ONLY IF PATIENT IS UNABLE TO TOLERATE ORAL THERAPY, Recovery or Phase I (only) HYDROmorphone 0.2 mg injection (DILAUDID) 0.2 mg, INTRAVENOUS, EVERY 5 MINUTES NEEDED, 10 doses, Starting on Fri01/06/23 at 0901, Until Fri01/07/23 at 0305, SECOND LINE THERAPY for mild, moderate, or severe pain, USE FOR MILD PAIN ONLY IF PATIENT IS UNABLE TO TOLERATE ORAL THERAPY, Recovery or Phase I (only) lidocaine urojet 2 % topical gel (GLYDO) (CANCELED) X (OR/PROCEDURE) PRN, Starting on Fri01/06/23 at 0842, Until Fri01/06/23 at 0944, Intraprocedure 0842 (Given - Provid er: Farheen Thompson MD) ondansetron (PF) 4 mg injection (ZOFRAN)(Linked Group 1) 4 mg, INTRAVENOUS, EVERY 6 HOURS NEEDED, Starting on Fri01/06/23 at 0901, Until Fri01/07/23 at 0305, Nausea/Vomiting - First Line - Parenteral, EVERY 6 HOURS NEEDED Give IV push over 2 minutes. Use when patient unable to take medications by mouth., Recovery or Phase I (only) ondansetron 4 mg tab(s) (ZOFRAN)(Linked Group 1) 4 mg, ORAL, EVERY 6 HOURS NEEDED, Starting on Fri01/06/23 at 0901, Until Fri01/07/23 at 0305, Nausea/Vomiting - First Line - Enteral, EVERY 6 HOURS NEEDED Use when patient able to take medications by mouth., Recovery or Phase I (only) Linked Groups Order Group 1: ondansetron 4 mg tab(s) (ZOFRAN)Jump to med 4 mg, ORAL, EVERY 6 HOURS NEEDED, Starting on Fri01/06/23 at 0901, Until Fri01/07/23 at 030, Nausea/Vomiting - First Line - Enteral
EVERY 6 HOURS NEEDED Use when patient able to take medications by mouth.
Recovery or Phase I (only) Or ondansetron (PF) 4 mg injection (ZOFRAN)Jump to med 4 mg, INTRAVENOUS, EVERY 6 HOURS NEEDED, Starting on Fri01/06/23 at 0901, Until Fri01/07/23 at 0305, Nausea/Vomiting - First Line - Parenteral
EVERY 6 HOURS NEEDED Give IV push over 2 minutes. Use when patient unable to take medications by mouth.
Recovery or Phase I (only) FOR RECORDS PERTAINING TO PATIENTS WHO ARE OR HAVE BEEN ENROLLED IN A CHEMICAL DEPENDENCY/SUBSTANCEABUSE PROGRAM, SOME INFORMATION MAY BE OMITTED. This clinical summary was aggregated from multiple sources. Caution should be exercised in using it in the provision of clinical care. This summary normalizes information from multiple sources, and as a consequence, information in this document may materially change the coding, format and clinical context of patient data. In addition, data may be omitted in some cases. CLINICAL DECISIONS SHOULD BE BASED ON THE PRIMARY CLINICAL RECORDS. [employer] [facility]. provides no warranty or guarantee of the accuracy or completeness of information in this document.
[2023-09-11 12:14] LABS: PTH, Intact 50 pg/mL (15-65)
== END 2023-09-09 16:05 | disposition home or self-care (01) ==
LOC: LAB 16:06
PROVIDERS: PCP Family Medicine
DX: N20.0 Calculus of kidney (principal); R34 Anuria and oliguria; R82.994 Hypercalciuria; R82.992 Hyperoxaluria; R82.993 Hyperuricosuria; E87.0 Hyperosmolality and hypernatremia; N28.1 Cyst of kidney, acquired
CPT/HCPCS: 36415; 82306; 82330; 83970

== ENCOUNTER 2024-02-18 15:45 | Outpatient (OUT) | payer BC, SELFPAY ==
--- NOTE | 2024-02-18 15:53 | XR_ITS ---
The [address] [address] Patient Name: KRYSTINA BANEGAS MRN: [id number] date: 1960 Sex: F Assigned Patient Location: [facility] Current Patient Location: Accession/Order Number: [id number] Exam Date: 02/18/2024 15:58 Report Date: 02/20/2024 15:06 At the request of: BABATUNDE JACKSON Procedure: XR cervical spine 2-3V EXAMINATION: XR cervical spine 2-3V HISTORY: Well Adult ; chronic right arm numbness COMPARISON: No relevant comparison available. FINDINGS: BONES: Mild degenerative facet arthropathy L2-3, L3-4. No fracture or spondylolisthesis. DISC SPACES: Mild narrowing C2-3. Moderate narrowing C5-6, C6-7. PARASPINOUS: Negative. No paraspinous abnormality is seen. OTHER: Negative. XR/XR cervical spine 2-3V IMPRESSION: 1. Multilevel mild to moderate degenerative changes of the cervical spine. Electronically authenticated by: RUBI MOODY Date: 02/20/2024 15:06
== END 2024-02-18 15:46 | disposition home or self-care (01) ==
LOC: RAD 15:45
PROVIDERS: PCP Family Medicine; Visit Provider Family Medicine
DX: Z00.00 Encounter for general adult medical examination without abnormal findings (principal); M50.30 Other cervical disc degeneration, unspecified cervical region
CPT/HCPCS: 72040

== ENCOUNTER 2024-02-21 08:01 | Outpatient (OUT) | payer BC, SELFPAY ==
[2024-02-21 07:40] LABS: Basophils Absolute Auto 0.1 10^3/uL (0.0-0.1); Basophils Percent Auto 0.7 % (0.2-2.0); Eosinophils Absolute Auto 0.2 10^3/uL (0.0-0.7); Eosinophils Percent Auto 3.1 % (0.9-7.0); Hematocrit 44.1 % (36.0-48.0); Hemoglobin 14.4 g/dL (12.0-16.0); Immature Granulocytes Abs Auto 0.03 10^3/uL (0.00-0.03); Immature Granulocytes Pct Auto 0.4 % (0.0-0.5); Lymphocytes Absolute Auto 2.6 10^3/uL (1.2-3.8); Lymphocytes Percent Auto 36.5 % (20.5-60.0); Mean Corpuscular HGB Conc 32.7 g/dL (29.9-35.2); Mean Corpuscular Hemoglobin 30.2 pg (26.7-34.0); Mean Corpuscular Volume 92.5 fL (81.0-99.0); Mean Platelet Volume 8.5 fL (9.5-13.5); Monocytes Absolute Auto 0.6 10^3/uL (0.3-0.8); Monocytes Percent Auto 8.9 % (1.7-12.0); Neutrophils Absolute Auto 3.6 10^3/uL (1.4-6.5); Neutrophils Percent Auto 50.4 % (43.0-75.0); Platelet Count 261 10^3/uL (150-450); Red Blood Count 4.77 10^6/uL (4.20-5.40); Red Cell Distribution Width 11.8 % (11.0-15.0); White Blood Count 7.2 10^3/uL (4.0-11.0)
[2024-02-21 08:01] LABS: Estimated Average Glucose 151 mg/dL; Glycohemoglobin A1C 6.9 % (4.5-6.2)
[2024-02-21 09:04] LABS: Alanine Aminotransferase 37 U/L (14-59); Albumin Globulin Ratio 1.1; Albumin Level 3.8 g/dL (3.4-5.0); Alkaline Phosphatase 77 U/L (46-116); Anion Gap 14.6; Aspartate Amino Transferase 21 U/L (15-37); BUN Creatinine Ratio 19.2; Bilirubin Total 0.6 mg/dL (0.2-1.0); Calcium 9.3 mg/dL (8.5-10.1); Carbon Dioxide 28.1 mmol/L (21.0-32.0); Chloride 104 mmol/L (98-107); Chol HDL Ratio 3.9; Cholesterol 209 mg/dL (<=200); Estimated GFR (African America >60 (>=60 mL/min/1.73m^2); Estimated GFR (Non-African Ame >60 (>=60 mL/min/1.73m^2); Free T3 3.53 pg/mL (2.18-3.98); Globulin 3.4 g/dL; Glucose 140 mg/dL (74-106); HDL Cholesterol 54 mg/dL (40-60); Potassium 4.7 mmol/L (3.5-5.1); Sodium 142 mmol/L (136-145); Thyroid Stimulating Hormone 1.889 uIU/mL (0.358-3.740); Total Protein 7.2 g/dL (6.4-8.2); Triglycerides 200 mg/dL (<=150)
--- OUTSIDE RECORDS SUMMARY | 2024-03-03 08:15 | XMS_ITS | CCD ---
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 CLIA [id number] [address] [place] [address] [place] Calcium [Mass/Vol] 9.2 mg/dL Normal 8.5-10.2 [facility] Comment on above: Order Comment: Kevini men Type: BLOOD SPECIMEN Ordering Facility: [facility] Address: [address] [place] [address] Performed By: #### 2 4321-2 #### [facility] CLIA [id number] [address] [place] [address] [place] Chloride [Moles/Vol] 106 mmol/L High 97-105 [facility] Comment on above: Order Comment: Kevini men Type: BLOOD SPECIMEN Ordering Facility: [facility] Address: [address] [place] [address] Performed By: #### 2 4321-2 #### [facility] CLIA [id number] [address] [place] [address] [place] CO2 [Moles/Vol] 24 mmol/L Normal 22-30 [facility] Comment on above: Order Comment: Speci men Type: BLOOD SPECIMEN Ordering Facility: [facility] Address: [address] [address] Performed By: #### 2 4321-2 #### [facility] CLIA [id number] [facility] [place] [address] [place] Creatinine [Mass/Vol] 0.70 mg/dL Normal 0.58-0.96 [facility] Comment on above: Order Comment: Speci men Type: BLOOD SPECIMEN Ordering Facility: [facility] Address: [address] [address] Performed By: #### 2 4321-2 #### [facility] CLIA [id number] [address] [place] [address] [place] Creatinine and Glomerular filtration rate.predicted panel (S/P/Bld) 99 mL/min/1.73m??? Normal >=60 [facility] Comment on above: Order Comment: Kevini men Type: BLOOD SPECIMEN Ordering Facility: [facility] Address: [address] [address] Result Comment: Aranza mated Glomerular Filtration Rate [...] GFR. Performed By: #### 2 4321-2 #### [facility] CLIA [id number] [address] [place] [address] [place] Glucose [Mass/Vol] 97 mg/dL Normal 74-99 [facility] Comment on above: Order Comment: Kevini [facility] Type: BLOOD SPECIMEN Ordering Facility: [facility] Address: [address] [address] Result Comment: The [place] Diabetes Association (ADA) provides guidance for cutoff [...] Standards of Medical Care in Diabetes 2016, [place] [employer]. Diabetes Care. 2016.39(Suppl 1). Performed By: #### 2 4321-2 #### [facility] CLIA [id number] [address] [place] [address] [place] Potassium [Moles/Vol] 4.4 mmol/L Normal 3.7-5.1 [facility] Comment on above: Order Comment: Maddy [place] Type: BLOOD SPECIMEN Ordering Facility: [facility] Address: [address] [place] [address] Performed By: #### 2 4321-2 #### [facility] [place] [id number] [address] [place] [address] [place] Sodium [Moles/Vol] 141 mmol/L Normal 136-144 [facility] Comment on above: Order Comment: [place]addy [place] Type: BLOOD SPECIMEN Ordering Facility: [facility] Address: [address] [address] Performed By: #### 2 4321-2 #### [facility] CLIA [id number] [address] [place] [address] [place] Urea nitrogen [Mass/Vol] 20 mg/dL Normal 7-21 [facility] Comment on above: Order Comment: [place]addy [place] Type: BLOOD SPECIMEN Ordering Facility: [facility] Address: [address] [address] Performed By: #### 2 4321-2 #### [facility] CLIA [id number] [address] [place] [address] [place] Anion gap [Moles/Vol] 11 mmol/L 9 - 18 mmol/L [facility] Calcium [Mass/Vol] 9.2 mg/dL 8.5 - 10. 2 mg/dL [facility] Chloride [Moles/Vol] 106 mmol/L High 97 - 10 5 mmol/L [facility] CO2 [Moles/Vol] 24 mmol/L 22 - 30 mmol/L [facility] Creatinine [Mass/Vol] 0.70 mg/dL 0.58 - 0.96 mg/dL [facility] Estimated Glomerular Filtration Rate 99 mL/min/1.73m >=60 mL/min/1.73m [facility] Glucose [Mass/Vol] 97 mg/dL 74 - 99 mg/dL [facility] Potassium [Moles/Vol] 4.4 mmol/L 3.7 - 5.1 mmol/L [facility] Sodium [Moles/Vol] 141 mmol/L 136 - 144 mmol/L [facility] Urea nitrogen [Mass/Vol] 20 mg/dL 7 - 21 mg/dL [facility] CBC panel Auto (Bld)on 11-18 Erythrocyte distribution width (RBC) [Ratio] 11.9 % Normal 11.5-15.0 [facility] Comment on above: Order Comment: Speci men Type: BLOOD SPECIMEN Ordering Facility: [facility] Address: [address] [address] Performed By: #### 5 8410-2 #### [facility] CLIA [id number] [address] [place] [address] [place] Hematocrit (Bld) [Volume fraction] 41.6 % Normal 36.0-46.0 [facility] Comment on above: Order Comment: Speci men Type: BLOOD SPECIMEN Ordering Facility: [facility] Address: [address] [address] Performed By: #### 5 8410-2 #### [facility] CLIA [id number] [address] [place] [address] [place] Hemoglobin (Bld) [Mass/Vol] 13.1 g/dL Normal 11.5-15.5 [facility] Comment on above: Order Comment: Speci men Type: BLOOD SPECIMEN Ordering Facility: [facility] Address: [address] [address] Performed By: #### 5 8410-2 #### [facility] [place] [id number] [address] STATES OF [facility] MCH (RBC) [Entitic mass] 29.7 pg Normal 26.0-34.0 [facility] Comment on above: Order Comment: Speci men Type: BLOOD SPECIMEN Ordering Facility: [facility] Address: [address] [address] Performed By: #### 5 8410-2 #### [facility] [place] [id number] [address] [place] MCHC (RBC) [Mass/Vol] 31.5 g/dL Normal 30.5-36.0 [facility] Comment on above: Order Comment: Speci men Type: BLOOD SPECIMEN Ordering Facility: [facility] Address: [address] [address] Performed By: #### 5 8410-2 #### [facility] [place] [id number] [address] [place] [address] [place] MCV (RBC) [Entitic vol] 94.3 fL Normal 80.0-100.0 [facility] Comment on above: Order Comment: Speci men Type: BLOOD SPECIMEN Ordering Facility: [facility] Address: [address] [address] Performed By: #### 5 8410-2 #### [facility] IA [id number] [address] [place] [address] [place] Nucleated RBC (Bld) [#/Vol] 10*3/uL Normal <0.01 [facility] Comment on above: Order Comment: Speci men Type: BLOOD SPECIMEN Ordering Facility: [facility] Address: [address] [address] Performed By: #### 5 8410-2 #### [facility] IA [id number] [address] [place] Platelet mean volume (Bld) [Entitic vol] 9.6 fL Normal 9.0-12.7 [facility] Comment on above: Order Comment: Speci men Type: BLOOD SPECIMEN Ordering Facility: [facility] Address: [address] [address] Performed By: #### 5 8410-2 #### [facility] CLIA [id number] [address] [place] [address] [place] Platelets (Bld) [#/Vol] 295 10*3/uL Normal 150-400 [facility] Comment on above: Order Comment: Speci men Type: BLOOD SPECIMEN Ordering Facility: [facility] Address: [address] [address] Performed By: #### 5 8410-2 #### [facility] IA [id number] [address] [place] [address] [place] RBC (Bld) [#/Vol] 4.41 10*6/uL Normal 3.90-5.20 [facility] Comment on above: Order Comment: Speci men Type: BLOOD SPECIMEN Ordering Facility: [facility] Address: [address] [address] Performed By: #### 5 8410-2 #### [facility] IA [id number] [address] [place] [address] [place] WBC (Bld) [#/Vol] 8.94 10*3/uL Normal 3.70-11.00 [facility] Comment on above: Order Comment: Speci men Type: BLOOD SPECIMEN Ordering Facility: [facility] Address: [address] [address] Performed By: #### 5 8410-2 #### [facility] IA [id number] [address] [place] [address] [place] Erythrocyte distribution width (RBC) [Ratio] 11.9 % 11.5 - 15.0 % [facility] Hematocrit (Bld) [Volume fraction] 41.6 % 36.0 - 46.0 % [facility] Hemoglobin (Bld) [Mass/Vol] 13.1 g/dL 11.5 - 15.5 g/dL [facility] MCH (RBC) [Entitic mass] 29.7 pg 26.0 - 34.[address] [facility] MCHC (RBC) [Mass/Vol] 31.5 g/dL 30.5 - 36.0 g/dL [facility] MCV (RBC) [Entitic vol] 94.3 fL 80.0 - 100.[address] [facility] Nucleated RBC (Bld) [#/Vol] <0.01 k/uL [facility] Platelet mean volume (Bld) [Entitic vol] 9.6 fL 9.0 - 12.[address] [facility] Platelets (Bld) [#/Vol] 295 10*3/uL 150 - 400 k/uL [facility] RBC (Bld) [#/Vol] 4.41 10*6/uL 3.90 - 5.2 0 m/uL [facility] WBC (Bld) [#/Vol] 8.94 10*3/uL 3.70 - 11. 00 k/uL [facility] Formson 11-18-2022 Forms [id number] 0CD:127 Normal [facility] PTH INTACT BLDon 11-18-2022 Parathyrin.intact [Mass/Vol] 51 pg/mL 15 - 65 pg/mL [facility] PTH-[facility]30 Parathyrin.intact [Mass/Vol] 51 pg/mL Normal 15-65 [facility] Comment on above: Order Comment: Speci men Type: BLOOD SPECIMEN Ordering Facility: [facility] Address: [address] [place] [address] Performed By: #### 2 731-8 #### [facility] CLIA [id number] [address] [facility] [id number] [place] [address] [place] RAD - MISCon 11-18-2022 RAD - MISC [id number] 0CD:127 Normal [facility] Patient Educationon 11-16-19 Patient Education Nephrology [...] including vitamins, herbs, eye drops, creams, and vwwt-peb-zqaddwf medicines. ? Any problems you or family [...] tells you to take them. ? Taking iqpm-aev-yapnnbl medicines, vitamins, herbs, and supplements. Tests You [...] drain urine (more content not included)... Normal [facility] Consent for Procedure/Surger yon 11-07-2022 Consent for Procedure/Surgery [id number] 0CD:127 [facility] ED Note-Physicianon 11-08-19 23 ED Note-Physician [id number] 0CD:127 [facility] Formson 11-07-2022 Forms [id number] 0CD:127 [facility] Lab Reportson 11-07-2022 Lab Reports [id number] 0CD:127 [facility] Operative Reporton Operative Report [id number] 0CD:127 [facility] RAD - CT Reporton 11-07-2022 RAD - CT Report [id number] 0CD:127 [facility] Ambulatory Visit Summaryon 0 11-06-2022 Ambulatory Visit Summary KRYSTINA SALDIVAR :1960 Visit Date:11/06/2022 Ambulatory Visit Instructions Your Diagnosis Ureteral stone with hydronephrosis Renal stones History of kidney stones Renal cyst Tests Performed Urnls Dip Stick Auto w/o Microscopy POC 03951 Your Care Team Attending Physician - Steve HAQUE MD Primary Care Physician - Sal Jackson MD This Is Your Medications List Contact prescribing physician if questions or concerns acetaminophen-hydrocod one (acetaminophen-hydroco done 325 mg-5 mg oral tablet) empagliflozin (Jardiance [...] Dickinson When: Where: [facility] [address] [place] [address]- Medications What When Instructions Unchanged acetaminophen-hydrocod one (acetaminophen-hydroco done 325 mg-5 mg oral tablet) Contact prescribing physician if questions or concerns Unchanged empagliflozin (Jardiance 25 mg oral tablet) Contact prescribing physician if questions or concerns Unchanged ondansetron (ondansetron 4 mg Tab) Contact prescribing physician if questions or concerns Unchanged simvastatin (simvastatin 20 mg Tab) Contact prescribing physician if questions or concerns Test Results Urnls Dip Stick Auto w/o Microscopy POC 76695 (11/06/2022) Bilirubin Urine Dipstick - Negative Blood Urine Dipstick - Trace-intact Glucose Urine Dipstick - 2+ 500 mg/dl Ketones Urine Dipstick - Negative Leukocytes Urine Dipstick - Negative Nitrite Urine Dipstick - Negative Protein Urine Dipstick - Negative Specific [place] Urine Dipstick - 1.010 Urine Appearance Urine [...] ? 8 oz (237 mL) of milk, qivjmqx-vwgvazfvvidt-g airy milk, and calcium-fortifiedfruit juice. Calcium-fortified means that calcium has been [...] less anim (more content not included)... Normal [facility] Ambulatory Visit Summary KRYSTINA SALDIVAR :1960 Visit Date:11/06/2022 Ambulatory Visit Instructions Your Diagnosis Ureteral stone with hydronephrosis Renal stones History of kidney stones Renal cyst Tests Performed Urnls Dip Stick Auto w/o Microscopy POC 50676 Your Care Team Attending Physician - SHABNAM SULLIVAN, Steve Dickerson Primary Care Physician - Sal Jackson MD This Is Your Medications List Contact prescribing physician if questions or concerns acetaminophen-hydrocod one (acetaminophen-hydroco done 325 mg-5 mg oral tablet) empagliflozin (Jardiance [...] [facility] [address], [place] [address]- Medications What When Instructions Unchanged acetaminophen-hydrocod one (acetaminophen-hydroco done 325 mg-5 mg oral tablet) Contact prescribing physician if questions or concerns Unchanged empagliflozin (Jardiance 25 mg oral tablet) Contact prescribing physician if questions or concerns Unchanged ondansetron (ondansetron 4 mg Tab) Contact prescribing physician if questions or concerns Unchanged simvastatin (simvastatin 20 mg Tab) Contact prescribing physician if questions or concerns Test Results Urnls Dip Stick Auto w/o Microscopy POC 05203 (11/06/2022) Bilirubin Urine Dipstick - Negative Blood Urine Dipstick - Trace-intact Glucose Urine Dipstick - 2+ 500 mg/dl Ketones Urine Dipstick - Negative Leukocytes Urine Dipstick - Negative Nitrite Urine Dipstick - Negative Protein Urine Dipstick - Negative Specific [place] Urine Dipstick - 1.010 Urine Appearance Urine [...] ? 8 oz (237 mL) of milk, xnbvsmb-xxtgxzqmlorx-i airy milk, and calcium-fortifiedfruit juice. Calcium-fortified means that calcium has been [...] less anim (more content not included)... Normal [facility] Patient Educationon 11-07-19 Patient Education Nephrology [...] ? 8 oz (237 mL) of milk, rmwabrq-mzhbwcilpkcy-w airy milk, and calcium-fortifiedfruit juice. Calcium-fortified means that calcium has been [...] Spinach (cooked), rhubarb, beets, sweet potatoes, and Iraqi chard. ? Peanuts. ? Potato chips, english fries, and baked potatoes with skin on. ? Nuts and nut products. ? Chocolate. ? If you regularly take a diuretic medicine, make sure to eat at least 1 or 2 servings of fruits or vegetables that are high in potassium each day. These include: ? Avocado. ? Banana. ? [place], prune, carrot, or tomato juice. ? Baked [...] fish oil, or vitamin B6. ? Take vqgt-ggh-raqvteb and prescription medicines only as told by your health care provider. These include supplements. What foods should I limit? Limit your in (more content not included)... Normal [facility] Urology Office/Clinic Noteon 11-06-2022 Urology Office/Clinic Note Chief Complaint Pt is here for [facility] ER f/u for kidney stones HPI Staff Krystina is a 62 y.o. female new Pt follow up to [facility] due to abdominal and Lt flank [...] information and history for this patient from [facility]. I have reviewed and verified the staff [...] yo female new pt following up to [facility] ER visit on 11/04/22 due to [...] would require interventional radiology and transfer to [facility]. Pt's PCP, Dr. Jackson, wanted her to be admitted today. Would be able to go back to work if stent placement is successful, however, she will require staged procedures. -Pt to be admitted to [facility] today so she can have an IV started and have pain meds and nausea meds for comfort. She is not to eat or drink after midnight tonight. -Pt to call HR at her workplace to figure out [facility] paperwork. -Will schedule cysto and L [...] calculi) Had lithotripsy [place] [address] Haqeu. 4. Renal cyst (N28.1: Cyst of kidney, acquired) CT AP wo con 11/04/22 - R renal cyst. Follow-up With When Contact Information SHABNAM SULLIVAN, Steve Dickerson, URL [facility] [address], [place] [address]- Additional Instructions: schedule L stent placement Patient Education Dietary Guidelines to Help Prevent Kidney Stones I, Rosalinda Rodgers, personally scribed for Dr. Haque on 11/06/2022 11:43:23. . Documentation recorde (more content not included)... Normal [facility] Comment on above: Result Comment: Elec tronically Signed By: Steve HAQUE MD\.br\Date and Time Signed: 11/06/22 11:51 EDT\.br\Electronically Co-Signed By: Rosalinda Rodgers\.br\Date and Time Co-Signed: 11/06/22 11:44 EDT\.br\Electronically Co-Signed By: Rosalinda Rodgers\.br\Date and Time Co-Signed: 11/06/22 11:45 EDT BNPon 06-21-2022 Natriuretic peptide B (Bld) [Mass/Vol] 75.0 pg/mL Normal <=900.0 [facility] Comment on above: Performed By: #### B FINANCIAL SPECIALIST, CMP, TSH, T7 #### [facility] [address] [place] [address] Dr. Kris Brito CBC AUTO DIFFon 06-21-2022 BASO # 0.0 103/ul Normal 0.0-0.1 [facility] Comment on above: Performed By: #### B FINANCIAL SPECIALIST, CMP, TSH, T7 #### [facility] [address] [place] [address] Dr. Kris Brito Basophils/100 WBC (Bld) 0.6 % Normal 0.2-2.0 [facility] Comment on above: Performed By: #### B FINANCIAL SPECIALIST, CMP, TSH, T7 #### [facility] [address] [place] [address] Dr. Kris Brito EO # 0.3 103/ul Normal 0.0-0.7 [facility] Comment on above: Performed By: #### B FINANCIAL SPECIALIST, CMP, TSH, T7 #### [facility] [address] [place] [address] Dr. Kris Brito Eosinophils/100 WBC (Bld) 3.6 % Normal 0.9-7.0 [facility] Comment on above: Performed By: #### B FINANCIAL SPECIALIST, CMP, TSH, T7 #### [facility] [address] [place] [address] Dr. Kris Brito Erythrocyte distribution width (RBC) [Ratio] 12.7 % Normal 11.0-15.0 [facility] Comment on above: Performed By: #### B FINANCIAL SPECIALIST, CMP, TSH, T7 #### [facility] [address] [place] [address] Dr. Kris Brito Hematocrit (Bld) [Volume fraction] 43.1 % Normal 36.0-48.0 [facility] Comment on above: Performed By: #### B FINANCIAL SPECIALIST, CMP, TSH, T7 #### [facility] [address] [place] [address] Dr. Kris Brito Hemoglobin (Bld) [Mass/Vol] 14.0 g/dL Normal 12.0-16.0 [facility] Comment on above: Performed By: #### B FINANCIAL SPECIALIST, CMP, TSH, T7 #### [facility] [address] [place] [address] Dr. Kris Brito IG # 0.02 10e3/ul Normal 0.00-0.03 [facility] Comment on above: Performed By: #### B FINANCIAL SPECIALIST, CMP, TSH, T7 #### [facility] [address] [place] [address] Dr. Kris Brito IG % 0.3 % Normal 0.0-0.5 [facility] Comment on above: Performed By: #### B FINANCIAL SPECIALIST, CMP, TSH, T7 #### [facility] [address] [place] [address] Dr. Kris Brito LYMPH # 2.5 103/ul Normal 1.2-3.8 [facility] Comment on above: Performed By: #### B FINANCIAL SPECIALIST, CMP, TSH, T7 #### [facility] [address] [place] [address] Dr. Kris Brito Lymphocytes/100 WBC (Bld) 36.1 % Normal 20.5-60.0 [facility] Comment on above: Performed By: #### B FINANCIAL SPECIALIST, CMP, TSH, T7 #### [facility] [address] [place] [address] Dr. Kris Brito MANUAL DIFF REQ NO Normal [facility] Comment on above: Performed By: #### B FINANCIAL SPECIALIST, CMP, TSH, T7 #### [facility] [address] [place] [address] Dr. Kris Brito MCH (RBC) [Entitic mass] 30.0 pg Normal 26.7-34.0 [facility] Comment on above: Performed By: #### B FINANCIAL SPECIALIST, CMP, TSH, T7 #### [facility] [address] [place] [address] Dr. Kris Brito MCHC (RBC) [Mass/Vol] 32.5 g/dL Normal 29.9-35.2 [facility] Comment on above: Performed By: #### B FINANCIAL SPECIALIST, CMP, TSH, T7 #### [facility] [address] [place] [address] Dr. Kris Brito MCV (RBC) [Entitic vol] 92.5 fL Normal 81.0-99.0 [facility] Comment on above: Performed By: #### B FINANCIAL SPECIALIST, CMP, TSH, T7 #### [facility] [address] [place] [address] Dr. Kris Brito MONO # 0.7 103/ul Normal 0.3-0.8 [facility] Comment on above: Performed By: #### B FINANCIAL SPECIALIST, CMP, TSH, T7 #### [facility] [address] [place] [address] Dr. Kris Brito Monocytes/100 WBC (Bld) 10.5 % Normal 1.7-12.0 [facility] Comment on above: Performed By: #### B FINANCIAL SPECIALIST, CMP, TSH, T7 #### [facility] [address] [place] [address] Dr. Kris Brito NEUT # 3.4 103/ul Normal 1.4-6.5 [facility] Comment on above: Performed By: #### B FINANCIAL SPECIALIST, CMP, TSH, T7 #### [facility] [address] [place] [address] Dr. Kris Brito Neutrophils/100 WBC (Bld) 48.9 % Normal 43.0-75.0 [facility] Comment on above: Performed By: #### B FINANCIAL SPECIALIST, CMP, TSH, T7 #### [facility] [address] [place] [address] Dr. Kris Brito Platelet mean volume (Bld) [Entitic vol] 8.9 fL Critically low 9.5-13.5 [facility] Comment on above: Performed By: #### B FINANCIAL SPECIALIST, CMP, TSH, T7 #### [facility] [address] [place] [address] Dr. Kris Brito PLT 247 103/ul Normal 150-450 [facility] Comment on above: Performed By: #### B FINANCIAL SPECIALIST, CMP, TSH, T7 #### [facility] [address] [place] [address] Dr. Kris Brito RBC 4.66 106/ul Normal 4.20-5.40 [facility] Comment on above: Performed By: #### B FINANCIAL SPECIALIST, CMP, TSH, T7 #### [facility] [address] [place] [address] Dr. Kris Brito WBC 7.0 103/ul Normal 4.0-11.0 [facility] Comment on above: Performed By: #### B FINANCIAL SPECIALIST, CMP, TSH, T7 #### [facility] [address] [place] [address] Dr. Kris Brito FREE THYROXINE INDEX T7on FTI 2.55 Normal 1.30-4.50 [facility] Comment on above: Performed By: #### B FINANCIAL SPECIALIST, CMP, TSH, T7 #### [facility] [address] [place] [address] Dr. Kris Brito T3U 34.0 % Normal 30.0-39.0 [facility] Comment on above: Performed By: #### B FINANCIAL SPECIALIST, CMP, TSH, T7 #### [facility] [address] [place] [address] Dr. Kris Brito T4 [Mass/Vol] 7.50 ug/dL Normal 4.80-13.90 [facility] Comment on above: Performed By: #### B FINANCIAL SPECIALIST, CMP, TSH, T7 #### [facility] [address] [place] [address] Dr. Kris Brito IRONon 06-21-2022 Iron [Mass/Vol] 128.0 ug/dL Normal 50.0-170.0 [facility] Comment on above: Performed By: #### B FINANCIAL SPECIALIST, CMP, TSH, T7 #### [facility] [address] [place] [address] Dr. Kris Brito PROF 14(COMP METB)on 023 Albumin [Mass/Vol] 3.9 g/dL Normal 3.4-5.0 [facility] Comment on above: Performed By: #### B FINANCIAL SPECIALIST, CMP, TSH, T7 #### [facility] [address] [place] [address] Dr. Kris Brito Albumin/Globulin [Mass ratio] 1.1 {ratio} Normal [facility] Comment on above: Performed By: #### B FINANCIAL SPECIALIST, CMP, TSH, T7 #### [facility] [address] [address] [address] Kris rBito ALP [Catalytic activity/Vol] 82 U/L Normal 46-116 [facility] Comment on above: Performed By: #### B FINANCIAL SPECIALIST, CMP, TSH, T7 #### [facility] [address] [place] [address] Dr. Kris Brito ALT [Catalytic activity/Vol] 23 U/L Normal 14-59 [facility] Comment on above: Performed By: #### B FINANCIAL SPECIALIST, CMP, TSH, T7 #### [facility] [address] [place] [address] Dr. Kris Brito Anion gap [Moles/Vol] 11.2 mmol/L Normal [facility] Comment on above: Performed By: #### B FINANCIAL SPECIALIST, CMP, TSH, T7 #### [facility] [address] [place] [address] Dr. Kris Brito AST [Catalytic activity/Vol] 21 U/L Normal 15-37 [facility] Comment on above: Performed By: #### B FINANCIAL SPECIALIST, CMP, TSH, T7 #### [facility] [address] [place] [address] Dr. Kris Brito Bilirubin [Mass/Vol] 0.7 mg/dL Normal 0.2-1.0 [facility] Comment on above: Performed By: #### B FINANCIAL SPECIALIST, CMP, TSH, T7 #### [facility] [address] [place] [address] Dr. Kris Brito Calcium [Mass/Vol] 8.9 mg/dL Normal 8.5-10.1 [facility] Comment on above: Performed By: #### B FINANCIAL SPECIALIST, CMP, TSH, T7 #### [facility] [address] [place] [address] Dr. Kris Brito Chloride [Moles/Vol] 109 mmol/L Critically high 98-107 [facility] Comment on above: Performed By: #### B FINANCIAL SPECIALIST, CMP, TSH, T7 #### [facility] [address] [address] [address] Kris Brito CO2 [Moles/Vol] 26.8 mmol/L Normal 21.0-32.0 [facility] Comment on above: Performed By: #### B FINANCIAL SPECIALIST, CMP, TSH, T7 #### [facility] [address] [address] [address] Kris Brito Creatinine [Mass/Vol] 0.60 mg/dL Normal 0.55-1.02 [facility] Comment on above: Performed By: #### B FINANCIAL SPECIALIST, CMP, TSH, T7 #### [facility] [address] [address] [address] Kris Brito EGFR-AF MONEGASQUE >60 Normal >=60 [facility] Comment on above: Performed By: #### B FINANCIAL SPECIALIST, CMP, TSH, T7 #### [facility] [address] [address] [address] Kris Brito EGFR-NON AF MONEGASQUE >60 Normal >=60 [facility] Comment on above: Performed By: #### B FINANCIAL SPECIALIST, CMP, TSH, T7 #### [facility] [address] [address] [address] Kris Brito Globulin (S) [Mass/Vol] 3.4 g/dL Normal [facility] Comment on above: Performed By: #### B FINANCIAL SPECIALIST, CMP, TSH, T7 #### [facility] [address] [address] [address] Kris Brito Glucose [Mass/Vol] 118 mg/dL Critically high 74-106 [facility] Comment on above: Performed By: #### B FINANCIAL SPECIALIST, CMP, TSH, T7 #### [facility] [address] [address] [address] Kris Brito Potassium [Moles/Vol] 4.0 mmol/L Normal 3.5-5.1 [facility] Comment on above: Performed By: #### B FINANCIAL SPECIALIST, CMP, TSH, T7 #### [facility] [address] [address] [address] Kris Brito Protein [Mass/Vol] 7.3 g/dL Normal 6.4-8.2 [facility] Comment on above: Performed By: #### B FINANCIAL SPECIALIST, CMP, TSH, T7 #### [facility] [address] [place] [address] Dr. Kris Brito Sodium [Moles/Vol] 143 mmol/L Normal 136-145 [facility] Comment on above: Performed By: #### B FINANCIAL SPECIALIST, CMP, TSH, T7 #### [facility] [address] [place] [address] Dr. Kris Brito Urea nitrogen [Mass/Vol] 12.0 mg/dL Normal 7.0-18.0 [facility] Comment on above: Performed By: #### B FINANCIAL SPECIALIST, CMP, TSH, T7 #### [facility] [address] [place] [address] Dr. Kris Brito Urea nitrogen/Creatinine [Mass ratio] 20.0 mg/mg Normal [facility] Comment on above: Performed By: #### B FINANCIAL SPECIALIST, CMP, TSH, T7 #### [facility] [address] [place] [address] Dr. Kris Brito TSHon 06-21-2022 TSH 1.617 uIU/mL Normal 0.358-3.740 [facility] Comment on above: Performed By: #### B FINANCIAL SPECIALIST, CMP, TSH, T7 #### [facility] [address] [place] [address] Dr. Kris Brito INSULINon 02-15-2022 Insulin 24.8 uIU/mL Normal 2.6-24.9 [facility] Comment on above: Performed By: #### I NSULIN #### [facility] [address] [place] [address] Dr. Kris Brito CBC AUTO DIFFon 02-14-2022 BASO # 0.1 103/ul Normal 0.0-0.1 [facility] Comment on above: Performed By: #### B FINANCIAL SPECIALIST, CMP, TSH, T7 #### [facility] [address] [place] [address] Dr. Kris Brito Basophils/100 WBC (Bld) 0.9 % Normal 0.2-2.0 [facility] Comment on above: Performed By: #### B FINANCIAL SPECIALIST, CMP, TSH, T7 #### [facility] [address] [place] [address] Dr. Kris Brito EO # 0.2 103/ul Normal 0.0-0.7 [facility] Comment on above: Performed By: #### B FINANCIAL SPECIALIST, CMP, TSH, T7 #### [facility] [address] [place] [address] Dr. Kris Brito Eosinophils/100 WBC (Bld) 3.0 % Normal 0.9-7.0 [facility] Comment on above: Performed By: #### B FINANCIAL SPECIALIST, CMP, TSH, T7 #### [facility] [address] [place] [address] Dr. Kris Brito Erythrocyte distribution width (RBC) [Ratio] 12.7 % Normal 11.0-15.0 [facility] Comment on above: Performed By: #### B FINANCIAL SPECIALIST, CMP, TSH, T7 #### [facility] [address] [place] [address] Dr. Kris Brito Hematocrit (Bld) [Volume fraction] 43.1 % Normal 36.0-48.0 [facility] Comment on above: Performed By: #### B FINANCIAL SPECIALIST, CMP, TSH, T7 #### [facility] [address] [place] [address] Dr. Kris Brito Hemoglobin (Bld) [Mass/Vol] 14.1 g/dL Normal 12.0-16.0 [facility] Comment on above: Performed By: #### B FINANCIAL SPECIALIST, CMP, TSH, T7 #### [facility] [address] [place] [address] Dr. Kris Brito IG # 0.03 10e3/ul Normal 0.00-0.03 [facility] Comment on above: Performed By: #### B FINANCIAL SPECIALIST, CMP, TSH, T7 #### [facility] [address] [place] [address] Dr. Kris Brito IG % 0.4 % Normal 0.0-0.5 [facility] Comment on above: Performed By: #### B FINANCIAL SPECIALIST, CMP, TSH, T7 #### [facility] [address] [place] [address] Dr. Kris Brito LYMPH # 2.1 103/ul Normal 1.2-3.8 [facility] Comment on above: Performed By: #### B FINANCIAL SPECIALIST, CMP, TSH, T7 #### [facility] [address] [address] [address] Kris Brito Lymphocytes/100 WBC (Bld) 30.0 % Normal 20.5-60.0 [facility] Comment on above: Performed By: #### B FINANCIAL SPECIALIST, CMP, TSH, T7 #### [facility] [address] [place] [address] Dr. Kris Brito MANUAL DIFF REQ NO Normal [facility] Comment on above: Performed By: #### B FINANCIAL SPECIALIST, CMP, TSH, T7 #### [facility] [address] [place] [address] Dr. Kris Brito MCH (RBC) [Entitic mass] 29.9 pg Normal 26.7-34.0 [facility] Comment on above: Performed By: #### B FINANCIAL SPECIALIST, CMP, TSH, T7 #### [facility] [address] [place] [address] Dr. Kris Brito MCHC (RBC) [Mass/Vol] 32.7 g/dL Normal 29.9-35.2 [facility] Comment on above: Performed By: #### B FINANCIAL SPECIALIST, CMP, TSH, T7 #### [facility] [address] [place] [address] Dr. Kris Brito MCV (RBC) [Entitic vol] 91.5 fL Normal 81.0-99.0 [facility] Comment on above: Performed By: #### B FINANCIAL SPECIALIST, CMP, TSH, T7 #### [facility] [address] [place] [address] Dr. Kris Brito MONO # 0.7 103/ul Normal 0.3-0.8 [facility] Comment on above: Performed By: #### B FINANCIAL SPECIALIST, CMP, TSH, T7 #### [facility] [address] [place] [address] Dr. Kris Brito Monocytes/100 WBC (Bld) 9.2 % Normal 1.7-12.0 [facility] Comment on above: Performed By: #### B FINANCIAL SPECIALIST, CMP, TSH, T7 #### [facility] [address] [place] [address] Dr. Kris Brito NEUT # 4.0 103/ul Normal 1.4-6.5 [facility] Comment on above: Performed By: #### B FINANCIAL SPECIALIST, CMP, TSH, T7 #### [facility] [address] [place] [address] Dr. Kris Brito Neutrophils/100 WBC (Bld) 56.5 % Normal 43.0-75.0 [facility] Comment on above: Performed By: #### B FINANCIAL SPECIALIST, CMP, TSH, T7 #### [facility] [address] [place] [address] Dr. Kris Brito Platelet mean volume (Bld) [Entitic vol] 8.9 fL Critically low 9.5-13.5 [facility] Comment on above: Performed By: #### B FINANCIAL SPECIALIST, CMP, TSH, T7 #### [facility] [address] [place] [address] Dr. Kris Brito PLT 292 103/ul Normal 150-450 [facility] Comment on above: Performed By: #### B FINANCIAL SPECIALIST, CMP, TSH, T7 #### [facility] [address] [place] [address] Dr. Kris Brito RBC 4.71 106/ul Normal 4.20-5.40 [facility] Comment on above: Performed By: #### B FINANCIAL SPECIALIST, CMP, TSH, T7 #### [facility] [address] [place] [address] Dr. Kris Brito WBC 7.0 103/ul Normal 4.0-11.0 [facility] Comment on above: Performed By: #### B FINANCIAL SPECIALIST, CMP, TSH, T7 #### [facility] [address] [place] [address] Dr. Kris Brito FREE THYROXINE INDEX T7on FTI 2.81 Normal 1.30-4.50 [facility] Comment on above: Performed By: #### B FINANCIAL SPECIALIST, CMP, TSH, T7 #### [facility] [address] [address] [address] Kris Brito T3U 33.0 % Normal 30.0-39.0 [facility] Comment on above: Performed By: #### B FINANCIAL SPECIALIST, CMP, TSH, T7 #### [facility] [address] [address] [address] Kris Brito T4 [Mass/Vol] 8.50 ug/dL Normal 4.80-13.90 [facility] Comment on above: Performed By: #### B FINANCIAL SPECIALIST, CMP, TSH, T7 #### [facility] [address] [address] [address] Kris Brito GLYCOHEMOGLOBIN A1Con 2021 ADA RECOMMENDATION SEE BELOW Normal [facility] Comment on above: Result Comment: ADA RECOMMENDED LIMIT 4.0 - 6.0 ADA THERAPEUTIC TARGET < 7.0 ACTION SUGGESTED > 7.0 Performed By: #### A 1C #### [facility] [address] [address] [address] Kris Brito Glucose [Mass/Vol] 146 mg/dL Normal [facility] Comment on above: Performed By: #### A 1C #### [facility] [address] [address] [address] Kris Brito HbA1c (Bld) [Mass fraction] 6.7 % Critically high 4.5-6.2 [facility] Comment on above: Performed By: #### A 1C #### [facility] [address] [place] [address] Dr. Kris Brito IRONon 02-14-2022 Iron [Mass/Vol] 62.0 ug/dL Normal 50.0-170.0 [facility] Comment on above: Performed By: #### B FINANCIAL SPECIALIST, CMP, TSH, T7 #### [facility] [address] [address] [address] Kris Brito LIPID PROFILEon 02-14-2022 CHOL-HDL RATIO NORM SEE BELOW Normal [facility] Comment on above: Result Comment: 3.3 - 4.4 LOW RISK 4.4 - 7.1 AVERAGE RISK 7.1 - 11.0 MODERATE RISK >11.0 HIGH RISK Performed By: #### B FINANCIAL SPECIALIST, CMP, TSH, T7 #### [facility] [address] [address] [address] Kris Brito Cholesterol [Mass/Vol] 143 mg/dL Normal <=200 [facility] Comment on above: Performed By: #### B FINANCIAL SPECIALIST, CMP, TSH, T7 #### [facility] [address] [address] [address] Kris Brito Cholesterol in HDL [Mass/Vol] 60 mg/dL Normal 40-60 [facility] Comment on above: Performed By: #### B FINANCIAL SPECIALIST, CMP, TSH, T7 #### [facility] [address] [address] [address] Kris Brito Cholesterol in LDL [Mass/Vol] 72.6 mg/dL Normal [facility] Comment on above: Performed By: #### B FINANCIAL SPECIALIST, CMP, TSH, T7 #### [facility] [address] [address] [address] Kris Brito Cholesterol.total/Ch olesterol in HDL [Mass ratio] 2.4 {ratio} Normal [facility] Comment on above: Performed By: #### B FINANCIAL SPECIALIST, CMP, TSH, T7 #### [facility] [address] [address] [address] Kris Brito HDL NORMAL > or = 60 mg/dl - LO W CARDIOVASCULAR RISK <40 mg/dl - HIGH CARDIOVASCULAR RISK Normal [facility] Comment on above: Performed By: #### B FINANCIAL SPECIALIST, CMP, TSH, T7 #### [facility] [address] [address] [address] Kris Brito LDL CALC NORMAL SEE BELOW Normal [facility] Comment on above: Result Comment: <100 mg/dl OPTIMAL 100 - 129 mg/dl NEAR OR ABOVE OPTIMAL 130 - 159 mg/dl BORDERLINE HIGH 160 - 189 mg/dl HIGH >190 mg/dl VERY HIGH Performed By: #### B FINANCIAL SPECIALIST, CMP, TSH, T7 #### [facility] [address] [address] [address] Kris Brito Triglyceride [Mass/Vol] 52 mg/dL Normal <=150 [facility] Comment on above: Performed By: #### B FINANCIAL SPECIALIST, CMP, TSH, T7 #### [facility] [address] [address] [address] Kris Brito VLDL CALC 10.4 mg/dL Normal [facility] Comment on above: Performed By: #### B FINANCIAL SPECIALIST, CMP, TSH, T7 #### [facility] [address] [place] [address] Dr. Kris Brito PROF 14(COMP METB)on 022 Albumin [Mass/Vol] 3.9 g/dL Normal 3.4-5.0 [facility] Comment on above: Performed By: #### B FINANCIAL SPECIALIST, CMP, TSH, T7 #### [facility] [address] [place] [address] Dr. Kris Brito Albumin/Globulin [Mass ratio] 1.1 {ratio} Normal [facility] Comment on above: Performed By: #### B FINANCIAL SPECIALIST, CMP, TSH, T7 #### [facility] [address] [address] [address] Kris Brito ALP [Catalytic activity/Vol] 69 U/L Normal 46-116 [facility] Comment on above: Performed By: #### B FINANCIAL SPECIALIST, CMP, TSH, T7 #### [facility] [address] [place] [address] Dr. Kris Brito ALT [Catalytic activity/Vol] 23 U/L Normal 14-59 [facility] Comment on above: Performed By: #### B FINANCIAL SPECIALIST, CMP, TSH, T7 #### [facility] [address] [address] [address] Kris Brito Anion gap [Moles/Vol] 10.4 mmol/L Normal [facility] Comment on above: Performed By: #### B FINANCIAL SPECIALIST, CMP, TSH, T7 #### [facility] [address] [place] [address] Dr. Kris Brito AST [Catalytic activity/Vol] 18 U/L Normal 15-37 [facility] Comment on above: Performed By: #### B FINANCIAL SPECIALIST, CMP, TSH, T7 #### [facility] [address] [place] [address] Dr. Kris Brito Bilirubin [Mass/Vol] 0.4 mg/dL Normal 0.2-1.0 [facility] Comment on above: Performed By: #### B FINANCIAL SPECIALIST, CMP, TSH, T7 #### [facility] [address] [address] [address] Kris Brito Calcium [Mass/Vol] 9.0 mg/dL Normal 8.5-10.1 [facility] Comment on above: Performed By: #### B FINANCIAL SPECIALIST, CMP, TSH, T7 #### [facility] [address] [address] [address] Kris Brito Chloride [Moles/Vol] 106 mmol/L Normal 98-107 [facility] Comment on above: Performed By: #### B FINANCIAL SPECIALIST, CMP, TSH, T7 #### [facility] [address] [place] [address] Dr. Kris Brito CO2 [Moles/Vol] 28.6 mmol/L Normal 21.0-32.0 [facility] Comment on above: Performed By: #### B FINANCIAL SPECIALIST, CMP, TSH, T7 #### [facility] [address] [address] [address] Kris Brito Creatinine [Mass/Vol] 0.68 mg/dL Normal 0.55-1.02 [facility] Comment on above: Performed By: #### B FINANCIAL SPECIALIST, CMP, TSH, T7 #### [facility] [address] [place] [address] Dr. Kris Brito EGFR-AF MONEGASQUE >60 Normal >=60 [facility] Comment on above: Performed By: #### B FINANCIAL SPECIALIST, CMP, TSH, T7 #### [facility] [address] [place] [address] Dr. Kris Brito EGFR-NON AF MONEGASQUE >60 Normal >=60 [facility] Comment on above: Performed By: #### B FINANCIAL SPECIALIST, CMP, TSH, T7 #### [facility] [address] [address] [address] Kris Brito Globulin (S) [Mass/Vol] 3.7 g/dL Normal [facility] Comment on above: Performed By: #### B FINANCIAL SPECIALIST, CMP, TSH, T7 #### [facility] [address] [place] [address] Dr. Kris Brito Glucose [Mass/Vol] 133 mg/dL Critically high 74-106 [facility] Comment on above: Performed By: #### B FINANCIAL SPECIALIST, CMP, TSH, T7 #### [facility] [address] [place] [address] Dr. Kris Brito Potassium [Moles/Vol] 4.0 mmol/L Normal 3.5-5.1 [facility] Comment on above: Performed By: #### B FINANCIAL SPECIALIST, CMP, TSH, T7 #### [facility] [address] [place] [address] Dr. Kris Brito Protein [Mass/Vol] 7.6 g/dL Normal 6.4-8.2 [facility] Comment on above: Performed By: #### B FINANCIAL SPECIALIST, CMP, TSH, T7 #### [facility] [address] [place] [address] Dr. Kris Brito Sodium [Moles/Vol] 141 mmol/L Normal 136-145 [facility] Comment on above: Performed By: #### B FINANCIAL SPECIALIST, CMP, TSH, T7 #### [facility] [address] [place] [address] Dr. Kris Brito Urea nitrogen [Mass/Vol] 15.0 mg/dL Normal 7.0-18.0 [facility] Comment on above: Performed By: #### B FINANCIAL SPECIALIST, CMP, TSH, T7 #### [facility] [address] [place] [address] Dr. Kris Brito Urea nitrogen/Creatinine [Mass ratio] 22.1 mg/mg Normal [facility] Comment on above: Performed By: #### B FINANCIAL SPECIALIST, CMP, TSH, T7 #### [facility] [address] [place] [address] Dr. Kris Brito TSHon 02-14-2022 TSH 2.089 uIU/mL Normal 0.358-3.740 [facility] Comment on above: Performed By: #### B FINANCIAL SPECIALIST, CMP, TSH, T7 #### [facility] [address] [place], [place] [id number] Dr. Kris Brito XR ELBOW LT MIN [...] lateral positioning is recommended. Electronically authenticated by: SHLOMO BEGUM Date: 2021-11-09 16:50 Normal [facility] XR LSPINE 2_3 VIEWSon 2021 XR LSPINE [...] by: CARISSA IBANEZ Date: 2021-11-09 16:49 Normal [facility] XR TIB_FIB RT 2Von 2 XR TIB_FIB [...] for better evaluation. Electronically authenticated by: CARISSA AHREYMUNDO Date: 2021-11-09 16:41 Normal [facility] Vital Signs Date Time Vital Sign Value Performing Clinician Faci lity 01-06-2023 09:30-0400 Diastolic blood pressure 70 mm[Hg] Farheen Thompson MD Work Phone: [facility] 01-06-2023 09:30-0400 Heart rate 66 /min Farheen Thompson MD Work Phone: [facility] 01-06-2023 09:30-0400 Respiratory rate 12 /min aFrheen Thompson MD Work Phone: [facility] 01-06-2023 09:30-0400 SaO2% (BldA) [Mass fraction] 96 % Farheen Thompson MD Work Phone: [facility] 01-06-2023 09:30-0400 Systolic blood pressure 130 mm[Hg] Farheen Thompson MD Work Phone: [facility] 01-06-2023 08:54-0400 Body temperature 97.59 [degF] Farheen Thompson MD Work Phone: [facility] 11-29-2022 14:58-0400 Body height 167.6 cm Genevieve Sadie REDDY.MANAGER CONTRACT Work Phone: [facility] 11-29-2022 14:58-0400 Body weight 67.13 kg Genevieve Sadie FLUID DYNAMICIST.MANAGER CONTRACT Work Phone: [facility] 11-29-2022 14:58-0400 Diastolic blood pressure 81 mm[Hg] Genevieve Avondale FLUID DYNAMICIST.MANAGER CONTRACT Work Phone: [facility] 11-29-2022 14:58-0400 Heart rate 70 /min Genevieve [place]ale FLUID DYNAMICIST.MANAGER CONTRACT Work Phone: [facility] 11-29-2022 14:58-0400 Systolic blood pressure 122 mm[Hg] Genevieve Sadie HERNANDEZMANAGER CONTRACT Work Phone: [facility] 11-29-2022 12:37-0400 Body height 167.6 cm Pac 7 Work Phone: [facility] 11-29-2022 12:37-0400 Body temperature 98.01 [degF] Pac 7 Work Phone: [facility] 11-29-2022 12:37-0400 Body weight 67.5 kg Pac 7 Work Phone: [facility] 11-29-2022 12:37-0400 Diastolic blood pressure 81 mm[Hg] Pac 7 Work Phone: [facility] 11-29-2022 12:37-0400 Heart rate 70 /min Pac 7 Work Phone: [facility] 11-29-2022 12:37-0400 SaO2% (BldA) [Mass fraction] 98 % Pac 7 Work Phone: [facility] 11-29-2022 12:37-0400 Systolic blood pressure 122 mm[Hg] Pac 7 Work Phone: [facility] Encounters Encounter Date Encounter Type Care Provider Facility Start: 03-01-2024 End: 03-01-2024 ambulatory ALEXANDRIA MARIN Facility:[facility] Start: 03-01-2024 End: 03-01-2024 Patient encounter procedure Alexandria SilvaBeatriz MA Work Phone: Urology Comment on above: Nephrolithiasis (Janine peewee Dx); Urine volume deficient; Hypercalcinuria; Hyperuricosuria; Hypernatriuria Start: 03-01-2024 End: 03-01-2024 Telemedicine consultation with patient Alexandria Cruzohue MAGNOLIA-Eri Work Phone: Urology Start: 02-23-2024 End: 02-23-2024 Subsequent hospital visit by physician [facility] Angelica Radiology Comment on above: Nephrolithiasis [N20 .0] Start: 02-23-2024 End: 02-23-2024 ambulatory Kylie Frregina RT(R) Radiology Comment on above: Radiology US Start: 02-23-2024 End: 02-23-2024 Patient encounter procedure Kylie Nagy RT(R) Radiology Start: 12-22-2023 End: 12-22-2023 Refill Alexandria O'Beatriz PA-C Work Phone: Urology Comment on above: Refill Request Start: 10-10-2023 End: 10-10-2023 ambulatory SAL M KIKAGemma Facility:[facility] Start: 09-10-2023 Telephone encounter Alexandria O'Do nohue PA-C Work Phone: Urology Comment on above: Results Start: 08-28-2023 Telephone encounter Alexandria O'Do nohue PA-C Work Phone: Urology Comment on above: Appointment Start: 08-26-2023 End: 08-26-2023 Telemedicine consultation with patient Alexandria O'Beatriz PA-C Work Phone: Urology Start: 08-26-2023 End: 08-26-2023 ambulatory Alexandria O'Beatriz PA-C Work Phone: Urology Comment on above: Nephrolithiasis (Janine peewee Dx); Urine volume deficient; Hypercalcinuria; Hyperoxaluria; Hyperuricosuria; Hypernatriuria; Renal cyst Start: 08-19-2023 End: 08-19-2023 [facility] Comment on above: Nephrolithiasis [N20 .0] Start: 08-19-2023 End: 08-19-2023 ambulatory Kylie Frys RT(R) Radiology Comment on above: Radiology US Start: 08-19-2023 Patient encounter procedure Kylie Dior ys RT(R) Radiology Start: 06-29-2023 Refill Farheen Stuart Work Phone: Urology Comment on above: Refill Request Start: 02-26-2023 Telephone encounter Alexandria O'Do nohue PA-C Work Phone: Urology Comment on above: Appointment Start: 02-25-2023 End: 02-25-2023 ambulatory Alexandria Marin PA-C Work Phone: Urology Comment on above: Nephrolithiasis (Janine peewee Dx); Urine volume deficient; Vitamin D deficiency; Hypercalcinuria; Hypernatriuria; Aciduria (HCC) Start: 02-25-2023 End: 02-25-2023 Telemedicine consultation with patient Alexandria MERIDA-Eri Work Phone: [facility] Start: 02-18-2023 Telephone encounter Nichole Morgan RN U rology Comment on above: Results Start: 02-14-2023 ambulatory Nedra Queen RDMS Radi emeryy Comment on above: Radiology Start: 02-14-2023 Patient encounter procedure Nedra valenzuela RDMS [facility] Start: 02-14-2023 End: 02-14-2023 Subsequent hospital visit by physician [facility] Angeliac Radiology Comment on above: Nephrolithiasis [N20 .0] Start: 01-07-2023 Telephone encounter Nichole Morgan RN U rology Comment on above: Returning Patient's Call Start: 01-06-2023 ambulatory FARHEEN THOMPSON Facility:[facility] Start: 01-06-2023 End: 01-06-2023 Subsequent hospital visit by physician Farheen Thompson MD Work Phone: [facility] Surgery Comment on above: Nephrolithiasis [N20 .0] Start: 12-23-2022 Telephone encounter Nichole Morgan RN U rology Comment on above: Results Start: 12-17-2022 Telephone encounter Nichole Morgan RN U rology Comment on above: Returning Patient's Call Start: 12-13-2022 Telephone encounter Farheen landeros MD Work Phone: Urology Comment on above: Scheduling Start: 12-12-2022 Telephone encounter Ela Rojas Urology 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 Work Phone: Start: 11-29-2022 End: 11-29-2022 ambulatory Pacc Main 7 Work Phone: Pre Anesthesia Comment on above: Preop examination (P rimary Dx); Nephrolithiasis; Controlled type 2 diabetes mellitus without complication, without long-term current use of insulin (HCC); Hypercholesteremia Start: 11-29-2022 End: 11-29-2022 Admission to [facility] Pac Main 7 Work Phone: [facility] Start: 11-29-2022 End: 11-29-2022 Preprocedural examination done Pac Main 7 Work Phone: 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 Facility:[facility] Start: 04-01-[address] SAL JACKSON . Facili ty:[facility] Start: 02-18-2022 Encounter for genera l adult medical examination without abnormal findings DR SAL JACKSON . [facility] Start: 02-14-2022 End: 02-15-[address] SAL JACKSON . Facility:[facility] Start: 02-14-2022 End: 02-15-2022 Encounter for general adult medical examination without abnormal findings DR SAL JACKSON . Facility:[facility] Start: 11-19-2021 End: 11-20-[address] SAL JACKSON . Facility:[facility] Start: 11-09-2021 End: 11-09-2021 ambulatory MAGNOLIA EMMANUEL . Facility:[facility] Procedures Date Procedure Procedure Detail Performing Clinician Start: 02-23-2024 Us retroperitoneal r eal time w/image complete Alexandria Marin PA-C Work Phone: Start: 01-06-2023 Gluc bld gluc mntr d ev cleared fda spec home use Farheen Thompson MD Work Phone: Plan of Treatment Date Care Activity Detail Author Start: 11-10-2031 Urine microalbumin profile DTaP,Tdap,Td Vaccine (3 - Td or Tdap) [facility] Start: 11-18-2025 DIABETES SCREEN DIABETES SCREEN [facility] Start: 03-01-2024 End: 03-01-2024 Follow-up encounter 03/01/2024 5:00 PM EST [facility] [id number] [facility] [place] [address] Alxeandria Marin PA-C [address] [place] [address] Six month follow up with prior US (done locally) and LL Urology Comment on above: Six month follow up with prior US (done locally) and LL Start: 02-23-2024 End: 02-23-2024 Patient encounter procedure 02/23/2024 3:15 PM EST Appointment Radiology [address] [place], [place] [id number] Nephrolithiasis [N20.0] Radiology Comment on above: Nephrolithiasis [N20 .0] Start: 11-30-2023 Covid-19 Vaccine () Covid-19 Vaccine () [facility] Start: 11-30-2023 Influenza vaccination [facility] Start: 09-03-2023 End: 12-03-2023 25-hydroxyvitamin D3 [Mass/volume] in Serum or Plasma VITAMIN D 25 HYDROXY Lab Routine Nephrolithiasis Urine volume deficient Hypercalcinuria Hyperoxaluria Hyperuricosuria Hypernatriuria Renal cyst Expected: 09/03/2023 (Approximate), Expires: 12/03/2023 [facility] Work Phone: Comment on above: Expected: 09/03/2023 (Approximate), Expires: 12/03/2023 Start: 09-03-2023 End: 12-03-2023 Calcium.ionized [Moles/volume] in Blood CALCIUM, IONIZED Lab Routine Nephrolithiasis Urine volume deficient Hypercalcinuria Hyperoxaluria Hyperuricosuria Hypernatriuria Renal cyst Expected: 09/03/2023 (Approximate), Expires: 12/03/[address] [facility] Comment on above: Expected: 09/03/2023 (Approximate), Expires: 12/03/2023 Start: 09-03-2023 End: 12-03-2023 Parathyrin.intact [Mass/volume] in Serum or Plasma PTH INTACT Lab Routine Nephrolithiasis Urine volume deficient Hypercalcinuria Hyperoxaluria Hyperuricosuria Hypernatriuria Renal cyst Expected: 09/03/2023 (Approximate), Expires: 12/03/[address] [facility] Comment on above: Expected: 09/03/2023 (Approximate), Expires: 12/03/2023 Start: 08-26-2023 End: 08-26-2023 Follow-up encounter 08/26/2023 5:00 PM EDT [facility] [address] [place] [address] Alexandria Marin PA-C [address] [place] [address] Six month follow up Urology Comment on above: Six month follow up Start: 03-31-2023 Behavioral Health Screening Behavioral Health Screening [facility] Start: 03-31-2023 Depression Assessment Depression Ass essment [facility] Start: 02-06-2023 End: 02-05-2024 US KIDNEY/BLADDER US KIDNEY/BLADDER Radiology Routine Nephrolithiasis Expected: 02/06/2023, Expires: 02/05/2024 [facility] Work Phone: Comment on above: Expected: 02/06/2023 , Expires: 02/05/2024 Start: 11-29-2022 End: 01-29-2023 CONFIRM BLOOD TYPE CONFIRM BLOOD TYPE Blood Bank Routine Preop examination Expected: 11/29/2022, Expires: 01/29/2023 [facility] Work Phone: Comment on above: Expected: 11/29/2022 , Expires: 01/29/2023 Start: 11-29-2022 Covid-19 Vaccine () Covid-19 Vaccine () [facility] Start: 11-29-2022 Influenza vaccination [facility] Start: 11-27-2022 End: 01-27-2023 aPTT in Platelet poor plasma by Coagulation assay ACTIVATED PTT Lab Routine Nephrolithiasis Expected: 11/27/2022, Expires: 01/27/2023 [facility] Work Phone: Comment on above: Expected: 11/27/2022 , Expires: 01/27/2023 Start: 11-27-2022 End: 01-27-2023 Bacteria identified in Urine by Culture URINE CULTURE Microbiology Routine Nephrolithiasis Expected: 11/27/2022, Expires: 01/27/2023 [facility] Work Phone: Comment on above: Expected: 11/27/2022 , Expires: 01/27/2023 Start: 11-27-2022 End: 01-27-2023 CBC W Auto Differential panel - Blood CBC + DIFF Lab Routine Nephrolithiasis Expected: 11/27/2022, Expires: 01/27/2023 [facility] Work Phone: Comment on above: Expected: 11/27/2022 , Expires: 01/27/2023 Start: 11-27-2022 End: 01-27-2023 Comprehensive metabolic 2000 panel - Serum or Plasma COMP METABOLIC PANEL Lab Routine Nephrolithiasis Expected: 11/27/2022, Expires: 01/27/2023 [facility] Work Phone: Comment on above: Expected: 11/27/2022 , Expires: 01/27/2023 Start: 11-27-2022 End: 01-27-2023 PT panel - Platelet poor plasma by Coagulation assay PROTHROMBIN TIME/PT Lab Routine Nephrolithiasis Expected: 11/27/2022, Expires: 01/27/2023 [facility] Work Phone: Comment on above: Expected: 11/27/2022 , Expires: 01/27/2023 Start: 11-27-2022 End: 01-27-2023 TYPE AND SCREEN,30 DAY TYPE AND SCREEN,30 DAY Blood Bank Routine Nephrolithiasis Expected: 11/27/2022, Expires: 01/27/2023 [facility] Work Phone: Comment on above: Expected: 11/27/2022 , Expires: 01/27/2023 Start: 11-27-2022 End: 01-27-2023 Urinalysis complete panel - Urine URINALYSIS, WITH MICROSCOPIC Lab Routine Nephrolithiasis Expected: 11/27/2022, Expires: 01/27/2023 [facility] Work Phone: Comment on above: Expected: 11/27/2022 , Expires: 01/27/2023 Start: 03-31-2022 DEPRESSION ASSESSMENT DEPRESSION ASS ESSMENT [facility] Start: 05-22-2021 COVID-19 VACCINE (4 - Pfizer series) COVID-19 VACCINE (4 - Pfizer series) [facility] Start: 2021 Hepatitis B Vaccine (1 of 3 - Risk 3-dose series) Hepatitis B Vaccine (1 of 3 - Risk 3-dose series) [facility] Start: 2021 RSV Vaccine (1 - 1-d ose 60+ series) RSV Vaccine (1 - 1-dose 60+ series) [facility] Start: 2021 RSV Vaccine (1 - Ris k 60-74 years 1-dose series) RSV Vaccine (1 - Risk 60-74 years 1-dose series) [facility] Start: 2011 SHINGRIX VACCINE (1 of 2) HILL GRIX VACCINE (1 of 2) [facility] Start: 2006 COLOGUARD (FIT-DNA) COLOGUARD (FIT-D NA) [facility] Start: 2006 Colonoscopy COLONOSCOPY [facility] Start: 2006 COLORECTAL CANCER SCREENING COLORECTAL CANCER SCREENING [facility] Start: [address] COLONOGRAPHY [facility] Start: 2006 FECAL OCCULT BLOOD FECAL OCCULT BLOO D [facility] Start: 2006 LIPID SCREEN LIPID SCREEN [facility] Start: 2006 Screening for malign ant neoplasm of colon [facility] Start: 2006 SIGMOIDOSCOPY SIGMOIDOSCOPY [facility] Start: [address] [facility] Start: 2001 Screening for malign ant neoplasm of breast Mammogram Screening [facility] Start: 1991 HPV TESTING HPV TESTING [facility] Start: 1991 Screening for malign ant neoplasm of cervix HPV Testing [facility] Start: 1982 PAP TESTING PAP TESTING [facility] Start: 1982 Screening for malign ant neoplasm of cervix [facility] Start: 1980 Urine microalbumin profile 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 Start: 1979 Anxiety Screening Anxiety Screening [facility] Start: 1979 Depression Screening Depression Scre ening [facility] Start: 1979 Hepatitis B surface antibody level LDL CHOLESTEROL [facility] Start: 1979 HEPATITIS C SCREENING HEPATITIS C [facility] Start: 1979 Hepatitis C screening Hepatitis C [facility] Start: 1979 HIV SCREENING HIV SCREENING [facility] Start: 1979 HIV screening HIV Screening [facility] Start: 1971 3 comp foot exam completed DIABETIC FOOT EXAM [facility] Start: 1971 Diabetic foot examination Diabetic F oot Exam [facility] Start: 1971 Glaucoma screening Dilated Retinal E xam [facility] Start: 1971 Hepatitis B screening URINE AL BUMIN:CREATININE RATIO [facility] Start: 1971 Hepatitis C antibody , confirmatory test DILATED RETINAL EXAM [facility] Start: 1967 PNEUMOCOCCAL (1 - PCV) PNEUMOCOCCAL (1 - PCV) [facility] Start: 1967 Pneumococcal vaccination [facility] Start: 1966 Hemoglobin A1c measurement HbA1C [facility] Start: 1966 Hemoglobin A1c/Hemoglobin.total in Blood HBA1C [facility] CALCULI ANALYSIS [facility] Work Phone: Comment on above: Release Upon Orderin g for 1 Occurrences starting 01/06/2023 UA DIP, URINE (POC) UA DIP, URIN E (POC) Lab Routine Screening for genitourinary condition Ordered: 11/18/2022 [facility] Work Phone: Comment on above: Ordered: 11/18/2022 URINALYSIS, REFLEX MICROSCOPIC URINALYSIS, REFLEX MICROSCOPIC Lab Routine Screening for genitourinary condition Ordered: 11/29/2022 [facility] Work Phone: Comment on above: Ordered: 11/29/2022 US Kidney - bilatera l and Urinary bladder US KIDNEY/BLADDER Radiology Routine Nephrolithiasis 08/19/2023 3:40 PM EDT [facility] Work Phone: End: 09-25-2024 US Kidney - bilateral and Urinary bladder US KIDNEY/BLADDER Radiology Routine Nephrolithiasis Urine volume deficient Hypercalcinuria Hyperoxaluria Hyperuricosuria Hypernatriuria Renal cyst 1 Occurrences starting 08/27/2023 until 09/25/[address] [facility] Comment on above: 1 Occurrences starti ng 08/27/2023 until 09/25/2024 End: 04-02-2025 US Kidney - bilateral and Urinary bladder US KIDNEY/BLADDER Radiology Routine Nephrolithiasis 1 Occurrences starting 03/02/2024 until 04/02/2025 [facility] Work Phone: Comment on above: 1 Occurrences starti ng 03/02/2024 until 04/02/2025 US KIDNEY/BLADDER US KIDNEY/BLAD MATEO Radiology Routine Nephrolithiasis 02/14/2023 11:02 AM EST [facility] Work Phone: End: 03-27-2024 US KIDNEY/BLADDER US KIDNEY/BLADDER Radiology Routine Nephrolithiasis 1 Occurrences starting 02/25/2023 until 03/27/2024 [facility] Work Phone: Comment on above: 1 Occurrences starti ng 02/25/2023 until 03/27/2024 End: 04-01-2025 XR Abdomen GE 3 Views AP and Oblique and Cone XR ABDOMEN 3V KUB W/OBLIQUES Radiology Routine Nephrolithiasis 1 Occurrences starting 03/02/2024 until 04/01/[address] [facility] Comment on above: 1 Occurrences starti ng 03/02/2024 until 04/01/2025 [facility] Immunizations Immunization Date Immunization Notes Care Provider Fa [facility] 02-07-2021 influenza virus vacc ine, unspecified formulation Ela Rob RN [facility] Payers Date Payer Category Payer Unknown [employer] [id number] 2018-Present [phone] [id number] [place] [address] PPO [id number] 1961 Unknown [id number] 1961 Unknown [id number] 1961 Unknown [id number] 1961 Unknown [id number] 1961 Unknown [id number] 1961 Unknown [id number] 1961 Unknown [id number] 1961 Unknown [id number] 1961 Unknown [id number] 1959 Self-pay 1958 Unknown [id number] Social History Date Type Detail Facility Start: [facility]18[facility]2022 [facility] End: 03-31-1997 History of tobacco use Current smoker [facility] End: 03-31-1997 History of tobacco use Cigarette Smoker [facility] Start: 11-18-2022 End: 11-29-2022 Cigarettes smoked current (pack per day) - Reported [address] [facility] Start: 11-18-2022 Tobacco use and exposure Smoke less tobacco non-user [facility] Start: 11-18-2022 End: 11-29-2022 Alcohol intake Current drinker of alcohol (finding) [facility] Start: 11-18-2022 End: 11-29-2022 Tobacco use panel [facility] Start: 11-18-2022 Alcohol Comment social drinker on weekends [facility] Start: 1960 Sex Assigned At Not on file [facility] National Score (1-10 0), lower number is lower risk [address] [facility] Start: 1960 Sex assigned at Female [facility] Start: 10-05-2023 Gender identity Identifies as female gender (finding) [facility] Start: 10-05-2023 Sexual orientation Heterosexual (cathie robles) [facility] Medical Equipment Procedure Code Equipment Code Equipment Origin al Text Equipment Identifier Dates Stent Bard Inlay 6fr 2 Pigtail Curve Blue Hydrophilic 26cm Ureteral - [id number] Start: 12-11-2022 Stent Bard Inlay 6fr 2 Pigtail Curve Blue Hydrophilic 26cm Ureteral - [id number] Start: 01-06-2023 Clinical Notes 11-20-2021 to 03-02-2024 Addendum Note - Alexandria Marin PA-C - 03/02/2024 6:05 PM ESTAddendum Note - Alexandria Marin PA-C - 03/02/2024 6:05 PM ESTAlexandria Marin PA-C - 03/01/2024 5:00 PM ESTPatient Instructions Note Date & Type Note Facility 03-02-2024 Note Addended by: ALEXANDRIA MCCARTY on: 03/02/2024 06:05 PM Modules accepted: Orders [facility] 03-02-2024 Miscellaneous Notes Addended by: ALEXANDRIA MARIN on: 03/02/2024 06:05 PM Modules accepted: Orders documented in this encounter [facility] 03-01-2024 History of Presen t illness Narrative This visit was conducted as a virtual visit. I have communicated my name and active licensure. The patient's identity and physical location were verified at the time of this visit. Either the patient or their legal risk control field representative has been informed of the risks [...] citrate when compared to previous US findings. - Reviewed recent US imaging: small LLP [...] and/or hypercalcinuria etiologies. Reassess vitamin D level. Interval hx March 01, 2024 Patient returns to clinic having completed new Litholink, metabolic lab work, and US. She has been maintaining Kcitrate. She does admit to being a big tea drinker. There is no height or weight on file to calculate BMI. PAST MEDICAL HISTORY Diagnosis Date Arthritis Bilateral nephrolithiasis Diabetes mellitus (HCC) H/O: hysterectomy High cholesterol Staghorn calculus PAST SURGICAL HISTORY Procedure Laterality Date LIGATE FALLOPIAN TUBE Bilateral TOTAL ABDOM HYSTERECTOMY URETERAL STENT PLACEMENT 11/07/2022 No family history on file. Social History Tobacco Use Smoking status: Former Current packs/day: 0.00 Types: Cigarettes Quit date: 03/31/1997 Years since quittin.9 Smokeless tobacco: Never Substance Use Topics Alcohol use: Yes Comment: social drinker on weekends Drug use: Never Current Outpatient Medications on File Prior to Visit Medication Sig potassium citrate ER (UROCIT-K) 10 mEq (1,080 mg) Take 2 tablets by mouth two times a day. simvastatin (ZOCOR) 20 mg tablet Take 20 mg by mouth daily at bedtime. empagliflozin (JARDIANCE) 25 mg tablet Take 25 mg by mouth daily with breakfast. No current facility-administered medications on file prior to visit. ALLERGIES Allergen Reactions Penicillins Rash Verbal- not for sure of reaction Percocet [Oxycodone* Vomiting Sulfa (Sulfonamide * Rash Verbal- not for sure of reaction Results Only on 01/25/2024 Component Date Value Ref Range Status CYSTINE, URINE, QUALITATIVE 01/25/2024 CANCELED Final-Edited Comment: Test not performed. Previous test results on file. Result canceled by the ancillary. URINE VOLUME (PRESERVED) 01/25/2024 2,460 500 - 4,000 mL/24 hr Final CALCIUM OXALATE SATURATION 01/25/2024 5.08 (L) 6.00 - 10.00 Final CALCIUM, URINE 01/25/2024 491 (H) <200 mg/24 hr Final OXALATE, URINE 01/25/2024 28 20 - 40 mg/24 hr Final CITRATE, URINE 01/25/2024 1,730 >550 mg/24 hr Final CALCIUM PHOSPHATE SATURATION 01/25/2024 2.38 (H) 0.50 - 2.00 Final PH, 24 HR, URINE 01/25/2024 6.104 5.800 - 6.200 Final URIC ACID SATURATION 01/25/2024 0.60 <1.00 Final URIC ACID, URINE 01/25/2024 910 (H) <750 mg/24 hr Final SODIUM, URINE 01/25/2024 305 (H) 50 - 150 mmol/24 hr Final POTASSIUM, URINE 01/25/2024 96 20 - 100 mmol/24 hr Final MAGNESIUM, URINE 01/25/2024 144 (H) 30 - 120 mg/24 hr Final PHOSPHORUS, URINE 01/25/2024 1,730 (H) 600 - 1,200 mg/24 hr Final AMMONIUM, URINE 01/25/2024 16 15 - 60 mmol/24 hr Final CHLORIDE, URINE 01/25/2024 273 (H) 70 - 250 mmol/24 hr Final SULFATE, URINE 01/25/2024 51 20 - 80 meq/24 hr Final UREA NITROGEN, URINE 01/25/2024 13.34 6.00 - 14.00 g/24 hr Final PROTEIN CATABOLIC RATE 01/25/2024 1.4 0.8 - 1.4 g/kg/24 hr Final CREATININE, URINE 01/25/2024 1,113 Not Applic. mg/24 hr Final CREATININE/KG BODY WEIGHT 01/25/2024 16.6 8.7 - 20.3 mg/24 hr/kg Final CALCIUM/KG BODY WEIGHT 01/25/2024 7.3 (H) <4.0 mg/24 hr/kg Final CALCIUM/CREATININE RATIO 01/25/2024 441 (H) 51 - 262 mg/g creat Final COMMENT 01/25/2024 Note Final Stone composition: 01/06/2023 Calculus Type CALCULI/CALCULUS Calculus Color BROWN Calculus Size and Wt Multiple pieces. 0.0774 GRAMS Calculus Composition 100% Uric Acid Calculus Analysis -- Images: US 02/23/24: Right Kidney: -Renal length: 11.2 cm -Parenchyma: Normal parenchymal echogenicity. Normal parenchymal thickness. -Collecting system: No hydronephrosis. -Calculus: No echogenic, shadowing calculus. Measured punctate nonshadowing echogenic foci within the kidney are equivocal. -Lesion: There are right renal cortical and parapelvic cysts, measuring up to 1.7 cm. Left Kidney: -Renal length: 11.3 cm -Parenchyma: Normal parenchymal echogenicity. Normal parenchymal thickness. -Collecting system: No hydronephrosis. -Calculus: No echogenic, shadowing calculus. Measured punctate nonshadowing echogenic foci within the kidney are equivocal. -Lesion: None. Bladder: Incompletely distended. US 08/19/23: Right Kidney: -Renal length: 11.2 [...] of the liver, compatible with hepatic steatosis. US 02/14/23: Right Kidney: -Renal length: 10.2 [...] Bladder: Poorly distended, grossly unremarkable. Stone Panel/ Litholink and Metabolics: Latest Ref Rng 12/28/2022 05/11/2023 10/10/2023 01/25/2024 CYSTINE, URINE, QUALITATIVE Neg CANCELED CANCELED URINE VOLUME (PRESERVED) 500 - 4,000 mL/24 hr 2,110 2,010 2,460 CALCIUM OXALATE SATURATION 6.00 - 10.00 6.05 8.67 5.08 (L) CALCIUM, URINE <200 mg/24 hr 502 (H) 425 (H) 491 (H) OXALATE, URINE 20 - 40 mg/24 hr 24 41 (H) 28 Citrate, Urine >550 mg/24 hr 2,212 2,535 1,730 CALCIUM PHOSPHATE SATURATION 0.50 - 2.00 0.73 1.95 2.38 (H) PH, 24 HR, URINE 5.800 - 6.200 5.501 (L) 5.992 6.104 URIC ACID SATURATION <1.00 1.42 (H) 0.88 0.60 URIC ACID, URINE <750 mg/24 hr 660 883 (H) 910 (H) SODIUM, URINE 50 - 150 mmol/24 hr 222 (H) 273 (H) 305 (H) POTASSIUM, URINE 20 - 100 mmol/24 hr 99 99 96 Magnesium, Urine 30 - 120 mg/24 hr 119 142 (H) 144 (H) Phosphorus, Urine 600 - 1,200 mg/24 hr 1,049 1,424 (H) 1,730 (H) AMMONIUM, URINE 15 - 60 mmol/24 hr 17 17 16 CHLORIDE, URINE 70 - 250 mmol/24 hr 227 228 273 (H) SULFATE, URINE 20 - 80 meq/24 hr 35 52 51 Urea Nitrogen, Urine 6.00 - 14.00 g/24 hr 8.69 12.65 13.34 Protein Catabolic Rate 0.8 - 1.4 g/kg/24 hr 1.0 1.4 1.4 CREATININE, URINE Not Applic. 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 - Reviewed Litholink 24-hour urine collection results. Emphasis on increasing fluid (water!) intake, decreasing sodium intake, decreasing animal flesh proteins, and decreasing/monitoring high oxalate foods and pair with calcium rich foods. - Potassium citrate one tablet twice daily going forward. - Plan to complete new US and KUB in about 1 year to reassess; defer Litholink at this time According to your 24 hour urine collection results: HIGH URIC ACID - Recommend decreasing your 'flesh protein' intake (fish,chicken, beef & pork). Decreasing portion sizes and frequency during the day can help reduce uric acid levels. A portion size is 4-6 oz/day or about the size of a deck of cards. HIGH CALCIUM - Recommend a low sodium [...] All fluids count but water is best. Falconer intake - Recommend increasing dietary citrate intake. [...] cereals are good for you. RTC in 12 months w/ new US and KUB. Total time counseling (via Zoom) 20 minutes, total clinic visit 20 minutes Alexandria Marin PA-C documented in this encounter [facility] 03-01-2024 Note HNO ID: [id number] Author: ALEXANDRIA MARIN PA-C Service: ? Author Type: Physician Locomotive Engineer Diesel Type: Progress Notes Filed: 03/02/2024 18:05 Note Text: This visit was conducted as a virtual visit. I have communicated my name and active licensure. The patient's identity and physical location were verified at the time of this visit. Either the patient or their legal risk control field representative has been informed of the risks [...] citrate when compared to previous US findings. - Reviewed recent US imaging: small LLP [...] and/or hypercalcinuria etiologies. Reassess vitamin D level. Interval hx March 01, 2024 Patient returns to clinic having completed new Litholink, metabolic lab work, and US. She has been maintaining Kcitrate. She does admit to being a big tea drinker. There is no height or weight on file to calculate BMI. PAST MEDICAL HISTORY Diagnosis Date Arthritis Bilateral nephrolithiasis Diabetes mellitus (HCC) H/O: hysterectomy High cholesterol Staghorn calculus PAST SURGICAL HISTORY Procedure Laterality Date LIGATE FALLOPIAN TUBE Bilateral TOTAL ABDOM HYSTERECTOMY URETERAL STENT PLACEMENT 11/07/2022 No family history on file. Social History Tobacco Use Smoking status: Former Current packs/day: 0.00 Types: Cigarettes Quit date: 03/31/1997 Years since quittin.9 Smokeless tobacco: Never Substance Use Topics Alcohol use: Yes Comment: social drinker on weekends Drug use: Never Current Outpatient Medications on File Prior to Visit Medication Sig potassium citrate ER (UROCIT-K) 10 mEq (1,080 mg) Take 2 tablets by mouth two times a day. simvastatin (ZOCOR) 20 mg tablet Take 20 mg by mouth daily at bedtime. empagliflozin (JARDIANCE) 25 mg tablet Take 25 mg by mouth daily with breakfast. No current facility-administered medications on file prior to visit. ALLERGIES Allergen Reactions Penicillins Rash Verbal- not for sure of reaction Percocet [Oxycodone* Vomiting Sulfa (Sulfonamide * Rash Verbal- not for sure of reaction Results Only on 01/25/2024 Component Date Value Ref Range Status CYSTINE, URINE, QUALITATIVE 01/25/2024 CANCELED Final-Edited Comment: Test not performed. Previous test results on file. Result canceled by the ancillary. URINE VOLUME (PRESERVED) 01/25/2024 2,460 500 - 4,000 mL/24 hr Final CALCIUM OXALATE SATURATION 01/25/2024 5.08 (L) 6.00 - 10.00 Final CALCIUM, URINE 01/25/2024 491 (H) <200 mg/24 hr Final OXALATE, URINE 01/25/2024 28 20 - 40 mg/24 hr Final CITRATE, URINE 01/25/2024 1,730 >550 mg/24 hr Final CALCIUM PHOSPHATE SATURATION 01/25/2024 2.38 (H) 0.50 - 2.00 Final PH, 24 HR, URINE 01/25/2024 6.104 5.800 - 6.200 Final URIC ACID SATURATION 01/25/2024 0.60 <1.00 Final URIC ACID, URINE 01/25/2024 910 (H) <750 mg/24 hr Final SODIUM, URINE 01/25/2024 305 (H) 50 - 150 mmol/24 hr Final POTASSIUM, URINE 01/25/2024 96 20 - 100 mmol/24 hr Final MAGNESIUM, URINE 01/25/2024 144 (H) 30 - 120 mg/24 hr Final PHOSPHORUS, URINE 01/25/2024 1,730 (H) 600 - 1,200 mg/24 hr Final AMMONIUM, URINE 01/25/2024 16 15 - 60 mmol/24 hr Final CHLORIDE, URINE 01/25/2024 273 (H) 70 - 250 mmol/24 hr Final SULFATE, URINE 01/25/2024 51 20 - 80 meq/24 hr Final UREA NITROGEN, URINE 01/25/2024 13.34 6.00 - 14.00 g/24 hr Final PROTEIN CATABO (more content not included)... [facility] 02-23-2024 Note HNO ID: [id number] Author: KYLIE NAGY RT(R) Service: ? Author Type: Technologist Type: Progress Notes Filed: 02/23/2024 15:31 Note Text: Radiology Service Progress Note PATIENT NAME: Krystina Saldivar DATE OF SERVICE: February 23, 2024 TIME: 3:31 PM PATIENT IDENTITY VERIFICATION COMPLETED USING TWO [...] PATIENT PRESENTS WITH AN IMPLANTABLE OR ATTACHED MANAGER ACTION: No RADIOLOGY DEPARTMENT: Ultrasound PERIPHERAL IV DATA: Not applicable SIGNED BY: Kylie Nagy RDMS, BERNARD February 23, 2024 3:31 PM [facility] 02-23-2024 History of Presen t illness Narrative Radiology Service Progress Note PATIENT NAME: Krystina Saldivar DATE OF SERVICE: February 23, 2024 TIME: 3:31 PM PATIENT IDENTITY VERIFICATION COMPLETED USING TWO [...] PATIENT PRESENTS WITH AN IMPLANTABLE OR ATTACHED MANAGER ACTION: No RADIOLOGY DEPARTMENT: Ultrasound PERIPHERAL IV DATA: Not applicable SIGNED BY: Kylie Nagy RDMS, RVT February 23, 2024 3:31 PM documented in this encounter [facility] 12-22-2023 Telephone encounter Note Requested Prescriptions Pending Prescriptions Disp Refills potassium citrate ER (UROCIT-K) 10 mEq (1,080 mg) 120 tablet 5 Sig: Take 2 tablets by mouth two times a day. [facility] 12-22-2023 Miscellaneous Notes Requested Prescriptions Pending Prescriptions Disp Refills potassium citrate ER (UROCIT-K) 10 mEq (1,080 mg) 120 tablet 5 Sig: Take 2 tablets by mouth two times a day. documented in this encounter [facility] 09-12-2023 Telephone encounter Note We got another fax, this one was a calcium blood test report. [facility] 09-12-2023 Miscellaneous Notes We got another fax, this one was a calcium blood test report. We got another lab report for Krystina in today. It is scanned in. Today we got a faxed Lab report for Krystina. documented in this encounter [facility] 09-11-2023 Telephone encounter Note We got another lab report for Krystina in today. It is scanned in. [facility] 09-10-2023 Telephone encounter Note Today we got a faxed Lab report for Krystina. [facility] 08-28-2023 Telephone encounter Note I spoke with Krystina, I got her follow up VV scheduled and I set up her Us prior. I sent out for a litholink and I mailed her the blood work orders. [facility] 08-28-2023 Miscellaneous Notes I spoke with Krystina, I got her follow up VV scheduled and I set up her Us prior. I sent out for a litholink and I mailed her the blood work orders. documented in this encounter [facility] 08-26-2023 History of Presen t illness Narrative This visit was conducted as a virtual visit. I have communicated my name and active licensure. The patient's identity and physical location were verified at the time of this visit. Either the patient or their legal risk control field representative has been informed of the risks [...] All fluids count but water is best. Falconer intake - Recommend increasing dietary citrate intake. [...] Alexandria Marin PA-C documented in this encounter [facility] 08-26-2023 Note HNO ID: [id number] Author: ALEXANDRIA MARIN PA-C Service: ? Author Type: Physician Locomotive Engineer Diesel Type: Progress Notes Filed: 08/27/2023 12:36 Note Text: This visit was conducted as a virtual visit. I have communicated my name and active licensure. The patient's identity and physical location were verified at the time of this visit. Either the patient or their legal risk control field representative has been informed of the risks [...] Final CREATININE/KG BOD (more content not included)... [facility] 08-19-2023 Note HNO ID: [id number] Author: KYLIE NAGY RT(Jayla) Service: ? Author Type: Technologist [...] PATIENT PRESENTS WITH AN IMPLANTABLE OR ATTACHED MANAGER ACTION: No RADIOLOGY DEPARTMENT: Ultrasound PERIPHERAL IV DATA: Not applicable SIGNED BY: Kylie Nagy RDMS, RVT August 19, 2023 3:40 PM [facility] 08-19-2023 History of Presen t illness [...] PATIENT PRESENTS WITH AN IMPLANTABLE OR ATTACHED MANAGER ACTION: No RADIOLOGY DEPARTMENT: Ultrasound PERIPHERAL IV DATA: Not applicable SIGNED BY: Kylie Nagy RDMS, RVT August 19, 2023 3:40 PM documented in this encounter [facility] 06-30-2023 Miscellaneous Notes Refill request for the following med Last ov 02/25/2023 with Alexandria Follow up 08/26/2023 Requested Prescriptions Pending Prescriptions Disp Refills potassium citrate ER (UROCIT-K) 10 mEq (1,080 mg) [Pharmacy Med Name: POTASSIUM CITRATE ER 10 MEQ TB] 120 tablet 5 Sig: take 2 tablets by mouth twice a day documented in this encounter [facility] 03-01-2023 Note HNO ID: [id number] Author: Note, Interface Service: ? Author Type: ? Type: Progress Notes Filed: 03/01/2023 5:55 AM Note Text: Epic Scheduled Downtime: 03/01/2023 1:00:00 AM to 03/01/2023 5:38:00 AM [facility] 02-26-2023 Miscellaneous Notes I called Krystina and I got her scheduled for a follow up in six months and an US beforehand. documented in this encounter [facility] 02-25-2023 Note HNO ID: [id number] Author: Alexandria Marin PA-C Service: ? Author Type: Physician Locomotive Engineer Diesel Type: Progress Notes Filed: 02/26/2023 12:26 PM Note Text: This visit was conducted as a virtual visit. I have communicated my name and active licensure. The patient's identity and physical location were verified at the time of this visit. Either the patient or their legal risk control field representative has been informed of the risks [...] 93 74 - 99 mg/dL Final Comment: Location:[facility], [address] [place] [address], [facility] The Accu-Chek Inform II glucose meter has [...] developed and its performance characteristics determined by [facility]'s [facility] Pathology and Laboratory Medicine [place] ([facility] It has not been cleared or approved by the FDA. [facility] is regulated under CLIA as qualified to [...] nonobstructive calculus a (more content not included)... [facility] 02-25-2023 History of Presen t illness Narrative This visit was conducted as a virtual visit. I have communicated my name and active licensure. The patient's identity and physical location were verified at the time of this visit. Either the patient or their legal risk control field representative has been informed of the risks [...] 93 74 - 99 mg/dL Final Comment: Location:[facility], [address] [place] [address], [id number] The Accu-Chek Inform II glucose meter has [...] developed and its performance characteristics determined by [facility]'s [facility] Pathology and Laboratory Medicine [place] ([facility]). It has not been cleared or approved by the FDA. [facility] is regulated under CLIA as qualified to [...] All fluids count but water is best. Falconer intake - Recommend increasing dietary citrate intake. [...] Alexandria Marin PA-C documented in this encounter [facility] 02-18-2023 Miscellaneous Notes Called patient to discuss external urine culture results that were received as no recent order was submitted for patient to complete. No answer, LVM with phone number to return call. Nichole Morgan RN February 18, 2023 12:55 PM documented in this encounter [facility] 02-14-2023 History of Presen t illness [...] 2023 10:20 AM documented in this encounter [facility] 01-11-2023 Note HNO ID: [id number] Author: Note, Interface Service: ? Author Type: ? Type: Progress Notes Filed: 01/11/2023 3:48 AM Note Text: Epic Scheduled Downtime: 01/11/2023 1:00:00 AM to 01/11/2023 1:28:00 AM [facility] 01-07-2023 Miscellaneous Notes Called and spoke with [...] discuss. Thank you! documented in this encounter [facility] 01-06-2023 Note HNO ID: [id number] Author: Reshma Dominguez APRN.SKATE HOP Service: ? Author Type: Nurse Coal Pipeline Operator Type: Anesthesia Procedure Notes Filed: 01/06/2023 7:57 AM Note Text: ANESTHESIOLOGY PROCEDURE NOTE Airway General Information Procedure Start Time/Medication Administration: 01/06/2023 7:46 AM Patient location during procedure: OR Staffing Anesthesiologist: Farzana Lopez MD SKATE HOP: Reshma Dominguez APRN.SKATE HOP Performed by: anesthesiologist Indications and Patient Condition [...] size 4 seated well SIGNATURE: Reshma Dominguez APRN.SKATE HOP PATIENT NAME: Krystina Saldivar DATE: January 06, 2023 TIME: 7:56 AM CSN: [id number] [facility] 01-06-2023 Surgical operatio n note OPERATIVE/PROCEDURE REPORT LOG ID: [id number] NAME: Krystina Saldivar : 1960 Surgery/Procedure Date: 01/06/2023 Incision/Procedure Start Time: 7:56 AM Incision Close/Procedure End Time: 8:43 AM Surgeon(s)/Proceduralist(s) and Locomotive Engineer Diesel(s): Surgeon(s) and Role: * Farheen Thompson MD [...] 01/06/2023 8:13 AM Anesthesia: General Findings: Stone [place]: Primary stone 6 mm lower pole; All other mm stones in the lower pole Irrigation: [place] bag; max pressure gravity Fluoroscopy: Time: 14.6 [...] and draped in the standard sterile fashion. Armament Installer fluoroscopy was performed and the calculus identified [...] 06, 2023 TIME: 8:45 AM PAGER/CONTACT #: [phone] documented in this encounter [facility] 01-06-2023 History and physical note Preoperative H&P [...] 7:15 AM PAGER: documented in this encounter [facility] 01-06-2023 Hospital Discharg e instructions Kade Posey MD - 01/06/2023 7:25 AM EDT Images from the original note were not included. The [place] [id number] or ([phone] CC-CARE DISCHARGE INSTRUCTIONS C O N F [...] WARNING SIGNS Please call your doctor's office ([phone]) and ask to speak to your doctor's nurse first front ventilator if you experience: -Signs of infection (fever [...] questions, please feel free to call [facility] ([phone]) and ask to speak with your doctor's nurse first front ventilator PENDING TEST RESULTS: Stone analysis FOLLOW-UP INFORMATION Please follow-up as recommended by your provider. The office phone numbers for Dr. Thompson are as follows: [facility]: [phone] [facility] [phone] If you would like an appointment at the [facility], please call the [facility] appointment line ([phone]) to request an appointment Frequently Asked Questions Pathology and Follow-Up: Q: When will I get my results? A: This is one the most important questions to answer after any surgery. This will take about 5-7 days and will be released on [employer] Q: When am I seeing my surgeon again? A: We do our very best to schedule post-operative visits before discharge. The best way to confirm your appointment details is with the urology office during regular business hours. These appointments can also be found on [employer]. Important Phone Numbers to make appointments: Urology Office and Appointment Line: [phone] [facility] (Not Urology) Appointment Line: [phone] [facility] Radiology: [phone] [facility] Interventional Radiology: [phone] Outpatient Lab: [phone] or [phone] Q: What is [employer]? A: [employer] is an online tool. It allows you to manage your healthcare. You can communicate with caregivers too. Visit [email or web address] to register. You need an e-mail address [...] in-office procedure, you do NOT need a concrete mixing truck driver to take you home. Also, there [...] number for general questions (NOT for emergencies): [phone] FOLLOW THESE INSTRUCTIONS REGARDING ANESTHESIA: 1. Do [...] Kade Lake MD documented in this encounter [facility] 12-23-2022 Miscellaneous Notes Called and spoke with [...] her pre-op labs and culture today at [place], will wait for those results to be sent over. Patient currently not scheduled for PACC or midlevel H&P. Requested for schedulers to schedule patient for either Virtual PACC appointment since she just completed one on 11/29 or mid level H&P morning of surgery. Patient voiced understanding. Nichole Morgan RN December 23, 2022 12:54 PM documented in this encounter [facility] 12-17-2022 Miscellaneous Notes Called and spoke with [...] back? Thank you. documented in this encounter [facility] 12-13-2022 Miscellaneous Notes Patient scheduled for surgery on 01/06 at [facility] for CYSTOURETHROSCOPY W/ URETEROSCOPY AND/OR PYELOSCOPY [...] to local hospital documented in this encounter [facility] 12-12-2022 Miscellaneous Notes Returned patient's call and discussed scheduling her URS with Dr. Thompson. Patient agreed to first available January 06. She will do blood work and urine locally 2 weeks prior. Will fax orders to [facility]. Fax #: [phone] Patient is faxing short term disability paperwork to our office to fill out. Discussed return date for work to be January 13 to give time for recovery after PCNL and URS. Ela Rbo RN Images from the original note were not included. [facility] Samantha RN (Call me) Pt missed your call below. She can be reached at the above number when you have a chance. Thanks Called patient to discuss scheduling surgery with Dr. Thompson. No answer, VM left. Ela Rob RN documented in this encounter [facility] 11-29-2022 Instructions Genevieve Noel APRN.ALIE - 11/29/2022 3:23 PM EDT Dietary Restrictions: [...] surgery, you can contact Urology Surgery at [phone]. We would like to reminded you that surgery time provided is tentative based on potential changes with transplant surgeries. Please check in at desk J1-9 in the [facility] ([facility], [address] [place] [address]) Medications: Unless instructed differently below, stay on [...] day of surgery. documented in this encounter [facility] 11-29-2022 History of Presen t illness Narrative [facility] PRE-OP NOTE Krystina [...] is optimally prepared for surgery pending LABS. Genevieve Noel APRN.MANAGER CONTRACT documented in this encounter [facility] 11-29-2022 Instructions Jonel Montano DO - 11/29/2022 1:08 PM EDT PATIENT PREOPERATIVE INSTRUCTIONS Farheen Thompson MD has scheduled you for your procedure at this surgery center: [facility] [place] Scheduling Office: [phone] --[address] [place] [address]. Please read below carefully for your personalized [...] Procedures: - YOU MUST HAVE A RESPONSIBLE JINRIKISHA DRIVER TAKE YOU HOME. A EDUCATIONAL PROGRAM DIRECTOR OR HYDRAULIC HAMMER OPERATOR CANNOT BE MADE A RESPONSIBLE JINRIKISHA DRIVER. - We recommend that a responsible person [...] call the Friday before. Your surgeon s project scheduler will tell you what time to call the office. - If you have not reached the departmental project scheduler by 5 P.M., call [phone] after 5 P.M. the day before your surgery. Please be aware that emergency situations arise, which may delay or change your surgical time. If this happens, we will notify you as soon as possible and regret any inconvenience. If you already have an Advance Directive, please fax a copy to [phone] or email to for it to be [...] scanned into your chart that day. Jonel Montano DO documented in this encounter [facility] 11-29-2022 History and physical note HISTORY AND [...] fevers. Neuro: No history of TIA's, stroke, EXTRUSION ENGINEER tumor, impaired sensorium, hemiplegia, paraplegia or quadraplegia. No neurological symptoms or problems. Respiratory: No history of current cough or dyspnea, or pneumonia in the past 6 weeks. No history of respiratory/pulmonary symptoms or problems. Cardiovascular: No history of HTN requiring medication, no history of angina, CHF, VA, cardiac surgery or stents. Denies rest pain, gangrene or revascularization/amputation for PVD. No history of cardiovascular symptoms or problems. GI: No history of GI symptoms or problems. No history of esophageal varices, recent ascites, or ETOH greater than 2 drinks per day. : nephrolithiasis, denies dysuria, gross hematuria, or incontinence. EQUIPMENT OPERATOR INTERMODAL YARD: Negative for abnormal vaginal bleeding, abnormal vaginal [...] TIME: 12:36 PM documented in this encounter [facility] 11-25-2022 Miscellaneous Notes Called and spoke with patient to inquire about moving surgery to 12/25. Patient states that she would rather not move her surgery date as she does not want to be out of work for too long. Will update Dr. Thompson and keep surgery scheduled as is. Nicohle Morgan RN November 25, 2022 11:41 AM documented in this encounter [facility] 11-18-2022 Instructions Farheen Thompson MD - [...] video with more information on ureteral stents: [email or web address] Video on PCNL: [email or web address] If you have any additional questions regarding this procedure, please reach out to our team. Warm regards, Your [facility] Kidney Stone Team documented in this encounter 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 [...] per night). She has been seen at [facility] most recently in the ER on November [...] was performed with placement of a 6 Malay variable length ureteral stent without difficulty. Left [...] Abdomen is Non-distended, soft, nontender. Musculoskeletal: Good supervisor laundry strength. Neurologic: Normal gait. Sensation grossly intact. [...] tolerable. - dietary sodium restriction: Less than 6581-9817 mg per day. - increase dietary citrate intake: lemon/[place], melon and tomato has potassium citrate - [...] MD Associate Staff documented in this encounter [facility] 11-18-2022 Miscellaneous Notes Received via fax OSH medical records. Patient is scheduled to see Dr. Thompson on 11/18/2022 at 4pm. Records given to Dr. Thompson for further review. Will send to scanning after review by provider. Senait Durán RN documented in this encounter [facility] 11-20-2021 Note PROCEDURE: XR TIB_FI B RT 2V COMPARISON: 11/09/21 HISTORY: Pain of right lower leg FINDINGS: BONES:No fracture, acute abnormality, or significant arthropathy. SOFT TISSUES:Negative. No visible soft tissue swelling. EFFUSION:None visible. OTHER: Negative. IMPRESSION: No acute abnormality Electronically authenticated by: FARZANA BRAND Date: 2021-11-20 11:25 [facility] Evaluation note Diagnosis Staghorn calculus- Primary Calculus of kidney Screening for genitourinary condition Screening for other and unspecified genitourinary condition [facility] Nephrolithiasis- Primary Calculus of kidney [facility] Diagnosis Pre-op chest exam- Primary Pre-operative respiratory examination Nephrolithiasis Calculus of kidney [facility] Preop examination- Primary Preoperative examination, unspecified Nephrolithiasis Calculus of kidney Controlled type 2 diabetes mellitus without complication, without long-term current use of insulin (HCC) Hypercholesteremia Pure hypercholesterolemia Nephrolithiasis Calculus of kidney [facility] Screening for genitourinary condition Screening for other and unspecified genitourinary condition Nephrolithiasis Calculus of kidney [facility] Diagnosis Nephrolithiasis Calculus of kidney [facility] Diagnosis Nephrolithiasis Calculus of kidney [facility] Diagnosis Nephrolithiasis- Primary Calculus of kidney Urine volume deficient Oliguria and anuria Vitamin D deficiency Unspecified vitamin D deficiency Hypercalcinuria Unspecified disorders of calcium metabolism Hypernatriuria Hyperosmolality and/or hypernatremia Aciduria (HCC) Other nonspecific finding on examination of urine [facility] Nephrolithiasis Calculus of kidney [facility] Diagnosis Nephrolithiasis- Primary Calculus of kidney Urine volume deficient Oliguria and anuria Hypercalcinuria Unspecified disorders of calcium metabolism Hyperoxaluria Other specified disorders of carbohydrate transport and metabolism Hyperuricosuria Other nonspecific finding on examination of urine Hypernatriuria Hyperosmolality and/or hypernatremia 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 Preop examination- Primary Preoperative examination, unspecified Nephrolithiasis Calculus of kidney Controlled type 2 diabetes mellitus without complication, without long-term current use of insulin (HCC) Hypercholesteremia Pure hypercholesterolemia Nephrolithiasis Calculus of kidney Urine volume deficient Oliguria and anuria Hypercalcinuria Unspecified disorders of calcium metabolism Hyperoxaluria Other specified disorders of carbohydrate transport and metabolism Hyperuricosuria Other nonspecific finding on examination of urine Hypernatriuria Hyperosmolality and/or hypernatremia 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 Diagnosis Preop examination- Primary Preoperative examination, unspecified Nephrolithiasis Calculus of kidney Controlled type 2 diabetes mellitus without complication, without long-term current use of insulin (HCC) Hypercholesteremia Pure hypercholesterolemia Nephrolithiasis- Primary Calculus of kidney Urine volume deficient Oliguria and anuria Hypercalcinuria Unspecified disorders of calcium metabolism Hyperuricosuria Other nonspecific finding on examination of urine Hypernatriuria Hyperosmolality and/or hypernatremia documented in this encounter [facility] for referral (narrative)* Diagnostic Procedure Only (Routine) - Authorized Specialty Diagnoses / Procedures Referred [facility] Referred To Contact US IMAGING Diagnoses Nephrolithiasis Procedures US KIDNEY/BLADDER US RETROPERITONEAL REAL TIME W/[place] [address] [place] [address] [place] [address] Referral ID Status Reason Start Date Expiration Date Visits Requested Visits Authorized [id number] Authorized Auto-Generat ed Referral 02/06/2023 02/05/2024 1 1 [facility] for referral (narrative)* Diagnostic Procedure Only (Routine) - Authorized Specialty Diagnoses / Procedures Referred By Contzeny lewis Referred To Contact US IMAGING Diagnoses Nephrolithiasis Procedures US KIDNEY/BLADDER US RETROPERITONEAL REAL TIME W/IMAGE COMPLETE Alexandria Marin PA-C [address] [place] [address] [place] [address] Referral ID Status Reason Start Date Expiration Date Visits Requested Visits Authorized [id number] Authorized Auto-Generat ed Referral 03/26/2024 1 1 [facility] for referral (narrative)* Diagnostic Procedure Only (Routine) - Pending Review Specialty Diagnoses / Procedures Referred By Contac t Referred To Contact US IMAGING Diagnoses Nephrolithiasis Urine volume deficient Hypercalcinuria Hyperoxaluria Hyperuricosuria Hypernatriuria Renal cyst Procedures US KIDNEY/BLADDER US RETROPERITONEAL REAL TIME W/IMAGE COMPLETE Alexandria Marin [facility]-C [address] [facility] [place] [phone] [place] [address] Referral ID Status Reason Start Date Expiration Date Visits Requested Visits Authorized [id number] Pending Review Auto-Generat ed Referral 08/27/2023 09/24/2024 1 1 [facility] for referral (narrative)* Diagnostic Procedure Only (Routine) - Closed Specialty Diagnoses / Procedures Referred By Contac t Referred To Contact US IMAGING Diagnoses Nephrolithiasis Urine volume deficient Hypercalcinuria Hyperoxaluria Hyperuricosuria Hypernatriuria Renal cyst Procedures US KIDNEY/BLADDER US RETROPERITONEAL REAL TIME W/IMAGE COMPLETE Alexandria Marin PA-C [address] [place] [id number] [facility] Referral ID Status Reason Start Date Expiration Date V isits Requested Visits Authorized [id number] Closed Auto-Generate d Referral 08/27/2023 09/24/2024 1 1 [facility] for referral (narrative)* Diagnostic Procedure Only (Routine) - New Request Specialty Diagnoses / Procedures Referred By Contac t Referred To Contact XR IMAGING Diagnoses Nephrolithiasis Procedures XR ABDOMEN 3V KUB W/OBLIQUES RADIOLOGIC EXAM ABDOMEN 3+ VIEWS Alexandria Marin PA-C [address] [place] [phone] [place] [address] Referral ID Status Reason Start Date Expiration Date Visits Requested Visits Authorized [id number] New Request Auto-Generat ed Referral 03/02/2024 04/01/2025 1 1 * Diagnostic Procedure Only (Routine) - New Request Specialty Diagnoses / Procedures Referred By Contzeny t Referred To Contact US IMAGING Diagnoses Nephrolithiasis Procedures US KIDNEY/BLADDER US RETROPERITONEAL REAL TIME W/IMAGE COMPLETE Alexandria Marin PA-C [address] [place] [address] [place] [address] Referral ID Status Reason Start Date Expiration Date Visits Requested Visits Authorized [id number] New Request Auto-Generat ed Referral 03/02/2024 04/01/2025 1 1 [facility] for visit Narrative* Diagnostic Procedure Only (Routine) - Closed Specialty Diagnoses / Procedures Referred By Contac t Referred To Contact US IMAGING Diagnoses Nephrolithiasis Procedures US KIDNEY/BLADDER US RETROPERITONEAL REAL TIME W/[place] [address] [place] [address] [facility] Referral ID Status Reason Start Date Expiration Date V isits Requested Visits Authorized [id number] Closed Auto-Generate d Referral 02/06/2023 02/05/2024 1 1 [facility] for visit Narrative* Diagnostic Procedure Only (Routine) - Closed Specialty Diagnoses / Procedures Referred By Contac t Referred To Contact US IMAGING Diagnoses Nephrolithiasis Procedures US KIDNEY/BLADDER US RETROPERITONEAL REAL TIME W/IMAGE COMPLETE Alexandria Marin PA-C [address] [place] [address] [place] [address] Referral ID Status Reason Start Date Expiration Date V isits Requested Visits Authorized [id number] Closed Auto-Generate d Referral 02/25/2023 03/26/2024 1 1 [facility] for visit Narrative* Diagnostic Procedure Only (Routine) - Closed Specialty Diagnoses / Procedures Referred By Contac t Referred To Contact US IMAGING Diagnoses Nephrolithiasis Urine volume deficient Hypercalcinuria Hyperoxaluria Hyperuricosuria Hypernatriuria Renal cyst Procedures US KIDNEY/BLADDER US RETROPERITONEAL REAL TIME W/IMAGE COMPLETE Alexandria Marin PA-C [address] [place] [address] [place] [address] Referral ID Status Reason Start Date Expiration Date V isits Requested Visits Authorized [id number] Closed Auto-Generate d Referral 08/27/2023 09/24/2024 [address] [facility] Summary Purpose Family History No Family History Records FoundNo Family History Records FoundNo Family History Records FoundNo Family History Records FoundNo Family History Records Found Advance Directives No Advanced Directives Records FoundNo Advanced Directives Records FoundNo Advanced Directives Records FoundNo Advanced Directives Records FoundNo Advanced Directives Records Found Reason for Referral Specialty Diagnoses / Procedures Referred By Contzeny t Referred To Contact Diagnoses Nephrolithiasis Procedures REFER TO [facility] - PRE ANESTHESIA CONSULTATION CLINIC OFFICE/[facility] 60-[place] [address] [place] [address] Referral ID Status Reason Start Date Expiration Date Visits Requested Visits Authorized [id number] Authorized PCP Requested Referral 11/18/2022 11/18/2023 1 [...] Fri01/06/23 at 0901, Until Fri01/07/23 at 030, [facility] for mild, moderate, or [...] section and content) DATE CREATED AUTHOR 06/24/2022 [facility] DATE CREATED AUTHOR AUTHOR'S ORGANIZ ATION 11/20/2022 [facility] DATE CREATED AUTHOR AUTHOR'S ORGANIZ ATION 03/03/2023 [facility] DATE CREATED AUTHOR AUTHOR'S ORGANIZ ATION 09/13/2023 [facility] DATE CREATED AUTHOR AUTHOR'S ORGANIZ ATION 03/03/2024 [facility] Source Comments (unrecognize d section and content) In the event this informatio n is protected by the Federal Confidentiality of Alcohol and Drug Abuse Patient Records regulations: The Federal rules restrict any use of the information to criminally investigate or prosecute any alcohol or drug abuse patient.[facility] Center[facility] the event this information is protected by the Federal Confidentiality of Alcohol and Drug Abuse Patient Records regulations: The Federal rules restrict any use of the information to criminally investigate or prosecute any alcohol or drug abuse patient.[facility] Center[facility] the event this information is protected by the Federal Confidentiality of Alcohol and Drug Abuse Patient Records regulations: The Federal rules restrict any use of the information to criminally investigate or prosecute any alcohol or drug abuse patient.[facility] CenterIn the event this information is protected by the Federal Confidentiality of Alcohol and Drug Abuse Patient Records regulations: The Federal rules restrict any use of the information to criminally investigate or prosecute any alcohol or drug abuse patient.[facility] CenterIn the event this information is protected by the Federal Confidentiality of Alcohol and Drug Abuse Patient Records regulations: The Federal rules restrict any use of the information to criminally investigate or prosecute any alcohol or drug abuse patient.[facility] Center[facility] the event this information is protected by the Federal Confidentiality of Alcohol and Drug Abuse Patient Records regulations: The Federal rules restrict any use of the information to criminally investigate or prosecute any alcohol or drug abuse patient.[facility] CenterIn the event this information is protected by the Federal Confidentiality of Alcohol and Drug Abuse Patient Records regulations: The Federal rules restrict any use of the information to criminally investigate or prosecute any alcohol or drug abuse patient.[facility] CenterIn the event this information is protected by the Federal Confidentiality of Alcohol and Drug Abuse Patient Records regulations: The Federal rules restrict any use of the information to criminally investigate or prosecute any alcohol or drug abuse patient.[facility] CenterIn the event this information is protected by the Federal Confidentiality of Alcohol and Drug Abuse Patient Records regulations: The Federal rules restrict any use of the information to criminally investigate or prosecute any alcohol or drug abuse patient.[facility] CenterIn the event this information is protected by the Federal Confidentiality of Alcohol and Drug Abuse Patient Records regulations: The Federal rules restrict any use of the information to criminally investigate or prosecute any alcohol or drug abuse patient.[facility] CenterIn the event this information is protected by the Federal Confidentiality of Alcohol and Drug Abuse Patient Records regulations: The Federal rules restrict any use of the information to criminally investigate or prosecute any alcohol or drug abuse patient.[facility] CenterIn the event this information is protected by the Federal Confidentiality of Alcohol and Drug Abuse Patient Records regulations: The Federal rules restrict any use of the information to criminally investigate or prosecute any alcohol or drug abuse patient.[facility] CenterIn the event this information is protected by the Federal Confidentiality of Alcohol and Drug Abuse Patient Records regulations: The Federal rules restrict any use of the information to criminally investigate or prosecute any alcohol or drug abuse patient.[facility] CenterIn the event this information is protected by the Federal Confidentiality of Alcohol and Drug Abuse Patient Records regulations: The Federal rules restrict any use of the information to criminally investigate or prosecute any alcohol or drug abuse patient.[facility] CenterIn the event this information is protected by the Federal Confidentiality of Alcohol and Drug Abuse Patient Records regulations: The Federal rules restrict any use of the information to criminally investigate or prosecute any alcohol or drug abuse patient.[facility] CenterIn the event this information is protected by the Federal Confidentiality of Alcohol and Drug Abuse Patient Records regulations: The Federal rules restrict any use of the information to criminally investigate or prosecute any alcohol or drug abuse patient.[facility] CenterIn the event this information is protected by the Federal Confidentiality of Alcohol and Drug Abuse Patient Records regulations: The Federal rules restrict any use of the information to criminally investigate or prosecute any alcohol or drug abuse patient.[facility] CenterIn the event this information is protected by the Federal Confidentiality of Alcohol and Drug Abuse Patient Records regulations: The Federal rules restrict any use of the information to criminally investigate or prosecute any alcohol or drug abuse patient.[facility] CenterIn the event this information is protected by the Federal Confidentiality of Alcohol and Drug Abuse Patient Records regulations: The Federal rules restrict any use of the information to criminally investigate or prosecute any alcohol or drug abuse patient.[facility] CenterIn the event this information is protected by the Federal Confidentiality of Alcohol and Drug Abuse Patient Records regulations: The Federal rules restrict any use of the information to criminally investigate or prosecute any alcohol or drug abuse patient.[facility] CenterIn the event this information is protected by the Federal Confidentiality of Alcohol and Drug Abuse Patient Records regulations: The Federal rules restrict any use of the information to criminally investigate or prosecute any alcohol or drug abuse patient.[facility] CenterIn the event this information is protected by the Federal Confidentiality of Alcohol and Drug Abuse Patient Records regulations: The Federal rules restrict any use of the information to criminally investigate or prosecute any alcohol or drug abuse patient.[facility] CenterIn the event this information is protected by the Federal Confidentiality of Alcohol and Drug Abuse Patient Records regulations: The Federal rules restrict any use of the information to criminally investigate or prosecute any alcohol or drug abuse patient.[facility] CenterIn the event this information is protected by the Federal Confidentiality of Alcohol and Drug Abuse Patient Records regulations: The Federal rules restrict any use of the information to criminally investigate or prosecute any alcohol or drug abuse patient.[facility] CenterIn the event this information is protected by the Federal Confidentiality of Alcohol and Drug Abuse Patient Records regulations: The Federal rules restrict any use of the information to criminally investigate or prosecute any alcohol or drug abuse patient.[facility] CenterIn the event this information is protected by the Federal Confidentiality of Alcohol and Drug Abuse Patient Records regulations: The Federal rules restrict any use of the information to criminally investigate or prosecute any alcohol or drug abuse patient.[facility] CenterIn the event this information is protected by the Federal Confidentiality of Alcohol and Drug Abuse Patient Records regulations: The Federal rules restrict any use of the information to criminally investigate or prosecute any alcohol or drug abuse patient.[facility] the event this information is protected by the Federal Confidentiality of Alcohol and Drug Abuse Patient Records regulations: The Federal rules restrict any use of the information to criminally investigate or prosecute any alcohol or drug abuse patient.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 Reason Comments Pre-Op Exam Reason Comments Scheduling Reason Comments Returning Patient's Call Reason Comments Results Specialty Diagnoses / Procedures Referred By Deion t Referred To Contact Diagnoses Nephrolithiasis Procedures CYSTO/URETERO W/LITHOTRIPSY &INDWELL STENT INSRT CYSTOURETHROSCOPY W/ URETEROSCOPY AND/OR PYELOSCOPY W/ LITHOTRIPSY INCLUDE INSERTION OF INDWELLING URETERAL STENT Av Surgery [address] [place] [address] Referral ID Status Reason Start Date Expiration Date Visits Re quested Visits Authorized [id number] 1 1 Reason Comments Radiology US Reason Comments Follow Up Kidney Stones Reason Comments Appointment Reason Comments Refill Request Reason Onset Date Comments Refill Request 12/22/2023 Reason Comments Follow Up Care Teams (unrecognized sec tion and content) Brake Reliner Relationship Specialty Start Date End Date Sal Jackson MD [address] [place] [address] PCP - General Family Medicine 12/11/22 Brake Reliner Relationship Specialty Start Date End Date Sal Jackson MD [address] [place] [address] PCP - General Family Medicine 12/11/22 Brake Reliner Relationship Specialty Start Date End Date Sal Jackson MD [address] [place] [address] PCP - General Family Medicine 12/11/22 Brake Reliner Relationship Specialty Start Date End Date Sal Jackson MD [address] [place] [address] PCP - General Family Medicine 12/11/22 Brake Reliner Relationship Specialty Start Date End Date Sal Jackson MD [address] [place] [phone] PCP - General Family Medicine 12/11/22 Brake Reliner Relationship Specialty Start Date End Date Sal Jackson MD [address] [place] [address] PCP - General Family Medicine 12/11/22 Brake Reliner Relationship Specialty Start Date End Date Sal Jackson MD [address] [place] [id number] PCP - General Family Medicine 12/11/22 Brake Reliner Relationship Specialty Start Date End Date Sal Jackson MD [address] [place] [id number] PCP - General Family Medicine 12/11/22 Brake Reliner Relationship Specialty Start Date End Date Sal Jackson MD [address] [place] [id number] PCP - General Family Medicine 12/11/22 Brake Reliner Relationship Specialty Start Date End Date Sal Jackson MD [address] [place] [id number] PCP - General Family Medicine 12/11/22 Brake Reliner Relationship Specialty Start Date End Date Sal Jackson MD [address] [place] [address] PCP - General Family Medicine 12/11/22 Brake Reliner Relationship Specialty Start Date End Date Sal Jackson MD [address] [place] [address] PCP - General Family Medicine 12/11/22 Brake Reliner Relationship Specialty Start Date End Date Sal Jackson MD [address] [place] [address] PCP - General Family Medicine 12/11/22 Brake Reliner Relationship Specialty Start Date End Date Sal Jackson MD [address] [place] [address] PCP - General Family Medicine 12/11/22 Scheduled [...] Monique [id number] (Given - Provider: Reshma Dominguez [email or web address].CRNA) Continuous Medication Order 01/04/2023 01/05/2023 01/06/2023 lactated [...] at 0305, Nausea/Vomiting - First Line - Enteral
EVERY [...] BE BASED ON THE PRIMARY CLINICAL RECORDS. [facility]. provides no warranty or guarantee of the accuracy or completeness of information in this document.
== END 2024-02-21 08:02 ==
LOC: LAB 03-03 08:02
PROVIDERS: PCP Family Medicine; Visit Provider Family Medicine
DX: Z00.00 Encounter for general adult medical examination without abnormal findings (principal)
CPT/HCPCS: 36415; 80053; 80061; 83036; 84436; 84443; 84481; 85025

== ENCOUNTER 2024-04-02 07:58 | Outpatient (OUT) | payer BC, SELFPAY ==
--- NOTE | 2024-04-02 08:00 | MM_ITS ---
Patient Name: KRYSTINA BANEGAS MR#: [id number] : 1960 Exam Date: 04/02/2024 Ordering Doctor: DR Sal Black . RADIOLOGY REPORT PROCEDURE: MM TOMOSYNTHESIS SCREENING BI COMPARISON: MM TOMOSYNTHESIS SCREENING BI, 04/01/2023. MG MAMM SCREEN 3D KASEY CAD, 02/01/2021. INDICATIONS: Screening Calculator Name NCI Breast Cancer Risk Assessment Tool 5 Year Breast Cancer Risk 1.10% Lifetime Breast Cancer Risk 5.00% Personal Breast Cancer No Personal Ovarian Cancer No Treatments None Family Cancers Aunt-paternal with breast cancer at age ~74. LOCATION: [facility] BREAST COMPOSITION: There are scattered areas of fibroglandular density. FINDINGS: DIAGNOSTIC CATEGORY 2--BENIGN FINDING. NO CHANGE FROM COMPARISON. Scattered benign-appearing nodules are present. Scattered benign-appearing calcifications are present. Scattered benign-appearing lymph nodes are present. RIGHT BREAST: No significant suspicious finding. LEFT BREAST: No significant suspicious finding. RECOMMENDATIONS: ROUTINE MAMMOGRAM AND CLINICAL EVALUATION IN 12 MONTHS. PLEASE NOTE: A NORMAL MAMMOGRAM DOES NOT EXCLUDE THE POSSIBILITY OF BREAST CANCER. A CLINICALLY SUSPICIOUS PALPABLE LUMP SHOULD BE BIOPSIED. Dictated by: Saul Chiu MD on 04/02/2024 at 09:39 Approved by: Saul Chiu MD on 04/02/2024 at 09:40
--- OUTSIDE RECORDS SUMMARY | 2024-04-02 08:17 | XMS_ITS | CCD ---
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 with skin on. ? Nuts and nut products. ? Chocolate. ? If you regularly take a diuretic medicine, make sure to eat at least 1 or 2 servings of fruits or vegetables that are high in potassium each day. These include: ? Avocado. ? Banana. ? Russell, prune, carrot, or tomato juice. ? Baked [...] fish oil, or vitamin B6. ? Take bqlc-nir-boyobgv and prescription medicines only as told by your health care provider. These include supplements. What foods should I limit? Limit your in (more content not included)... Normal [facility] Urology Office/Clinic Noteon 11-06-2022 Urology Office/Clinic Note Chief Complaint Pt is here for [facility] ER f/u for kidney stones HPI Staff Krystina is a 62 y.o. female new Pt follow up to [facility] due to abdominal and Lt flank pain. [...] information and history for this patient from [facility]. I have reviewed and verified the staff [...] yo female new pt following up to [facility] ER visit on 11/04/22 due to L [...] would require interventional radiology and transfer to [facility]. Pt's PCP, Dr. Jackson, wanted her to be admitted today. Would be able to go back to work if stent placement is successful, however, she will require staged procedures. -Pt to be admitted to [facility] today so she can have an IV started and have pain meds and nausea meds for comfort. She is not to eat or drink after midnight tonight. -Pt to call HR at her workplace to figure out [facility] paperwork. -Will schedule cysto and L [...] [facility] [address], [place] [address]- Additional Instructions: schedule L stent placement Patient Education Dietary Guidelines to Help Prevent Kidney Stones I, Rosalinda Rodgers, personally scribed for Dr. Haque on 11/06/2022 11:43:23. . Documentation recorde (more content not included)... Normal [facility] Comment on above: Result Comment: Elec tronically Signed By: Steve HAQUE MD\.br\Date and Time Signed: 11/06/22 11:51 EDT\.br\Electronically Co-Signed By: Rosalinda Rodgers\.br\Date and Time Co-Signed: 11/06/22 11:44 EDT\.br\Electronically Co-Signed By: Rosalinda Rodgers\.br\Date and Time Co-Signed: 11/06/22 11:45 EDT BNPon 06-21-2022 Natriuretic peptide B (Bld) [Mass/Vol] 75.0 pg/mL Normal <=900.0 Comment on above: Performed By: #### B BACK TENDER, CMP, TSH, T7 #### [facility] [address] [place] [address] Dr. Kris Brito CBC AUTO DIFFon 06-21-2022 BASO # 0.0 103/ul Normal 0.0-0.1 Comment on above: Performed By: #### B BACK TENDER, CMP, TSH, T7 #### [facility] [address] [place] [address] Dr. Kris Brito Basophils/100 WBC (Bld) 0.6 % Normal 0.2-2.0 Comment on above: Performed By: #### B BACK TENDER, CMP, TSH, T7 #### [facility] [address] [place] [address] Dr. Kris Brito EO # 0.3 103/ul Normal 0.0-0.7 Comment on above: Performed By: #### B BACK TENDER, CMP, TSH, T7 #### [facility] [address] [place] [address] Dr. Kris Brito Eosinophils/100 WBC (Bld) 3.6 % Normal 0.9-7.0 Comment on above: Performed By: #### B BACK TENDER, CMP, TSH, T7 #### [facility] [address] [place] [address] Dr. Kris Brito Erythrocyte distribution width (RBC) [Ratio] 12.7 % Normal 11.0-15.0 Comment on above: Performed By: #### B BACK TENDER, CMP, TSH, T7 #### [facility] [address] [place] [address] Dr. Kris Brito Hematocrit (Bld) [Volume fraction] 43.1 % Normal 36.0-48.0 Comment on above: Performed By: #### B BACK TENDER, CMP, TSH, T7 #### [facility] [address] [place] [address] Dr. Kris Brito Hemoglobin (Bld) [Mass/Vol] 14.0 g/dL Normal 12.0-16.0 [facility] Comment on above: Performed By: #### B BACK TENDER, CMP, TSH, T7 #### [facility] [address] [place] [address] Dr. Kris Brito IG # 0.02 10e3/ul Normal 0.00-0.03 [facility] Comment on above: Performed By: #### B BACK TENDER, CMP, TSH, T7 #### [facility] [address] [place] [address] Dr. Kris Brito IG % 0.3 % Normal 0.0-0.5 [facility] Comment on above: Performed By: #### B BACK TENDER, CMP, TSH, T7 #### [facility] [address] [place] [address] Dr. Kris Brito LYMPH # 2.5 103/ul Normal 1.2-3.8 [facility] Comment on above: Performed By: #### B BACK TENDER, CMP, TSH, T7 #### [facility] [address] [place] [address] Dr. Kris Brito Lymphocytes/100 WBC (Bld) 36.1 % Normal 20.5-60.0 Comment on above: Performed By: #### B BACK TENDER, CMP, TSH, T7 #### [facility] [address] [place] [address] Dr. Kris Brito MANUAL DIFF REQ NO Normal [facility] Comment on above: Performed By: #### B BACK TENDER, CMP, TSH, T7 #### [facility] [address] [place] [address] Dr. Kris Brito MCH (RBC) [Entitic mass] 30.0 pg Normal 26.7-34.0 [facility] Comment on above: Performed By: #### B BACK TENDER, CMP, TSH, T7 #### [facility] [address] [place] [address] Dr. Kris Brito MCHC (RBC) [Mass/Vol] 32.5 g/dL Normal 29.9-35.2 [facility] Comment on above: Performed By: #### B BACK TENDER, CMP, TSH, T7 #### [facility] [address] [place] [address] Dr. Kris Brito MCV (RBC) [Entitic vol] 92.5 fL Normal 81.0-99.0 Comment on above: Performed By: #### B BACK TENDER, CMP, TSH, T7 #### [facility] [address] [place] [address] Dr. Kris Brito MONO # 0.7 103/ul Normal 0.3-0.8 Comment on above: Performed By: #### B BACK TENDER, CMP, TSH, T7 #### [facility] [address] [place] [address] Dr. Kris Brito Monocytes/100 WBC (Bld) 10.5 % Normal 1.7-12.0 Comment on above: Performed By: #### B BACK TENDER, CMP, TSH, T7 #### [facility] [address] [place] [address] Dr. Kris Brito NEUT # 3.4 103/ul Normal 1.4-6.5 [facility] Comment on above: Performed By: #### B BACK TENDER, CMP, TSH, T7 #### [facility] [address] [place] [address] Dr. Kris Brito Neutrophils/100 WBC (Bld) 48.9 % Normal 43.0-75.0 Comment on above: Performed By: #### B BACK TENDER, CMP, TSH, T7 #### [facility] [address] [place] [address] Dr. Kris Brito Platelet mean volume (Bld) [Entitic vol] 8.9 fL Critically low 9.5-13.5 [facility] Comment on above: Performed By: #### B BACK TENDER, CMP, TSH, T7 #### [facility] [address] [place] [address] Dr. Kris Brito PLT 247 103/ul Normal 150-450 [facility] Comment on above: Performed By: #### B BACK TENDER, CMP, TSH, T7 #### [facility] [address] [place] [address] Dr. Kris Brito RBC 4.66 106/ul Normal 4.20-5.40 Comment on above: Performed By: #### B BACK TENDER, CMP, TSH, T7 #### [facility] [address] [place] [address] Dr. Kris Brito WBC 7.0 103/ul Normal 4.0-11.0 Comment on above: Performed By: #### B BACK TENDER, CMP, TSH, T7 #### [facility] [address] [place] [address] Dr. Kris Brito FREE THYROXINE INDEX T7on FTI 2.55 Normal 1.30-4.50 Comment on above: Performed By: #### B BACK TENDER, CMP, TSH, T7 #### [facility] [address] [place] [address] Dr. Kris Brito T3U 34.0 % Normal 30.0-39.0 Comment on above: Performed By: #### B BACK TENDER, CMP, TSH, T7 #### [facility] [address] [place] [address] Dr. Kris Brito T4 [Mass/Vol] 7.50 ug/dL Normal 4.80-13.90 [facility] Comment on above: Performed By: #### B BACK TENDER, CMP, TSH, T7 #### [facility] [address] [place] [address] Dr. Kris Brito IRONon 06-21-2022 Iron [Mass/Vol] 128.0 ug/dL Normal 50.0-170.0 [facility] Comment on above: Performed By: #### B BACK TENDER, CMP, TSH, T7 #### [facility] [address] [place] [address] Dr. Kris Brito PROF 14(COMP METB)on 023 Albumin [Mass/Vol] 3.9 g/dL Normal 3.4-5.0 [facility] Comment on above: Performed By: #### B BACK TENDER, CMP, TSH, T7 #### [facility] [address] [place] [address] Dr. Kris Brito Albumin/Globulin [Mass ratio] 1.1 {ratio} Normal Comment on above: Performed By: #### B BACK TENDER, CMP, TSH, T7 #### [facility] [address] [address] [address] Kris Brito ALP [Catalytic activity/Vol] 82 U/L Normal 46-116 Comment on above: Performed By: #### B BACK TENDER, CMP, TSH, T7 #### [facility] [address] [place] [address] Dr. Kris Brito ALT [Catalytic activity/Vol] 23 U/L Normal 14-59 Comment on above: Performed By: #### B BACK TENDER, CMP, TSH, T7 #### [facility] [address] [place] [address] Dr. Kris Brito Anion gap [Moles/Vol] 11.2 mmol/L Normal Comment on above: Performed By: #### B BACK TENDER, CMP, TSH, T7 #### [facility] [address] [place] [address] Dr. Kris Brito AST [Catalytic activity/Vol] 21 U/L Normal 15-37 Comment on above: Performed By: #### B BACK TENDER, CMP, TSH, T7 #### [facility] [address] [place] [address] Dr. Kris Brito Bilirubin [Mass/Vol] 0.7 mg/dL Normal 0.2-1.0 Comment on above: Performed By: #### B BACK TENDER, CMP, TSH, T7 #### [facility] [address] [place] [address] Dr. Kris Brito Calcium [Mass/Vol] 8.9 mg/dL Normal 8.5-10.1 [facility] Comment on above: Performed By: #### B BACK TENDER, CMP, TSH, T7 #### [facility] [address] [place] [address] Dr. Kris Brito Chloride [Moles/Vol] 109 mmol/L Critically high 98-107 Comment on above: Performed By: #### B BACK TENDER, CMP, TSH, T7 #### [facility] [address] [address] [address] Kris Brito CO2 [Moles/Vol] 26.8 mmol/L Normal 21.0-32.0 [facility] Comment on above: Performed By: #### B BACK TENDER, CMP, TSH, T7 #### [facility] [address] [address] [address] Kris Brito Creatinine [Mass/Vol] 0.60 mg/dL Normal 0.55-1.02 Comment on above: Performed By: #### B BACK TENDER, CMP, TSH, T7 #### [facility] [address] [address] [address] Kris Brito EGFR-AF BENINESE >60 Normal >=60 [facility] Comment on above: Performed By: #### B BACK TENDER, CMP, TSH, T7 #### [facility] [address] [address] [address] Kris Brito EGFR-NON AF BENINESE >60 Normal >=60 Comment on above: Performed By: #### B BACK TENDER, CMP, TSH, T7 #### [facility] [address] [address] [address] Kris Brito Globulin (S) [Mass/Vol] 3.4 g/dL Normal Comment on above: Performed By: #### B BACK TENDER, CMP, TSH, T7 #### [facility] [address] [address] [address] Kris Brito Glucose [Mass/Vol] 118 mg/dL Critically high 74-106 T [facility] Comment on above: Performed By: #### B BACK TENDER, CMP, TSH, T7 #### [facility] [address] [address] [address] Kris Brito Potassium [Moles/Vol] 4.0 mmol/L Normal 3.5-5.1 Comment on above: Performed By: #### B BACK TENDER, CMP, TSH, T7 #### [facility] [address] [address] [address] Kris Brito Protein [Mass/Vol] 7.3 g/dL Normal 6.4-8.2 [facility] Comment on above: Performed By: #### B BACK TENDER, CMP, TSH, T7 #### [facility] [address] [place] [address] Dr. Kris Brito Sodium [Moles/Vol] 143 mmol/L Normal 136-145 [facility] Comment on above: Performed By: #### B BACK TENDER, CMP, TSH, T7 #### [facility] [address] [place] [address] Dr. Kris Brito Urea nitrogen [Mass/Vol] 12.0 mg/dL Normal 7.0-18.0 Comment on above: Performed By: #### B BACK TENDER, CMP, TSH, T7 #### [facility] [address] [place] [address] Dr. Kris Brito Urea nitrogen/Creatinine [Mass ratio] 20.0 mg/mg Normal Comment on above: Performed By: #### B BACK TENDER, CMP, TSH, T7 #### [facility] [address] [place] [address] Dr. Kris Brito TSHon 06-21-2022 TSH 1.617 uIU/mL Normal 0.358-3.740 [facility] Comment on above: Performed By: #### B BACK TENDER, CMP, TSH, T7 #### [facility] [address] [place] [address] Dr. Kris Brito INSULINon 02-15-2022 Insulin 24.8 uIU/mL Normal 2.6-24.9 Comment on above: Performed By: #### I NSULIN #### [facility] [address] [place] [address] Dr. Kris Brito CBC AUTO DIFFon 02-14-2022 BASO # 0.1 103/ul Normal 0.0-0.1 Comment on above: Performed By: #### B BACK TENDER, CMP, TSH, T7 #### [facility] [address] [place] [address] Dr. Kris Brito Basophils/100 WBC (Bld) 0.9 % Normal 0.2-2.0 Comment on above: Performed By: #### B BACK TENDER, CMP, TSH, T7 #### [facility] [address] [place] [address] Dr. Kris Brito EO # 0.2 103/ul Normal 0.0-0.7 Comment on above: Performed By: #### B BACK TENDER, CMP, TSH, T7 #### [facility] [address] [place] [address] Dr. Kris Brito Eosinophils/100 WBC (Bld) 3.0 % Normal 0.9-7.0 Comment on above: Performed By: #### B BACK TENDER, CMP, TSH, T7 #### [facility] [address] [place] [address] Dr. Kris Brito Erythrocyte distribution width (RBC) [Ratio] 12.7 % Normal 11.0-15.0 Comment on above: Performed By: #### B BACK TENDER, CMP, TSH, T7 #### [facility] [address] [place] [address] Dr. Kris Brito Hematocrit (Bld) [Volume fraction] 43.1 % Normal 36.0-48.0 [facility] Comment on above: Performed By: #### B BACK TENDER, CMP, TSH, T7 #### [facility] [address] [place] [address] Dr. Kris Brito Hemoglobin (Bld) [Mass/Vol] 14.1 g/dL Normal 12.0-16.0 [facility] Comment on above: Performed By: #### B BACK TENDER, CMP, TSH, T7 #### [facility] [address] [place] [address] Dr. Kris Brito IG # 0.03 10e3/ul Normal 0.00-0.03 [facility] Comment on above: Performed By: #### B BACK TENDER, CMP, TSH, T7 #### [facility] [address] [place] [address] Dr. Kris Brito IG % 0.4 % Normal 0.0-0.5 [facility] Comment on above: Performed By: #### B BACK TENDER, CMP, TSH, T7 #### [facility] [address] [place] [address] Dr. Kris Brito LYMPH # 2.1 103/ul Normal 1.2-3.8 Comment on above: Performed By: #### B BACK TENDER, CMP, TSH, T7 #### [facility] [address] [address] [address] Kris Brito Lymphocytes/100 WBC (Bld) 30.0 % Normal 20.5-60.0 Comment on above: Performed By: #### B BACK TENDER, CMP, TSH, T7 #### [facility] [address] [place] [address] Dr. Kris Brito MANUAL DIFF REQ NO Normal [facility] Comment on above: Performed By: #### B BACK TENDER, CMP, TSH, T7 #### [facility] [address] [place] [address] Dr. Kris Brito MCH (RBC) [Entitic mass] 29.9 pg Normal 26.7-34.0 Comment on above: Performed By: #### B BACK TENDER, CMP, TSH, T7 #### [facility] [address] [place] [address] Dr. Kris Brito MCHC (RBC) [Mass/Vol] 32.7 g/dL Normal 29.9-35.2 Comment on above: Performed By: #### B BACK TENDER, CMP, TSH, T7 #### [facility] [address] [place] [address] Dr. Kris Brito MCV (RBC) [Entitic vol] 91.5 fL Normal 81.0-99.0 Comment on above: Performed By: #### B BACK TENDER, CMP, TSH, T7 #### [facility] [address] [place] [address] Dr. Kris Brito MONO # 0.7 103/ul Normal 0.3-0.8 Comment on above: Performed By: #### B BACK TENDER, CMP, TSH, T7 #### [facility] [address] [place] [address] Dr. Kris Brito Monocytes/100 WBC (Bld) 9.2 % Normal 1.7-12.0 [facility] Comment on above: Performed By: #### B BACK TENDER, CMP, TSH, T7 #### [facility] [address] [place] [address] Dr. Kris Brito NEUT # 4.0 103/ul Normal 1.4-6.5 [facility] Comment on above: Performed By: #### B BACK TENDER, CMP, TSH, T7 #### [facility] [address] [place] [address] Dr. Kris Brito Neutrophils/100 WBC (Bld) 56.5 % Normal 43.0-75.0 [facility] Comment on above: Performed By: #### B BACK TENDER, CMP, TSH, T7 #### [facility] [address] [place] [address] Dr. Kris Brito Platelet mean volume (Bld) [Entitic vol] 8.9 fL Critically low 9.5-13.5 [facility] Comment on above: Performed By: #### B BACK TENDER, CMP, TSH, T7 #### [facility] [address] [place] [address] Dr. Kris Brito PLT 292 103/ul Normal 150-450 [facility] Comment on above: Performed By: #### B BACK TENDER, CMP, TSH, T7 #### [facility] [address] [place] [address] Dr. Kris Brito RBC 4.71 106/ul Normal 4.20-5.40 [facility] Comment on above: Performed By: #### B BACK TENDER, CMP, TSH, T7 #### [facility] [address] [place] [address] Dr. Kris Brito WBC 7.0 103/ul Normal 4.0-11.0 [facility] Comment on above: Performed By: #### B BACK TENDER, CMP, TSH, T7 #### [facility] [address] [place] [address] Dr. Kris Brito FREE THYROXINE INDEX T7on FTI 2.81 Normal 1.30-4.50 [facility] Comment on above: Performed By: #### B BACK TENDER, CMP, TSH, T7 #### [facility] [address] [address] [address] Kris Brito T3U 33.0 % Normal 30.0-39.0 Comment on above: Performed By: #### B BACK TENDER, CMP, TSH, T7 #### [facility] [address] [address] [address] Kris Brito T4 [Mass/Vol] 8.50 ug/dL Normal 4.80-13.90 [facility] Comment on above: Performed By: #### B BACK TENDER, CMP, TSH, T7 #### [facility] [address] [address] [address] Kris Brito GLYCOHEMOGLOBIN A1Con 2021 ADA RECOMMENDATION SEE BELOW Normal [facility] Comment on above: Result Comment: ADA RECOMMENDED LIMIT 4.0 - 6.0 ADA THERAPEUTIC TARGET < 7.0 ACTION SUGGESTED > 7.0 Performed By: #### A 1C #### [facility] [address] [address] [address] Kris Brito Glucose [Mass/Vol] 146 mg/dL Normal [facility] Comment on above: Performed By: #### A 1C #### [facility] [address] [address] [address] Kris Brito HbA1c (Bld) [Mass fraction] 6.7 % Critically high 4.5-6.2 Comment on above: Performed By: #### A 1C #### [facility] [address] [place] [address] Dr. Kris Brito IRONon 02-14-2022 Iron [Mass/Vol] 62.0 ug/dL Normal 50.0-170.0 [facility] Comment on above: Performed By: #### B BACK TENDER, CMP, TSH, T7 #### [facility] [address] [address] [address] Kris Brito LIPID PROFILEon 02-14-2022 CHOL-HDL RATIO NORM SEE BELOW Normal [facility] Comment on above: Result Comment: 3.3 - 4.4 LOW RISK 4.4 - 7.1 AVERAGE RISK 7.1 - 11.0 MODERATE RISK >11.0 HIGH RISK Performed By: #### B BACK TENDER, CMP, TSH, T7 #### [facility] [address] [address] [address] Kris Brito Cholesterol [Mass/Vol] 143 mg/dL Normal <=200 Comment on above: Performed By: #### B BACK TENDER, CMP, TSH, T7 #### [facility] [address] [address] [address] Kris Brito Cholesterol in HDL [Mass/Vol] 60 mg/dL Normal 40-60 Comment on above: Performed By: #### B BACK TENDER, CMP, TSH, T7 #### [facility] [address] [address] [address] Kris Brito Cholesterol in LDL [Mass/Vol] 72.6 mg/dL Normal Comment on above: Performed By: #### B BACK TENDER, CMP, TSH, T7 #### [facility] [address] [address] [address] Kris Brito Cholesterol.total/Ch olesterol in HDL [Mass ratio] 2.4 {ratio} Normal Comment on above: Performed By: #### B BACK TENDER, CMP, TSH, T7 #### [facility] [address] [address] [address] Kris Brito HDL NORMAL > or = 60 mg/dl - LO W CARDIOVASCULAR RISK <40 mg/dl - HIGH CARDIOVASCULAR RISK Normal Comment on above: Performed By: #### B BACK TENDER, CMP, TSH, T7 #### [facility] [address] [address] [address] Kris Brito LDL CALC NORMAL SEE BELOW Normal [facility] Comment on above: Result Comment: <100 mg/dl OPTIMAL 100 - 129 mg/dl NEAR OR ABOVE OPTIMAL 130 - 159 mg/dl BORDERLINE HIGH 160 - 189 mg/dl HIGH >190 mg/dl VERY HIGH Performed By: #### B BACK TENDER, CMP, TSH, T7 #### [facility] [address] [address] [address] Kris Brito Triglyceride [Mass/Vol] 52 mg/dL Normal <=150 Comment on above: Performed By: #### B BACK TENDER, CMP, TSH, T7 #### [facility] [address] [address] [address] Kris Brito VLDL CALC 10.4 mg/dL Normal Comment on above: Performed By: #### B BACK TENDER, CMP, TSH, T7 #### [facility] [address] [place] [address] Dr. Kris Brito PROF 14(COMP METB)on 022 Albumin [Mass/Vol] 3.9 g/dL Normal 3.4-5.0 [facility] Comment on above: Performed By: #### B BACK TENDER, CMP, TSH, T7 #### [facility] [address] [place] [address] Dr. Kris Brito Albumin/Globulin [Mass ratio] 1.1 {ratio} Normal Comment on above: Performed By: #### B BACK TENDER, CMP, TSH, T7 #### [facility] [address] [address] [address] Kris Brito ALP [Catalytic activity/Vol] 69 U/L Normal 46-116 Comment on above: Performed By: #### B BACK TENDER, CMP, TSH, T7 #### [facility] [address] [place] [address] Dr. Kris Brito ALT [Catalytic activity/Vol] 23 U/L Normal 14-59 Comment on above: Performed By: #### B BACK TENDER, CMP, TSH, T7 #### [facility] [address] [address] [address] Kris Brito Anion gap [Moles/Vol] 10.4 mmol/L Normal Comment on above: Performed By: #### B BACK TENDER, CMP, TSH, T7 #### [facility] [address] [place] [address] Dr. Kris Brito AST [Catalytic activity/Vol] 18 U/L Normal 15-37 Comment on above: Performed By: #### B BACK TENDER, CMP, TSH, T7 #### [facility] [address] [place] [address] Dr. Kris Brito Bilirubin [Mass/Vol] 0.4 mg/dL Normal 0.2-1.0 Comment on above: Performed By: #### B BACK TENDER, CMP, TSH, T7 #### [facility] [address] [address] [address] Kris Brito Calcium [Mass/Vol] 9.0 mg/dL Normal 8.5-10.1 [facility] Comment on above: Performed By: #### B BACK TENDER, CMP, TSH, T7 #### [facility] [address] [address] [address] Kris Brito Chloride [Moles/Vol] 106 mmol/L Normal 98-107 Comment on above: Performed By: #### B BACK TENDER, CMP, TSH, T7 #### [facility] [address] [place] [address] Dr. Kris Brito CO2 [Moles/Vol] 28.6 mmol/L Normal 21.0-32.0 [facility] Comment on above: Performed By: #### B BACK TENDER, CMP, TSH, T7 #### [facility] [address] [address] [address] Kris Brito Creatinine [Mass/Vol] 0.68 mg/dL Normal 0.55-1.02 Comment on above: Performed By: #### B BACK TENDER, CMP, TSH, T7 #### [facility] [address] [place] [address] Dr. Kris Brito EGFR-AF BENINESE >60 Normal >=60 [facility] Comment on above: Performed By: #### B BACK TENDER, CMP, TSH, T7 #### [facility] [address] [place] [address] Dr. Kris Brito EGFR-NON AF BENINESE >60 Normal >=60 Comment on above: Performed By: #### B BACK TENDER, CMP, TSH, T7 #### [facility] [address] [address] [address] Kris Brito Globulin (S) [Mass/Vol] 3.7 g/dL Normal [facility] Comment on above: Performed By: #### B BACK TENDER, CMP, TSH, T7 #### [facility] [address] [place] [address] Dr. Kris Brito Glucose [Mass/Vol] 133 mg/dL Critically high 74-106 [facility] Comment on above: Performed By: #### B BACK TENDER, CMP, TSH, T7 #### [facility] [address] [place] [address] Dr. Kris Brito Potassium [Moles/Vol] 4.0 mmol/L Normal 3.5-5.1 Comment on above: Performed By: #### B BACK TENDER, CMP, TSH, T7 #### [facility] [address] [place] [address] Dr. Kris Brito Protein [Mass/Vol] 7.6 g/dL Normal 6.4-8.2 [facility] Comment on above: Performed By: #### B BACK TENDER, CMP, TSH, T7 #### [facility] [address] [place] [address] Dr. Kris Briot Sodium [Moles/Vol] 141 mmol/L Normal 136-145 [facility] Comment on above: Performed By: #### B BACK TENDER, CMP, TSH, T7 #### [facility] [address] [place] [address] Dr. Kris Brito Urea nitrogen [Mass/Vol] 15.0 mg/dL Normal 7.0-18.0 Comment on above: Performed By: #### B BACK TENDER, CMP, TSH, T7 #### [facility] [address] [place] [address] Dr. Kris Brito Urea nitrogen/Creatinine [Mass ratio] 22.1 mg/mg Normal Comment on above: Performed By: #### B BACK TENDER, CMP, TSH, T7 #### [facility] [address] [place] [address] Dr. Kris Brito TSHon 02-14-2022 TSH 2.089 uIU/mL Normal 0.358-3.740 [facility] Comment on above: Performed By: #### B BACK TENDER, CMP, TSH, T7 #### [facility] [address] [place], [place] [id number] Dr. Kris Brito XR ELBOW LT MIN [...] by: SHLOMO BEGUM Date: 2021-11-09 16:50 Normal XR LSPINE 2_3 VIEWSon 2021 XR LSPINE [...] by: CARISSA IBANEZ Date: 2021-11-09 16:49 Normal XR TIB_FIB RT 2Von 2 XR TIB_FIB [...] by: CARISSA AHREYMUNDO Date: 2021-11-09 16:41 Normal Vital Signs Date Time Vital Sign Value Performing Clinician Faci lity 01-06-2023 09:30-0400 Diastolic blood pressure 70 mm[Hg] Farheen Thompson MD Work Phone: [facility] 01-06-2023 09:30-0400 Heart rate 66 /min Farheen Thompson MD Work Phone: [facility] 01-06-2023 09:30-0400 Respiratory rate 12 /min Farheen Thompson MD Work Phone: [facility] 01-06-2023 09:30-0400 SaO2% (BldA) [Mass fraction] 96 % Farheen Thompson MD Work Phone: [facility] 01-06-2023 09:30-0400 Systolic blood pressure 130 mm[Hg] Farheen Thompson MD Work Phone: [facility] 01-06-2023 08:54-0400 Body temperature 97.59 [degF] Farheen Thompson MD Work Phone: [facility] 11-29-2022 14:58-0400 Body height 167.6 cm Genevieve Sadie REDDY.SITE DIRECTOR Work Phone: [facility] 11-29-2022 14:58-0400 Body weight 67.13 kg Genevieve Burgess ACCOUNT FINANCIAL MANAGER.SITE DIRECTOR Work Phone: [facility] 11-29-2022 14:58-0400 Diastolic blood pressure 81 mm[Hg] Genevieve Burgess ACCOUNT FINANCIAL MANAGER.SITE DIRECTOR Work Phone: [facility] 11-29-2022 14:58-0400 Heart rate 70 /min Genevieve Burgess ACCOUNT FINANCIAL MANAGER.SITE DIRECTOR Work Phone: [facility] 11-29-2022 14:58-0400 Systolic blood pressure 122 mm[Hg] Genevieve Sadie HERNANDEZSITE DIRECTOR Work Phone: [facility] 11-29-2022 12:37-0400 Body height 167.6 cm Pac 7 Work Phone: [facility] 11-29-2022 12:37-0400 Body temperature 98.01 [degF] Pac 7 Work Phone: [facility] 11-29-2022 12:37-0400 Body weight 67.5 kg Pac 7 Work Phone: [facility] 11-29-2022 12:37-0400 Diastolic blood pressure 81 mm[Hg] Pac 7 Work Phone: [facility] 11-29-2022 12:37-0400 Heart rate 70 /min Pac 7 Work Phone: [facility] 11-29-2022 12:37-0400 SaO2% (BldA) [Mass fraction] 98 % Pac 7 Work Phone: [facility] 11-29-2022 12:37-0400 Systolic blood pressure 122 mm[Hg] Pac 7 Work Phone: [facility] Encounters Encounter Date Encounter Type Care Provider Facility Start: 03-01-2024 End: 03-01-2024 ambulatory ALEXANDRIA MARIN Facility:[facility] Start: 03-01-2024 End: 03-01-2024 Patient encounter procedure Alexandria SilvaBeatriz MA Work Phone: Urology Comment on above: Nephrolithiasis (Janine peewee Dx); Urine volume deficient; Hypercalcinuria; Hyperuricosuria; Hypernatriuria Start: 03-01-2024 End: 03-01-2024 Telemedicine consultation with patient Alexandria Cruzohue MAGNOLIA-Eri Work Phone: Urology Start: 02-23-2024 End: 02-23-2024 Subsequent hospital visit by physician [facility] [place] [place] [facility] Comment on above: Nephrolithiasis [N20 .0] Start: 02-23-2024 End: 02-23-2024 ambulatory Kylie Frregina RT(R) Radiology Comment on above: Radiology US Start: 02-23-2024 End: 02-23-2024 Patient encounter procedure Kylie Nagy RT(R) Radiology Start: 12-22-2023 End: 12-22-2023 Refill Alexandria O'Beatriz PA-C Work Phone: Urology Comment on above: Refill Request Start: 10-10-2023 End: 10-10-2023 ambulatory SAL M KIKAGemma Facility:[facility] Start: 09-10-2023 Telephone encounter Alexandria O'Do nohue [...] 08-19-2023 [facility] Comment on above: Nephrolithiasis [N20 .0] [...] consultation with patient Alexandria MERIDA-Eri Work Phone: [facility] Start: 02-18-2023 Telephone encounter Nichole Morgan RN U rology Comment on above: Results Start: 02-14-2023 ambulatory Nedra Queen RDMS Radi emeryy Comment on above: Radiology Start: 02-14-2023 Patient encounter procedure Nedra valenzuela RDMS [facility] Start: 02-14-2023 End: 02-14-2023 Subsequent hospital visit by physician [facility] [place] [place] [facility] Comment on above: Nephrolithiasis [N20 .0] Start: 01-07-2023 Telephone encounter Nichole Morgan RN U rology Comment on above: Returning Patient's Call Start: 01-06-2023 ambulatory FARHEEN THOMPSON Facility:[facility] Start: 01-06-2023 End: 01-06-2023 Subsequent hospital visit by physician Farheen Thompson MD Work Phone: [facility] Comment on above: Nephrolithiasis [N20 .0] Start: 12-23-2022 Telephone encounter Nichole Morgan RN U rology Comment on above: Results Start: 12-17-2022 Telephone encounter Nichole Morgan RN U rology Comment on above: Returning Patient's Call Start: 12-13-2022 Telephone encounter Farheen landeros MD Work Phone: Urology Comment on above: Scheduling Start: 12-12-2022 Telephone encounter Ela Rojas Urology Comment on above: Machine I Engraver - O ther Start: 11-29-2022 End: 11-29-2022 Patient encounter procedure Genevieve Noel APRN.CNP Work Phone: Urology Comment on above: Pre-op chest exam (P rimary Dx) Start: 11-29-2022 End: 11-29-2022 Patient encounter status Genevieve Noel APRNJakobSITE DIRECTOR Work Phone: [facility] Work Phone: Start: 11-29-2022 End: 11-29-2022 ambulatory Pacc Main 7 Work Phone: Pre Anesthesia Comment on above: Preop examination (P rimary Dx); Nephrolithiasis; Controlled type 2 diabetes mellitus without complication, without long-term current use of insulin (HCC); Hypercholesteremia Start: 11-29-2022 End: 11-29-2022 Admission to [facility] Pac Main 7 Work Phone: [facility] Start: 11-29-2022 End: 11-29-2022 Preprocedural examination done Pac Main 7 Work Phone: [facility] Work Phone: Start: 11-25-2022 Telephone encounter Nichole Morgan RN U rology Comment on above: Machine I Engraver - O ther Start: 11-18-2022 End: 11-18-2022 Patient encounter procedure Farheen Thompson MD Work Phone: Urology Comment on above: Staghorn calculus (P rimary Dx); Screening for genitourinary condition Start: 11-18-2022 End: 11-19-2022 ambulatory Nichole Morgan RN Urology Start: 11-18-2022 Telephone encounter Farheen landeros MD Work Phone: Urology Comment on above: Machine I Engraver - O ther Start: 11-15-2022 ambulatory Steve Martinii ty:ISAK Ace Start: 11-07-2022 End: 11-08-2022 ambulatory Steve HAQUE Facility:CD:[id number] Start: 11-06-2022 End: 11-07-2022 ambulatory Steve HAQUE Facility:[facility] Start: 11-05-2022 ambulatory Steve HAQUE Facility :[facility] Start: 06-21-2022 End: 06-22-[address] SAL JACKSON . Facility:[facility] Start: 04-01-[address] SAL JACKSON . Facili ty:[facility] Start: 02-18-2022 Encounter for genera l adult medical examination without abnormal findings DR SAL JACKSON . [facility] Start: 02-14-2022 End: 02-15-[address] [...] DTaP,Tdap,Td Vaccine (3 - Td or Tdap) [facility] Start: 11-18-2025 DIABETES SCREEN DIABETES SCREEN [facility] Start: 03-01-2024 End: 03-01-2024 Follow-up encounter 03/01/2024 5:00 PM EST [facility] [address] [place] [address] Alexandria Marin PA-C [address] [place] [address] Six month follow up with prior US (done locally) and [facility] Urology Comment on above: Six month follow up with prior US (done locally) and LL Start: 02-23-2024 End: 02-23-2024 Patient encounter procedure 02/23/2024 3:15 PM EST Appointment Radiology [address] [place], [place] [id number] Nephrolithiasis [N20.0] Radiology Comment on above: Nephrolithiasis [N20 .0] Start: 11-30-2023 Covid-19 Vaccine () Covid-19 Vaccine () [facility] Start: 11-30-2023 Influenza vaccination [facility] Start: 09-03-2023 End: 12-03-2023 25-hydroxyvitamin D3 [Mass/volume] in Serum or Plasma VITAMIN D 25 HYDROXY Lab Routine Nephrolithiasis Urine volume deficient Hypercalcinuria Hyperoxaluria Hyperuricosuria Hypernatriuria Renal cyst Expected: 09/03/2023 (Approximate), Expires: 12/03/2023 [facility] Work Phone: Comment on above: Expected: 09/03/2023 (Approximate), Expires: 12/03/2023 Start: 09-03-2023 End: 12-03-2023 Calcium.ionized [Moles/volume] in Blood CALCIUM, IONIZED Lab Routine Nephrolithiasis Urine volume deficient Hypercalcinuria Hyperoxaluria Hyperuricosuria Hypernatriuria Renal cyst Expected: 09/03/2023 (Approximate), Expires: 12/03/2023 [facility] Comment on above: Expected: 09/03/2023 (Approximate), Expires: 12/03/2023 Start: 09-03-2023 End: 12-03-2023 Parathyrin.intact [Mass/volume] in Serum or Plasma PTH INTACT Lab Routine Nephrolithiasis Urine volume deficient Hypercalcinuria Hyperoxaluria Hyperuricosuria Hypernatriuria Renal cyst Expected: 09/03/2023 (Approximate), Expires: 12/03/2023 [facility] Comment on above: Expected: 09/03/2023 (Approximate), Expires: 12/03/2023 Start: 08-26-2023 End: 08-26-2023 Follow-up encounter 08/26/2023 5:00 PM EDT [facility] Urology [address] [place] [address] Alexandria Marin PA-C [address] [place] [address] Six month follow up Urology Comment on above: Six month follow up Start: 03-31-2023 Behavioral Health Screening Behavioral Health Screening [facility] Start: 03-31-2023 Depression Assessment Depression Ass essment [facility] Start: 02-06-2023 End: 02-05-2024 US KIDNEY/BLADDER US KIDNEY/BLADDER Radiology Routine Nephrolithiasis Expected: 02/06/2023, Expires: 02/05/2024 [facility] Work Phone: Comment on above: Expected: 02/06/2023 , Expires: 02/05/2024 Start: 11-29-2022 End: 01-29-2023 CONFIRM BLOOD TYPE CONFIRM BLOOD TYPE Blood Bank Routine Preop examination Expected: 11/29/2022, Expires: 01/29/2023 [facility] Work Phone: Comment on above: Expected: 11/29/2022 , Expires: 01/29/2023 Start: 11-29-2022 Covid-19 Vaccine () Covid-19 Vaccine () [facility] Start: 11-29-2022 Influenza vaccination [facility] Start: 11-27-2022 End: 01-27-2023 aPTT in Platelet poor plasma by Coagulation assay ACTIVATED PTT Lab Routine Nephrolithiasis Expected: 11/27/2022, Expires: 01/27/2023 [facility] Work Phone: Comment on above: Expected: 11/27/2022 , Expires: 01/27/2023 Start: 11-27-2022 End: 01-27-2023 Bacteria identified in Urine by Culture URINE CULTURE Microbiology Routine Nephrolithiasis Expected: 11/27/2022, Expires: 01/27/2023 [facility] Work Phone: Comment on above: Expected: 11/27/2022 , Expires: 01/27/2023 Start: 11-27-2022 End: 01-27-2023 CBC W Auto Differential panel - Blood CBC + DIFF Lab Routine Nephrolithiasis Expected: 11/27/2022, Expires: 01/27/2023 [facility] Work Phone: Comment on above: Expected: 11/27/2022 , Expires: 01/27/2023 Start: 11-27-2022 End: 01-27-2023 Comprehensive metabolic 2000 panel - Serum or Plasma COMP METABOLIC PANEL Lab Routine Nephrolithiasis Expected: 11/27/2022, Expires: 01/27/2023 [facility] Work Phone: Comment on above: Expected: 11/27/2022 , Expires: 01/27/2023 Start: 11-27-2022 End: 01-27-2023 PT panel - Platelet poor plasma by Coagulation assay PROTHROMBIN TIME/PT Lab Routine Nephrolithiasis Expected: 11/27/2022, Expires: 01/27/2023 [facility] Work Phone: Comment on above: Expected: 11/27/2022 , Expires: 01/27/2023 Start: 11-27-2022 End: 01-27-2023 TYPE AND SCREEN,30 DAY TYPE AND SCREEN,30 DAY Blood Bank Routine Nephrolithiasis Expected: 11/27/2022, Expires: 01/27/2023 [facility] Work Phone: Comment on above: Expected: 11/27/2022 , Expires: 01/27/2023 Start: 11-27-2022 End: 01-27-2023 Urinalysis complete panel - Urine URINALYSIS, WITH MICROSCOPIC Lab Routine Nephrolithiasis Expected: 11/27/2022, Expires: 01/27/2023 [facility] Work Phone: Comment on above: Expected: 11/27/2022 , Expires: 01/27/2023 Start: 03-31-2022 DEPRESSION ASSESSMENT DEPRESSION ASS ESSMENT [facility] Start: 05-22-2021 COVID-19 VACCINE (4 - Pfizer series) COVID-19 VACCINE (4 - Pfizer series) [facility] Start: 2021 Hepatitis B Vaccine (1 of 3 - Risk 3-dose series) Hepatitis B Vaccine (1 of 3 - Risk 3-dose series) [facility] Start: 2021 RSV Vaccine (1 - 1-d ose 60+ series) RSV Vaccine (1 - 1-dose 60+ series) [facility] Start: 2021 RSV Vaccine (1 - Ris k 60-74 years 1-dose series) RSV Vaccine (1 - Risk 60-74 years 1-dose series) [facility] Start: 2011 SHINGRIX VACCINE (1 of 2) HILL GRIX VACCINE (1 of 2) [facility] Start: 2006 COLOGUARD (FIT-DNA) COLOGUARD (FIT-D NA) [facility] Start: 2006 Colonoscopy COLONOSCOPY [facility] Start: 2006 COLORECTAL CANCER SCREENING COLORECTAL CANCER SCREENING [facility] Start: [address] COLONOGRAPHY [facility] Start: 2006 FECAL OCCULT BLOOD FECAL OCCULT BLOO D [facility] Start: 2006 LIPID SCREEN LIPID SCREEN [facility] Start: 2006 Screening for malign ant neoplasm of colon [facility] Start: 2006 SIGMOIDOSCOPY SIGMOIDOSCOPY [facility] Start: 2001 Mammography [facility] Start: 2001 Screening for malign ant neoplasm of breast Mammogram Screening [facility] Start: 1991 HPV TESTING HPV TESTING [facility] Start: 1991 Screening for malign ant neoplasm of cervix HPV Testing [facility] Start: 1982 PAP TESTING PAP TESTING [facility] Start: 1982 Screening for malign ant neoplasm of cervix [facility] Start: 1980 Urine microalbumin profile [facility] Start: 1979 ANNUAL PCP TEAM CAUSTIC PREPARER DOROTEO DISEASE VISIT ANNUAL PCP TEAM CHRONIC DISEASE VISIT [facility] Start: 1979 Anxiety Screening Anxiety Screening [facility] Start: 1979 Depression Screening Depression Scre ening [facility] Start: 1979 Hepatitis B surface antibody level LDL CHOLESTEROL [facility] Start: 1979 HEPATITIS C SCREENING HEPATITIS C [facility] Start: 1979 Hepatitis C screening Hepatitis C [facility] Start: 1979 HIV SCREENING HIV SCREENING [facility] Start: 1979 HIV screening HIV Screening [facility] Start: 1971 3 comp foot exam completed DIABETIC FOOT EXAM [facility] Start: 1971 Diabetic foot examination Diabetic F oot Exam [facility] Start: 1971 Glaucoma screening Dilated Retinal E xam [facility] Start: 1971 Hepatitis B screening URINE AL BUMIN:CREATININE RATIO [facility] Start: 1971 Hepatitis C antibody , confirmatory test DILATED RETINAL EXAM [facility] Start: 1967 PNEUMOCOCCAL (1 - PCV) PNEUMOCOCCAL (1 - PCV) [facility] Start: 1967 Pneumococcal vaccination [facility] Start: 1966 Hemoglobin A1c measurement HbA1C [facility] Start: 1966 Hemoglobin A1c/Hemoglobin.total in Blood HBA1C [facility] CALCULI ANALYSIS [facility] Work Phone: Comment on above: Release Upon Orderin g for 1 Occurrences starting 01/06/2023 UA DIP, URINE (POC) UA DIP, URIN E (POC) Lab Routine Screening for genitourinary condition Ordered: 11/18/2022 [facility] Work Phone: Comment on above: Ordered: 11/18/2022 URINALYSIS, REFLEX MICROSCOPIC URINALYSIS, REFLEX MICROSCOPIC Lab Routine Screening for genitourinary condition Ordered: 11/29/2022 [facility] Work Phone: Comment on above: Ordered: 11/29/2022 US Kidney - bilatera l and Urinary bladder US KIDNEY/BLADDER Radiology Routine Nephrolithiasis 08/19/2023 3:40 PM EDT [facility] Work Phone: End: 09-25-2024 US Kidney - bilateral and Urinary bladder US KIDNEY/BLADDER Radiology Routine Nephrolithiasis Urine volume deficient Hypercalcinuria Hyperoxaluria Hyperuricosuria Hypernatriuria Renal cyst 1 Occurrences starting 08/27/2023 until 09/25/2024 [facility] Comment on above: 1 Occurrences starti ng 08/27/2023 until 09/25/2024 End: 04-02-2025 US Kidney - bilateral and Urinary bladder US KIDNEY/BLADDER Radiology Routine Nephrolithiasis 1 Occurrences starting 03/02/2024 until 04/02/2025 [facility] Work Phone: Comment on above: 1 Occurrences starti ng 03/02/2024 until 04/02/2025 US KIDNEY/BLADDER US KIDNEY/BLAD MATEO Radiology Routine Nephrolithiasis 02/14/2023 11:02 AM EST [facility] Work Phone: End: 03-27-2024 US KIDNEY/BLADDER US KIDNEY/BLADDER Radiology Routine Nephrolithiasis 1 Occurrences starting 02/25/2023 until 03/27/2024 [facility] Work Phone: Comment on above: 1 Occurrences starti ng 02/25/2023 until 03/27/2024 End: 04-01-2025 XR Abdomen GE 3 Views AP and Oblique and Cone XR ABDOMEN 3V KUB W/OBLIQUES Radiology Routine Nephrolithiasis 1 Occurrences starting 03/02/2024 until 04/01/2025 [facility] Comment on above: 1 Occurrences starti ng 03/02/2024 until 04/01/2025 [facility] AV [facility] Immunizations Immunization Date Immunization Notes Care Provider Fa [facility] 02-07-2021 influenza virus vacc ine, unspecified formulation Ela Rob RN [facility] Payers Date Payer Category Payer Unknown [employer] [id number] 2018-Present [phone] [address] [place] [address] PPO [id number] 1961 Unknown [id number] 1961 Unknown [id number] 1961 Unknown [id number] 1961 Unknown [id number] 1961 Unknown [id number] 1961 Unknown [id number] 1961 Unknown [id number] 1961 Unknown [id number] 1961 Unknown [id number] 1959 Self-pay 1959 Unknown [id number] Social History Date Type Detail Facility Start: 11-18-2022 [facility] End: 03-31-1997 History of tobacco use Current smoker [facility] End: 03-31-1997 History of tobacco use Cigarette Smoker [facility] Start: 11-18-2022 End: 11-29-2022 Cigarettes smoked current (pack per day) - Reported 1 [facility] Start: 11-18-2022 Tobacco use and exposure Smoke less tobacco non-user [facility] Start: 11-18-2022 End: 11-29-2022 Alcohol intake Current drinker of alcohol (finding) [facility] Start: 11-18-2022 End: 11-29-2022 Tobacco use panel [facility] Start: 11-18-2022 Alcohol Comment social drinker on weekends [facility] Start: 1960 Sex Assigned At Not on file [facility] National Score (1-10 0), lower number is lower risk 86 [facility] Start: 1960 Sex assigned at Female [facility] Start: 10-05-2023 Gender identity Identifies as female gender (finding) [facility] Start: 10-05-2023 Sexual orientation Heterosexual (cathie robles) [facility] Medical Equipment Procedure Code Equipment Code Equipment Origin al Text Equipment Identifier Dates Stent Bard Inlay 6fr 2 Pigtail Curve Blue Hydrophilic 26cm Ureteral - [id number] Start: 12-11-2022 Stent Bard Inlay 6fr 2 Pigtail Curve Blue Hydrophilic 26cm Ureteral - [id number] Start: 01-06-2023 Clinical Notes 11-20-2021 to 03-02-2024 Addendum Note - Alexandria Marin PA-C - 03/02/2024 6:05 PM ESTAddendum Note - Alexandria Marin PA-C - 03/02/2024 6:05 PM ESTAlexandria Marin PA-C - 03/01/2024 5:00 PM ESTPatient Instructions Note Date & Type Note Facility 03-02-2024 Note Addended by: ALEXANDRIA MCCARTY on: 03/02/2024 06:05 PM Modules accepted: Orders [facility] 03-02-2024 Miscellaneous Notes Addended by: ALEXANDRIA MARIN on: 03/02/2024 06:05 PM Modules accepted: Orders documented in this encounter [facility] 03-01-2024 History of Presen t illness Narrative This visit was conducted as a virtual visit. I have communicated my name and active licensure. The patient's identity and physical location were verified at the time of this visit. Either the patient or their legal route sales representative has been informed of the [...] All fluids count but water is best. Edmunds intake - Recommend increasing dietary citrate intake. [...] Alexandria Marin PA-C documented in this encounter [facility] 03-01-2024 Note HNO ID: [id number] Author: ALEXANDRIA MARIN PA-C Service: ? Author Type: Physician Maintenance Worker House Trailer Type: Progress Notes Filed: 03/02/2024 18:05 Note Text: This visit was conducted as a virtual visit. I have communicated my name and active licensure. The patient's identity and physical location were verified at the time of this visit. Either the patient or their legal route sales representative has been informed of the [...] Final PROTEIN CATABO (more content not included)... [facility] 02-23-2024 Note HNO ID: [id number] Author: KYLIE NAGY RT(R) Service: ? Author [...] PATIENT PRESENTS WITH AN IMPLANTABLE OR ATTACHED DIPLOMATIC INTERPRETER/TRANSLATOR: No RADIOLOGY DEPARTMENT: Ultrasound PERIPHERAL IV DATA: Not applicable SIGNED BY: Kylie Nagy RDMS, BERNARD February 23, 2024 3:31 PM [facility] 02-23-2024 History of Presen t illness Narrative [...] PATIENT PRESENTS WITH AN IMPLANTABLE OR ATTACHED DIPLOMATIC INTERPRETER/TRANSLATOR: No RADIOLOGY DEPARTMENT: Ultrasound PERIPHERAL IV DATA: Not applicable SIGNED BY: Kylie Nagy RDMS, RVT February 23, 2024 3:31 PM documented in this encounter [facility] 12-22-2023 Telephone encounter Note Requested Prescriptions Pending Prescriptions Disp Refills potassium citrate ER (UROCIT-K) 10 mEq (1,080 mg) 120 tablet 5 Sig: Take 2 tablets by mouth two times a day. [facility] 12-22-2023 Miscellaneous Notes Requested Prescriptions Pending Prescriptions Disp Refills potassium citrate ER (UROCIT-K) 10 mEq (1,080 mg) 120 tablet 5 Sig: Take 2 tablets by mouth two times a day. documented in this encounter [facility] 09-12-2023 Telephone encounter Note We got another fax, this one was a calcium blood test report. [facility] 09-12-2023 Miscellaneous Notes We got another fax, this one was a calcium blood test report. We got another lab report for Krystina in today. It is scanned in. Today we got a faxed Lab report for Krystina. documented in this encounter [facility] 09-11-2023 Telephone encounter Note We got another lab report for Krystina in today. It is scanned in. [facility] 09-10-2023 Telephone encounter Note Today we got a faxed Lab report for Krystina. [facility] 08-28-2023 Telephone encounter Note I spoke with Krystina, I got her follow up VV scheduled and I set up her Us prior. I sent out for a litholink and I mailed her the blood work orders. [facility] 08-28-2023 Miscellaneous Notes I spoke with Krystina, I got her follow up VV scheduled and I set up her Us prior. I sent out for a litholink and I mailed her the blood work orders. documented in this encounter [facility] 08-26-2023 History of Presen t illness Narrative This visit was conducted as a virtual visit. I have communicated my name and active licensure. The patient's identity and physical location were verified at the time of this visit. Either the patient or their legal route sales representative has been informed of the [...] All fluids count but water is best. Edmunds intake - Recommend increasing dietary citrate intake. [...] Alexandria Marin PA-C documented in this encounter [facility] 08-26-2023 Note HNO ID: [id number] Author: ALEXANDRIA MARIN PA-C Service: ? Author Type: Physician Maintenance Worker House Trailer Type: Progress Notes Filed: 08/27/2023 12:36 Note Text: This visit was conducted as a virtual visit. I have communicated my name and active licensure. The patient's identity and physical location were verified at the time of this visit. Either the patient or their legal route sales representative has been informed of the [...] Final CREATININE/KG BOD (more content not included)... [facility] 08-19-2023 Note HNO ID: [id number] Author: KYLIE NAGY RT(Jayla) Service: ? Author [...] PATIENT PRESENTS WITH AN IMPLANTABLE OR ATTACHED DIPLOMATIC INTERPRETER/TRANSLATOR: No RADIOLOGY DEPARTMENT: Ultrasound PERIPHERAL IV DATA: Not applicable SIGNED BY: Kylie Nagy RDMS, RVT August 19, 2023 3:40 PM [facility] 08-19-2023 History of Presen t illness Narrative [...] PATIENT PRESENTS WITH AN IMPLANTABLE OR ATTACHED DIPLOMATIC INTERPRETER/TRANSLATOR: No RADIOLOGY DEPARTMENT: Ultrasound PERIPHERAL IV DATA: Not applicable SIGNED BY: Kylie Nagy RDMS, RVT August 19, 2023 3:40 PM documented in this encounter [facility] 06-30-2023 Miscellaneous Notes Refill request for the following med Last ov 02/25/2023 with Alexandria Follow up 08/26/2023 Requested Prescriptions Pending Prescriptions Disp Refills potassium citrate ER (UROCIT-K) 10 mEq (1,080 mg) [Pharmacy Med Name: POTASSIUM CITRATE ER 10 MEQ TB] 120 tablet 5 Sig: take 2 tablets by mouth twice a day documented in this encounter [facility] 03-01-2023 Note HNO ID: [id number] Author: Note, Interface Service: ? Author Type: ? Type: Progress Notes Filed: 03/01/2023 5:55 AM Note Text: Epic Scheduled Downtime: 03/01/2023 1:00:00 AM to 03/01/2023 5:38:00 AM [facility] 02-26-2023 Miscellaneous Notes I called Krystina and I got her scheduled for a follow up in six months and an US beforehand. documented in this encounter [facility] 02-25-2023 Note HNO ID: [id number] Author: Alexandria Marin PA-C Service: ? Author Type: Physician Maintenance Worker House Trailer Type: Progress Notes Filed: 02/26/2023 12:26 PM Note Text: This visit was conducted as a virtual visit. I have communicated my name and active licensure. The patient's identity and physical location were verified at the time of this visit. Either the patient or their legal route sales representative has been informed of the [...] 93 74 - 99 mg/dL Final Comment: Location:[facility], [address] [place] [address], [facility] The Accu-Chek Inform II glucose meter [...] developed and its performance characteristics determined by [facility] [place] ([facility]). It has not been cleared or approved by the FDA. [facility] is regulated under CLIA as qualified to [...] nonobstructive calculus a (more content not included)... [facility] 02-25-2023 History of Presen t illness Narrative This visit was conducted as a virtual visit. I have communicated my name and active licensure. The patient's identity and physical location were verified at the time of this visit. Either the patient or their legal route sales representative has been informed of the [...] 93 74 - 99 mg/dL Final Comment: Location:[facility], [address] [place] [address], [address] The Accu-Chek Inform II glucose meter has [...] developed and its performance characteristics determined by [facility] [place] ([facility]). It has not been cleared or approved by the FDA. [facility] is regulated under CLIA as qualified to [...] All fluids count but water is best. Edmunds intake - Recommend increasing dietary citrate intake. [...] Alexandria Marin PA-C documented in this encounter [facility] 02-18-2023 Miscellaneous Notes Called patient to discuss external urine culture results that were received as no recent order was submitted for patient to complete. No answer, LVM with phone number to return call. Nichole Morgan RN February 18, 2023 12:55 PM documented in this encounter [facility] 02-14-2023 History of Presen t illness Narrative [...] 2023 10:20 AM documented in this encounter [facility] 01-11-2023 Note HNO ID: [id number] Author: Note, Interface Service: ? Author Type: ? Type: Progress Notes Filed: 01/11/2023 3:48 AM Note Text: Epic Scheduled Downtime: 01/11/2023 1:00:00 AM to 01/11/2023 1:28:00 AM [facility] 01-07-2023 Miscellaneous Notes Called and spoke [...] discuss. Thank you! documented in this encounter [facility] 01-06-2023 Note HNO ID: [id number] Author: Reshma Dominguez APRN.ASSISTANT CHIEF NURSING OFFICER Service: ? Author Type: Nurse Muffler Hand Type: Anesthesia Procedure Notes Filed: 01/06/2023 7:57 AM Note Text: ANESTHESIOLOGY PROCEDURE NOTE Airway General Information Procedure Start Time/Medication Administration: 01/06/2023 7:46 AM Patient location during procedure: OR Staffing Anesthesiologist: Farzana Lopez MD ASSISTANT CHIEF NURSING OFFICER: Reshma Dominguez APRN.ASSISTANT CHIEF NURSING OFFICER Performed by: anesthesiologist Indications and Patient Condition [...] size 4 seated well SIGNATURE: Reshma Dominguez APRN.ASSISTANT CHIEF NURSING OFFICER PATIENT NAME: Krystina Saldivar DATE: January 06, 2023 TIME: 7:56 AM CSN: [id number] [facility] 01-06-2023 Surgical operatio n note OPERATIVE/PROCEDURE REPORT LOG ID: [id number] NAME: Krystina Saldivar : 1960 Surgery/Procedure Date: 01/06/2023 Incision/Procedure Start Time: 7:56 AM Incision Close/Procedure End Time: 8:43 AM Surgeon(s)/Proceduralist(s) and Maintenance Worker House Trailer(s): Surgeon(s) and Role: * Farheen Thompson MD [...] 01/06/2023 8:13 AM Anesthesia: General Findings: Stone Corry: Primary stone 6 mm lower pole; All other mm stones in the lower pole Irrigation: [place] bag; max pressure gravity Fluoroscopy: Time: 14.6 [...] and draped in the standard sterile fashion. Derrick Barge Operator fluoroscopy was performed and the calculus identified [...] 06, 2023 TIME: 8:45 AM PAGER/CONTACT #: [phone] documented in this encounter [facility] 01-06-2023 History and physical note Preoperative H&P [...] 7:15 AM PAGER: documented in this encounter [facility] 01-06-2023 Hospital Discharg e instructions Kade Posey MD - 01/06/2023 7:25 AM EDT Images from the original note were not included. The [place] [id number] or (343) CC-CARE DISCHARGE INSTRUCTIONS C O N F [...] WARNING SIGNS Please call your doctor's office ([phone]) and ask to speak to your doctor's nurse commonwealth attorney if you experience: -Signs of infection (fever [...] questions, please feel free to call [facility] ([phone]) and ask to speak with your doctor's nurse commonwealth attorney PENDING TEST RESULTS: Stone analysis FOLLOW-UP INFORMATION Please follow-up as recommended by your provider. The office phone numbers for Dr. Thompson are as follows: [facility]: [phone] [facility] [phone] If you would like an appointment at the [facility], please call the [facility] appointment line ([phone]) to request an appointment Frequently Asked Questions Pathology and Follow-Up: Q: When will I get my results? A: This is one the most important questions to answer after any surgery. This will take about 5-7 days and will be released on [email or web address] Q: When am I seeing my surgeon again? A: We do our very best to schedule post-operative visits before discharge. The best way to confirm your appointment details is with the urology office during regular business hours. These appointments can also be found on Encore[employer]fm. Important Phone Numbers to make appointments: Urology Office and Appointment Line: [phone] [facility] (Not Urology) Appointment Line: [phone] [facility] Radiology: [phone] [facility] Interventional Radiology: [phone] Outpatient Lab: [phone] or [phone] Q: What is Encore[employer]fm? A: Encore[employer]fm is an online tool. It allows you to manage your healthcare. You can communicate with caregivers too. Visit [email or web address]/ to register. You need an [...] in-office procedure, you do NOT need a p d driver to take you home. Also, there [...] number for general questions (NOT for emergencies): [phone] FOLLOW THESE INSTRUCTIONS REGARDING ANESTHESIA: 1. Do [...] Kade Lake MD documented in this encounter [facility] 12-23-2022 Miscellaneous Notes Called and spoke with [...] her pre-op labs and culture today at [place], will wait for those results to be sent over. Patient currently not scheduled for PACC or midlevel H&P. Requested for schedulers to schedule patient for either Virtual PACC appointment since she just completed one on 11/29 or mid level H&P morning of surgery. Patient voiced understanding. Nichole Morgan RN December 23, 2022 12:54 PM documented in this encounter [facility] 12-17-2022 Miscellaneous Notes Called and spoke with [...] back? Thank you. documented in this encounter [facility] 12-13-2022 Miscellaneous Notes Patient scheduled for surgery on 01/06 at [facility] for CYSTOURETHROSCOPY W/ URETEROSCOPY AND/OR PYELOSCOPY W/ [...] to local hospital documented in this encounter [facility] 12-12-2022 Miscellaneous Notes Returned patient's call and discussed scheduling her URS with Dr. Thompson. Patient agreed to first available January 06. She will do blood work and urine locally 2 weeks prior. Will fax orders to [facility]. Fax #: [phone] Patient is faxing short term disability paperwork to our office to fill out. Discussed return date for work to be January 13 to give time for recovery after PCNL and URS. Ela Rob RN Images from the original note were not included. [facility] Samantha RN (Call me) Pt missed your call below. She can be reached at the above number when you have a chance. Thanks Called patient to discuss scheduling surgery with Dr. Thompson. No answer, VM left. Ela Rob RN documented in this encounter [facility] 11-29-2022 Instructions Genevieve Noel APRN.ALIE - 11/29/2022 [...] surgery, you can contact Urology Surgery at [phone]. We would like to reminded you that surgery time provided is tentative based on potential changes with transplant surgeries. Please check in at desk J1-9 in the [facility] ([facility], [address] [place] [address]) Medications: Unless instructed differently below, stay on [...] day of surgery. documented in this encounter [facility] 11-29-2022 History of Presen t illness Narrative [facility] PRE-OP NOTE Krystina [...] prepared for surgery pending LABS. Genevieve Noel APRN.SITE DIRECTOR documented in this encounter [facility] 11-29-2022 Instructions Jonel Montano DO - 11/29/2022 1:08 PM EDT PATIENT PREOPERATIVE INSTRUCTIONS Farheen Thompson MD has scheduled you for your procedure at this surgery center: [facility] Scheduling Office: [phone] --[address] [place] [address]. Please read below carefully for your personalized [...] Procedures: - YOU MUST HAVE A RESPONSIBLE ELECTROPLATING TECHNICIAN TAKE YOU HOME. A NURSE LIAISON OR CANINE DEPUTY CANNOT BE MADE A RESPONSIBLE ELECTROPLATING TECHNICIAN. - We recommend that a responsible person [...] call the Friday before. Your surgeon s home health scheduler will tell you what time to call the office. - If you have not reached the departmental home health scheduler by 5 P.M., call [phone] after 5 P.M. the day before your surgery. Please be aware that emergency situations arise, which may delay or change your surgical time. If this happens, we will notify you as soon as possible and regret any inconvenience. If you already have an Advance Directive, please fax a copy to [phone] or email to for it to be [...] Jonel Montano DO documented in this encounter [facility] 11-29-2022 History and physical note HISTORY AND [...] fevers. Neuro: No history of TIA's, stroke, SCRAP BALER tumor, impaired sensorium, hemiplegia, paraplegia or quadraplegia. No neurological symptoms or problems. Respiratory: No history of current cough or dyspnea, or pneumonia in the past 6 weeks. No history of respiratory/pulmonary symptoms or problems. Cardiovascular: No history of HTN requiring medication, no history of angina, CHF, PR, cardiac surgery or stents. Denies rest pain, gangrene or revascularization/amputation for PVD. No history of cardiovascular symptoms or problems. GI: No history of GI symptoms or problems. No history of esophageal varices, recent ascites, or ETOH greater than 2 drinks per day. : nephrolithiasis, denies dysuria, gross hematuria, or incontinence. OIL SEPARATOR: Negative for abnormal vaginal bleeding, abnormal vaginal [...] TIME: 12:36 PM documented in this encounter [facility] 11-25-2022 Miscellaneous Notes Called and spoke with patient to inquire about moving surgery to 12/25. Patient states that she would rather not move her surgery date as she does not want to be out of work for too long. Will update Dr. Thompson and keep surgery scheduled as is. Nichole Morgan RN November 25, 2022 11:41 AM documented in this encounter [facility] 11-18-2022 Instructions Farheen Thompson MD - 11/18/2022 [...] video with more information on ureteral stents: [email or web address] Video on PCNL: [email or web address] If you have any additional questions regarding this procedure, please reach out to our team. 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 [...] per night). She has been seen at [facility] most recently in the ER on November [...] was performed with placement of a 6 Mongolian variable length ureteral stent without difficulty. Left [...] Abdomen is Non-distended, soft, nontender. Musculoskeletal: Good senior it security analyst strength. Neurologic: Normal gait. Sensation grossly intact. [...] tolerable. - dietary sodium restriction: Less than 3939-3691 mg per day. - increase dietary citrate intake: lemon/[place], melon and tomato has potassium citrate - [...] MD Associate Staff documented in this encounter [facility] 11-18-2022 Miscellaneous Notes Received via fax OSH medical records. Patient is scheduled to see Dr. Thompson on 11/18/2022 at 4pm. Records given to Dr. Thompson for further review. Will send to scanning after review by provider. Senait Durán RN documented in this encounter [facility] 11-20-2021 Note PROCEDURE: XR TIB_FI B RT 2V COMPARISON: 11/09/21 HISTORY: Pain of right lower leg FINDINGS: BONES:No fracture, acute abnormality, or significant arthropathy. SOFT TISSUES:Negative. No visible soft tissue swelling. EFFUSION:None visible. OTHER: Negative. IMPRESSION: No acute abnormality Electronically authenticated by: FARZANA BRAND Date: 2021-11-20 11:25 [facility] Evaluation note Diagnosis Staghorn calculus- Primary [...] cystic kidney disease [facility] Preop examination- Primary Preoperative examination, unspecified Nephrolithiasis Calculus of kidney Controlled type 2 diabetes mellitus without complication, without long-term current use of insulin (HCC) Hypercholesteremia Pure hypercholesterolemia Nephrolithiasis- Primary Calculus of kidney Urine volume deficient Oliguria and anuria Hypercalcinuria Unspecified disorders of calcium metabolism Hyperuricosuria Other nonspecific finding on examination of urine Hypernatriuria Hyperosmolality and/or hypernatremia documented in this encounter [facility] for referral (narrative)* Diagnostic Procedure Only (Routine) - Authorized Specialty Diagnoses / Procedures Referred By [facility] lewis Referred To Contact US IMAGING Diagnoses Nephrolithiasis Procedures US KIDNEY/BLADDER US RETROPERITONEAL REAL TIME W/[place] [address] [place] [address] [place] [address] Referral ID Status Reason Start Date Expiration Date Visits Requested Visits Authorized [id number] Authorized Auto-Generat ed Referral 02/06/2023 02/05/2024 1 1 [facility] for referral (narrative)* Diagnostic Procedure Only (Routine) - Authorized Specialty Diagnoses / Procedures Referred By Contzeny lewis Referred To Contact US IMAGING Diagnoses Nephrolithiasis Procedures US KIDNEY/BLADDER US RETROPERITONEAL REAL TIME W/IMAGE COMPLETE Alexandria Marin PA-C [address] [place] [address] [place] [address] Referral ID Status Reason Start Date Expiration Date Visits Requested Visits Authorized [id number] Authorized Auto-Generat ed Referral 03/26/2024 1 1 [facility] for referral (narrative)* Diagnostic Procedure Only (Routine) - Pending Review Specialty Diagnoses / Procedures Referred By Contac t Referred To Contact US IMAGING Diagnoses Nephrolithiasis Urine volume deficient Hypercalcinuria Hyperoxaluria Hyperuricosuria Hypernatriuria Renal cyst Procedures US KIDNEY/BLADDER US RETROPERITONEAL REAL TIME W/IMAGE COMPLETE Alexandria Marin PA-C [address] [address] [place] [id number] [place] [address] Referral ID Status Reason Start Date Expiration Date Visits Requested Visits Authorized [id number] Pending Review Auto-Generat ed Referral 08/27/2023 09/24/2024 1 1 [facility] for referral (narrative)* Diagnostic Procedure Only (Routine) - Closed Specialty Diagnoses / Procedures Referred By Contac t Referred To Contact US IMAGING Diagnoses Nephrolithiasis Urine volume deficient Hypercalcinuria Hyperoxaluria Hyperuricosuria Hypernatriuria Renal cyst Procedures US KIDNEY/BLADDER US RETROPERITONEAL REAL TIME W/IMAGE COMPLETE Alexandria Marin PA-C [address] [place] [id number] [facility] Referral ID Status Reason Start Date Expiration Date V isits Requested Visits Authorized [id number] Closed Auto-Generate d Referral 08/27/2023 09/24/2024 1 1 [facility] for referral (narrative)* Diagnostic Procedure Only (Routine) - New Request Specialty Diagnoses / Procedures Referred By Contac t Referred To Contact XR IMAGING Diagnoses Nephrolithiasis Procedures XR ABDOMEN 3V KUB W/OBLIQUES RADIOLOGIC EXAM ABDOMEN 3+ VIEWS Alexandria Marin PA-C [address] [place] [id number] [place] [address] Referral ID Status Reason Start Date Expiration Date Visits Requested Visits Authorized [id number] New Request Auto-Generat ed Referral 03/02/2024 04/01/2025 1 1 * Diagnostic Procedure Only (Routine) - New Request Specialty Diagnoses / Procedures Referred By Contzeny t Referred To Contact US IMAGING Diagnoses Nephrolithiasis Procedures US KIDNEY/BLADDER US RETROPERITONEAL REAL TIME W/IMAGE COMPLETE Alexandria Marin PA-C [address] [place] [address] [place] [address] Referral ID Status Reason Start Date Expiration Date Visits Requested Visits Authorized [id number] New Request Auto-Generat ed Referral 03/02/2024 04/01/2025 1 1 [facility] for visit Narrative* Diagnostic Procedure Only (Routine) - Closed Specialty Diagnoses / Procedures Referred By Contac t Referred To Contact US IMAGING Diagnoses Nephrolithiasis Procedures US KIDNEY/BLADDER US RETROPERITONEAL REAL TIME W/[place] [address] [place] [address] [facility] Referral ID Status Reason Start Date Expiration Date V isits Requested Visits Authorized [id number] Closed Auto-Generate d Referral 02/06/2023 02/05/2024 1 1 [facility] for visit Narrative* Diagnostic Procedure Only (Routine) - Closed Specialty Diagnoses / Procedures Referred By Contac t Referred To Contact US IMAGING Diagnoses Nephrolithiasis Procedures US KIDNEY/BLADDER US RETROPERITONEAL REAL TIME W/IMAGE COMPLETE Alexandria Marin PA-C [address] [place] [address] [place] [address] Referral ID Status Reason Start Date Expiration Date V isits Requested Visits Authorized [id number] Closed Auto-Generate d Referral 02/25/2023 03/26/2024 1 1 [facility] for visit Narrative* Diagnostic Procedure Only (Routine) - Closed Specialty Diagnoses / Procedures Referred By Contac t Referred To Contact US IMAGING Diagnoses Nephrolithiasis Urine volume deficient Hypercalcinuria Hyperoxaluria Hyperuricosuria Hypernatriuria Renal cyst Procedures US KIDNEY/BLADDER US RETROPERITONEAL REAL TIME W/IMAGE COMPLETE Alexandria Marin PA-C [address] [place] [address] [place] [address] Referral ID Status Reason Start Date Expiration Date V isits Requested Visits Authorized [id number] Closed Auto-Generate d Referral 08/27/2023 09/24/2024 1 1 [facility] Summary Purpose Family History No Family History [...] PACC - PRE ANESTHESIA CONSULTATION CLINIC OFFICE/OUTPATIENT [facility] 60-[place] [address] [place] [address] Referral ID Status Reason Start Date Expiration Date Visits Requested Visits Authorized [id number] Authorized PCP Requested Referral 11/18/2022 11/18/2023 1 [...] and content) DATE CREATED AUTHOR 06/24/2022 [facility] DATE CREATED AUTHOR AUTHOR'S ORGANIZ ATION 11/20/2022 [facility] DATE CREATED AUTHOR AUTHOR'S ORGANIZ ATION 03/03/2023 [facility] DATE CREATED AUTHOR AUTHOR'S ORGANIZ ATION 09/13/2023 [facility] DATE CREATED AUTHOR AUTHOR'S ORGANIZ ATION 03/03/2024 [facility] Comments (unrecognize d section and content) In the event this informatio n is protected by the Federal Confidentiality of Alcohol and Drug Abuse Patient Records regulations: The Federal rules restrict any use of the information to criminally investigate or prosecute any alcohol or drug abuse patient.[facility] Hospital[facility] the event this information is protected by the Federal Confidentiality of Alcohol and Drug Abuse Patient Records regulations: The Federal rules restrict any use of the information to criminally investigate or prosecute any alcohol or drug abuse patient.[facility] HospitalIn the event this information is protected by the Federal Confidentiality of Alcohol and Drug Abuse Patient Records regulations: The Federal rules restrict any use of the information to criminally investigate or prosecute any alcohol or drug abuse patient.[facility] HospitalIn the event this information is protected by the Federal Confidentiality of Alcohol and Drug Abuse Patient Records regulations: The Federal rules restrict any use of the information to criminally investigate or prosecute any alcohol or drug abuse patient.[facility] HospitalIn the event this information is protected by the Federal Confidentiality of Alcohol and Drug Abuse Patient Records regulations: The Federal rules restrict any use of the information to criminally investigate or prosecute any alcohol or drug abuse patient.[facility] HospitalIn the event this information is protected by the Federal Confidentiality of Alcohol and Drug Abuse Patient Records regulations: The Federal rules restrict any use of the information to criminally investigate or prosecute any alcohol or drug abuse patient.[facility] HospitalIn the event this information is protected by the Federal Confidentiality of Alcohol and Drug Abuse Patient Records regulations: The Federal rules restrict any use of the information to criminally investigate or prosecute any alcohol or drug abuse patient.[facility] HospitalIn the event this information is protected by the Federal Confidentiality of Alcohol and Drug Abuse Patient Records regulations: The Federal rules restrict any use of the information to criminally investigate or prosecute any alcohol or drug abuse patient.[facility] HospitalIn the event this information is protected by the Federal Confidentiality of Alcohol and Drug Abuse Patient Records regulations: The Federal rules restrict any use of the information to criminally investigate or prosecute any alcohol or drug abuse patient.[facility] HospitalIn the event this information is protected by the Federal Confidentiality of Alcohol and Drug Abuse Patient Records regulations: The Federal rules restrict any use of the information to criminally investigate or prosecute any alcohol or drug abuse patient.[facility] HospitalIn the event this information is protected by the Federal Confidentiality of Alcohol and Drug Abuse Patient Records regulations: The Federal rules restrict any use of the information to criminally investigate or prosecute any alcohol or drug abuse patient.[facility] HospitalIn the event this information is protected by the Federal Confidentiality of Alcohol and Drug Abuse Patient Records regulations: The Federal rules restrict any use of the information to criminally investigate or prosecute any alcohol or drug abuse patient.[facility] HospitalIn the event this information is protected by the Federal Confidentiality of Alcohol and Drug Abuse Patient Records regulations: The Federal rules restrict any use of the information to criminally investigate or prosecute any alcohol or drug abuse patient.[facility] HospitalIn the event this information is protected by the Federal Confidentiality of Alcohol and Drug Abuse Patient Records regulations: The Federal rules restrict any use of the information to criminally investigate or prosecute any alcohol or drug abuse patient.[facility] HospitalIn the event this information is protected by the Federal Confidentiality of Alcohol and Drug Abuse Patient Records regulations: The Federal rules restrict any use of the information to criminally investigate or prosecute any alcohol or drug abuse patient.[facility] HospitalIn the event this information is protected by the Federal Confidentiality of Alcohol and Drug Abuse Patient Records regulations: The Federal rules restrict any use of the information to criminally investigate or prosecute any alcohol or drug abuse patient.[facility] HospitalIn the event this information is protected by the Federal Confidentiality of Alcohol and Drug Abuse Patient Records regulations: The Federal rules restrict any use of the information to criminally investigate or prosecute any alcohol or drug abuse patient.[facility] HospitalIn the event this information is protected by the Federal Confidentiality of Alcohol and Drug Abuse Patient Records regulations: The Federal rules restrict any use of the information to criminally investigate or prosecute any alcohol or drug abuse patient.[facility] HospitalIn the event this information is protected by the Federal Confidentiality of Alcohol and Drug Abuse Patient Records regulations: The Federal rules restrict any use of the information to criminally investigate or prosecute any alcohol or drug abuse patient.[facility] HospitalIn the event this information is protected by the Federal Confidentiality of Alcohol and Drug Abuse Patient Records regulations: The Federal rules restrict any use of the information to criminally investigate or prosecute any alcohol or drug abuse patient.[facility] HospitalIn the event this information is protected by the Federal Confidentiality of Alcohol and Drug Abuse Patient Records regulations: The Federal rules restrict any use of the information to criminally investigate or prosecute any alcohol or drug abuse patient.[facility] HospitalIn the event this information is protected by the Federal Confidentiality of Alcohol and Drug Abuse Patient Records regulations: The Federal rules restrict any use of the information to criminally investigate or prosecute any alcohol or drug abuse patient.[facility] HospitalIn the event this information is protected by the Federal Confidentiality of Alcohol and Drug Abuse Patient Records regulations: The Federal rules restrict any use of the information to criminally investigate or prosecute any alcohol or drug abuse patient.[facility] HospitalIn the event this information is protected by the Federal Confidentiality of Alcohol and Drug Abuse Patient Records regulations: The Federal rules restrict any use of the information to criminally investigate or prosecute any alcohol or drug abuse patient.[facility] HospitalIn the event this information is protected by the Federal Confidentiality of Alcohol and Drug Abuse Patient Records regulations: The Federal rules restrict any use of the information to criminally investigate or prosecute any alcohol or drug abuse patient.[facility] HospitalIn the event this information is protected by the Federal Confidentiality of Alcohol and Drug Abuse Patient Records regulations: The Federal rules restrict any use of the information to criminally investigate or prosecute any alcohol or drug abuse patient.[facility] HospitalIn the event this information is protected by the Federal Confidentiality of Alcohol and Drug Abuse Patient Records regulations: The Federal rules restrict any use of the information to criminally investigate or prosecute any alcohol or drug abuse patient.[facility] HospitalIn the event this information is protected by the Federal Confidentiality of Alcohol and Drug Abuse Patient Records regulations: The Federal rules restrict any use of the information to criminally investigate or prosecute any alcohol or drug abuse patient.[facility] Reason for Visit (unrecogniz ed section and content) Reason Comments [employer] - Other Reason Comments Consult Kidney Stones Reason Comments Pre-Op Exam Reason Comments Scheduling Reason Comments Returning Patient's Call Reason Comments Results Specialty Diagnoses / Procedures Referred By Deion t Referred To Contact Diagnoses Nephrolithiasis Procedures CYSTO/URETERO W/LITHOTRIPSY &INDWELL STENT INSRT CYSTOURETHROSCOPY W/ URETEROSCOPY AND/OR PYELOSCOPY W/ LITHOTRIPSY INCLUDE INSERTION OF INDWELLING URETERAL STENT Av Surgery [address] [place] [address] Referral ID Status Reason Start Date Expiration Date Visits Re quested Visits Authorized [id number] 1 1 Reason Comments Radiology US Reason Comments Follow Up Kidney Stones Reason Comments Appointment Reason Comments Refill Request Reason Onset Date Comments Refill Request 12/22/2023 Reason Comments Follow Up Care Teams (unrecognized sec tion and content) Pediatric Audiologist Relationship Specialty Start Date End Date Sal Jackson MD [address] [place] [address] PCP - General Family Medicine 12/11/22 Pediatric Audiologist Relationship Specialty Start Date End Date Sal Jackson MD [address] [place] [address] PCP - General Family Medicine 12/11/22 Pediatric Audiologist Relationship Specialty Start Date End Date Sal Jackson MD [address] [place] [address] PCP - General Family Medicine 12/11/22 Pediatric Audiologist Relationship Specialty Start Date End Date Sal Jackson MD [address] [place] [address] PCP - General Family Medicine 12/11/22 Pediatric Audiologist Relationship Specialty Start Date End Date Sal Jackson MD [address] [place] [phone] PCP - General Family Medicine 12/11/22 Pediatric Audiologist Relationship Specialty Start Date End Date Sal Jackson MD [address] [place] [address] PCP - General Family Medicine 12/11/22 Pediatric Audiologist Relationship Specialty Start Date End Date Sal Jackson MD [address] [place] [phone] PCP - General Family Medicine 12/11/22 Pediatric Audiologist Relationship Specialty Start Date End Date Sal Jackson MD [address] [place] [phone] PCP - General Family Medicine 12/11/22 Pediatric Audiologist Relationship Specialty Start Date End Date Sal Jackson MD [address] [place] [phone] PCP - General Family Medicine 12/11/22 Pediatric Audiologist Relationship Specialty Start Date End Date Sal Jackson MD [address] [place] [phone] PCP - General Family Medicine 12/11/22 Pediatric Audiologist Relationship Specialty Start Date End Date Sal Jackson MD [address] [place] [address] PCP - General Family Medicine 12/11/22 Pediatric Audiologist Relationship Specialty Start Date End Date Sal Jackson MD [address] [place] [address] PCP - General Family Medicine 12/11/22 Pediatric Audiologist Relationship Specialty Start Date End Date Sal Jackson MD [address] [place] [address] PCP - General Family Medicine 12/11/22 Pediatric Audiologist Relationship Specialty Start Date End Date Sal Jackson MD [address] [place] [address] PCP - General Family Medicine 12/11/22 Scheduled [...] BE BASED ON THE PRIMARY CLINICAL RECORDS. [employer] [facility]. provides no warranty or guarantee of the accuracy or completeness of information in this document.
== END 2024-04-02 07:59 | disposition home or self-care (01) ==
LOC: MAMMO 07:58
PROVIDERS: PCP Family Medicine; Visit Provider Family Medicine
DX: Z12.31 Encounter for screening mammogram for malignant neoplasm of breast (principal); Z80.3 Family history of malignant neoplasm of breast
CPT/HCPCS: 77063; 77067

== ENCOUNTER 2024-06-25 16:42 | Outpatient (OUT) | payer BC, SELFPAY ==
--- NOTE | 2024-06-25 | XR_ITS ---
The [address] [address] Patient Name: KRYSTINA BANEGAS MRN: [id number] date: 1960 Sex: F Assigned Patient Location: [facility] Current Patient Location: [facility] Accession/Order Number: [id number] Exam Date: 06/25/2024 20:42 Report Date: 06/25/2024 20:43 At the request of: BABATUNDE JACKSON MD Procedure: XR lumbar spine 2-3V LUMBAR SPINE - 3 views CLINICAL HISTORY: Low back pain;M54.50 COMPARISON: Lumbar spine 11/09/2021 FINDINGS: Vertebral body heights appear maintained. Moderate disc space narrowing at L5-S1 similar to the prior study with associated facet joint degenerative changes. SI joints demonstrate degenerative change. XR/XR lumbar spine 2-3V IMPRESSION: DEGENERATIVE CHANGES INVOLVING LUMBAR SPINE WITH MODERATE DISC SPACE NARROWING AT L5-S1 SIMILAR TO THE 2021 STUDY. Impression dictated by: Hitesh Lawrence Jr., D.O.06/25/2024 8:43 PM Dictation Location[facility] Electronically authenticated by: [id number] Date: 06/25/2024 20:43
--- OUTSIDE RECORDS SUMMARY | 2024-06-25 17:02 | XMS_ITS | CCD ---
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 Nephrology [...] ? 8 oz (237 mL) of milk, xqnqdni-mndzuckntgnr-o airy milk, and calcium-fortifiedfruit juice. Calcium-fortified means [...] Spinach (cooked), rhubarb, beets, sweet potatoes, and Kazakh chard. ? Peanuts. ? Potato chips, belarusian fries, and baked potatoes with skin on. ? Nuts and nut products. ? Chocolate. ? If you regularly take a diuretic medicine, make sure to eat at least 1 or 2 servings of fruits or vegetables that are high in potassium each day. These include: ? Avocado. ? Banana. ? [place], prune, carrot, or tomato juice. ? Baked [...] fish oil, or vitamin B6. ? Take grqb-wkx-nakgoep and prescription medicines only as told by your health care provider. These include supplements. What foods should I limit? Limit your in (more content not included)... Normal [facility] Urology Office/Clinic Noteon 11-06-2022 Urology Office/Clinic Note Chief Complaint Pt is here for [facility] ER f/u for kidney stones HPI Staff Krystina is a 62 y.o. female new Pt follow up to [facility] due to abdominal and Lt flank [...] information and [place] [facility] [place] I have reviewed and verified the staff [...] yo female new pt following up to [facility] ER visit on 11/04/22 due to [...] would require interventional radiology and transfer to [facility]. Pt's PCP, Dr. Jackson, wanted her to be admitted today. Would be able to go back to work if stent placement is successful, however, she will require staged procedures. -Pt to be admitted to [facility] today so she can have an IV started and have pain meds and nausea meds for comfort. She is not to eat or drink after midnight tonight. -Pt to call HR at her workplace to figure out [employer] paperwork. -Will schedule cysto and L stent [...] [facility] [address], [place] [address]- Additional Instructions: schedule L stent placement Patient Education Dietary Guidelines to Help Prevent Kidney Stones I, Rosalinda Rodgers, personally scribed for Dr. Haque on 11/06/2022 11:43:23. . Documentation recorde (more content not included)... Normal [facility] Comment on above: Result Comment: Elec tronically Signed By: Steve HAQUE MD\.br\Date and Time Signed: 11/06/22 11:51 EDT\.br\Electronically Co-Signed By: Rosalinda Rodgers\.br\Date and Time Co-Signed: 11/06/22 11:44 EDT\.br\Electronically Co-Signed By: Rosalinda Rodgers\.br\Date and Time Co-Signed: 11/06/22 11:45 EDT BNPon 06-21-2022 Natriuretic peptide B (Bld) [Mass/Vol] 75.0 pg/mL Normal <=900.0 [facility] Comment on above: Performed By: #### B PARTY DEMONSTRATOR, CMP, TSH, T7 #### [facility] [address] [place] [address] Dr. Kris Brito CBC AUTO DIFFon 06-21-2022 BASO # 0.0 103/ul Normal 0.0-0.1 [facility] Comment on above: Performed By: #### B PARTY DEMONSTRATOR, CMP, TSH, T7 #### [facility] [address] [place] [address] Dr. Kris Brito Basophils/100 WBC (Bld) 0.6 % Normal 0.2-2.0 [facility] Comment on above: Performed By: #### B PARTY DEMONSTRATOR, CMP, TSH, T7 #### [facility] [address] [place] [address] Dr. Kris Brito EO # 0.3 103/ul Normal 0.0-0.7 [facility] Comment on above: Performed By: #### B PARTY DEMONSTRATOR, CMP, TSH, T7 #### [facility] [address] [place] [address] Dr. Kris Brito Eosinophils/100 WBC (Bld) 3.6 % Normal 0.9-7.0 [facility] Comment on above: Performed By: #### B PARTY DEMONSTRATOR, CMP, TSH, T7 #### [facility] [address] [place] [address] Dr. Kris Brito Erythrocyte distribution width (RBC) [Ratio] 12.7 % Normal 11.0-15.0 [facility] Comment on above: Performed By: #### B PARTY DEMONSTRATOR, CMP, TSH, T7 #### [facility] [address] [place] [address] Dr. Kris Brito Hematocrit (Bld) [Volume fraction] 43.1 % Normal 36.0-48.0 [facility] Comment on above: Performed By: #### B PARTY DEMONSTRATOR, CMP, TSH, T7 #### [facility] [address] [place] [address] Dr. Kris Brito Hemoglobin (Bld) [Mass/Vol] 14.0 g/dL Normal 12.0-16.0 [facility] Comment on above: Performed By: #### B PARTY DEMONSTRATOR, CMP, TSH, T7 #### [facility] [address] [place] [address] Dr. Kris Brito IG # 0.02 10e3/ul Normal 0.00-0.03 [facility] Comment on above: Performed By: #### B PARTY DEMONSTRATOR, CMP, TSH, T7 #### [facility] [address] [place] [address] Dr. Kris Brito IG % 0.3 % Normal 0.0-0.5 [facility] Comment on above: Performed By: #### B PARTY DEMONSTRATOR, CMP, TSH, T7 #### [facility] [address] [place] [address] Dr. Kris Brito LYMPH # 2.5 103/ul Normal 1.2-3.8 [facility] Comment on above: Performed By: #### B PARTY DEMONSTRATOR, CMP, TSH, T7 #### [facility] [address] [place] [address] Dr. Kris Brito Lymphocytes/100 WBC (Bld) 36.1 % Normal 20.5-60.0 [facility] Comment on above: Performed By: #### B PARTY DEMONSTRATOR, CMP, TSH, T7 #### [facility] [address] [place] [address] Dr. Kris Brito MANUAL DIFF REQ NO Normal [facility] Comment on above: Performed By: #### B PARTY DEMONSTRATOR, CMP, TSH, T7 #### [facility] [address] [place] [address] Dr. Kris Brito MCH (RBC) [Entitic mass] 30.0 pg Normal 26.7-34.0 [facility] Comment on above: Performed By: #### B PARTY DEMONSTRATOR, CMP, TSH, T7 #### [facility] [address] [place] [address] Dr. Kris Brito MCHC (RBC) [Mass/Vol] 32.5 g/dL Normal 29.9-35.2 [facility] Comment on above: Performed By: #### B PARTY DEMONSTRATOR, CMP, TSH, T7 #### [facility] [address] [place] [address] Dr. Kris Brito MCV (RBC) [Entitic vol] 92.5 fL Normal 81.0-99.0 [facility] Comment on above: Performed By: #### B PARTY DEMONSTRATOR, CMP, TSH, T7 #### [facility] [address] [place] [address] Dr. Kris Brito MONO # 0.7 103/ul Normal 0.3-0.8 [facility] Comment on above: Performed By: #### B PARTY DEMONSTRATOR, CMP, TSH, T7 #### [facility] [address] [place] [address] Dr. Kris Brito Monocytes/100 WBC (Bld) 10.5 % Normal 1.7-12.0 [facility] Comment on above: Performed By: #### B PARTY DEMONSTRATOR, CMP, TSH, T7 #### [facility] [address] [place] [address] Dr. Kris Brito NEUT # 3.4 103/ul Normal 1.4-6.5 [facility] Comment on above: Performed By: #### B PARTY DEMONSTRATOR, CMP, TSH, T7 #### [facility] [address] [place] [address] Dr. Kris Brito Neutrophils/100 WBC (Bld) 48.9 % Normal 43.0-75.0 [facility] Comment on above: Performed By: #### B PARTY DEMONSTRATOR, CMP, TSH, T7 #### [facility] [address] [place] [address] Dr. Kris Brito Platelet mean volume (Bld) [Entitic vol] 8.9 fL Critically low 9.5-13.5 [facility] Comment on above: Performed By: #### B PARTY DEMONSTRATOR, CMP, TSH, T7 #### [facility] [address] [place] [address] Dr. Kris Brito PLT 247 103/ul Normal 150-450 [facility] Comment on above: Performed By: #### B PARTY DEMONSTRATOR, CMP, TSH, T7 #### [facility] [address] [place] [address] Dr. Kris Brito RBC 4.66 106/ul Normal 4.20-5.40 [facility] Comment on above: Performed By: #### B PARTY DEMONSTRATOR, CMP, TSH, T7 #### [facility] [address] [place] [address] Dr. Kris Brito WBC 7.0 103/ul Normal 4.0-11.0 [facility] Comment on above: Performed By: #### B PARTY DEMONSTRATOR, CMP, TSH, T7 #### [facility] [address] [place] [address] Dr. Kris Brito FREE THYROXINE INDEX T7on FTI 2.55 Normal 1.30-4.50 [facility] Comment on above: Performed By: #### B PARTY DEMONSTRATOR, CMP, TSH, T7 #### [facility] [address] [place] [address] Dr. Kris Brito T3U 34.0 % Normal 30.0-39.0 [facility] Comment on above: Performed By: #### B PARTY DEMONSTRATOR, CMP, TSH, T7 #### [facility] [address] [place] [address] Dr. Kris Brito T4 [Mass/Vol] 7.50 ug/dL Normal 4.80-13.90 [facility] Comment on above: Performed By: #### B PARTY DEMONSTRATOR, CMP, TSH, T7 #### [facility] [address] [place] [address] Dr. Kris Brito IRONon 06-21-2022 Iron [Mass/Vol] 128.0 ug/dL Normal 50.0-170.0 [facility] Comment on above: Performed By: #### B PARTY DEMONSTRATOR, CMP, TSH, T7 #### [facility] [address] [place] [address] Dr. Kris Brito PROF 14(COMP METB)on 023 Albumin [Mass/Vol] 3.9 g/dL Normal 3.4-5.0 [facility] Comment on above: Performed By: #### B PARTY DEMONSTRATOR, CMP, TSH, T7 #### [facility] [address] [place] [address] Dr. Kris Brito Albumin/Globulin [Mass ratio] 1.1 {ratio} Normal [facility] Comment on above: Performed By: #### B PARTY DEMONSTRATOR, CMP, TSH, T7 #### [facility] [address] [address] [address] Kris Brito ALP [Catalytic activity/Vol] 82 U/L Normal 46-116 [facility] Comment on above: Performed By: #### B PARTY DEMONSTRATOR, CMP, TSH, T7 #### [facility] [address] [place] [address] Dr. Kris Brito ALT [Catalytic activity/Vol] 23 U/L Normal 14-59 [facility] Comment on above: Performed By: #### B PARTY DEMONSTRATOR, CMP, TSH, T7 #### [facility] [address] [place] [address] Dr. Kris Brito Anion gap [Moles/Vol] 11.2 mmol/L Normal [facility] Comment on above: Performed By: #### B PARTY DEMONSTRATOR, CMP, TSH, T7 #### [facility] [address] [place] [address] Dr. Kris Brito AST [Catalytic activity/Vol] 21 U/L Normal 15-37 [facility] Comment on above: Performed By: #### B PARTY DEMONSTRATOR, CMP, TSH, T7 #### [facility] [address] [place] [address] Dr. Kris Brito Bilirubin [Mass/Vol] 0.7 mg/dL Normal 0.2-1.0 [facility] Comment on above: Performed By: #### B PARTY DEMONSTRATOR, CMP, TSH, T7 #### [facility] [address] [place] [address] Dr. Kris Brito Calcium [Mass/Vol] 8.9 mg/dL Normal 8.5-10.1 [facility] Comment on above: Performed By: #### B PARTY DEMONSTRATOR, CMP, TSH, T7 #### [facility] [address] [place] [address] Dr. Kris Brito Chloride [Moles/Vol] 109 mmol/L Critically high 98-107 [facility] Comment on above: Performed By: #### B PARTY DEMONSTRATOR, CMP, TSH, T7 #### [facility] [address] [address] [address] Kris Brito CO2 [Moles/Vol] 26.8 mmol/L Normal 21.0-32.0 [facility] Comment on above: Performed By: #### B PARTY DEMONSTRATOR, CMP, TSH, T7 #### [facility] [address] [address] [address] Kris Brito Creatinine [Mass/Vol] 0.60 mg/dL Normal 0.55-1.02 [facility] Comment on above: Performed By: #### B PARTY DEMONSTRATOR, CMP, TSH, T7 #### [facility] [address] [address] [address] Kris Brito EGFR-AF GUINEAN >60 Normal >=60 [facility] Comment on above: Performed By: #### B PARTY DEMONSTRATOR, CMP, TSH, T7 #### [facility] [address] [address] [address] Kris Brito EGFR-NON AF GUINEAN >60 Normal >=60 [facility] Comment on above: Performed By: #### B PARTY DEMONSTRATOR, CMP, TSH, T7 #### [facility] [address] [address] [address] Kris Brito Globulin (S) [Mass/Vol] 3.4 g/dL Normal [facility] Comment on above: Performed By: #### B PARTY DEMONSTRATOR, CMP, TSH, T7 #### [facility] [address] [address] [address] Kris Brito Glucose [Mass/Vol] 118 mg/dL Critically high 74-106 T [facility] Comment on above: Performed By: #### B PARTY DEMONSTRATOR, CMP, TSH, T7 #### [facility] [address] [address] [address] Kris Brito Potassium [Moles/Vol] 4.0 mmol/L Normal 3.5-5.1 [facility] Comment on above: Performed By: #### B PARTY DEMONSTRATOR, CMP, TSH, T7 #### [facility] [address] [address] [address] Kris Brito Protein [Mass/Vol] 7.3 g/dL Normal 6.4-8.2 [facility] Comment on above: Performed By: #### B PARTY DEMONSTRATOR, CMP, TSH, T7 #### [facility] [address] [place] [address] Dr. Kris Brito Sodium [Moles/Vol] 143 mmol/L Normal 136-145 [facility] Comment on above: Performed By: #### B PARTY DEMONSTRATOR, CMP, TSH, T7 #### [facility] [address] [place] [address] Dr. Kris Brito Urea nitrogen [Mass/Vol] 12.0 mg/dL Normal 7.0-18.0 [facility] Comment on above: Performed By: #### B PARTY DEMONSTRATOR, CMP, TSH, T7 #### [facility] [address] [place] [address] Dr. Kris Brito Urea nitrogen/Creatinine [Mass ratio] 20.0 mg/mg Normal [facility] Comment on above: Performed By: #### B PARTY DEMONSTRATOR, CMP, TSH, T7 #### [facility] [address] [place] [address] Dr. Kris Brito TSHon 06-21-2022 TSH 1.617 uIU/mL Normal 0.358-3.740 [facility] Comment on above: Performed By: #### B PARTY DEMONSTRATOR, CMP, TSH, T7 #### [facility] [address] [place] [address] Dr. Kris Brito INSULINon 02-15-2022 Insulin 24.8 uIU/mL Normal 2.6-24.9 [facility] Comment on above: Performed By: #### I NSULIN #### [facility] [address] [place] [address] Dr. Kris Brito CBC AUTO DIFFon 02-14-2022 BASO # 0.1 103/ul Normal 0.0-0.1 [facility] Comment on above: Performed By: #### B PARTY DEMONSTRATOR, CMP, TSH, T7 #### [facility] [address] [place] [address] Dr. Kris Brito Basophils/100 WBC (Bld) 0.9 % Normal 0.2-2.0 [facility] Comment on above: Performed By: #### B PARTY DEMONSTRATOR, CMP, TSH, T7 #### [facility] [address] [place] [address] Dr. Kris Brito EO # 0.2 103/ul Normal 0.0-0.7 [facility] Comment on above: Performed By: #### B PARTY DEMONSTRATOR, CMP, TSH, T7 #### [facility] [address] [place] [address] Dr. Kris Brito Eosinophils/100 WBC (Bld) 3.0 % Normal 0.9-7.0 [facility] Comment on above: Performed By: #### B PARTY DEMONSTRATOR, CMP, TSH, T7 #### [facility] [address] [place] [address] Dr. Kris Brito Erythrocyte distribution width (RBC) [Ratio] 12.7 % Normal 11.0-15.0 [facility] Comment on above: Performed By: #### B PARTY DEMONSTRATOR, CMP, TSH, T7 #### [facility] [address] [place] [address] Dr. Kris Brito Hematocrit (Bld) [Volume fraction] 43.1 % Normal 36.0-48.0 [facility] Comment on above: Performed By: #### B PARTY DEMONSTRATOR, CMP, TSH, T7 #### [facility] [address] [place] [address] Dr. Kris Brito Hemoglobin (Bld) [Mass/Vol] 14.1 g/dL Normal 12.0-16.0 [facility] Comment on above: Performed By: #### B PARTY DEMONSTRATOR, CMP, TSH, T7 #### [facility] [address] [place] [address] Dr. Kris Brito IG # 0.03 10e3/ul Normal 0.00-0.03 [facility] Comment on above: Performed By: #### B PARTY DEMONSTRATOR, CMP, TSH, T7 #### [facility] [address] [place] [address] Dr. Kris Brito IG % 0.4 % Normal 0.0-0.5 [facility] Comment on above: Performed By: #### B PARTY DEMONSTRATOR, CMP, TSH, T7 #### [facility] [address] [place] [address] Dr. Kris Brito LYMPH # 2.1 103/ul Normal 1.2-3.8 [facility] Comment on above: Performed By: #### B PARTY DEMONSTRATOR, CMP, TSH, T7 #### [facility] [address] [address] [address] Kris Brito Lymphocytes/100 WBC (Bld) 30.0 % Normal 20.5-60.0 [facility] Comment on above: Performed By: #### B PARTY DEMONSTRATOR, CMP, TSH, T7 #### [facility] [address] [place] [address] Dr. Kris Brito MANUAL DIFF REQ NO Normal [facility] Comment on above: Performed By: #### B PARTY DEMONSTRATOR, CMP, TSH, T7 #### [facility] [address] [place] [address] Dr. Kris Brito MCH (RBC) [Entitic mass] 29.9 pg Normal 26.7-34.0 [facility] Comment on above: Performed By: #### B PARTY DEMONSTRATOR, CMP, TSH, T7 #### [facility] [address] [place] [address] Dr. Kris Brito MCHC (RBC) [Mass/Vol] 32.7 g/dL Normal 29.9-35.2 [facility] [facility] Comment on above: Performed By: #### B PARTY DEMONSTRATOR, CMP, TSH, T7 #### [facility] [address] [place] [address] Dr. Kris Brito MCV (RBC) [Entitic vol] 91.5 fL Normal 81.0-99.0 [facility] Comment on above: Performed By: #### B PARTY DEMONSTRATOR, CMP, TSH, T7 #### [facility] [address] [place] [address] Dr. Kris Brito MONO # 0.7 103/ul Normal 0.3-0.8 [facility] Comment on above: Performed By: #### B PARTY DEMONSTRATOR, CMP, TSH, T7 #### [facility] [address] [place] [address] Dr. Kris Brito Monocytes/100 WBC (Bld) 9.2 % Normal 1.7-12.0 [facility] Comment on above: Performed By: #### B PARTY DEMONSTRATOR, CMP, TSH, T7 #### [facility] [address] [place] [address] Dr. Kris Brito NEUT # 4.0 103/ul Normal 1.4-6.5 [facility] Comment on above: Performed By: #### B PARTY DEMONSTRATOR, CMP, TSH, T7 #### [facility] [address] [place] [address] Dr. Kris Brito Neutrophils/100 WBC (Bld) 56.5 % Normal 43.0-75.0 [facility] Comment on above: Performed By: #### B PARTY DEMONSTRATOR, CMP, TSH, T7 #### [facility] [address] [place] [address] Dr. Kris Brito Platelet mean volume (Bld) [Entitic vol] 8.9 fL Critically low 9.5-13.5 [facility] Comment on above: Performed By: #### B PARTY DEMONSTRATOR, CMP, TSH, T7 #### [facility] [address] [place] [address] Dr. Kris Brito PLT 292 103/ul Normal 150-450 [facility] Comment on above: Performed By: #### B PARTY DEMONSTRATOR, CMP, TSH, T7 #### [facility] [address] [place] [address] Dr. Kris Brito RBC 4.71 106/ul Normal 4.20-5.40 [facility] Comment on above: Performed By: #### B PARTY DEMONSTRATOR, CMP, TSH, T7 #### [facility] [address] [place] [address] Dr. Kris Brito WBC 7.0 103/ul Normal 4.0-11.0 [facility] Comment on above: Performed By: #### B PARTY DEMONSTRATOR, CMP, TSH, T7 #### [facility] [address] [place] [address] Dr. Kris Brito FREE THYROXINE INDEX T7on FTI 2.81 Normal 1.30-4.50 [facility] Comment on above: Performed By: #### B PARTY DEMONSTRATOR, CMP, TSH, T7 #### [facility] [address] [address] [address] Kris Brito T3U 33.0 % Normal 30.0-39.0 [facility] Comment on above: Performed By: #### B PARTY DEMONSTRATOR, CMP, TSH, T7 #### [facility] [address] [address] [address] Kris Brito T4 [Mass/Vol] 8.50 ug/dL Normal 4.80-13.90 [facility] Comment on above: Performed By: #### B PARTY DEMONSTRATOR, CMP, TSH, T7 #### [facility] [address] [address] [address] Kris Brito GLYCOHEMOGLOBIN A1Con 2021 ADA RECOMMENDATION SEE BELOW Normal [facility] Comment on above: Result Comment: ADA RECOMMENDED LIMIT 4.0 - 6.0 ADA THERAPEUTIC TARGET < 7.0 ACTION SUGGESTED > 7.0 Performed By: #### A 1C #### [facility] [address] [address] [address] Kris Brito Glucose [Mass/Vol] 146 mg/dL Normal [facility] Comment on above: Performed By: #### A 1C #### [facility] [address] [address] [address] Kris Brito HbA1c (Bld) [Mass fraction] 6.7 % Critically high 4.5-6.2 [facility] Comment on above: Performed By: #### A 1C #### [facility] [address] [place] [address] Dr. Kris Brito IRONon 02-14-2022 Iron [Mass/Vol] 62.0 ug/dL Normal 50.0-170.0 [facility] Comment on above: Performed By: #### B PARTY DEMONSTRATOR, CMP, TSH, T7 #### [facility] [address] [address] [address] Kris Brito LIPID PROFILEon 02-14-2022 CHOL-HDL RATIO NORM SEE BELOW Normal [facility] Comment on above: Result Comment: 3.3 - 4.4 LOW RISK 4.4 - 7.1 AVERAGE RISK 7.1 - 11.0 MODERATE RISK >11.0 HIGH RISK Performed By: #### B PARTY DEMONSTRATOR, CMP, TSH, T7 #### [facility] [address] [address] [address] Kris Brito Cholesterol [Mass/Vol] 143 mg/dL Normal <=200 [facility] Comment on above: Performed By: #### B PARTY DEMONSTRATOR, CMP, TSH, T7 #### [facility] [address] [address] [address] Kris Brito Cholesterol in HDL [Mass/Vol] 60 mg/dL Normal 40-60 [facility] Comment on above: Performed By: #### B PARTY DEMONSTRATOR, CMP, TSH, T7 #### [facility] [address] [address] [address] Kris Brito Cholesterol in LDL [Mass/Vol] 72.6 mg/dL Normal [facility] Comment on above: Performed By: #### B PARTY DEMONSTRATOR, CMP, TSH, T7 #### [facility] [address] [address] [address] Kris Brito Cholesterol.total/Ch olesterol in HDL [Mass ratio] 2.4 {ratio} Normal [facility] Comment on above: Performed By: #### B PARTY DEMONSTRATOR, CMP, TSH, T7 #### [facility] [address] [address] [address] Kris Brito HDL NORMAL > or = 60 mg/dl - LO W CARDIOVASCULAR RISK <40 mg/dl - HIGH CARDIOVASCULAR RISK Normal [facility] Comment on above: Performed By: #### B PARTY DEMONSTRATOR, CMP, TSH, T7 #### [facility] [address] [address] [address] Kris Brito LDL CALC NORMAL SEE BELOW Normal [facility] Comment on above: Result Comment: <100 mg/dl OPTIMAL 100 - 129 mg/dl NEAR OR ABOVE OPTIMAL 130 - 159 mg/dl BORDERLINE HIGH 160 - 189 mg/dl HIGH >190 mg/dl VERY HIGH Performed By: #### B PARTY DEMONSTRATOR, CMP, TSH, T7 #### [facility] [address] [address] [address] Kris Brito Triglyceride [Mass/Vol] 52 mg/dL Normal <=150 [facility] Comment on above: Performed By: #### B PARTY DEMONSTRATOR, CMP, TSH, T7 #### [facility] [address] [address] [address] Kris Brito VLDL CALC 10.4 mg/dL Normal [facility] Comment on above: Performed By: #### B PARTY DEMONSTRATOR, CMP, TSH, T7 #### [facility] [address] [place] [address] Dr. Kris Brito PROF 14(COMP METB)on 022 Albumin [Mass/Vol] 3.9 g/dL Normal 3.4-5.0 [facility] Comment on above: Performed By: #### B PARTY DEMONSTRATOR, CMP, TSH, T7 #### [facility] [address] [place] [address] Dr. Kris Brito Albumin/Globulin [Mass ratio] 1.1 {ratio} Normal [facility] Comment on above: Performed By: #### B PARTY DEMONSTRATOR, CMP, TSH, T7 #### [facility] [address] [address] [address] Kris Brito ALP [Catalytic activity/Vol] 69 U/L Normal 46-116 [facility] Comment on above: Performed By: #### B PARTY DEMONSTRATOR, CMP, TSH, T7 #### [facility] [address] [place] [address] Dr. Kris Brito ALT [Catalytic activity/Vol] 23 U/L Normal 14-59 [facility] Comment on above: Performed By: #### B PARTY DEMONSTRATOR, CMP, TSH, T7 #### [facility] [address] [address] [address] Kris Brito Anion gap [Moles/Vol] 10.4 mmol/L Normal [facility] Comment on above: Performed By: #### B PARTY DEMONSTRATOR, CMP, TSH, T7 #### [facility] [address] [place] [address] Dr. Kris Brito AST [Catalytic activity/Vol] 18 U/L Normal 15-37 [facility] Comment on above: Performed By: #### B PARTY DEMONSTRATOR, CMP, TSH, T7 #### [facility] [address] [place] [address] Dr. Kris Brito Bilirubin [Mass/Vol] 0.4 mg/dL Normal 0.2-1.0 [facility] Comment on above: Performed By: #### B PARTY DEMONSTRATOR, CMP, TSH, T7 #### [facility] [address] [address] [address] Kris Brito Calcium [Mass/Vol] 9.0 mg/dL Normal 8.5-10.1 [facility] Comment on above: Performed By: #### B PARTY DEMONSTRATOR, CMP, TSH, T7 #### [facility] [address] [address] [address] Kris Brito Chloride [Moles/Vol] 106 mmol/L Normal 98-107 [facility] Comment on above: Performed By: #### B PARTY DEMONSTRATOR, CMP, TSH, T7 #### [facility] [address] [place] [address] Dr. Kris Brito CO2 [Moles/Vol] 28.6 mmol/L Normal 21.0-32.0 [facility] Comment on above: Performed By: #### B PARTY DEMONSTRATOR, CMP, TSH, T7 #### [facility] [address] [address] [address] Kris Brito Creatinine [Mass/Vol] 0.68 mg/dL Normal 0.55-1.02 [facility] Comment on above: Performed By: #### B PARTY DEMONSTRATOR, CMP, TSH, T7 #### [facility] [address] [place] [address] Dr. Kris Brito EGFR-AF GUINEAN >60 Normal >=60 [facility] Comment on above: Performed By: #### B PARTY DEMONSTRATOR, CMP, TSH, T7 #### [facility] [address] [place] [address] Dr. Kris Brito EGFR-NON AF GUINEAN >60 Normal >=60 [facility] Comment on above: Performed By: #### B PARTY DEMONSTRATOR, CMP, TSH, T7 #### [facility] [address] [address] [address] Kris Brito Globulin (S) [Mass/Vol] 3.7 g/dL Normal [facility] Comment on above: Performed By: #### B PARTY DEMONSTRATOR, CMP, TSH, T7 #### [facility] [address] [place] [address] Dr. Kris Brito Glucose [Mass/Vol] 133 mg/dL Critically high 74-106 [facility] Comment on above: Performed By: #### B PARTY DEMONSTRATOR, CMP, TSH, T7 #### [facility] [address] [place] [address] Dr. Kris Brito Potassium [Moles/Vol] 4.0 mmol/L Normal 3.5-5.1 [facility] Comment on above: Performed By: #### B PARTY DEMONSTRATOR, CMP, TSH, T7 #### [facility] [address] [place] [address] Dr. Kris Brito Protein [Mass/Vol] 7.6 g/dL Normal 6.4-8.2 [facility] Comment on above: Performed By: #### B PARTY DEMONSTRATOR, CMP, TSH, T7 #### [facility] [address] [place] [address] Dr. Kris Brito Sodium [Moles/Vol] 141 mmol/L Normal 136-145 [facility] Comment on above: Performed By: #### B PARTY DEMONSTRATOR, CMP, TSH, T7 #### [facility] [address] [place] [address] Dr. Kris Brito Urea nitrogen [Mass/Vol] 15.0 mg/dL Normal 7.0-18.0 [facility] Comment on above: Performed By: #### B PARTY DEMONSTRATOR, CMP, TSH, T7 #### [facility] [address] [place] [address] Dr. Kris Brito Urea nitrogen/Creatinine [Mass ratio] 22.1 mg/mg Normal [facility] Comment on above: Performed By: #### B PARTY DEMONSTRATOR, CMP, TSH, T7 #### [facility] [address] [place] [address] Dr. Kris Brito TSHon 02-14-2022 TSH 2.089 uIU/mL Normal 0.358-3.740 [facility] Comment on above: Performed By: #### B PARTY DEMONSTRATOR, CMP, TSH, T7 #### [facility] [address] [place], [place] [id number] Dr. Kris Brito XR ELBOW LT MIN [...] by: SHLOMO BEGUM Date: 2021-11-09 16:50 Normal [facility] XR LSPINE 2_3 VIEWSon 2021 XR [...] by: CARISSA IBANEZ Date: 2021-11-09 16:49 Normal [facility] XR TIB_FIB RT 2Von 2 XR [...] by: CARISSA AHREYMUNDO Date: 2021-11-09 16:41 Normal [facility] Vital Signs Date Time Vital Sign Value Performing Clinician Faci lity 01-06-2023 09:30-0400 Diastolic blood pressure 70 mm[Hg] Farheen Thompson MD Work Phone: [facility] 01-06-2023 09:30-0400 Heart rate 66 /min Farheen Thompson MD Work Phone: [facility] 01-06-2023 09:30-0400 Respiratory rate 12 /min Farheen Thompson MD Work Phone: [facility] 01-06-2023 09:30-0400 SaO2% (BldA) [Mass fraction] 96 % Farheen Thompson MD Work Phone: [facility] 01-06-2023 09:30-0400 Systolic blood pressure 130 mm[Hg] Farheen Thompson MD Work Phone: [facility] 01-06-2023 08:54-0400 Body temperature 97.59 [degF] Farheen Thompson MD Work Phone: [facility] 11-29-2022 14:58-0400 Body height 167.6 cm Genevieve Sadie REDDY.COPIER TECHNICIAN Work Phone: [facility] 11-29-2022 14:58-0400 Body weight 67.13 kg Genevieve [place]ak TECHNOLOGIST INFECTIOUS DISEASE.COPIER TECHNICIAN Work Phone: [facility] 11-29-2022 14:58-0400 Diastolic blood pressure 81 mm[Hg] Genevieve Noatak TECHNOLOGIST INFECTIOUS DISEASE.COPIER TECHNICIAN Work Phone: [facility] 11-29-2022 14:58-0400 Heart rate 70 /min Genevieve Sadie TECHNOLOGIST INFECTIOUS DISEASE.COPIER TECHNICIAN Work Phone: [facility] 11-29-2022 14:58-0400 Systolic blood pressure 122 mm[Hg] Genevieve Sadie HERNANDEZCOPIER TECHNICIAN Work Phone: [facility] 11-29-2022 12:37-0400 Body height 167.6 cm Pac 7 Work Phone: [facility] 11-29-2022 12:37-0400 Body temperature 98.01 [degF] Pac 7 Work Phone: [facility] 11-29-2022 12:37-0400 Body weight 67.5 kg Pac 7 Work Phone: [facility] 11-29-2022 12:37-0400 Diastolic blood pressure 81 mm[Hg] Pac 7 Work Phone: [facility] 11-29-2022 12:37-0400 Heart rate 70 /min Pac 7 Work Phone: [facility] 11-29-2022 12:37-0400 SaO2% (BldA) [Mass fraction] 98 % Pac 7 Work Phone: [facility] 11-29-2022 12:37-0400 Systolic blood pressure 122 mm[Hg] Pac 7 Work Phone: [facility] Encounters Encounter Date Encounter Type Care Provider Facility Start: 03-01-2024 End: 03-01-2024 ambulatory ALEXANDRIA MARIN Facility:[facility] Start: 03-01-2024 End: 03-01-2024 Patient encounter procedure Alexandria SilvaBeatriz MA Work Phone: Urology Comment on above: Nephrolithiasis (Janine peewee Dx); Urine volume deficient; Hypercalcinuria; Hyperuricosuria; Hypernatriuria Start: 03-01-2024 End: 03-01-2024 Telemedicine consultation with patient Alexandria Cruzohue MAGNOLIA-Eri Work Phone: Urology Start: 02-23-2024 End: 02-23-2024 Subsequent [facility] [...] 10-10-2023 End: 10-10-2023 ambulatory SAL M KIKAGemma Facility:[facility] Start: 09-10-2023 Telephone encounter Alexandria O'Do [...] 08-19-2023 Subsequent hospital visit by physician [facility] Rad[facility] Comment on above: Nephrolithiasis [N20 .0] [...] consultation with patient Alexandria MERIDA-Eri Work Phone: [facility] Start: 02-18-2023 Telephone encounter Nichole Morgan RN U rology Comment on above: Results Start: 02-14-2023 ambulatory Nedra Queen RDMS Radi emeryy Comment on above: Radiology Start: 02-14-2023 Patient encounter [facility] Start: 02-14-2023 End: 02-14-2023 Subsequent hospital visit by physician [facility] Comment on above: Nephrolithiasis [N20 .0] Start: 01-07-2023 Telephone encounter Nichole Morgan RN U rology Comment on above: Returning Patient's Call Start: 01-06-2023 ambulatory FARHEEN THOMPSON Facility:[facility] Start: 01-06-2023 End: 01-06-2023 Subsequent hospital visit by physician Farheen Thompson MD Work Phone: [facility] Comment on above: Nephrolithiasis [N20 .0] Start: 12-23-2022 Telephone encounter Nichole Morgan RN U rology Comment on above: Results Start: 12-17-2022 Telephone encounter Nichole Morgan RN U rology Comment on above: Returning Patient's Call Start: 12-13-2022 Telephone encounter Farheen landeros MD Work Phone: Urology Comment on above: Scheduling Start: 12-12-2022 Telephone encounter Ela Rojas Urology 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[employer] Start: 11-29-2022 End: 11-29-2022 Patient encounter procedure Genevieve Noel APRN.CNP Work Phone: Urology Comment on above: Pre-op chest exam (P rimary Dx) Start: 11-29-2022 End: 11-29-2022 Patient encounter status Genevieve Noel APRNJakobCOPIER TECHNICIAN Work Phone: [facility] Work Phone: Start: 11-29-2022 End: 11-29-2022 ambulatory Pacc Main 7 Work Phone: Pre Anesthesia Comment on above: Preop examination (P rimary Dx); Nephrolithiasis; Controlled type 2 diabetes mellitus without complication, without long-term current use of insulin (HCC); Hypercholesteremia Start: 11-29-2022 End: 11-29-[facility] Work Phone: [facility] Start: 11-29-2022 End: 11-29-2022 Preprocedural examination done Pac Main 7 Work Phone: [facility] Work Phone: Start: 11-25-2022 Telephone encounter Nichole Morgan RN U rology 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[employer] Start: 11-18-2022 End: 11-18-2022 Patient encounter procedure Farheen Thompson MD Work Phone: Urology Comment on above: Staghorn calculus (P rimary Dx); Screening for genitourinary condition Start: 11-18-2022 End: 11-19-2022 ambulatory Nichole Morgan RN Urology Start: 11-18-2022 Telephone encounter Farheen landeros MD Work Phone: Urology 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 Facility:[facility] Start: 04-01-[address] SAL JACKSON . Facili ty:[facility] Start: 02-18-2022 Encounter for genera l adult medical examination without abnormal findings DR SAL JACKSON . [facility] Start: 02-14-2022 End: 02-15-[address] SAL [...] DTaP,Tdap,Td Vaccine (3 - Td or Tdap) [facility] Start: 11-18-2025 DIABETES SCREEN DIABETES SCREEN [facility] Start: 03-01-2024 End: 03-01-2024 Follow-up encounter 03/01/2024 5:00 PM EST [facility] [id number] [facility] [place] [address] Alexandria Marin PA-C [address] [place] [address] Six month follow up with prior US (done locally) and [facility] Comment on above: Six month follow up with prior US (done locally) and [facility] Start: 02-23-2024 End: 02-23-2024 Patient encounter procedure 02/23/2024 3:15 PM EST Appointment Radiology [address] [place], [place] [id number] Nephrolithiasis [N20.0] Radiology Comment on above: Nephrolithiasis [N20 .0] Start: 11-30-2023 Covid-19 Vaccine () Covid-19 Vaccine () [facility] Start: 11-30-2023 Influenza vaccination [facility] Start: 09-03-2023 End: 12-03-2023 25-hydroxyvitamin D3 [Mass/volume] in Serum or Plasma VITAMIN D 25 HYDROXY Lab Routine Nephrolithiasis Urine volume deficient Hypercalcinuria Hyperoxaluria Hyperuricosuria Hypernatriuria Renal cyst Expected: 09/03/2023 (Approximate), Expires: 12/03/2023 [facility] Work Phone: Comment on above: Expected: 09/03/2023 (Approximate), Expires: 12/03/2023 Start: 09-03-2023 End: 12-03-2023 Calcium.ionized [Moles/volume] in Blood CALCIUM, IONIZED Lab Routine Nephrolithiasis Urine volume deficient Hypercalcinuria Hyperoxaluria Hyperuricosuria Hypernatriuria Renal cyst Expected: 09/03/2023 (Approximate), Expires: 12/03/2023 [facility] Comment on above: Expected: 09/03/2023 (Approximate), Expires: 12/03/2023 Start: 09-03-2023 End: 12-03-2023 Parathyrin.intact [Mass/volume] in Serum or Plasma PTH INTACT Lab Routine Nephrolithiasis Urine volume deficient Hypercalcinuria Hyperoxaluria Hyperuricosuria Hypernatriuria Renal cyst Expected: 09/03/2023 (Approximate), Expires: 12/03/2023 [facility] Comment on above: Expected: 09/03/2023 (Approximate), Expires: 12/03/2023 Start: 08-26-2023 End: 08-26-2023 Follow-up encounter 08/26/2023 5:00 PM EDT [facility] [address] [place] [address] Alexanrdia Marin PA-C [address] [place] [address] Six month follow up Urology Comment on above: Six month follow up Start: 03-31-2023 Behavioral Health Screening Behavioral Health Screening [facility] Start: 03-31-2023 Depression Assessment Depression Ass essment [facility] Start: 02-06-2023 End: 02-05-2024 US KIDNEY/BLADDER US KIDNEY/BLADDER Radiology Routine Nephrolithiasis Expected: 02/06/2023, Expires: 02/05/2024 [facility] Work Phone: Comment on above: Expected: 02/06/2023 , Expires: 02/05/2024 Start: 11-29-2022 End: 01-29-2023 CONFIRM BLOOD TYPE CONFIRM BLOOD TYPE Blood Bank Routine Preop examination Expected: 11/29/2022, Expires: 01/29/2023 [facility] Work Phone: Comment on above: Expected: 11/29/2022 , Expires: 01/29/2023 Start: 11-29-2022 Covid-19 Vaccine () Covid-19 Vaccine () [facility] Start: 11-29-2022 Influenza vaccination [facility] Start: 11-27-2022 End: 01-27-2023 aPTT in Platelet poor plasma by Coagulation assay ACTIVATED PTT Lab Routine Nephrolithiasis Expected: 11/27/2022, Expires: 01/27/2023 [facility] Work Phone: Comment on above: Expected: 11/27/2022 , Expires: 01/27/2023 Start: 11-27-2022 End: 01-27-2023 Bacteria identified in Urine by Culture URINE CULTURE Microbiology Routine Nephrolithiasis Expected: 11/27/2022, Expires: 01/27/2023 [facility] Work Phone: Comment on above: Expected: 11/27/2022 , Expires: 01/27/2023 Start: 11-27-2022 End: 01-27-2023 CBC W Auto Differential panel - Blood CBC + DIFF Lab Routine Nephrolithiasis Expected: 11/27/2022, Expires: 01/27/2023 [facility] Work Phone: Comment on above: Expected: 11/27/2022 , Expires: 01/27/2023 Start: 11-27-2022 End: 01-27-2023 Comprehensive metabolic 2000 panel - Serum or Plasma COMP METABOLIC PANEL Lab Routine Nephrolithiasis Expected: 11/27/2022, Expires: 01/27/2023 [facility] Work Phone: Comment on above: Expected: 11/27/2022 , Expires: 01/27/2023 Start: 11-27-2022 End: 01-27-2023 PT panel - Platelet poor plasma by Coagulation assay PROTHROMBIN TIME/PT Lab Routine Nephrolithiasis Expected: 11/27/2022, Expires: 01/27/2023 [facility] Work Phone: Comment on above: Expected: 11/27/2022 , Expires: 01/27/2023 Start: 11-27-2022 End: 01-27-2023 TYPE AND SCREEN,30 DAY TYPE AND SCREEN,30 DAY Blood Bank Routine Nephrolithiasis Expected: 11/27/2022, Expires: 01/27/2023 [facility] Work Phone: Comment on above: Expected: 11/27/2022 , Expires: 01/27/2023 Start: 11-27-2022 End: 01-27-2023 Urinalysis complete panel - Urine URINALYSIS, WITH MICROSCOPIC Lab Routine Nephrolithiasis Expected: 11/27/2022, Expires: 01/27/2023 [facility] Work Phone: Comment on above: Expected: 11/27/2022 , Expires: 01/27/2023 Start: 03-31-2022 DEPRESSION ASSESSMENT DEPRESSION ASS ESSMENT [facility] Start: 05-22-2021 COVID-19 VACCINE (4 - Pfizer series) COVID-19 VACCINE (4 - Pfizer series) [facility] Start: 2021 Hepatitis B Vaccine (1 of 3 - Risk 3-dose series) Hepatitis B Vaccine (1 of 3 - Risk 3-dose series) [facility] Start: 2021 RSV Vaccine (1 - 1-d ose 60+ series) RSV Vaccine (1 - 1-dose 60+ series) [facility] Start: 2021 RSV Vaccine (1 - Ris k 60-74 years 1-dose series) RSV Vaccine (1 - Risk 60-74 years 1-dose series) [facility] Start: 2011 SHINGRIX VACCINE (1 of 2) HILL GRIX VACCINE (1 of 2) [facility] Start: 2006 COLOGUARD (FIT-DNA) COLOGUARD (FIT-D NA) [facility] Start: 2006 Colonoscopy COLONOSCOPY [facility] Start: 2006 COLORECTAL CANCER SCREENING COLORECTAL CANCER SCREENING [facility] Start: [address] COLONOGRAPHY [facility] Start: 2006 FECAL OCCULT BLOOD FECAL OCCULT BLOO D [facility] Start: 2006 LIPID SCREEN LIPID SCREEN [facility] Start: 2006 Screening for malign ant neoplasm of colon [facility] Start: 2006 SIGMOIDOSCOPY SIGMOIDOSCOPY [facility] Start: 2001 Mammography [facility] Start: 2001 Screening for malign ant neoplasm of breast Mammogram Screening [facility] Start: 1991 HPV TESTING HPV TESTING [facility] Start: 1991 Screening for malign ant neoplasm of cervix HPV Testing [facility] Start: 1982 PAP TESTING PAP TESTING [facility] Start: 1982 Screening for malign ant neoplasm of cervix [facility] Start: 1980 Urine microalbumin profile [facility] Start: 1979 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 DOROTEO DISEASE VISIT ANNUAL PCP TEAM CHRONIC DISEASE VISIT [facility] Start: 1979 Anxiety Screening Anxiety Screening [facility] Start: 1979 Depression Screening Depression Scre ening [facility] Start: 1979 Hepatitis B surface antibody level LDL CHOLESTEROL [facility] Start: 1979 HEPATITIS C SCREENING HEPATITIS C [facility] Start: 1979 Hepatitis C screening Hepatitis C [facility] Start: 1979 HIV SCREENING HIV SCREENING [facility] Start: 1979 HIV screening HIV Screening [facility] Start: 1971 3 comp foot exam completed DIABETIC FOOT EXAM [facility] Start: 1971 Diabetic foot examination Diabetic F oot Exam [facility] Start: 1971 Glaucoma screening Dilated Retinal E xam [facility] Start: 1971 Hepatitis B screening URINE AL BUMIN:CREATININE RATIO [facility] Start: 1971 Hepatitis C antibody , confirmatory test DILATED RETINAL EXAM [facility] Start: 1967 PNEUMOCOCCAL (1 - PCV) PNEUMOCOCCAL (1 - PCV) [facility] Start: 1967 Pneumococcal vaccination [facility] Start: 1966 Hemoglobin A1c measurement HbA1C [facility] Start: 1966 Hemoglobin A1c/Hemoglobin.total in Blood HBA1C [facility] CALCULI ANALYSIS [facility] Work Phone: Comment on above: Release Upon Orderin g for 1 Occurrences starting 01/06/2023 UA DIP, URINE (POC) UA DIP, URIN E (POC) Lab Routine Screening for genitourinary condition Ordered: 11/18/2022 [facility] Work Phone: Comment on above: Ordered: 11/18/2022 URINALYSIS, REFLEX MICROSCOPIC URINALYSIS, REFLEX MICROSCOPIC Lab Routine Screening for genitourinary condition Ordered: 11/29/2022 [facility] Work Phone: Comment on above: Ordered: 11/29/2022 US Kidney - bilatera l and Urinary bladder US KIDNEY/BLADDER Radiology Routine Nephrolithiasis 08/19/2023 3:40 PM EDT [facility] Work Phone: End: 09-25-2024 US Kidney - bilateral and Urinary bladder US KIDNEY/BLADDER Radiology Routine Nephrolithiasis Urine volume deficient Hypercalcinuria Hyperoxaluria Hyperuricosuria Hypernatriuria Renal cyst 1 Occurrences starting 08/27/2023 until 09/25/2024 [facility] Comment on above: 1 Occurrences starti ng 08/27/2023 until 09/25/2024 End: 04-02-2025 US Kidney - bilateral and Urinary bladder US KIDNEY/BLADDER Radiology Routine Nephrolithiasis 1 Occurrences starting 03/02/2024 until 04/02/2025 [facility] Work Phone: Comment on above: 1 Occurrences starti ng 03/02/2024 until 04/02/2025 US KIDNEY/BLADDER US KIDNEY/BLAD MATEO Radiology Routine Nephrolithiasis 02/14/2023 11:02 AM EST [facility] Work Phone: End: 03-27-2024 US KIDNEY/BLADDER US KIDNEY/BLADDER Radiology Routine Nephrolithiasis 1 Occurrences starting 02/25/2023 until 03/27/2024 [facility] Work Phone: Comment on above: 1 Occurrences starti ng 02/25/2023 until 03/27/2024 End: 04-01-2025 XR Abdomen GE 3 Views AP and Oblique and Cone XR ABDOMEN 3V KUB W/OBLIQUES Radiology Routine Nephrolithiasis 1 Occurrences starting 03/02/2024 until 04/01/2025 [facility] Comment on above: 1 Occurrences starti ng 03/02/2024 until 04/01/2025 [facility] Immunizations Immunization Date Immunization Notes Care Provider [facility] 02-07-2021 influenza virus vacc ine, unspecified formulation Ela Rob RN [facility] Payers Date Payer Category Payer Unknown [employer] [id number] 2018-Present [phone] [address] [place] [address] PPO [id number] 1960 Unknown [id number] 1960 Unknown [id number] 1961 Unknown [id number] 1961 Unknown [id number] 1961 Unknown [id number] 1961 Unknown [id number] 1961 Unknown [id number] 1961 Unknown [id number] 1961 Unknown [id number] 1958 Self-pay 1958 Unknown [id number] Social History Date Type Detail Facility Start: [facility]18[facility]2022 [facility] End: 03-31-1997 History of tobacco use Current smoker [facility] End: 03-31-1997 History of tobacco use Cigarette Smoker [facility] Start: 11-18-2022 End: 11-29-2022 Cigarettes smoked current (pack per day) - Reported 1 [facility] Start: 11-18-2022 Tobacco use and exposure Smoke less tobacco non-user [facility] Start: 11-18-2022 End: 11-29-2022 Alcohol intake Current drinker of alcohol (finding) [facility] Start: 11-18-2022 End: 11-29-2022 Tobacco use panel [facility] Start: 11-18-2022 Alcohol Comment social drinker on weekends [facility] Start: 1960 Sex Assigned At Not on file [facility] National Score (1-10 0), lower number is lower risk 86 [facility] Start: 1960 Sex assigned at Female [facility] Start: 10-05-2023 Gender identity Identifies as female gender (finding) [facility] Start: 10-05-2023 Sexual orientation Heterosexual (cathie robles) [facility] Medical Equipment Procedure Code Equipment Code Equipment Origin al Text Equipment Identifier Dates Stent Bard Inlay 6fr 2 Pigtail Curve Blue Hydrophilic 26cm Ureteral - [id number] Start: 12-11-2022 Stent Bard Inlay 6fr 2 Pigtail Curve Blue Hydrophilic 26cm Ureteral - [id number] Start: 01-06-2023 Clinical Notes 11-20-2021 to 03-02-2024 Addendum Note - Alexandria Marin PA-C - 03/02/2024 6:05 PM ESTAddendum Note - Alexandria Marin PA-C - 03/02/2024 6:05 PM ESTAlexandria Marin PA-C - 03/01/2024 5:00 PM ESTPatient Instructions Note Date & Type Note Facility 03-02-2024 Note Addended by: ALEXANDRIA MCCARTY on: 03/02/2024 06:05 PM Modules accepted: Orders [facility] 03-02-2024 Miscellaneous Notes Addended by: ALEXANDRIA MARIN on: 03/02/2024 06:05 PM Modules accepted: Orders documented in this encounter [facility] 03-01-2024 History of Presen t illness Narrative This visit was conducted as a virtual visit. I have communicated my name and active licensure. The patient's identity and physical location were verified at the time of this visit. Either the patient or their legal technical service representative has been informed of the risks [...] All fluids count but water is best. Ramsey intake - Recommend increasing dietary citrate intake. [...] Alexandria Marin PA-C documented in this encounter [facility] 03-01-2024 Note HNO ID: [id number] Author: ALEXANDRIA MARIN PA-C Service: ? Author Type: Physician Legal Administrator Type: Progress Notes Filed: 03/02/2024 18:05 Note Text: This visit was conducted as a virtual visit. I have communicated my name and active licensure. The patient's identity and physical location were verified at the time of this visit. Either the patient or their legal technical service representative has been informed of the risks [...] Final PROTEIN CATABO (more content not included)... [facility] 02-23-2024 Note HNO ID: [id number] Author: KYLIE NAGY RT(R) Service: ? Author [...] PATIENT PRESENTS WITH AN IMPLANTABLE OR ATTACHED ENGINEERING GROUP LEADER: No RADIOLOGY DEPARTMENT: Ultrasound PERIPHERAL IV DATA: Not applicable SIGNED BY: Kylie Nagy RDMS, BERNARD February 23, 2024 3:31 PM [facility] 02-23-2024 History of Presen t illness Narrative [...] PATIENT PRESENTS WITH AN IMPLANTABLE OR ATTACHED ENGINEERING GROUP LEADER: No RADIOLOGY DEPARTMENT: Ultrasound PERIPHERAL IV DATA: Not applicable SIGNED BY: Kylie Nagy RDMS, RVT February 23, 2024 3:31 PM documented in this encounter [facility] 12-22-2023 Telephone encounter Note Requested Prescriptions Pending Prescriptions Disp Refills potassium citrate ER (UROCIT-K) 10 mEq (1,080 mg) 120 tablet 5 Sig: Take 2 tablets by mouth two times a day. [facility] 12-22-2023 Miscellaneous Notes Requested Prescriptions Pending Prescriptions Disp Refills potassium citrate ER (UROCIT-K) 10 mEq (1,080 mg) 120 tablet 5 Sig: Take 2 tablets by mouth two times a day. documented in this encounter [facility] 09-12-2023 Telephone encounter Note We got another fax, this one was a calcium blood test report. [facility] 09-12-2023 Miscellaneous Notes We got another fax, this one was a calcium blood test report. We got another lab report for Krystina in today. It is scanned in. Today we got a faxed Lab report for Krystina. documented in this encounter [facility] 09-11-2023 Telephone encounter Note We got another lab report for Krystina in today. It is scanned in. [facility] 09-10-2023 Telephone encounter Note Today we got a faxed Lab report for Krystina. [facility] 08-28-2023 Telephone encounter Note I spoke with Krystina, I got her follow up VV scheduled and I set up her Us prior. I sent out for a litholink and I mailed her the blood work orders. [facility] 08-28-2023 Miscellaneous Notes I spoke with Krystina, I got her follow up VV scheduled and I set up her Us prior. I sent out for a litholink and I mailed her the blood work orders. documented in this encounter [facility] 08-26-2023 History of Presen t illness Narrative This visit was conducted as a virtual visit. I have communicated my name and active licensure. The patient's identity and physical location were verified at the time of this visit. Either the patient or their legal technical service representative has been informed of the risks [...] All fluids count but water is best. Ramsey intake - Recommend increasing dietary citrate intake. [...] Alexandria Marin PA-C documented in this encounter [facility] 08-26-2023 Note HNO ID: [id number] Author: ALEXANDRIA MARIN PA-C Service: ? Author Type: Physician Legal Administrator Type: Progress Notes Filed: 08/27/2023 12:36 Note Text: This visit was conducted as a virtual visit. I have communicated my name and active licensure. The patient's identity and physical location were verified at the time of this visit. Either the patient or their legal technical service representative has been informed of the risks [...] Final CREATININE/KG BOD (more content not included)... [facility] 08-19-2023 Note HNO ID: [id number] Author: KYLIE NAGY RT(Jayla) Service: ? Author [...] PATIENT PRESENTS WITH AN IMPLANTABLE OR ATTACHED ENGINEERING GROUP LEADER: No RADIOLOGY DEPARTMENT: Ultrasound PERIPHERAL IV DATA: Not applicable SIGNED BY: Kylie Nagy RDMS, RVT August 19, 2023 3:40 PM [facility] 08-19-2023 History of Presen t illness Narrative [...] PATIENT PRESENTS WITH AN IMPLANTABLE OR ATTACHED ENGINEERING GROUP LEADER: No RADIOLOGY DEPARTMENT: Ultrasound PERIPHERAL IV DATA: Not applicable SIGNED BY: Kylie Nagy RDMS, RVT August 19, 2023 3:40 PM documented in this encounter [facility] 06-30-2023 Miscellaneous Notes Refill request for the following med Last ov 02/25/2023 with Alexandria Follow up 08/26/2023 Requested Prescriptions Pending Prescriptions Disp Refills potassium citrate ER (UROCIT-K) 10 mEq (1,080 mg) [Pharmacy Med Name: POTASSIUM CITRATE ER 10 MEQ TB] 120 tablet 5 Sig: take 2 tablets by mouth twice a day documented in this encounter [facility] 03-01-2023 Note HNO ID: [id number] Author: Note, Interface Service: ? Author Type: ? Type: Progress Notes Filed: 03/01/2023 5:55 AM Note Text: Epic Scheduled Downtime: 03/01/2023 1:00:00 AM to 03/01/2023 5:38:00 AM [facility] 02-26-2023 Miscellaneous Notes I called Krystina and I got her scheduled for a follow up in six months and an US beforehand. documented in this encounter [facility] 02-25-2023 Note HNO ID: [id number] Author: Alexandria Marin PA-C Service: ? Author Type: Physician Legal Administrator Type: Progress Notes Filed: 02/26/2023 12:26 PM Note Text: This visit was conducted as a virtual visit. I have communicated my name and active licensure. The patient's identity and physical location were verified at the time of this visit. Either the patient or their legal technical service representative has been informed of the risks [...] 93 74 - 99 mg/dL Final Comment: Location:[facility], [address] [place] [address], [facility] The Accu-Chek Inform II glucose meter has [...] developed and its performance characteristics determined by [facility]'s [facility] Path[facility] Laboratory Medicine [place] [facility] It has not been cleared or approved by the FDA. [facility] is regulated under CLIA as qualified to [...] nonobstructive calculus a (more content not included)... [facility] 02-25-2023 History of Presen t illness Narrative This visit was conducted as a virtual visit. I have communicated my name and active licensure. The patient's identity and physical location were verified at the time of this visit. Either the patient or their legal technical service representative has been informed of the risks [...] 93 74 - 99 mg/dL Final Comment: Location:[facility], [address] [place] [address], [id number] The Accu-Chek Inform II glucose meter has [...] developed and its performance characteristics determined by [facility]'s [facility] Pathology and Laboratory Medicine [place] ([facility]). It has not been cleared or approved by the FDA. [facility] is regulated under CLIA as qualified to [...] All fluids count but water is best. Ramsey intake - Recommend increasing dietary citrate intake. [...] Alexandria Marin PA-C documented in this encounter [facility] 02-18-2023 Miscellaneous Notes Called patient to discuss external urine culture results that were received as no recent order was submitted for patient to complete. No answer, LVM with phone number to return call. Nichole Morgan RN February 18, 2023 12:55 PM documented in this encounter [facility] 02-14-2023 History of Presen t illness [...] 2023 10:20 AM documented in this encounter [facility] 01-11-2023 Note HNO ID: [id number] Author: Note, Interface Service: ? Author Type: ? Type: Progress Notes Filed: 01/11/2023 3:48 AM Note Text: Epic Scheduled Downtime: 01/11/2023 1:00:00 AM to 01/11/2023 1:28:00 AM [facility] 01-07-2023 Miscellaneous Notes Called and spoke [...] discuss. Thank you! documented in this encounter [facility] 01-06-2023 Note HNO ID: [id number] Author: Reshma Dominguez APRN.INSTRUMENTATION ENGINEERING TECHNICIAN Service: ? Author Type: Nurse Methods Specialist Engineer Type: Anesthesia Procedure Notes Filed: 01/06/2023 7:57 AM Note Text: ANESTHESIOLOGY PROCEDURE NOTE Airway General Information Procedure Start Time/Medication Administration: 01/06/2023 7:46 AM Patient location during procedure: OR Staffing Anesthesiologist: Farzana Lopez MD INSTRUMENTATION ENGINEERING TECHNICIAN: Reshma Dominguez APRN.INSTRUMENTATION ENGINEERING TECHNICIAN Performed by: anesthesiologist Indications and Patient [...] size 4 seated well SIGNATURE: Reshma Dominguez APRN.INSTRUMENTATION ENGINEERING TECHNICIAN PATIENT NAME: Krystina aSldivar DATE: January 06, 2023 TIME: 7:56 AM CSN: [id number] [facility] 01-06-2023 Surgical operatio n note OPERATIVE/PROCEDURE REPORT LOG ID: [id number] NAME: Krystina Saldivar : 1960 Surgery/Procedure Date: 01/06/2023 Incision/Procedure Start Time: 7:56 AM Incision Close/Procedure End Time: 8:43 AM Surgeon(s)/Proceduralist(s) and Legal Administrator(s): Surgeon(s) and Role: * Farheen Thompson MD [...] 01/06/2023 8:13 AM Anesthesia: General Findings: Stone [place]: Primary stone 6 mm lower pole; All other mm stones in the lower pole Irrigation: [place]anton bag; max pressure gravity Fluoroscopy: Time: 14.6 [...] and draped in the standard sterile fashion. [employer] fluoroscopy was performed and the calculus identified [...] 06, 2023 TIME: 8:45 AM PAGER/CONTACT #: [phone] documented in this encounter [facility] 01-06-2023 History and physical note Preoperative [...] 7:15 AM PAGER: documented in this encounter [facility] 01-06-2023 Hospital Discharg e instructions Kade Posey MD - 01/06/2023 7:25 AM EDT Images from the original note were not included. The [place] [id number] or ([phone] CC-CARE DISCHARGE INSTRUCTIONS C O N F [...] WARNING SIGNS Please call your doctor's office ([phone]) and ask to speak to your doctor's nurse honing machine try out setter if you experience: -Signs of infection (fever [...] questions, please feel free to call [facility] ([phone]) and ask to speak with your doctor's nurse honing machine try out setter PENDING TEST RESULTS: Stone analysis FOLLOW-UP INFORMATION Please follow-up as recommended by your provider. The office phone numbers for Dr. Thompson are as follows: [facility]: [phone] [facility] [phone] If you would like an appointment at the [facility], please call the [facility] appointment line ([phone]) to request an appointment Frequently Asked Questions Pathology and Follow-Up: Q: When will I get my results? A: This is one the most important questions to answer after any surgery. This will take about 5-7 days and will be released on [employer] Q: When am I seeing my surgeon again? A: We do our very best to schedule post-operative visits before discharge. The best way to confirm your appointment details is with the urology office during regular business hours. These appointments can also be found on [employer]. Important Phone Numbers to make appointments: Urology Office and Appointment Line: [phone] [facility] (Not Urology) Appointment Line: [phone] [facility] Radiology: [phone] [facility] Interventional Radiology: [phone] Outpatient Lab: [phone] or [phone] Q: What is [employer]? A: [employer] is an online tool. It allows you to manage your healthcare. You can communicate with caregivers too. Visit [email or web address] to register. You need an e-mail address [...] in-office procedure, you do NOT need a driver recruiter to take you home. Also, there are [...] number for general questions (NOT for emergencies): [phone] FOLLOW THESE INSTRUCTIONS REGARDING ANESTHESIA: 1. Do [...] Kade Lake MD documented in this encounter [facility] 12-23-2022 Miscellaneous Notes Called and spoke [...] her pre-op labs and culture today at [place], will wait for those results to be sent over. Patient currently not scheduled for PACC or midlevel H&P. Requested for schedulers to schedule patient for either Virtual PACC appointment since she just completed one on 11/29 or mid level H&P morning of surgery. Patient voiced understanding. Nichole Morgan RN December 23, 2022 12:54 PM documented in this encounter [facility] 12-17-2022 Miscellaneous Notes Called and spoke [...] back? Thank you. documented in this encounter [facility] 12-13-2022 Miscellaneous Notes Patient scheduled for surgery on 01/06 at [facility] for CYSTOURETHROSCOPY W/ URETEROSCOPY AND/OR PYELOSCOPY [...] to local hospital documented in this encounter [facility] 12-12-2022 Miscellaneous Notes Returned patient's call and discussed scheduling her URS with Dr. Thompson. Patient agreed to first available January 06. She will do blood work and urine locally 2 weeks prior. Will fax orders to [facility]. Fax #: [phone] Patient is faxing short term disability paperwork to our office to fill out. Discussed return date for work to be January 13 to give time for recovery after PCNL and URS. Ela Rob RN Images from the original note were not included. [facility] Samantha RN (Call me) Pt missed your call below. She can be reached at the above number when you have a chance. Thanks Called patient to discuss scheduling surgery with Dr. Thompson. No answer, VM left. Ela Rob RN documented in this encounter [facility] 11-29-2022 Instructions Genevieve Noel APRN.ALIE - [...] surgery, you can contact Urology Surgery at [phone]. We would like to reminded you that surgery time provided is tentative based on potential changes with transplant surgeries. Please check in at desk J1-9 in the [facility] ([facility], [address] [place] [address]) Medications: Unless instructed differently below, stay on [...] day of surgery. documented in this encounter [facility] 11-29-2022 History of Presen t illness Narrative [facility] PRE-OP NOTE [...] prepared for surgery pending LABS. Genevieve Noel APRN.COPIER TECHNICIAN documented in this encounter [facility] 11-29-2022 Instructions Jonel Montano DO - 11/29/2022 1:08 PM EDT PATIENT PREOPERATIVE INSTRUCTIONS Farheen Thompson MD has scheduled you for your procedure at this surgery center: [facility] [place] Scheduling Office: [phone] --[address] [place] [address]. Please read below carefully for your personalized [...] Procedures: - YOU MUST HAVE A RESPONSIBLE BI LEAD TAKE YOU HOME. A PHOTOGRAPHER'S ASSISTANT OR ELECTRICAL RESEARCH ENGINEER CANNOT BE MADE A RESPONSIBLE BI LEAD. - We recommend that a responsible person [...] call the Friday before. Your surgeon s spares scheduler will tell you what time to call the office. - If you have not reached the departmental spares scheduler by 5 P.M., call [phone] after 5 P.M. the day before your surgery. Please be aware that emergency situations arise, which may delay or change your surgical time. If this happens, we will notify you as soon as possible and regret any inconvenience. If you already have an Advance Directive, please fax a copy to [phone] or email to for it to be [...] Jonel Montano DO documented in this encounter [facility] 11-29-2022 History and physical note HISTORY [...] fevers. Neuro: No history of TIA's, stroke, SCREEN MACHINE OPERATOR tumor, impaired sensorium, hemiplegia, paraplegia or quadraplegia. No neurological symptoms or problems. Respiratory: No history of current cough or dyspnea, or pneumonia in the past 6 weeks. No history of respiratory/pulmonary symptoms or problems. Cardiovascular: No history of HTN requiring medication, no history of angina, CHF, RI, cardiac surgery or stents. Denies rest pain, gangrene or revascularization/amputation for PVD. No history of cardiovascular symptoms or problems. GI: No history of GI symptoms or problems. No history of esophageal varices, recent ascites, or ETOH greater than 2 drinks per day. : nephrolithiasis, denies dysuria, gross hematuria, or incontinence. ARMATURE REWINDER: Negative for abnormal vaginal bleeding, abnormal vaginal [...] TIME: 12:36 PM documented in this encounter [facility] 11-25-2022 Miscellaneous Notes Called and spoke with patient to inquire about moving surgery to 12/25. Patient states that she would rather not move her surgery date as she does not want to be out of work for too long. Will update Dr. Thompson and keep surgery scheduled as is. Nichole Morgan RN November 25, 2022 11:41 AM documented in this encounter [facility] 11-18-2022 Instructions Farheen Thompson MD - [...] video with more information on ureteral stents: [email or web address] Video on PCNL: [email or web address] If you have any additional questions regarding this procedure, please reach out to our team. 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 [...] per night). She has been seen at [facility] most recently in the ER on [...] was performed with placement of a 6 Portuguese variable length ureteral stent without difficulty. Left [...] Abdomen is Non-distended, soft, nontender. Musculoskeletal: Good promotional model strength. Neurologic: Normal gait. Sensation grossly intact. [...] tolerable. - dietary sodium restriction: Less than 4849-3308 mg per day. - increase dietary citrate intake: lemon/kwethluk, melon and tomato has potassium citrate - [...] MD Associate Staff documented in this encounter [facility] 11-18-2022 Miscellaneous Notes Received via fax OSH medical records. Patient is scheduled to see Dr. Thompson on 11/18/2022 at 4pm. Records given to Dr. Thompson for further review. Will send to scanning after review by provider. Senait Durán RN documented in this encounter [facility] 11-20-2021 Note PROCEDURE: XR TIB_FI B RT 2V COMPARISON: 11/09/21 HISTORY: Pain of right lower leg FINDINGS: BONES:No fracture, acute abnormality, or significant arthropathy. SOFT TISSUES:Negative. No visible soft tissue swelling. EFFUSION:None visible. OTHER: Negative. 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 Preop examination- Primary Preoperative examination, unspecified Nephrolithiasis Calculus of kidney Controlled type 2 diabetes mellitus without complication, without long-term current use of insulin (HCC) Hypercholesteremia Pure hypercholesterolemia Nephrolithiasis- Primary Calculus of kidney Urine volume deficient Oliguria and anuria Hypercalcinuria Unspecified disorders of calcium metabolism Hyperuricosuria Other nonspecific finding on examination of urine Hypernatriuria Hyperosmolality and/or hypernatremia documented in this encounter [facility] for referral (narrative)* Diagnostic Procedure Only (Routine) - Authorized Specialty Diagnoses / Procedures Referred By [facility] Referred To Contact US IMAGING Diagnoses Nephrolithiasis Procedures US KIDNEY/BLADDER US RETROPERITONEAL REAL TIME W/[place] [address] [place] [address] [place] [address] Referral ID Status Reason Start Date Expiration Date Visits Requested Visits Authorized [id number] Authorized Auto-Generat ed Referral 02/06/2023 02/05/2024 1 1 [facility] for referral (narrative)* Diagnostic Procedure Only (Routine) - Authorized Specialty Diagnoses / Procedures Referred By Contzeny lewis Referred To Contact US IMAGING Diagnoses Nephrolithiasis Procedures US KIDNEY/BLADDER US RETROPERITONEAL REAL TIME W/IMAGE COMPLETE Alexandria Marin PA-C [address] [place] [address] [place] [address] Referral ID Status Reason Start Date Expiration Date Visits Requested Visits Authorized [id number] Authorized Auto-Generat ed Referral 03/26/2024 1 1 [facility] for referral (narrative)* Diagnostic Procedure Only (Routine) - Pending Review Specialty Diagnoses / Procedures Referred By Contac t Referred To Contact US IMAGING Diagnoses Nephrolithiasis Urine volume deficient Hypercalcinuria Hyperoxaluria Hyperuricosuria Hypernatriuria Renal cyst Procedures US KIDNEY/BLADDER US RETROPERITONEAL REAL TIME W/IMAGE COMPLETE Alexandria Marin PA-C [address] [facility] [id number] [place] [address] Referral ID Status Reason Start Date Expiration Date Visits Requested Visits Authorized [id number] Pending Review Auto-Generat ed Referral 08/27/2023 09/24/2024 1 1 [facility] for referral (narrative)* Diagnostic Procedure Only (Routine) - Closed Specialty Diagnoses / Procedures Referred By Contac t Referred To Contact US IMAGING Diagnoses Nephrolithiasis Urine volume deficient Hypercalcinuria Hyperoxaluria Hyperuricosuria Hypernatriuria Renal cyst Procedures US KIDNEY/BLADDER US RETROPERITONEAL REAL TIME W/IMAGE COMPLETE Alexandria Marin PA-C [address] [id number] [facility] Referral ID Status Reason Start Date Expiration Date V isits Requested Visits Authorized [id number] Closed Auto-Generate d Referral 08/27/2023 09/24/2024 1 1 [facility] for referral (narrative)* Diagnostic Procedure Only (Routine) - New Request Specialty Diagnoses / Procedures Referred By Contac t Referred To Contact XR IMAGING Diagnoses Nephrolithiasis Procedures XR ABDOMEN 3V KUB W/OBLIQUES RADIOLOGIC EXAM ABDOMEN 3+ VIEWS Alexandria Marin PA-C [address] [id number] [place] [address] Referral ID Status Reason Start Date Expiration Date Visits Requested Visits Authorized [id number] New Request Auto-Generat ed Referral 03/02/2024 04/01/2025 1 1 * Diagnostic Procedure Only (Routine) - New Request Specialty Diagnoses / Procedures Referred By Contzeny t Referred To Contact US IMAGING Diagnoses Nephrolithiasis Procedures US KIDNEY/BLADDER US RETROPERITONEAL REAL TIME W/IMAGE COMPLETE Alexandria aMrin PA-C [address] [place] [address] [place] [address] Referral ID Status Reason Start Date Expiration Date Visits Requested Visits Authorized [id number] New Request Auto-Generat ed Referral 03/02/2024 04/01/2025 1 1 [facility] for visit Narrative* Diagnostic Procedure Only (Routine) - Closed Specialty Diagnoses / Procedures Referred By Contac t Referred To Contact US IMAGING Diagnoses Nephrolithiasis Procedures US KIDNEY/BLADDER US RETROPERITONEAL REAL TIME W/[place] [address] [place] [address] Us Imaging [facility] Referral ID Status Reason Start Date Expiration Date V isits Requested Visits Authorized [id number] Closed Auto-Generate d Referral 02/06/2023 02/05/2024 1 1 [facility] for visit Narrative* Diagnostic Procedure Only (Routine) - Closed Specialty Diagnoses / Procedures Referred By Contac t Referred To Contact US IMAGING Diagnoses Nephrolithiasis Procedures US KIDNEY/BLADDER US RETROPERITONEAL REAL TIME W/IMAGE COMPLETE Alexandria Marin PA-C [address] [place] [address] [place] [address] Referral ID Status Reason Start Date Expiration Date V isits Requested Visits Authorized [id number] Closed Auto-Generate d Referral 02/25/2023 03/26/2024 1 1 [facility] for visit Narrative* Diagnostic Procedure Only (Routine) - Closed Specialty Diagnoses / Procedures Referred By Contac t Referred To Contact US IMAGING Diagnoses Nephrolithiasis Urine volume deficient Hypercalcinuria Hyperoxaluria Hyperuricosuria Hypernatriuria Renal cyst Procedures US KIDNEY/BLADDER US RETROPERITONEAL REAL TIME W/IMAGE COMPLETE Alexandria Marin PA-C [address] [place] [address] [place] [address] Referral ID Status Reason Start Date Expiration Date V isits Requested Visits Authorized [id number] Closed Auto-Generate d Referral 08/27/2023 09/24/2024 1 1 [facility] Summary Purpose Family History No Family [...] PACC - PRE ANESTHESIA CONSULTATION CLINIC OFFICE/OUTPATIENT [facility] 60-[place] [address] [place] [address] Referral ID Status Reason Start Date Expiration Date Visits Requested Visits Authorized [id number] Authorized PCP Requested Referral 11/18/2022 11/18/2023 1 [...] and content) DATE CREATED AUTHOR 06/24/2022 [facility] DATE CREATED AUTHOR AUTHOR'S ORGANIZ ATION 11/20/2022 [facility] DATE CREATED AUTHOR AUTHOR'S ORGANIZ ATION 03/03/2023 [facility] DATE CREATED AUTHOR AUTHOR'S ORGANIZ ATION 09/13/2023 [facility] DATE CREATED AUTHOR AUTHOR'S ORGANIZ ATION 03/03/2024 [facility] Source Comments (unrecognize d section and content) In the event this informatio n is protected by the Federal Confidentiality of Alcohol and Drug Abuse Patient Records regulations: The Federal rules restrict any use of the information to criminally investigate or prosecute any alcohol or drug abuse patient.[facility] the event this information is protected by the Federal Confidentiality of Alcohol and Drug Abuse Patient Records regulations: The Federal rules restrict any use of the information to criminally investigate or prosecute any alcohol or drug abuse patient.[facility] the event this information is protected by the Federal Confidentiality of Alcohol and Drug Abuse Patient Records regulations: The Federal rules restrict any use of the information to criminally investigate or prosecute any alcohol or drug abuse patient.[facility] Hospital[facility] the event this information is protected by the Federal Confidentiality of Alcohol and Drug Abuse Patient Records regulations: The Federal rules restrict any use of the information to criminally investigate or prosecute any alcohol or drug abuse patient.[facility] Hospital[facility] the event this information is protected by the Federal Confidentiality of Alcohol and Drug Abuse Patient Records regulations: The Federal rules restrict any use of the information to criminally investigate or prosecute any alcohol or drug abuse patient.[facility] Hospital[facility] the event this information is protected by the Federal Confidentiality of Alcohol and Drug Abuse Patient Records regulations: The Federal rules restrict any use of the information to criminally investigate or prosecute any alcohol or drug abuse patient.[facility] Hospital[facility] the event this information is protected by the Federal Confidentiality of Alcohol and Drug Abuse Patient Records regulations: The Federal rules restrict any use of the information to criminally investigate or prosecute any alcohol or drug abuse patient.[facility] Hospital[facility] the event this information is protected by the Federal Confidentiality of Alcohol and Drug Abuse Patient Records regulations: The Federal rules restrict any use of the information to criminally investigate or prosecute any alcohol or drug abuse patient.[facility] Hospital[facility] the event this information is protected by the Federal Confidentiality of Alcohol and Drug Abuse Patient Records regulations: The Federal rules restrict any use of the information to criminally investigate or prosecute any alcohol or drug abuse patient.[facility] Hospital[facility] the event this information is protected by the Federal Confidentiality of Alcohol and Drug Abuse Patient Records regulations: The Federal rules restrict any use of the information to criminally investigate or prosecute any alcohol or drug abuse patient.[facility] Hospital[facility] the event this information is protected by the Federal Confidentiality of Alcohol and Drug Abuse Patient Records regulations: The Federal rules restrict any use of the information to criminally investigate or prosecute any alcohol or drug abuse patient.[facility] Hospital[facility] the event this information is protected by the Federal Confidentiality of Alcohol and Drug Abuse Patient Records regulations: The Federal rules restrict any use of the information to criminally investigate or prosecute any alcohol or drug abuse patient.[facility] HospitalIn the event this information is protected by the Federal Confidentiality of Alcohol and Drug Abuse Patient Records regulations: The Federal rules restrict any use of the information to criminally investigate or prosecute any alcohol or drug abuse patient.[facility] HospitalIn the event this information is protected by the Federal Confidentiality of Alcohol and Drug Abuse Patient Records regulations: The Federal rules restrict any use of the information to criminally investigate or prosecute any alcohol or drug abuse patient.[facility] HospitalIn the event this information is protected by the Federal Confidentiality of Alcohol and Drug Abuse Patient Records regulations: The Federal rules restrict any use of the information to criminally investigate or prosecute any alcohol or drug abuse patient.[facility] HospitalIn the event this information is protected by the Federal Confidentiality of Alcohol and Drug Abuse Patient Records regulations: The Federal rules restrict any use of the information to criminally investigate or prosecute any alcohol or drug abuse patient.[facility] HospitalIn the event this information is protected by the Federal Confidentiality of Alcohol and Drug Abuse Patient Records regulations: The Federal rules restrict any use of the information to criminally investigate or prosecute any alcohol or drug abuse patient.[facility] HospitalIn the event this information is protected by the Federal Confidentiality of Alcohol and Drug Abuse Patient Records regulations: The Federal rules restrict any use of the information to criminally investigate or prosecute any alcohol or drug abuse patient.[facility] HospitalIn the event this information is protected by the Federal Confidentiality of Alcohol and Drug Abuse Patient Records regulations: The Federal rules restrict any use of the information to criminally investigate or prosecute any alcohol or drug abuse patient.[facility] HospitalIn the event this information is protected by the Federal Confidentiality of Alcohol and Drug Abuse Patient Records regulations: The Federal rules restrict any use of the information to criminally investigate or prosecute any alcohol or drug abuse patient.[facility] HospitalIn the event this information is protected by the Federal Confidentiality of Alcohol and Drug Abuse Patient Records regulations: The Federal rules restrict any use of the information to criminally investigate or prosecute any alcohol or drug abuse patient.[facility] HospitalIn the event this information is protected by the Federal Confidentiality of Alcohol and Drug Abuse Patient Records regulations: The Federal rules restrict any use of the information to criminally investigate or prosecute any alcohol or drug abuse patient.[facility] HospitalIn the event this information is protected by the Federal Confidentiality of Alcohol and Drug Abuse Patient Records regulations: The Federal rules restrict any use of the information to criminally investigate or prosecute any alcohol or drug abuse patient.[facility] HospitalIn the event this information is protected by the Federal Confidentiality of Alcohol and Drug Abuse Patient Records regulations: The Federal rules restrict any use of the information to criminally investigate or prosecute any alcohol or drug abuse patient.[facility] HospitalIn the event this information is protected by the Federal Confidentiality of Alcohol and Drug Abuse Patient Records regulations: The Federal rules restrict any use of the information to criminally investigate or prosecute any alcohol or drug abuse patient.[facility] HospitalIn the event this information is protected by the Federal Confidentiality of Alcohol and Drug Abuse Patient Records regulations: The Federal rules restrict any use of the information to criminally investigate or prosecute any alcohol or drug abuse patient.[facility] HospitalIn the event this information is protected by the Federal Confidentiality of Alcohol and Drug Abuse Patient Records regulations: The Federal rules restrict any use of the information to criminally investigate or prosecute any alcohol or drug abuse patient.[facility] HospitalIn the event this information is protected by the Federal Confidentiality of Alcohol and Drug Abuse Patient Records regulations: The Federal rules restrict any use of the information to criminally investigate or prosecute any alcohol or drug abuse patient.[facility] Reason for Visit (unrecogniz ed section and content) 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 Reason Comments Pre-Op Exam Reason Comments Scheduling Reason Comments Returning Patient's Call Reason Comments Results Specialty Diagnoses / Procedures Referred By Deion t Referred To Contact Diagnoses Nephrolithiasis Procedures CYSTO/URETERO W/LITHOTRIPSY &INDWELL STENT INSRT CYSTOURETHROSCOPY W/ URETEROSCOPY AND/OR PYELOSCOPY W/ LITHOTRIPSY INCLUDE INSERTION OF INDWELLING URETERAL STENT Av Surgery [address] [place] [address] Referral ID Status Reason Start Date Expiration Date Visits Re quested Visits Authorized [id number] 1 1 Reason Comments Radiology US Reason Comments Follow Up Kidney Stones Reason Comments Appointment Reason Comments Refill Request Reason Onset Date Comments Refill Request 12/22/2023 Reason Comments Follow Up Care Teams (unrecognized sec tion and content) Electrical Tryout Person Relationship Specialty Start Date End Date Sal Jackson MD [address] [place] [address] PCP - General Family Medicine 12/11/22 Electrical Tryout Person Relationship Specialty Start Date End Date Sal Jackson MD [address] [place] [address] PCP - General Family Medicine 12/11/22 Electrical Tryout Person Relationship Specialty Start Date End Date Sal Jackson MD [address] [place] [address] PCP - General Family Medicine 12/11/22 Electrical Tryout Person Relationship Specialty Start Date End Date Sal Jackson MD [address] [place] [address] PCP - General Family Medicine 12/11/22 Electrical Tryout Person Relationship Specialty Start Date End Date Sal Jackson MD [address] [place] [phone] PCP - General Family Medicine 12/11/22 Electrical Tryout Person Relationship Specialty Start Date End Date Sal Jackson MD [address] [place] [address] PCP - General Family Medicine 12/11/22 Electrical Tryout Person Relationship Specialty Start Date End Date Sal Jackson MD [address] [id number] PCP - General Family Medicine 12/11/22 Electrical Tryout Person Relationship Specialty Start Date End Date Sal Jackson MD [address] [id number] PCP - General Family Medicine 12/11/22 Electrical Tryout Person Relationship Specialty Start Date End Date Sal Jackson MD [address] [place] [id number] PCP - General Family Medicine 12/11/22 Electrical Tryout Person Relationship Specialty Start Date End Date Sal Jackson MD [address] [id number] PCP - General Family Medicine 12/11/22 Electrical Tryout Person Relationship Specialty Start Date End Date Sal Jackson MD [address] [place] [address] PCP - General Family Medicine 12/11/22 Electrical Tryout Person Relationship Specialty Start Date End Date Sal Jackson MD [address] [place] [address] PCP - General Family Medicine 12/11/22 Electrical Tryout Person Relationship Specialty Start Date End Date Sal Jackson MD [address] [place] [address] PCP - General Family Medicine 12/11/22 Electrical Tryout Person Relationship Specialty Start Date End Date Sal Jackson MD [address] [place] [address] PCP - General Family Medicine 12/11/22 Scheduled [...] BE BASED ON THE PRIMARY CLINICAL RECORDS. [facility]. provides no warranty or guarantee of the accuracy or completeness of information in this document.
== END 2024-06-25 16:43 | disposition home or self-care (01) ==
PROVIDERS: PCP Family Medicine; Visit Provider Family Medicine
DX: M54.50 Low back pain, unspecified (principal); M51.369 Other intervertebral disc degeneration, lumbar region without mention of lumbar back pain or lower extremity pain
CPT/HCPCS: 72100

== ENCOUNTER 2025-02-17 09:55 | Outpatient (OUT) | payer BC, SELFPAY ==
--- OUTSIDE RECORDS SUMMARY | 2025-02-17 10:15 | XMS_ITS | CCD ---
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 surgery on 01/06 at [facility] for CYSTOURETHROSCOPY W/ URETEROSCOPY AND/OR [...] Verbal- not for sure of reaction PERCOCET (OXYCODONE-ACETAMINOPHEN)11/18/2022 11 - Vomiting SULFA (SULFONAMIDE ANTIBIOTICS) 11/18/2022 [...] 11/29/2022 Encounter Status:Closed by CAMILA CHANEY on 12/13/22[facility] [id number] - [id number]#1.00CD:127 [facility] [id number]#1.00CD:127[facility] HospitalBasi metabolic 2000 panelon 68-30-3306Upqqf gap [Moles/Vol]11 mmol/L Normal9-18Atlanta HospitalComment on above:Order Comment: Specimen Type: BLOOD SPECIMEN Ordering Facility: [facility] Address: [address] [place] [address]Lqthefmxd By: #### 99101-9 #### [facility] CLIA [id number] [address] [place] [address] [place] OF AMERICACalcium [Mass/Vol]9.2 mg/dLNormal8.5-10.2 [facility] CenterComment on above:Order Comment: Specimen Type: BLOOD SPECIMEN Ordering Facility: [facility] Address: [address] [place] [address]Vwcsejmpc By: #### 21259-4 #### [facility] CLIA [id number] [address] [place] [address] [place] AMERICAChloride [Moles/Vol]106 mmol/USwbg62-740 [place] HospitalComment on above:Order Comment: Specimen Type: BLOOD SPECIMEN Ordering Facility: [facility] Address: [address] [place], [place] [address]Performed By: #### 73447-2 #### [facility] CLIA [id number] [address] [place] [address] [place] AMERICACO2 [Moles/Vol]24 mmol/ELvpnqu97-49Adev HospitalComment on above:Order Comment: Specimen Type: BLOOD SPECIMEN Ordering Facility: [facility] Address: [address] [place], [place] [address]Performed By: #### 43019-2 #### [facility] CLIA [id number] [address] [place] [address] [place] AMERICACreatinine [Mass/Vol]0.70 mg/dLNormal 0.58-0.96Atlanta HospitalComment on above:Order Comment: Specimen Type: BLOOD SPECIMEN Ordering Facility: [facility] Address: [address] [place], [place] [address]Performed By: #### 56815-7 #### [facility] CLIA [id number] [address] [place] [address] [place] AMERICACreatinine and Glomerular filtration rate.predicted panel (S/P/Bld)99 mL/min/1.73m???Normal>=60Av HospitalComment on above:Order Comment: Specimen Type: BLOOD SPECIMEN Ordering Facility: [facility] Address: [address] [place], [place] [address]Result Comment: Estimated Glomerular Filtration Rate (eGFR) is calculated using the 2020 CKD-EPI cre atinine equation. This equation utilizes serum creatinine, sex, and age as parameters. The creatinine assay has traceable calibration to isotope dilution- mass spectrometry. Refer to KDIGO guidelines for clinical interpretation. In patients with unstable renal function, e.g. those with acute kidney injury, the eGFR may not accurately reflect actual GFR.Performed By: #### 09593-4 #### [facility] CLIA [id number] [address] [place] [address] [place] AMERICAGlucose [Mass/Vol]97 mg/dZYajteo05-93Kyfx HospitalComment on above:Order Comment: Specimen Type: BLOOD SPECIMEN Ordering Facility: [facility] Address: [address] [place], [place] [address]Result Comment: The [place] Diabetes Association (ADA) provides guidance for cutoff [...] Standards of Medical Care in Diabetes 2016, [place] Diabetes Association. Diabetes Care. 2016.39(Suppl 1).Performed By: #### 43561-8 #### [facility] CLIA [id number] [address] [place] [address] [place] AMERICAPotassium [Moles/Vol]4.4 mmol/LNormal 3.7-5.1[facility] HospitalComment on above:Order Comment: Specimen Type: BLOOD SPECIMEN Ordering Facility: [facility] Address: [address] [address]Performed By: #### 80184-4 #### [facility] CLIA [id number] [address] [place] [address] [place] AMERICASodium [Moles/Vol]141 mmol/NFsfdjd931-156 Atlanta HospitalComment on above:Order Comment: Specimen Type: BLOOD SPECIMEN Ordering Facility: [facility] Address: [address] [address]Performed By: #### 50964-1 #### [facility] CLIA [id number] [address] [place] [address] [place] AMERICAUrea nitrogen [Mass/Vol]20 mg/dLNormal 7-AvMajor HospitalComment on above:Order Comment: Specimen Type: BLOOD SPECIMEN Ordering Facility: [facility] Address: [address] [address]Performed By: #### 34039-6 #### [facility] IA [id number] [address] [place] [address] [place] AMERICAAnion gap [Moles/Vol]11 mmol/L9 - 18 mmol/LCleveland ClinicCalcium [Mass/Vol]9.2 mg/dL8.5 - 10.2 mg/dLCaspian ClinicChloride [Moles/Vol]106 mmol/LHigh97 - 105 mmol/LCleveland ClinicCO2 [Moles/Vol]24 mmol/L22 - 30 mmol/LCleveland ClinicCreatinine [Mass/Vol]0.70 mg/dL0.58 - 0.96 mg/dLCleveland Clinic FoundationEstimated Glomerular Filtration Rate99 mL/min/1.73m>=60 mL/min/1.73mCleveland ClinicGlucose [Mass/Vol]97 mg/dL74 - 99 mg/dLCleveland Clinic FoundationPotassium [Moles/Vol]4.4 mmol/L3.7 - 5.1 mmol/LCleveland ClinicSodium [Moles/Vol]141 mmol/L136 - 144 mmol/LCleveland ClinicUrea nitrogen [Mass/Vol]20 mg/dL7 - 21 mg/dLDelaware County HospitalC panel Auto (Bld)on 11-18-2022 Erythrocyte distribution width (RBC) [Ratio]11.9 %Pcdksv81.5-15.0[facility] Comment on above:Order Comment: Specimen Type: BLOOD SPECIMEN Ordering Facility: [facility] Address: [place] [address]Performed By: #### 87870-3 #### [facility] IA [id number] [address] [place] [address] [place] AMERICAHematocrit (Bld) [Volume fraction]41.6 % Ejmqys41.0-46.0Av HospitalComment on above:Order Comment: Specimen Type: BLOOD SPECIMEN Ordering Facility: [facility] Address: [address] [place], [place] [address]Performed By: #### 54139-9 #### [facility] IA [id number] [address] [place], [place] [address] [place], [place] [address]Hemoglobin (Bld) [Mass/Vol]13.1 g/dL Gsgbeu53.5-15.5Avon HospitalComment on above:Order Comment: Specimen Type: BLOOD SPECIMEN Ordering Facility: [facility] Address: [address] [place], [place] [address]Performed By: #### 68769-4 #### [facility] IA [id number] [address] [place], [place] [address] [place] [address] (RBC) [Entitic mass]29.7 pgNormal 26.0-34.0Av HospitalComment on above:Order Comment: Specimen Type: BLOOD SPECIMEN Ordering Facility: [facility] Address: [address]Performed By: #### 09945-2 #### [facility] IA [id number] [address] [place], [place] [address] [place] [address] OF [facility] MEDICAL CENTERMCHC (RBC) [Mass/Vol]31.5 g/dLNormal 30.5-36.0Av HospitalComment on above:Order Comment: Specimen Type: BLOOD SPECIMEN Ordering Facility: [facility] Address: [address]Performed By: #### 27170-4 #### [facility] IA [id number] [address] [place] [address] [facility] (RBC) [Entitic vol]94.3 fLNormal 80.0-100.0Av HospitalComment on above:Order Comment: Specimen Type: BLOOD SPECIMEN Ordering Facility: [facility] Address: [address] [place], [place] [address]Performed By: #### 89829-4 #### [facility] IA [id number] [address] [facility] [place] [address] [place] AMERICANucleated RBC (Bld) [#/Vol]10*3/uLNormal <0.01Avon HospitalComment on above:Order Comment: Specimen Type: BLOOD SPECIMEN Ordering Facility: [facility] Address: [address] [place], [place] [address]Performed By: #### 42396-7 #### [facility] IA [id number] [address] [facility] [place] [place] [address] [place] AMERICAPlatelet mean volume (Bld) [Entitic vol] 9.6 fLNormal9.0-12.7Avon HospitalComment on above:Order Comment: Specimen Type: BLOOD SPECIMEN Ordering Facility: [facility] Address: [address] [place], [place] [address]Performed By: #### 72219-1 #### [facility] IA [id number] [address] [facility] [place] [place] [address] [place] AMERICAPlatelets (Bld) [#/Vol]295 10*3/uLNormal 150-400Av HospitalComment on above:Order Comment: Specimen Type: BLOOD SPECIMEN Ordering Facility: [facility] Address: [address] [place], [place] [address]Performed By: #### 15376-3 #### [facility] IA [id number] [address] [facility] [place] [place] [address] [place] AMERICARBC (Bld) [#/Vol]4.41 10*6/uLNormal 3.90-5.20Avon HospitalComment on above:Order Comment: Specimen Type: BLOOD SPECIMEN Ordering Facility: [facility] Address: [address] [place], [place] [address]Performed By: #### 24456-2 #### [facility] IA [id number] [address] [facility] [place] [place] [address] [place] AMERICAWBC (Bld) [#/Vol]8.94 10*3/uLNormal 3.70-11.00[facility] CenterComment on above:Order Comment: Specimen Type: BLOOD SPECIMEN Ordering Facility: [facility] Address: [place] [address]Myyyecsgu By: #### 09822-5 #### [facility] CLIA [id number] [address] [facility] [place] [place] [address] [place] [facility] MEDICAL CENTERErythrocyte distribution width (RBC) [Ratio]11.9 %11.5 - 15.0 %[facility] Clinic FoundationHematocrit (Bld) [Volume fraction]41.6 %36.0 - 46.0 %[facility] Clinic FoundationHemoglobin (Bld) [Mass/Vol]13.1 g/dL11.5 - 15.5 g/dLOhioHealth Grady Memorial HospitalH (RBC) [Entitic mass]29.7 pg26.0 - 34.0 pgCleveland Lakewood Health System Critical Care HospitalHC (RBC) [Mass/Vol]31.5 g/dL30.5 - 36.0 g/dLOhioHealth Grady Memorial HospitalV (RBC) [Entitic vol]94.3 fL80.0 - 100.0 fLCleveland ClinicNucleated RBC (Bld) [#/Vol] <0.01 k/[facility] State East HospitalPlatelet mean volume (Bld) [Entitic vol]9.6 fL9.0 - 12.7 fLCleveland ClinicPlatelets (Bld) [#/Vol]295 10*3/uL150 - 400 k/[facility] HospitalRBC (Bld) [#/Vol]4.41 10*6/uL3.90 - 5.20 m/[facility] HospitalWBC (Bld) [#/Vol]8.94 10*3/uL3.70 - 11.00 k/[facility] East HospitalFormson 30-08-0518Deoyb [id number]#1.00CD:[address] [place], [place] [address]PT INTACT BLDon 39-98-9076Drnwpagncs.intact [Mass/Vol]51 pg/mL15 - 65 pg/mLCleveland ClinicPTH-Intact SerPl-mCncon 62-62-4179Imuszgmmbj.intact [Mass/Vol]51 pg/cFTuidjm53-85Vllk HospitalComment on above:Order Comment: Specimen Type: BLOOD SPECIMEN Ordering [facility]: [facility] Address: [address] [place], [place] [address] [address]Tpqznjzvg By: #### 2731-8 #### [facility] CLIA [id number] [address] [facility] [address] [place] [address] [place] [facility] MED[facility] CENTERRAD - MISCon 07-04-1640QXW - [id number]#1.00CD:127[facility] Educationon 58-35-9703Jqnyqub EducationNephrology Percutaneous Nephrolithotomy Percutaneous nephrolithotomy is a procedure [...] including vitamins, herbs, eye drops, creams, and nukp-gbr-nqpctqd medicines. ? Any problems you or family [...] tells you to take them. ? Taking uhyr-ryr-nyupvwi medicines, vitamins, herbs, and supplements. Tests You [...] body to numb everything below the injection site(regional anesthetic). ? A thin tube (urinary catheter) [...] ureter. This will help drain urine from yourkidney to your bladder. ? A surgical drain (nephrostomy tube) may be put in your kidney. The tube comes out through the incision in your lower back. This will help to drain urine (more content not included)...[facility] HospitalConsent for Procedure/Surgeryon 16-12-0097Ukgwmmu for Procedure/Surgery [id number]#1.00CD:[address] [place] [address] Note-Physicianon 19-99-1177UA Note-Physician [id number]#1.00CD:[address] [place], [place] [address]Formson [id number]#1.00CD:[address] [place], [place] [address]Lab Reportson 02-15-5036Hfu Reports [id number]:[address] [place], [place] [address]Operative Reporton 77-40-6365Htcphirdl Report [id number]#1.00CD:[address] [place], [place] [address]RAD - CT Reporton 20-53-3958NYR - CT Report [id number]:[address] [place], [place] [address]Ambulatory Visit Summaryon 75-68-4342Rbxcyzslqu Visit Summary KRYSTINA SALDIVAR :1960 Visit Date:11/06/2022 Ambulatory Visit Instructions Your Diagnosis Ureteral stone with hydronephrosis Renal stones History of kidney stones Renal cyst Tests Performed Urnls Dip Stick Auto w/o Microscopy POC 58820 Your Care Team Attending Physician - SHABNAM SULLIVAN, Steve Dickerson Primary Care Physician - Sal Jackson MD This Is Your Medications List Contact prescribing physician if questions or concerns acetaminophen-hydrocodone (acetaminophen-hydrocodone 325 mg-5 mg oral tablet) empagliflozin (Jardiance [...] [facility] [address], [place] [address]- Medications What When Instructions Unchanged acetaminophen-hydrocodone (acetaminophen-hydrocodone 325 mg-5 mg oral tablet) Contact prescribing physician if questions or concerns Unchanged empagliflozin (Jardiance 25 mg oral tablet) Contact prescribing physician if questions orconcerns Unchanged ondansetron (ondansetron 4 mg Tab) Contact prescribing physician if questions or concerns Unchanged simvastatin (simvastatin 20 mg Tab) Contact prescribing physician if questions or concerns Test Results Urnls Dip Stick Auto w/o Microscopy POC 61960 (11/06/2022) Bilirubin Urine Dipstick - Negative Blood Urine Dipstick - Trace-intact Glucose Urine Dipstick - 2+ 500 mg/dl Ketones Urine Dipstick - Negative Leukocytes Urine Dipstick - Negative Nitrite Urine Dipstick - Negative Protein Urine Dipstick - Negative Specific [place] Urine Dipstick - 1.010 Urine Appearance Urine [...] about 300 mg of calcium at each meal.Foods that contain 200?500 mg of calcium a serving include: ? 8 oz (237 mL) of milk, ajcjnwh-bdroldzdpaff-ljvnb milk, and calcium- fortifiedfruit juice. Calcium-fortified means that calcium has been [...] the table and allow each person to addhis or her own salt to taste. ? Use vegetable protein, such as beans, textured vegetable protein (TVP), or tofu, instead of meat inpasta, casseroles, and soups. Meal planning ? Eat less salt, if told by your dietitian. To do this: ? Avoid eating processed or pre-made food. ? Avoid eating fast food. ? Eat less anim (more content not included)...[facility] Visit Summary KRYSTINA SALDIVAR :1960 Visit Date:11/06/2022 Ambulatory Visit Instructions Your Diagnosis Ureteral stone with hydronephrosis Renal stones History of kidney stones Renal cyst Tests Performed Urnls Dip Stick Auto w/o Microscopy POC [address]6481 Your Care Team Attending Physician - SHABNAM SULLIVAN, Steve Dickerson Primary Care Physician - Sal Jackson MD This Is Your Medications List Contact prescribing physician if questions or concerns acetaminophen-hydrocodone (acetaminophen-hydrocodone 325 mg-5 mg oral tablet) empagliflozin (Jardiance [...] Dickinson When: Where: [facility] [address] , [place] [address]- Medications What When Instructions Unchanged acetaminophen-hydrocodone (acetaminophen-hydrocodone 325 mg-5 mg oral tablet) Contact prescribing physician if questions or concerns Unchanged empagliflozin (Jardiance 25 mg oral tablet) Contact prescribing physician if questions orconcerns Unchanged ondansetron (ondansetron 4 mg Tab) Contact prescribing physician if questions or concerns Unchanged simvastatin (simvastatin 20 mg Tab) Contact prescribing physician if questions or concerns Test Results Urnls Dip Stick Auto w/o Microscopy POC 61430 (11/06/2022) Bilirubin Urine Dipstick - Negative Blood Urine Dipstick - Trace-intact Glucose Urine Dipstick - 2+ 500 mg/dl Ketones Urine Dipstick - Negative Leukocytes Urine Dipstick - Negative Nitrite Urine Dipstick - Negative Protein Urine Dipstick - Negative Specific [place] Urine Dipstick - 1.010 Urine Appearance Urine [...] about 300 mg of calcium at each meal.Foods that contain 200?500 mg of calcium a serving include: ? 8 oz (237 mL) of milk, fahwvum-kbbvpsizqvvg-zknay milk, and calcium- fortifiedfruit juice. Calcium-fortified means that calcium has been [...] the table and allow each person to addhis or her own salt to taste. ? Use vegetable protein, such as beans, textured vegetable protein (TVP), or tofu, instead of meat inpasta, casseroles, and soups. Meal planning ? Eat less salt, if told by your dietitian. To do this: ? Avoid eating processed or pre-made food. ? Avoid eating fast food. ? Eat less anim (more content not included)...[facility] Patient Educationon 01-48-9355Fpeinzo EducationNephrology Dietary Guidelines to Help Prevent Kidney Stones [...] ? 8 oz (237 mL) of milk, ptjjacm-kgwvhfcwwlvg-crtxo milk, and calcium- fortifiedfruit juice. Calcium-fortified means that calcium has been [...] portion sizes. For most meat and fish, oneserving is about the size of the palm [...] Spinach (cooked), rhubarb, beets, sweet potatoes, and Burmese chard. ? Peanuts. ? Potato chips, montserratian fries, and baked potatoes with skin on. ? Nuts and nut products. ? Chocolate. ? If you regularly take a diuretic medicine, make sure to eat at least 1 or 2 servings of fruits orvegetables that are high in potassium each day. These include: ? Avocado. ? Banana. ? Chenango, prune, carrot, or tomato juice. ? Baked [...] with your dietitian to find an eating planand weight loss strategies that work best for [...] fish oil, or vitamin B6. ? Take mzqw-ldj-jjqjfwy and prescription medicines only as told by your health care provider. Theseinclude supplements. What foods should I limit? Limit your in (more content not included)...NormalAt[facility] Office/Clinic Noteon 10-91-9328Eivahqo Office/Clinic NoteChief Complaint Pt is here for [facility] ER f/u for kidney stones HPI Staff Krystina is a 62 y.o. female new Pt follow up to [facility] due to abdominal and Lt flank pain. [...] information and history for this patient from [facility]. I have reviewed and [...] yo female new pt following up to [facility] ER visit on 11/04/22 due to L [...] would require interventional radiology and transfer to [facility]. Pt's PCP, Dr. Jackson, wanted her to be admitted today. Would be able to go back to work if stent placement is successful, however, she will require staged procedures. -Pt to be admitted to [facility] today so she can have an IV started and have pain meds and nausea meds for comfort. She is not to eat or drink after midnight tonight. -Pt to call HR at her workplace to figure out [employer] paperwork. -Will schedule cysto and L stent [...] renal cyst. Follow-up With When Contact Information Steve HAQUE MD, URL [facility] [address] [place] [address]- Additional Instructions: schedule L stent placement Patient Education Dietary Guidelines to Help Prevent Kidney Stones I, Rosalinda Rodgers, personally scribed for Dr. Haque on 11/06/2022 11:43:23. . Documentation recorde (more content not included)...[facility] HospitalComment on above:Result Comment: Electronically Signed By: Steve HAQUE MD\.br\Date and Time Signed: 11/06/22 11:51 EDT\.br\Electronically Co- Signed By: Rosalinda Rodgers\.br\Date and Time Co-Signed: 11/06/22 11:44 EDT\.br\Electronically Co-Signed By: Rosalinda Rodgers\.br\Date and Time Co- Signed: 11/06/22 11:45 EDTBNPon 61-94-4952Cplmxclmboq peptide B (Bld) [Mass/Vol] 75.0 pg/mLNormal<=900.0The [facility] Medical CenterComment on above:Performed By: #### BNP, CMP, TSH, T7 #### [facility] [address] [place] [address] Dr. Kris Sam AUTO DIFFon 96-17-8833CCOZ #0.0 103/ulNormal0.0-0.1The [facility] Medical CenterComment on above:Performed By: #### BNP, CMP, TSH, T7 #### [facility] [address] [place] [address] Dr. Kris Irvingsophils/100 WBC (Bld)0.6 %Normal0.2-2.0The [facility] Comment on above:Performed By: #### BNP, CMP, TSH, T7 #### [facility] [address] [place] [address] Dr. Kris Vuong #0.3 103/ulNormal0.0-0.7The [facility] Medical CenterComment on above: Performed By: #### BNP, CMP, TSH, T7 #### [facility] [address] [place] [address] Dr. Kris Penaosinophils/100 WBC (Bld)3.6 %Normal0.9-7.0The [facility] Comment on above:Performed By: #### BNP, CMP, TSH, T7 #### [facility] [address] [place] [address] Dr. Kris Penarythrocyte distribution width (RBC) [Ratio]12.7 %Aqbldj38.0-15.0 The [facility] Medical CenterComment on above:Performed By: #### BNP, CMP, TSH, T7 #### [facility] [address] [place] [address] Dr. Kris BritoHematocrit (Bld) [Volume fraction]43.1 %Czinxz16.0-48.0The [facility] Medical CenterComment on above:Performed By: #### BNP, CMP, TSH, T7 #### [facility] [address] [place] [address] Dr. Kris BritoHemoglobin (Bld) [Mass/Vol]14.0 g/nYPdgvkn27.0-16.0The [facility] CenterComment on above:Performed By: #### BNP, CMP, TSH, T7 #### [facility] [address] [place] [address] #0.02 10e3/ulNormal0.00-0.03The [facility] Medical CenterComment on above:Performed By: #### BNP, CMP, TSH, T7 #### [facility] [address] [place] [address] Dr. Kris BritoIG %0.3 %Normal0.0-0.5The [facility] Medical CenterComment on above: Performed By: #### BNP, CMP, TSH, T7 #### [facility] [address] [place] [address] Dr. Kris Mauro #2.5 103/ulNormal1.2-3.8The [facility] Medical CenterComment on above:Performed By: #### BNP, CMP, TSH, T7 #### [facility] [address] [place] [address] Dr. Kris Shinmphocytes/100 WBC (Bld)36.1 %Mjptie88.5-60.0The [facility] Medical CenterComment on above:Performed By: #### BNP, CMP, TSH, T7 #### [facility] [address] [place] [address] Dr. Kris KleinUAL DIFF REQNONormalThe [facility] CenterComment on above: Performed By: #### BNP, CMP, TSH, T7 #### [facility] [address] [place] [address] Dr. Kris Browne (RBC) [Entitic mass]30.0 hkQegbzg39.7-34.0The [facility] CenterComment on above:Performed By: #### BNP, CMP, TSH, T7 #### [facility] [address] [place] [address] Dr. Kris Browne (RBC) [Mass/Vol]32.5 g/uRIurnnt84.9-35.2The [facility] CenterComment on above:Performed By: #### BNP, CMP, TSH, T7 #### [facility] [address] [place] [address] Dr. Kris Sanchez (RBC) [Entitic vol]92.5 fUZfdmpk16.0-99.0The [facility] CenterComment on above:Performed By: #### BNP, CMP, TSH, T7 #### [facility] [address] [place] [address] Dr. Kris Hill #0.7 103/ulNormal0.3-0.8The [facility] CenterComment on above:Performed By: #### BNP, CMP, TSH, T7 #### [facility] [address] [place] [address] Dr. Kris Guteirrezocytes/100 WBC (Bld)10.5 %Normal1.7-12.0The [facility] on above:Performed By: #### BNP, CMP, TSH, T7 #### [facility] [address] [place] [address] Dr. Kris Bass #3.4 103/ulNormal1.4-6.5The [facility] on above:Performed By: #### BNP, CMP, TSH, T7 #### [facility] [address] [place] [address] Dr. Kris Almonteutrophils/100 WBC (Bld)48.9 %Rwxgjr03.0-75.0The [facility] CenterComment on above:Performed By: #### BNP, CMP, TSH, T7 #### [facility] [address] [place] [address] Dr. Kris Navalet mean volume (Bld) [Entitic vol]8.9 fLCritically low 9.5-13.5The [facility]ment on above:Performed By: #### BNP, CMP, TSH, T7 #### [facility] [address] [place] [address] Dr. Kris BritoPLT247 103/svUlyyal939-641Vov [facility] Hospitalment on above: Performed By: #### BNP, CMP, TSH, T7 #### [facility] [address] [place] [address] Dr. Kris BritoRBC4.66 106/ulNormal4.20-5.40The [facility] on above:Performed By: #### BNP, CMP, TSH, T7 #### [facility] [address] [place] [address] Dr. Kris BritoWBC7.0 103/ulNormal4.0-11.0The [facility] on above: Performed By: #### BNP, CMP, TSH, T7 #### [facility] [address] [place] [address] Dr. Kris Mejia THYROXINE INDEX T7on 40-66-5104CZE2.46Hzodvi6.30-4.50The [facility] on above:Performed By: #### BNP, CMP, TSH, T7 #### [facility] [address] [place] [address] Dr. Kris BritoT3U34.0 %Qemapz85.0-39.0The [facility] CenterComment on above: Performed By: #### BNP, CMP, TSH, T7 #### [facility] [address] [place] [address] Dr. Kris Borges4 [Mass/Vol]7.50 ug/dLNormal4.80-13.90The [facility] Comment on above:Performed By: #### BNP, CMP, TSH, T7 #### [facility] [address] [place] [address] Dr. Kris Dillard 33-82-3026Wyul [Mass/Vol]128.0 ug/qQZiwdth08.0-170.0The [facility] CenterComment on above:Performed By: #### BNP, CMP, TSH, T7 #### [facility] [address] [place] [address] Dr. Kris Blank 14(COMP METB)on 49-64-0514Wxqylwi [Mass/Vol]3.9 g/dLNormal 3.4-5.0The [facility] CenterComment on above:Performed By: #### BNP, CMP, TSH, T7 #### [facility] [address] [place] [address] Dr. Kris BritoAlbumin/Globulin [Mass ratio]1.1 {ratio}NormalThe [facility] CenterComment on above:Performed By: #### BNP, CMP, TSH, T7 #### [facility] [address] [place] [address] Dr. Kris Carrera [Catalytic activity/Vol]82 U/DGpgwrb95-154Dwc [facility] CenterComment on above:Performed By: #### BNP, CMP, TSH, T7 #### [facility] [address] [place] [address] Dr. Kris Castillo [Catalytic activity/Vol]23 U/DDexhrs05-88Vwf [facility] CenterComment on above:Performed By: #### BNP, CMP, TSH, T7 #### [facility] [address] [place] [address] Dr. Kris Buckley gap [Moles/Vol]11.2 mmol/LNormalThe [facility] Comment on above:Performed By: #### BNP, CMP, TSH, T7 #### [facility] [address] [address] [address] Kris BritoAST [Catalytic activity/Vol]21 U/FWnhchn54-58Hod [facility] CenterComment on above:Performed By: ####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 Comment on above:Expected: 09/03/2023 (Approximate), Expires: 12/03/2023Start: 09-03-2023 End: 81-43-0233Cisxyzd.ionized [Moles/volume] in BloodCALCIUM, IONIZED Lab Routine Nephrolithiasis Urine volume deficient Hypercalcinuria Hyperoxaluria Hy peruricosuria Hypernatriuria Renal cyst Expected: 09/03/2023 (Approximate), Expires: 12/03/2023[facility] ClinicComment on above:Expected: 09/03/2023 (Approximate), Expires: 12/03/2023Start: 09-03-2023 End: 03-19-9882Vdxgscsrng.intact [Mass/volume] in Serum or PlasmaPTH INTACT Lab Routine Nephrolithiasis Urine volume deficient Hypercalcinuria Hyperoxaluria Hyperuricosuria Hypernatriuria Renal cyst Expected: 09/03/2023 (Approximate), Expires: 12/03/2023leveland ClinicComment on above:Expected: 09/03/2023 (Approximate), Expires: 12/03/2023Start: 08-26-2023 End: 02-77-0952Nnaoym-up tguwrobil26/28/2024 5:00 PM EDT [facility] Urology [address] [place] [address] Alexandria Marin PA-C [address] [place] [address] Six month follow upUrologyComment on above:Six month follow upStart: 37-57-4802Kymwlyffvj Health ScreeningBehavioral Health ScreeningKettering Health Washington Townshiptart: 03-31-2023 Depression AssessmentDepression AssessmentK[facility]tering Health Washington Townshiptart: 02-06-2023 End: 22-96-3591TV KIDNEY/BLADDERUS KIDNEY/BLADDER Radiology Routine Nephrolithiasis Expected: 02/06/2023, Expires: 02/05/2024[facility] Work Phone: Comment on above:Expected: 02/06/2023, Expires: 02/05/2024Start: 11-29-2022 End: 24-43-4345URTOOTC BLOOD TYPECONFIR BLOOD TYPE Blood Bank Routine Preop examination Expected: 11/29/2022, Expires: 01/29/2023[facility] Work Phone: comment on above:Expected: 11/29/2022, Expires: 01/29/2023Start: 73-04-3271Vblnu-19 Vaccine ( season)Covid-19 Vaccine ( season)[facility]art: 89-75-9768Lbeagihed vaccination [facility]art: 11-27-2022 End: 05-87-8754zVRA in Platelet poor plasma by Coagulation assayACTIVATED PTT Lab Routine Nephrolithiasis Expected: 11/27/2022, Expires: 01/27/2023[facility] Work Phone: Comment on above:Expected: 11/27/2022, Expires: 01/27/2023Start: 11-27-2022 End: 48-83-6127Jggocqgc identified in Urine by CultureURINE CULTURE Microbiology Routine Nephrolithiasis Expected: 11/27/2022, Expires: 01/27/2023[facility] Work Phone: Comment on above:Expected: 11/27/2022, Expires: 01/27/2023Start: 11-27-2022 End: 69-71-3961IND W Auto Differential panel - BloodCBC + DIFF Lab Routine Nephrolithiasis Expected: 11/27/2022, Expires: 01/27/2023[facility] Work Phone: Comment on above:Expected: 11/27/2022, Expires: 01/27/2023Start: 11-27-2022 End: 58-19-9495Pllnyblozpdtj metabolic 2000 panel - Serum or PlasmaCOMP METABOLIC PANEL Lab Routine Nephrolithiasis Expected: 11/27/2022, Expires: 01/27/2023[facility] Work Phone: Comment on above:Expected: 11/27/2022, Expires: 01/27/2023Start: 11-27-2022 End: 92-49-2559JB panel - Platelet poor plasma by Coagulation assayPROTHROMBIN TIME/PT Lab Routine Nephrolithiasis Expected: 11/27/2022, Expires: 01/27/2023 [facility] Work Phone: Comment on above:Expected: 11/27/2022, Expires: 01/27/2023Start: 11-27-2022 End: 69-94-5088GFKS AND SCREEN,30 DAYTYPE AND SCREEN,30 DAY Blood Bank Routine Nephrolithiasis Expected: 11/27/2022, Expires: 01/27/2023[facility] Work Phone: Comment on above:Expected: 11/27/2022, Expires: 01/27/2023Start: 11-27-2022 End: 09-53-5877Oaqysujvmm complete panel - UrineURINALYSIS, WITH MICROSCOPIC Lab Routine Nephrolithiasis Expected: 11/27/2022, Expires: 01/27/2023[facility] Work Phone: Comment on above:Expected: 11/27/2022, Expires: 01/27/2023Start: 70-17-3419UQPYVVCUOJ ASSESSMENTDEPRESSION ASSESSMENTKettering Health [facility] Townshiptart: 88-59-4956VGCCA-19 VACCINE (4 - Pfizer series)COVID-19 VACCINE (4 - Pfizer series)[facility]: 71-44-9405Fozlqykrn B Vaccine (1 of 3 - Risk 3-dose series)Hepatitis B Vaccine (1 of 3 - Risk 3-dose series)[facility]: 17-39-2887CXF Vaccine (1 - 1-dose 60+ series)RSV Vaccine (1 - 1- dose 60+ series)[facility]: 08-69-0193ORY Vaccine (1 - Risk 60-74 years 1-dose series)RSV Vaccine (1 - Risk 60-74 years 1-dose series)[facility]: 32-62-8320ECSHVAMY VACCINE (1 of 2)SHINGRIX VACCINE (1 of 2) [facility]: 87-51-6090DAOVTKQEL (FIT-DNA)COLOGUARD (FIT-DNA)[facility]: 84-97-0131KdytfrnvzjeDYXFIATCAJEVvilvllof ClinicStart: 2006 COLORECTAL CANCER SCREENINGCOLORECTAL CANCER SCREENINGK[facility]tering Health Washington Townshiptart: 39-71-1994IR COLONOGRAPHYCT COLONOGRAPHYK[facility]tering Health Washington Townshiptart: 17-87-0036UNKOQ OCCULT BLOODFECAL OCCULT BLOODKettering Health Washington Townshiptart: 69-38-6199OBCCM SCREENLIPID SCREENK[facility]tering Health [facility] Townshiptart: 24-14-7640Gggdmykom for malignant neoplasm of colonK[facility]tering Health Washington Townshiptart: 39-53-1735FGOJQPNRWGNWGLSNNSBZHBMHKJWetmsucfx Clinic Start: 74-61-3134VbyxyqxxclpMdijvrspy ClinicStart: 55-52-6790Esobriigw for malignant neoplasm of breastK[facility] Townshiptart: 54-31-3989UGI TESTINGHPV TESTINGK[facility] Health [facility] Townshiptart: 18-43-6319Uvvsihtow for malignant neoplasm of cervixK[facility]tering Health [facility] Townshiptart: 53-01-2880SHK TESTINGPAP TESTINGC[facility] Start: 19-78-7006Hbyfejljs for malignant neoplasm of cervixC[facility] Start: 72-33-2537Oeyty microalbumin profileKettering Health Washington Townshiptart: 1979 ANNUAL PCP TEAM CHRONIC DISEASE VISITANNUAL PCP TEAM CHRONIC DISEASE VISIT [facility]: 45-04-7208Fdjxvdr ScreeningAnxiety ScreeningK[facility]tering Health [facility] Townshiptart: 05-94-8005Wfcyxnpqnq ScreeningDepression ScreeningC[facility] Clinic Foundation Start: 90-23-9475Adzjhedpx B surface antibody levelLDL CHOLESTEROLKettering Health Washington Townshiptart: 39-79-4381VKBPDWPEC C SCREENINGHEPATITIS C SCREENINGK[facility] Health [facility] Townshiptart: 27-08-7110Qjquclwgz C screeningHepatitis C ScreeningK[facility]tering Health [facility] Townshiptart: 97-54-7650MAA SCREENINGHIV SCREENINGK[facility]tering Health [facility] Townshiptart: 01-96-2700ZQO screeningHIV ScreeningK[facility]tering Health [facility] Townshiptart: comp foot exam completedDIABETIC FOOT EXAMK[facility]tering Health [facility] Townshiptart: 97-58-9592Rvzcshnz foot examinationDiabetic Foot ExamK[facility] Health [facility] Townshiptart: 33-65-0067Lfkscyan screening Dilated Retinal ExamK[facility]tering Health Washington Townshiptart: 37-46-5674Mjiuxyhtt B screeningURINE ALBUMIN:CREATININE RATIOK[facility]tering Health [facility] Townshiptart: 53-62-3539Vvpolvkbi C antibody, confirmatory testDILATED RETINAL EXAMKettering Health [facility] Townshiptart: 1966 PNEUMOCOCCAL (1 - PCV)PNEUMOCOCCAL (1 - PCV)[facility]: 1966 Pneumococcal vaccinationK[facility] Health Washington Townshiptart: 50-75-1068Kenlmdrjif A1c lqtztzpmfcfChA4DJyvwodlrw ClinicStart: 17-46-4627Gzlyioytya A1c/Hemoglobin.total in ChsbpAHY4RJrbrwhctf ClinicStart: 40-22-9685Rpxkbcgbe for malignant neoplasm of colonCenterPointe HospitalCALCULI ANALYSISC[facility] Work Phone: Comment on above:Release Upon Ordering for 1 Occurrences starting 3Dermatopathology examDermatopathology exam Pathology and Cytology Timed Neoplasm of unspecified behavior of bone, soft ti ssue, and skin Release Upon Ordering for 1 Occurrences starting 09/22/2024[facility] Work Phone: comment on above:Release Upon Ordering for 1 Occurrences starting 09/22/2024UA DIP, URINE (POC)UA DIP, URINE (POC) Lab Routine Screening for genitourinary condition Ordered: 11/18/2022[facility] Work Phone: Comment on above:Ordered: 11/18/2022URINALYSIS, REFLEX MICROSCOPICURINALYSIS, REFLEX MICROSCOPIC Lab Routine Screening for genitourinary condition Or[facility]: [facility] Work Phone: Comment on above:Ordered: 11/29/2022US Kidney - bilateral and Urinary bladderUS KIDNEY/BLADDER Radiology Routine Nephrolithiasis 08/19/2023 3:40 PM [facility] Work Phone: End: 71-16-3906QF Kidney - bilateral and Urinary bladderUS KIDNEY/BLADDER Radiology Routine Nephrolithiasis Urine volume deficient Hypercalcinuria Hyperoxaluria Hyperuricosuria Hypernatriuria Renal cyst 1 Occurrences starting 08/27/2023 until 5CMemorial [facility]by [facility] HospitalComment on above:1 Occurrences starting 08/27/2023 until 09/25/2024 End: 17-13-7368KD Kidney - bilateral and Urinary bladderUS KIDNEY/BLADDER Radiology Routine Nephrolithiasis 1 Occurrences starting 03/02/2024 until 04/02/2025[facility] Work Phone: Comment on above:1 Occurrences starting 03/02/2024 until 04/02/2025US KIDNEY/BLADDERUS KIDNEY/BLADDER Radiology Routine Nephrolithiasis 02/14/2023 11:02 AM [facility] Work Phone: End: 61-32-2637FN KIDNEY/BLADDERUS KIDNEY/BLADDER Radiology Routine Nephrolithiasis 1 Occurrences starting 02/25/[address] [place] [address] Work Phone: Comment on above:1 Occurrences starting 02/25/2023 until 03/27/2024 End: 74-26-3524IZ Abdomen GE 3 Views AP and Oblique and ConeXR ABDOMEN 3V KUB W/OBLIQUES Radiology Routine Nephrolithiasis 1 Occurrences starting 03/02/2024 until 04/01/2025[facility] HospitalComment on above:1 Occurrences starting 03/02/2024 until 04/01/2025[facility] Immunizations Immunization DateImmunizationNotesCare FwmozgltTbetvzag86-25-6576vrbralzdp virus vaccine, unspecified formulationSdaneylle Rob [facility] Payers DatePayer CategoryPayerPolicy [id number] [facility] [id number] BLUE ACCESS PPO [id number] 2018-Present [phone] [address] [place] [address] [id number] 2.16.840.1.354442.3.57[id number] 2.16.840.1.774537.3.57[id number] 2.16.840.1.834976.3.57[id number] 2.16.840.1.012381.3.57[id number] 2.16.840.1.432587.3.57[id number] 2.16.840.1.601976.3.57[id number] 2.16.840.1.464319.3.57[id number] 2.16.840.1.393335.3.57[id number] 2.16.840.1.521810.3.579.2.216598-23-8881Tlfa-[id number] Social History DateTypeDetailFacilityStart: 35-87-4286Bnshyiy smoking status NHISEx-smoker [facility] End: 45-19-1204Ekaewhb of tobacco useCurrent smokerC[facility] Clinic [facility] End: 00-63-7013Qniycpn of tobacco useCigarette SmokerKettering Health Washington Townshiptart: 11-18-2022 End: 40-52-3570Nurzvuaslx smoked current (pack per day) - Qwdxxyzx0Hoqkfluql ClinicStart: 11-18-2022 End: 53-77-7278Gksgzmi use and exposureSmokeless tobacco non-userKettering Health Washington Townshiptart: 11-18-2022 End: 91-02-4276Nhlhvlq intakeCurrent drinker of alcohol (finding)[facility]: 11-18-2022 End: 22-92-2586Pxhwuzv use panelKettering Health Washington Townshiptart: 34-17-5993Sxnmcsh Comment social drinker on weekendsCGenesis Hospitaltart: 70-88-6095Fvo Assigned At Not on fileCleveland Clinic FoundationNational Score (1-100), lower number is lower risk86 [facility]art: 61-95-2806Dwe assigned at birthFemaleCMemorial Health System [facility] Hospital Start: 83-39-1091Zfwmud identityIdentifies as female gender (finding)[facility]iptart: 64-34-7489Zeahoc orientationHeterosexual (finding)[facility] Tobacco smoking status NHISTobacco smoking consumption unknownNOMS Healthcare Start: 99-79-2095Pyrqkwd smoking status NHISNever smoked tobaccoNOFL Healthcare Medical Equipment Procedure CodeEquipment CodeEquipment Original TextEquipment IdentifierDates Stent Bard Inlay 6fr 2 Pigtail Curve Blue Hydrophilic 26cm Ureteral - [id number]: 68-44-9032Jtsup Bard Inlay 6fr 2 Pigtail Curve Blue Hydrophilic 26cm [facility] - [id number]: 01-06-2023 Clinical Notes 11-20-2021 to 09-22-2024 Note Date & BtplMjvyEvlxbiud73-90-3565 History of Present illness Narrative* MAGNOLIA August - 09/22/2024 8:30 AM EDT Images from the original note were not included. Lesions: Location: right nose Duration: months Quality: bleeding Modifying factors: aggravated by picking Associated symptoms: non-healing, red Treatments: none New patient Lesion # 2: Location: right hip, back Duration: years Quality: denies pain, denies itch, denies bleeding Modifying factors: just wants it checked Associated symptoms: rough Treatments: none All pertinent medical history, medications, and allergies were reviewed. General Exam: alert, oriented to person, place, and time, normal affect, well appearing Unaccompanied A focused exam completed based on patient reported problems, see below: Skin Exam 1. SEBORRHEIC KERATOSIS (2) Left Lower Back, Right Hip Stuck on verrucous, variably pigmented papules and plaques. Patient was counseled regarding these benign growths. Removal is normally not necessary, but they may be removed if they are symptomatic or for cosmetic reasons. 2. NEOPLASM OF UNSPECIFIED BEHAVIOR OF BONE, SOFT TISSUE, AND SKIN Right Malar Cheek Hyperkeratotic papule Lesion biopsy Type of biopsy: tangential Informed consent: discussed and consent obtained Informed consent comment: The risks and benefits of the biopsy were discussed. Risks include but are not limited to bleeding, infection, scarring, pain, and nerve damage. An opportunity to ask questions prior to the procedure was permitted and all questions were answered. Patient was prepped and draped in usual sterile fashion: area cleansed with alcohol. Anesthesia: the lesion was anesthetized in a standard fashion Anesthetic: 1% lidocaine w/ epinephrine 1-100,000 buffered w/ 8.4% NaHCO3 Instrument used: DermaBlade Hemostasis achieved with: electrodesiccation Outcome: patient tolerated procedure well Outcome comment: The specimen was placed in a prelabeled formalin container to be sent for pathology Post-procedure details: sterile dressing applied and wound care instructions given Post-procedure details comment: Emphasized need to contact clinic for any signs of infection, uncontrollable bleeding, or complications. Dressing type: bandage Additional details: Photo taken yes Amount of lidocaine used: 1.0 cc Specimen A - Dermatopathology exam Differential Diagnosis: SCC Check Margins: No Size of lesion: 0.7 x 0.6 cm Next Visit: pending biopsy results documented in this encounterCenterPointe [id number] Note* Addendum Note - Alexandria Marin PA-C - 03/02/2024 6:05 PM ESTAddended by: ALEXANDRIA MARIN on: 03/02/2024 06:05 PM Modules accepted: Orders [facility]12-03-2024 Miscellaneous Notes* Addendum Note - Alexandria Marin PA-C - 03/02/2024 6:05 PM ESTAddended by: ALEXANDRIA MARIN on: 03/02/2024 06:05 PM Modules accepted: Orders documented in this encounterCleveland Clinic [facility]12-02-2024 History of Present illness Narrative* Alexandria Marin PA-C - 03/01/2024 5:00 PM EST This visit was conducted as a virtual visit. I have communicated my name and active licensure. The patient's identity and physical location wereverified at the time of this visit. Either the patient or their legal mill representative has been informed of the risks and benefits of -- and alternatives to -- treatment through a remote evaluation andconsents to proceed with the evaluation remotely. Chief [...] was hiding in her lower pole on USbut not on the end fluoro from the [...] to assess underlying stone and/or hypercalcinuria etiologies. Reassessvitamin D level. Interval hx March 01, 2024 [...] decreasing animal flesh proteins, and decreasing/monitoring high oxalatefoods and pair with calcium rich foods. - [...] All fluids count but water is best. [place] intake - Recommend increasing dietary citrate intake. Adding more fruits & vegetables toyour diet; in particular citrus fruits (amy/limes/lemonade/melons/tomatoes). One can add 4 oz oflemon juice diluted in 32 oz of water daily to start. If diet changes are too difficult we can presc ribe a medication, potassium citrate, that can help [...] spinach, nuts, seeds, potatoes. Foods like banana, avocado,soybean, gege, cereals are good for you. RTC in 12 months w/ new US and KUB. Total time counseling (via Zoom) 20 minutes, total clinic visit 20 minutes Alexandria Marin PA-C documented in this encounterCleveland Clinic Foundation12-02-2024 NoteHNO ID: [id number] Author: ALEXANDRIA MARIN PA-C Service: ? Author Type: Physician Scientist Immunology Type: Progress Notes Filed: 03/02/2024 18:05 Note Text: This visit was conducted as a virtual visit. I have communicated my name and active licensure. The patient's identity and physical location were verified at the time of this visit. Either the patient or their legal mill representative has been informed of the risks [...] hr Final PROTEIN CATABO (more content not included)...[facility] 02-23-2024 NoteHNO ID: [id number] Author: KYLIE NAGY RT(R) Service: ? Author [...] PATIENT PRESENTS WITH AN IMPLANTABLE OR ATTACHED SET UP WORKER: No RADIOLOGY DEPARTMENT: Ultrasound PERIPHERAL IV DATA: Not applicable SIGNED BY: Kylie Nagy RDMS, RVT February 23, 2024 3:31 [facility]11-25-2024 History of Present illness Narrative* Kylie Nagy RT(Jayla) - 02/23/2024 3:31 PM EST Radiology Service Progress Note PATIENT NAME: Krystina Saldivar DATE OF SERVICE: February 23, 2024 TIME: 3:31 PM PATIENT IDENTITY VERIFICATION COMPLETED USING TWO (2) IDENTIFIERS: Name and Date of confirmedby patient verbally. FALL SCREENING: Has the patient had 2 falls in the last year or 1 fall with injury or currently using an Ambulatory Assistive Device (Walker, Cane, Wheelchair, Crutches, etc.)? No PATIENT GENDER DATA: Female. status: : No status: NO. PATIENT RELEVANT IMPLANT DATA REVIEWED: Not Applicable PATIENT PRESENTS WITH AN IMPLANTABLE OR ATTACHED SET UP WORKER: No RADIOLOGY DEPARTMENT: Ultrasound PERIPHERAL IV DATA: Not applicable SIGNED BY: Kylie Nagy RDMS, RVT February 23, 2024 3:31 PM documented in this encounterCleveland Clinic [facility]09-23-2024 Telephone encounter Note * Telephone Encounter - Jamaica Coulter - 12/22/2023 8:51 AM EDT Requested Prescriptions Pending Prescriptions Disp Refills potassium citrate ER (UROCIT-K) 10 mEq (1,080 mg) 120 tablet 5 Sig: Take 2 tablets by mouth two times a day. [facility]09-23-2024 Miscellaneous Notes* Telephone Encounter - JayyKay moodyy - 12/22/2023 8:51 AM EDT Requested Prescriptions Pending Prescriptions Disp Refills potassium citrate ER (UROCIT-K) 10 mEq (1,080 mg) 120 tablet 5 Sig: Take 2 tablets by mouth two times a day. documented in this encounterCleveland Clinic Foundation06-14-2024 Telephone encounter Note * Telephone Encounter - Maritza Bishop - 09/12/2023 8:46 AM EDT We got another fax, this one was a calcium blood test report. [facility]06-14-2024 Miscellaneous Notes* Telephone Encounter - Maritza Bishop - 09/12/2023 8:46 AM EDT We got another fax, this one was a calcium blood test report. * Telephone Encounter - Maritza Bishop - 09/11/2023 1:07 PM EDT We got another lab report for Krystina in today. It is scanned in. * Telephone Encounter - Maritza Bishop - 09/10/2023 1:05 PM EDT Today we got a faxed Lab report for Krystina. documented in this encounterCleveland Clinic [facility]06-13-2024 Telephone encounter Note * Telephone Encounter - Maritza Bishop - 09/11/2023 1:07 PM EDT We got another lab report for Krystina in today. It is scanned in. [facility]06-12-2024 Telephone encounter Note* Telephone Encounter - Maritza Bishop - 09/10/2023 1:05 PM EDT Today we got a faxed Lab report for Krystina. [facility]05-30-2024 Telephone encounter Note* Telephone Encounter - Maritza Bishop - 08/28/2023 11:17 AM EDT I spoke with Krystina, I got her follow up VV scheduled and I set up her Us prior. I sent out for a litholink and I mailed her the blood work orders. [facility]05-30-2024 Miscellaneous Notes* Telephone Encounter - Maritza Bishop - 08/28/2023 11:17 AM EDT I spoke with Krystina, I got her follow up VV scheduled and I set up her Us prior. I sent out for a litholink and I mailed her the blood work orders. documented in this encounterCleveland Clinic Foundation05-28-2024 History of Present illness Narrative* Alexandria Marin PA-C - 08/26/2023 5:00 PM EDT This visit was conducted as a virtual visit. I have communicated my name and active licensure. The patient's identity and physical location wereverified at the time of this visit. Either the patient or their legal mill representative has been informed of the risks and benefits of -- and alternatives to -- treatment through a remote evaluation andconsents to proceed with the evaluation remotely. Chief [...] was hiding in her lower pole on USbut not on the end fluoro from the [...] to assess underlying stone and/or hypercalcinuria etiologies. Reassessvitamin D level. According to your 24 hour [...] Calcium binds with oxalates in the gut d uring digestion, helping them be excreted through the stool rather than buildup in urine. We also recommend adding Vitamin B6 daily (initially 50 mg but no more than 150 mg). This assists in breakingdown oxalates. Some newer research is showing that adding a daily probiotic, fish oil (2000 mg/day), and a high fiber diet have been helpful for patients with high oxalate levels. Certain supplements(Vit C > 500 mg/day, tumeric, and cranberry) [...] All fluids count but water is best. [place] intake - Recommend increasing dietary citrate intake. Adding more fruits & vegetables toyour diet; in particular citrus fruits (amy/limes/lemonade/melons/tomatoes). One can add 4 oz oflemon juice diluted in 32 oz of water daily to start. If diet changes are too difficult we can presc ribe a medication, potassium citrate, that can help [...] spinach, nuts, seeds, potatoes. Foods like banana, avocado,soybean, gege, cereals are good for you. RTC in 6 months w/ new US and Litholink. Total time counseling (via Zoom) 30 minutes, total clinic visit 30 minutes Alexandria Marin PA-C documented in this encounterCleveland [id number] NoteHNO ID: [id number] Author: ALEXANDRIA MARIN PA-C Service: ? Author Type: Physician Scientist Immunology Type: Progress Notes Filed: 08/27/2023 12:36 Note Text: This visit was conducted as a virtual visit. I have communicated my name and active licensure. The patient's identity and physical location were verified at the time of this visit. Either the patient or their legal mill representative has been informed of the risks [...] hr Final CREATININE/KG BOD (more content not included)...[facility] [id number] Note HNO ID: [id number] Author: KYLIE NAGY RT(R) Service: ? Author [...] PATIENT PRESENTS WITH AN IMPLANTABLE OR ATTACHED SET UP WORKER: No RADIOLOGY DEPARTMENT: Ultrasound PERIPHERAL IV DATA: Not applicable SIGNED BY: Kylie Nagy RDMS, RVT August 19, 2023 3:40 [facility]05-21-2024 History of Present illness Narrative* Kylie Nagy RT(R) - 08/19/2023 3:40 PM EDT Radiology Service Progress Note PATIENT NAME: Krystina Saldivar DATE OF SERVICE: August 19, 2023 TIME: 3:40 PM PATIENT IDENTITY VERIFICATION COMPLETED USING TWO (2) IDENTIFIERS: Name and Date of confirmedby patient verbally. FALL SCREENING: Has the patient had 2 falls in the last year or 1 fall with injury or currently using an Ambulatory Assistive Device (Walker, Cane, Wheelchair, Crutches, etc.)? No PATIENT GENDER DATA: Female. status: : No status: NO. PATIENT RELEVANT IMPLANT DATA REVIEWED: Not Applicable PATIENT PRESENTS WITH AN IMPLANTABLE OR ATTACHED SET UP WORKER: No RADIOLOGY DEPARTMENT: Ultrasound PERIPHERAL IV DATA: Not applicable SIGNED BY: Kylie Nagy RDMS, RVT August 19, 2023 3:40 PM documented in this encounterCleveland Clinic Foundation04-01-2024 Miscellaneous Notes* Telephone Encounter - Earline Hebert MA - 06/30/2023 12:04 PM EDT Refill request for the following med Last ov 02/25/2023 with Alexandria Follow up 08/26/2023 Requested Prescriptions Pending Prescriptions Disp Refills potassium citrate ER (UROCIT-K) 10 mEq (1,080 mg) [Pharmacy Med Name: POTASSIUM CITRATE ER 10 MEQ TB] 120 tablet 5 Sig: take 2 tablets by mouth twice a day documented in this encounterCleveland Clinic Foundation12-02-2023 NoteHNO ID: [id number] Author: Note, Interface Service: ? Author Type: ? Type: Progress Notes Filed: 03/01/2023 5:55 AM Note Text: Epic Scheduled Downtime: 03/01/2023 1:00:00 AM to 03/01/2023 5:38:00 AMHe[facility] [id number] Miscellaneous Notes* Telephone Encounter - Maritza Bishop - 02/26/2023 2:51 PM EST I called Krystina and I got her scheduled for a follow up in six months and an US beforehand. documented in this encounterCleveland Clinic [facility]11-28-2023 NoteHNO ID: [id number] Author: Alexandria Marin PA-C Service: ? Author Type: Physician Scientist Immunology Type: Progress Notes Filed: 02/26/2023 12:26 PM Note Text: This visit was conducted as a virtual visit. I have communicated my name and active licensure. The patient's identity and physical location were verified at the time of this visit. Either the patient or their legal mill representative has been informed of the risks [...] 93 74 - 99 mg/dL Final Comment: Location:[facility], [address] [place] [address], [facility] The Accu-Chek Inform II glucose meter [...] determined by [facility] [place] ([facility]). It has not been cleared or approved by the FDA. RT-PLMI is regulated under CLIA as qualified to [...] nonobstructive calculus a (more content not included)... [facility] [id number] History of Present illness Narrative* Alexandria Marin PA-C - 02/25/2023 5:15 PM EST This visit was conducted as a virtual visit. I have communicated my name and active licensure. The patient's identity and physical location wereverified at the time of this visit. Either the patient or their legal mill representative has been informed of the risks and benefits of -- and alternatives to -- treatment through a remote evaluation andconsents to proceed with the evaluation remotely. Chief complaint: Kidney stones Krystina Saldivar is a 62 year old female who presents today for kidney stone management and prevention counseling. s/p L URS and L miniPCNL w/ Dr. Thompson on 01/06/23 and 12/11/22, respectively. Uric acid. Pt currently: no fever, no chills, no nausea, no vomiting, no dysuria, no gross hematuria, no renalcolic She completed a Litholink 24-hour urine collection [...] 93 74 - 99 mg/dL Final Comment: Location:[facility], [address] [place] [address] The Accu-Chek Inform II glucose meter has [...] performance characteristics determined by [facility] [place] ([facility]). It has not been cleared or approved by the FDA. [facility] is regulated under CLIA as qualified to perform high-complexity testing. Thistest is used for clinical purposes. It should [...] was hiding in her lower pole on USbut not on the end fluoro from the [...] citrate intake. Adding more fruits & vegetables toyour diet; in particular citrus fruits like amy, [...] All fluids count but water is best. [place] intake - Recommend increasing dietary citrate intake. Adding more fruits & vegetables toyour diet; in particular citrus fruits (amy/limes/lemonade/melons/tomatoes). One can add 4 oz oflemon juice diluted in 32 oz of water daily to start. If diet changes are too difficult we can presc ribe a medication, potassium citrate, that can help [...] spinach, nuts, seeds, potatoes. Foods like banana, avocado,soybean, gege, cereals are good for you. RTC in 6 months w/ new US and LL. Total time counseling (via Zoom) 30 minutes, total clinic visit 30 minutes Alexandria Marin PA-C documented in this encounterCleveland Clinic [facility]11-21-2023 Miscellaneous Notes* Telephone Encounter - Nichole Morgan RN - 02/18/2023 12:55 PM EST Called patient to discuss external urine culture results that were received as no recent order was submitted for patient to complete. No answer, LVM with phone number to return call. Nichole Morgan RN February 18, 2023 12:55 PM documented in this encounterCleveland [facility]11-17-2023 History of Present illness Narrative* Nedra Queen RDMS - 02/14/2023 10:20 AM EST Radiology Service Progress Note PATIENT NAME: Krystina Saldivar DATE OF SERVICE: February 14, 2023 TIME: 10:20 AM PATIENT IDENTITY VERIFICATION COMPLETED USING TWO (2) IDENTIFIERS: Name and Date of confirmedby patient verbally. FALL SCREENING: Has the patient [...] 14, 2023 10:20 AM documented in this encounterCleveland Clinic Foundation10-14-2023 NoteHNO ID: [id number] Author: Note, Interface Service: ? Author Type: ? Type: Progress Notes Filed: 01/11/2023 3:48 AM Note Text: Epic Scheduled Downtime: 01/11/2023 1:00:00 AM to 01/11/2023 1:28:00 AMHeber Valley Medical [id number] Miscellaneous Notes* Telephone Encounter - Nichole Morgan RN - 01/07/2023 4:19 PM EDT Called and spoke with spoke with patient [...] to discuss. Thank you! documented in this encounterCleveland Clinic [facility]10-09-2023 NoteHNO ID: [id number] Author: Reshma Dominguez APRN.ADMINISTRATIVE ASSISTANT DATA ENTRY Service: ? Author Type: Nurse Review Rn Type: Anesthesia Procedure Notes Filed: 01/06/2023 7:57 AM Note Text: ANESTHESIOLOGY PROCEDURE NOTE Airway General Information Procedure Start Time/Medication Administration: 01/06/2023 7:46 AM Patient location during procedure: OR Staffing Anesthesiologist: Farzana Lopez MD ADMINISTRATIVE ASSISTANT DATA ENTRY: Reshma Dominguez APRN.ADMINISTRATIVE ASSISTANT DATA ENTRY Performed by: anesthesiologist Indications and Patient Condition [...] size 4 seated well SIGNATURE: Reshma Dominguez APRN.ADMINISTRATIVE ASSISTANT DATA ENTRY PATIENT NAME: Krystina Saldivar DATE: January 06, 2023 TIME: 7:56 AM CSN: [id number] Surgical operation note* Operative Report - Farheen Thompson MD - 01/06/2023 7:36 AM EDT OPERATIVE/PROCEDURE REPORT LOG ID: [id number] NAME: Krystina Saldivar : 1960 Surgery/Procedure Date: 01/06/2023 Incision/Procedure Start Time: 7:56 AM Incision Close/Procedure End Time: 8:43 AM Surgeon(s)/Proceduralist(s) and Scientist Immunology(s): Surgeon(s) and Role: * Farheen Thompson MD [...] 01/06/2023 8:13 AM Anesthesia: General Findings: Stone [place]: Primary stone 6 mm lower pole; All other mm stones in the lower pole Irrigation: [place] bag; max pressure gravity Fluoroscopy: Time: 14.6 s; Cumulative dose: 1.95 mGy Anatomic Findings: stones in the lower pole. Very small round Other: edema at the ureteral orifice. Operative Indications: This is a 62 year old year old female with LEFT nephrolithiasis and s/p complex PCNL. Calculus/ calculi were identified on preoperative imaging and the patient after discussingthe risks, benefits, and alternatives of the procedure [...] and draped in the standard sterile fashion. Passenger Conductor fluoroscopy was performed and the calculus identified [...] 06, 2023 TIME: 8:45 AM PAGER/CONTACT #: [phone] documented in this encounterCleveland Clinic Foundation10-09-2023 History and physical note * Farheen Thompson MD - 01/06/2023 7:31 AM EDT Preoperative H&P Chief complaint: Patient is here [...] Thompson MD January 06, 2023 7:31 AM * Marisol Cameron PA-C - 01/06/2023 7:15 AM EDT Preoperative HISTORY AND PHYSICAL EXAM SERVICE DATE: [...] W/ LITHOTRIPSY INCLUDE INSERTION OF INDWELLING URETERAL STENTTHULIUM - Left which is scheduled to be [...] cough, hemoptysis, wheezing, COPD, dyspnea or shortness ofbreath CARDIOVASCULAR: +HLD Negative for chest pain, leg [...] use of an inhaler. Denies any SOB, MANN,cough, wheezing. Lungs CTAB and SpO2 98% RA. [...] TIME: 7:15 AM PAGER: documented in this encounterCleveland Clinic Foundation10-09-2023 Hospital Discharge instructions* Discharge Instr - Other Orders* Kade Posey MD - 01/06/2023 7:25 AM EDT Images from the original note were not included. The [place] [id number] or ([phone]) [facility] DISCHARGE INSTRUCTIONS C O N F I D E N T I A L I N F O R M A T I O N This is a summary of your hospital stay. Please read it carefully and share it with your family andhealthcare providers. PATIENT NAME: Krystina Saldivar ADMISSION DATE: January 06, 2023 DISCHARGE DATE: January 06, 2023 DIAGNOSIS: Nephrolithiasis SURGERIES: Cystoscopy, Left ureteroscopy, removal of stones, removal of left ureteral stent SURGEON: Farheen Thompson MD IMPORTANT TESTS/PROCEDURES: none CONCERNING SYMPTOMS OR WARNING SIGNS Please call your doctor's office ([phone]) and ask to speak to your doctor's nurse electronic bench technician if you experience: -Signs of infection (fever [...] further questions, please feel free to call [facility] ([phone]) and ask to speak with your doctor's nurse electronic bench technician PENDING TEST RESULTS: Stone analysis FOLLOW-UP INFORMATION Please follow-up as recommended by your provider. The office phone numbers for Dr. Thompson are as follows: Main [place]: [phone] [facility] [phone] If you would like an appointment at the [facility], please call the [facility] appointment line ([phone]) to request an appointment Frequently Asked Questions Pathology and Follow-Up: Q: When will I get my results? A: This is one the most important questions to answer after any surgery. This will take about 5-7 days and will be released on Fangdd Q: When am I seeing my surgeon again? A: We do our very best to schedule post-operative visits before discharge. The best way to confirm your appointment details is with the urology office during regular business hours. These appointments can also be found on Fangdd. Important Phone Numbers to make appointments: Urology Office and Appointment Line: [phone] [facility] (Not Urology) Appointment Line: [phone] [facility] Radiology: [phone] [facility] Interventional Radiology: [phone] Outpatient Lab: [phone] or [phone] Q: What is Fangdd? A: Fangdd is an online tool. It allows you to manage your healthcare. You can communicate with caregivers too. Visit [email or web address] to register. You need an e-mail address to make an account. Urology Discharge Instructions FOLLOWING Ureteroscopy PCNL DIET: You can resume your regular diet. We encourage you to eat well-balanced and nutritious Meals. ACTIVITY: Please restrain from strenuous activity for 2 weeks. Please walk daily as much as tolerated, makingexercise a part of your daily life. Do [...] tube sits in the kidney, and one endsits in the bladder as an anchor. What does a ureteral stent do? A ureteral stent holds the ureter open. Without the stent, urine may not be able to drain from the kidney to the bladder. The stent is kept in place until swelling from the procedure goes down or anyblockage has been cleared. When is a ureteral [...] liters of fluids a day. Fluids keep theureter clear and draining well, decrease the amount of blood in the urine, and reduce the risk of infection. Fluids also help keep kidney stones and bladder stones from redeveloping. ? Take medications as prescribed. The most common medication used to treat ureteral stent spasms isoxybutynin or ditropan. Sometimes Flomax is used as [...] discomfort. It is performed in a procedure roomon floor Q9. A cystoscope is a small flexible scope that is inserted into the urethra. Before the cystoscope is inserted, a local anesthetic gel (lidocaine) is used to numb the urethra. Because this is an in-office procedure, you do NOT need a local company intermodal truck driver to take you home. Also, [...] is easily removed by pulling on the stringthat is attached to the stent. On rare [...] Do not use ibuprofen or other NSAIDS ifyou are using this medication. , Flomax: You [...] urine is so red you cannot see throughit. If this happens, seek medical care at your nearest emergency room immediately. -Increasing pain unrelieved by medications -Inability to urinate over 6 hours Office number for general questions (NOT for emergencies): [phone] FOLLOW THESE INSTRUCTIONS REGARDING ANESTHESIA: 1. Do not drink alcoholic beverages including beer and wine for 24 hours. Alcohol enhances the effects of anesthesia and sedation. 2. Do not drive a motor vehicle, operate machinery or power tools for 24 hours. Children should notride bikes or skate boards, play on gym [...] physician. Kade Lake MD documented in this encounterCleveland Clinic Foundation09-25-2023 Miscellaneous Notes* Telephone Encounter - Nichole Morgan RN - 12/23/2022 12:40 PM EDT Called and spoke with patient to update her regarding her stone analysis results. Informed her thatthe stone was uric acid and that Dr. [...] her pre-op labs and culture today at [facility], will wait for those results to be sent over. Patient currently not scheduled for PACC or midlevel H&P. Requested for schedulers to schedule patient for either Virtual PACC appointment since she just completed one on 11/29 or mid level H&P morning of surgery. Patient voiced understanding. Nichole Morgan RN December 23, 2022 12:54 PM documented in this encounterCleveland Clinic Foundation09-19-2023 Miscellaneous Notes* Telephone Encounter - Nichole Morgan RN - 12/17/2022 10:32 AM EDT Called and spoke with patient regarding incoming [...] been elevated around 250-300. [facility] who prescribed Metformin, which [...] will continue to monitor but would ultimately liketo speak with her PCP when he returns her call. She states she will have a low threshold for the layla ency room should her numbness become worse or she develops any of the symptoms described above. Will provide update to Dr. Thompson. Patient would also like her stent removed locally after her 01/06 procedure and is inquiring if this can be set up now for two weeks after her surgery. Advised will consult with Dr. Thompson regardingthis as well. Nichole Morgan RN December 17, [...] her back? Thank you. documented in this encounterCleveland Clinic Foundation09-15-2023 Miscellaneous Notes* Telephone Encounter - Camila Chaney - 12/13/2022 9:33 AM EDT Patient scheduled for surgery on 01/06 at [facility] for CYSTOURETHROSCOPY W/ URETEROSCOPY AND/OR [...] go to lab: NA [facility] documented in this encounterCleveland Clinic Foundation09-14-2023 Miscellaneous Notes* Telephone Encounter - Ela Rob RN - 12/12/2022 1:20 PM EDT Returned patient's call and discussed scheduling her URS with Dr. Thompson. Patient agreed to first available January 06. She will do blood work and urine locally 2 weeks prior. Will fax orders to [facility]. Fax #: [phone] Patient is faxing short term disability paperwork to our office to fill out. Discussed return date for work to be January 13 to give time for recovery after PCNL and URS. Ela Rob RN * Telephone Encounter - Ela Rob RN - 12/12/2022 1:15 PM EDT Images from the original note were not included. Johana [facility] Samantha RN (Call me) Pt missed your call below. She can be reached at the above number when you have a chance. Thanks * Telephone Encounter - Ela Rob RN - 12/12/2022 12:24 PM EDT Called patient to discuss scheduling surgery with Dr. Thompson. No answer, VM left. Ela Rob RN documented in this encounterCleveland Clinic Foundation09-01-2023 Instructions* Patient Instructions* Genevieve Noel APRN.ALIE - 11/29/2022 3:23 PM [...] surgery, you can contact Urology Surgery at [phone]. We would like to reminded you that surgery time provided is tentative based on potential changes with transplant surgeries. Please check in at desk J1-9 in the [facility] ([facility] [address] [place] [address]) Medications: Unless instructed differently below, stay on [...] the day of surgery. documented in this encounterCleveland Clinic Foundation09-01-2023 History of Present illness Narrative* Genevieve Noel APRN.CNP - 11/29/2022 2:52 PM EDT [facility] PRE-OP NOTE Krystina [...] prepared for surgery pending LABS. Genevieve Noel APRN.ALIE documented in this encounterCleveland Clinic Foundation09-01-2023 Instructions* Patient Instructions* Jonel Montano DO - 11/29/2022 1:08 PM EDT PATIENT PREOPERATIVE INSTRUCTIONS Farheen Thompson MD has scheduled you for your procedure at this surgery center: [facility] Scheduling Office: [phone] --[address] [place] [address]. Please read below carefully for your personalized [...] Procedures: - YOU MUST HAVE A RESPONSIBLE LOCAL TRUCK DRIVER TAKE YOU HOME. A SAND SYSTEM OPERATOR OR FLAVORER CANNOT BE MADE A RESPONSIBLE LOCAL TRUCK DRIVER. - We recommend that a responsible person stays with you overnight to take care of you. - You cannot stay in a hotel alone after outpatient surgery. You will not be permitted to have yoursurgery, if you do not have someone to take care of you. Arrival Time for Surgery: - To obtain your arrival time for surgery, call your physician's office the day before your surgery. - If your surgery is scheduled for Friday, call the Friday before. Your surgeon s energy scheduler will tell you what time to call the office. - If you have not reached the departmental energy scheduler by 5 P.M., call [phone] after 5 P.M. the day before your surgery. Please be aware that emergency situations arise, which may delay or change your surgical time. If this happens, we will notify you as soon as possible and regret any inconvenience. If you already have an Advance Directive, please fax a copy to [phone] or email to for it to be added to your chart. If you do not have an Advance Directive, you can find the appropriate form and more information at [email or web address]. We recommend that youcomplete the Advance Directive form found on the website and bring it with you the day of your surgery. It can be witnessed and scanned into your chart that day. Jonel Montano DO documented in this encounterCleveland Clinic Foundation09-01-2023 History and physical note * Jonel Montano DO - 11/29/2022 12:36 PM EDT HISTORY AND PHYSICAL EXAMINATION SERVICE DATE: 11/29/2022 [...] Prior to Admission medications as of 11/18/22 9737 Medication Sig Last Dose Taking simvastatin (ZOCOR) [...] fevers. Neuro: No history of TIA's, stroke, RN CLINICAL REVIEW tumor, impaired sensorium, hemiplegia, paraplegia or quadraplegia. No neurological symptoms or problems. Respiratory: No history of current cough or dyspnea, or pneumonia in the past 6 weeks. No history of respiratory/pulmonary symptoms or problems. Cardiovascular: No history of HTN requiring medication, no history of angina, CHF, DE, cardiac surgery or stents. Denies rest pain, gangrene or revascularization/amputation for PVD. No history of cardiovascular symptoms or problems. GI: No history of GI symptoms or problems. No history of esophageal varices, recent ascites, or ETOH greater than 2 drinks per day. : nephrolithiasis, denies dysuria, gross hematuria, or incontinence. RACING MECHANIC: Negative for abnormal vaginal bleeding, abnormal vaginal discharge. : Denies, No LMP recorded. Endocrine: diabetes om jardiance. Hematology: No history of bleeding or clotting disorder. Pt is not taking anti- coagulation or platelet medications. No history of hematological [...] such as golf, bowling, dancing, doubles tennis, orthrowing a baseball or football (6.00 METs) Do [...] 2022 TIME: 12:36 PM documented in this encounterCleveland Clinic Foundation08-28-2023 Miscellaneous Notes* Telephone Encounter - Nichole Morgan RN - 11/25/2022 11:39 AM EDT Called and spoke with patient to inquire about moving surgery to 12/25. Patient states that she would rather not move her surgery date as she does not want to be out of work for too long. Will updateDrJakob Thompson and keep surgery scheduled as is. Nichole Morgan RN November 25, 2022 11:41 AM documented in this encounterCleveland Clinic Foundation08-21-2023 Instructions* Patient Instructions* Farheen Thompson MD - 11/18/2022 4:18 PM [...] Patients are transferred to the gutierrez after awakeningin the recovery room. A ureteral stent is typically placed during the procedure to prevent post operative flank pain. Youwill return to the clinic after about 7 [...] video with more information on ureteral stents: [email or web address]://[email or web address] Video on PCNL: [email or web address] If you have any additional questions regarding this procedure, please reach out to our team. Warm regards, Your [facility] documented in this encounterCleveland Clinic Foundation08-21-2023 History of Present illness Narrative* Farheen Thompson MD - 11/18/2022 4:00 PM EDT [facility] NEW PATIENT HISTORY AND PHYSICAL EXAM PATIENT INFO: Krystina Saldivar 62 year old REFERRING M.D.: Steve Haque [address] [place] [address] PCP: No primary care provider on file. [...] per night). She has been seen at [facility] most recently in the ER on November [...] was performed with placement of a 6 Moldovan variable length ureteral stent without difficulty. Left ureteral stone may have been advanced into the kidney. Limited available notes reference large left kidney stone and has been recommended PCNL last week. The patient denies flank pain, fever, shaking chills, gross hematuria, urgency, frequency, dysuria,incontinence, nausea, and vomiting at this time. She [...] Abdomen is Non-distended, soft, nontender. Musculoskeletal: Good utilization review specialist strength. Neurologic: Normal gait. Sensation grossly intact. [...] tolerable. - dietary sodium restriction: Less than 2071-2718 mg per day. - increase dietary citrate intake: lemon/kasigl[place], melon and tomato has potassium citrate - [...] Thompson MD Associate Staff documented in this encounterCleveland Clinic Foundation08-21-2023 Miscellaneous Notes* Telephone Encounter - Senait Durán RN - 11/18/2022 3:00 PM EDT Received via fax O[facility] medical records. Patient is scheduled to see Dr. Thompson on 11/18/2022 at 4pm. Records given to Dr. Thompson for further review. Will send to scanning after review by provider. Senait Durán RN documented in this encounterCleveland Clinic Foundation08-23-2022 NotePROCEDURE: XR TIB_FIB RT 2V COMPARISON: 11/09/21 HISTORY: Pain of right lower leg FINDINGS: BONES:No fracture, acute abnormality, or significant arthropathy. SOFT TISSUES:Negative. No visible soft tissue swelling. EFFUSION:None visible. OTHER: Negative. IMPRESSION: No acute abnormality Electronically authenticated by: FARZANA BRAND Date: 2021-11-20 11:25[facility]* Diagnosis Staghorn calculus- Primary Calculus of kidney Screening for genitourinary condition Screening for other and unspecified genitourinary condition documented in this encounter [facility] note* Diagnosis Nephrolithiasis- Primary Calculus of kidney documented in this encounter [facility]* Diagnosis Pre-op chest exam- Primary Pre-operative respiratory examination Nephrolithiasis Calculus of kidney documented in this encounter [facility]Evaluation note* Diagnosis Preop examination- Primary Preoperative examination, unspecified Nephrolithiasis Calculus of kidney Controlled type 2 diabetes mellitus without complication, without long-term current use of insulin (HCC) Hypercholesteremia Pure hypercholesterolemia Nephrolithiasis Calculus of kidney documented in this encounter [facility]* Diagnosis Screening for genitourinary condition Screening for other and unspecified genitourinary condition Nephrolithiasis Calculus of kidney documented in this encounter [facility]* Diagnosis Nephrolithiasis Calculus of kidney documented in this encounter [facility] note* Diagnosis Nephrolithiasis Calculus of kidney documented in this encounter [facility]* Diagnosis Nephrolithiasis- Primary Calculus of kidney Urine volume deficient Oliguria and anuria Vitamin D deficiency Unspecified vitamin D deficiency Hypercalcinuria Unspecified disorders of calcium metabolism Hypernatriuria Hyperosmolality and/or hypernatremia Aciduria (HCC) Other nonspecific finding on examination of urine [facility]* Diagnosis Nephrolithiasis Calculus of kidney [facility]* Diagnosis Nephrolithiasis- Primary Calculus of kidney Urine volume deficient Oliguria and anuria Hypercalcinuria Unspecified disorders of calcium metabolism Hyperoxaluria Other specified disorders of carbohydrate transport and metabolism Hyperuricosuria Other nonspecific finding on examination of urine Hypernatriuria Hyperosmolality and/or hypernatremia 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 [facility]* Diagnosis Preop examination- Primary Preoperative examination, [...] cystic kidney disease documented in this encounter [facility]* Diagnosis Preop examination- Primary Preoperative examination, unspecified Nephrolithiasis Calculus of kidney Controlled type 2 diabetes mellitus without complication, without long-term current use of insulin (HCC) Hypercholesteremia Pure hypercholesterolemia Nephrolithiasis- Primary Calculus of kidney Urine volume deficient Oliguria and anuria Hypercalcinuria Unspecified disorders of calcium metabolism Hyperuricosuria Other nonspecific finding on examination of urine Hypernatriuria Hyperosmolality and/or hypernatremia documented in this encounter [facility] note* Diagnosis Seborrheic keratosis- Primary Neoplasm of unspecified behavior of bone, soft tissue, and skin documented in this encounter [facility] for referral (narrative)* Diagnostic Procedure Only (Routine) - AuthorizedSpecialtyDiagnoses / ProceduresReferred By Contact Referred To ContactUS IMAGING Diagnoses Nephrolithiasis Procedures US KIDNEY/BLADDER US RETROPERITONEAL REAL TIME W/[place] [address] [place] [address] Us Imaging [facility] Referral IDStatusRe[facility] DateExpiration DateVisits RequestedVisits [id number] Auto-Generated Referral / [facility] for referral (narrative)* Diagnostic Procedure Only (Routine) - AuthorizedSpecialtyDiagnoses / ProceduresReferred By Contact Referred To ContactUS IMAGING Diagnoses Nephrolithiasis Procedures US KIDNEY/BLADDER US RETROPERITONEAL REAL TIME W/IMAGE COMPLETE Alexandria Marin PA-C [address] [place] [address] Us Imaging [facility] Referral IDStatusReJohn A. [facility] DateExpiration DateVisits RequestedVisits [id number] Auto-Generated Referral / [facility] for referral (narrative)* Diagnostic Procedure Only (Routine) - Pending ReviewSpecialtyDiagnoses / ProceduresReferred By Contact Referred To ContactUS IMAGING Diagnoses Nephrolithiasis Urine volume deficient Hypercalcinuria Hyperoxaluria Hyperuricosuria Hypernatriuria Renal cyst Procedures US KIDNEY/BLADDER US RETROPERITONEAL REAL TIME W/IMAGE COMPLETE Alexandria Marin PA-C [address] [place] [address] Us Imaging [place] [address] Referral IDStatusReasonStart DateExpiration DateVisits RequestedVisits [id number] Review Auto-Generated Referral [facility] for referral (narrative)* Diagnostic Procedure Only (Routine) - ClosedSpecialtyDiagnoses / ProceduresReferred By ContactReferred To ContactUS IMAGING Diagnoses Nephrolithiasis Urine volume deficient Hypercalcinuria Hyperoxaluria Hyperuricosuria Hypernatriuria Renal cyst Procedures US KIDNEY/BLADDER US RETROPERITONEAL REAL TIME W/IMAGE COMPLETE Alexandria Marin PA-C [address] [place] [address] Us Imaging [place] [address] Referral IDStatusReasonStart DateExpiration DateVisits RequestedVisits [id number] Auto-Generated Referral [facility] for referral (narrative)* Diagnostic Procedure Only (Routine) - New RequestSpecialtyDiagnoses / ProceduresReferred By Contact Referred To ContactXR IMAGING Diagnoses Nephrolithiasis Procedures XR ABDOMEN 3V KUB W/OBLIQUES RADIOLOGIC EXAM ABDOMEN 3+ VIEWS Alexandria Marin PA-C [address] [place] [address] Xr Imaging [place] [address] Referral IDStatusReasonStart DateExpiration DateVisits RequestedVisits [id number] Request Auto-Generated Referral / * Diagnostic Procedure Only (Routine) - New RequestSpecialtyDiagnoses / ProceduresReferred By ContactReferred To ContactUS IMAGING Diagnoses Nephrolithiasis Procedures US KIDNEY/BLADDER US RETROPERITONEAL REAL TIME W/IMAGE COMPLETE Alexandria Marin PA-C [address] [place] [address] [place] [address] Referral IDStatusReasonStart DateExpiration DateVisits RequestedVisits [id number] Request Auto-Generated Referral / [facility] for visit Narrative* Diagnostic Procedure Only (Routine) - ClosedSpecialtyDiagnoses / ProceduresReferred By ContactReferred To Contact US IMAGING Diagnoses Nephrolithiasis Procedures US KIDNEY/BLADDER US RETROPERITONEAL REAL TIME W/[place] [address] [place] [address] [place] [address] Referral IDStatusReasonStart DateExpiration DateVisits RequestedVisits [id number] Auto-Generated Referral / [facility] for visit Narrative* Diagnostic Procedure Only (Routine) - ClosedSpecialtyDiagnoses / ProceduresReferred By ContactReferred To Contact US IMAGING Diagnoses Nephrolithiasis Procedures US KIDNEY/BLADDER US RETROPERITONEAL REAL TIME W/IMAGE COMPLETE Alexandria Marin PA-C [address] [place] [address] [place] [address] Referral IDStatusReasonStart DateExpiration DateVisits RequestedVisits [id number] Auto-Generated Referral / [facility] for visit Narrative* Diagnostic Procedure Only (Routine) - ClosedSpecialtyDiagnoses / ProceduresReferred By ContactReferred To Contact US IMAGING Diagnoses Nephrolithiasis Urine volume deficient Hypercalcinuria Hyperoxaluria Hyperuricosuria Hypernatriuria Renal cyst Procedures US KIDNEY/BLADDER US RETROPERITONEAL REAL TIME W/IMAGE COMPLETE Alexandria Marin PA-C [address] [place] [address] [place] [address] Referral IDStatusReasonStart DateExpiration DateVisits RequestedVisits [id number] Auto-Generated Referral [facility] Summary Purpose Family History No Family History Records FoundNo Family History Records FoundNo Family History Records FoundNo Family History Records FoundNo Family History Records FoundNo Family History Records Found Advance Directives No Advanced Directives Records FoundNo Advanced Directives Records FoundNo Advanced Directives Records FoundNo Advanced Directives Records FoundNo Advanced Directives Records FoundNo Advanced Directives Records Found Reason for Referral SpecialtyDiagnoses / ProceduresReferred By ContactReferred To Contact Diagnoses Nephrolithiasis Procedures REFER TO PACC - PRE ANESTHESIA CONSULTATION CLINIC OFFICE/OUTPATIENT [facility] 60-[place] [address] [place] [address] Referral IDStatusReasonStart DateExpiration DateVisits RequestedVisits [id number] PCP Requested Referral / Medications Administered Section Medication OrderMAR ActionAction DateDoseRateSite fentaNYL 50 mcg/mL 50 mcg injection (SUBLIMAZE) 50 mcg, INTRAVENOUS, EVERY 10 MINUTES NEEDED, 4 doses, Starting on Fri01/06/23 at 0901, Until Fri01/07/23 at 0305, FIRST LINE THERAPY for mild, moderate, or severe pain, USE FOR MILD PAIN ONLY IFPATIENT IS UNABLE TO TOLERATE ORAL THERAPY, Recovery [...] 0630, Until Fri01/06/23 at 0852, Preprocedure New Bag/Syringe/Mfijkg1501/06/2023 8:14 AM BMY308 mL/hrRate/Dose Ymlewj5601/06/2023 7:38 AM IOF3177 mL/hrContinued by Okrhykfofv78/09/2023 7:37 AM EDT75 mL/hr ondansetron (PF) 4 mg injection (ZOFRAN) [...] section and content) DATE CREATED AUTHOR 06/24/[address] [facility] DATE CREATED AUTHOR AUTHOR'S ORGANIZ ATION 11/20/2022 [facility] DATE CREATED AUTHOR AUTHOR'S ORGANIZ ATION 03/03/2023 [facility] DATE CREATED AUTHOR AUTHOR'S ORGANIZ ATION 09/13/2023 [facility] DATE CREATED AUTHOR AUTHOR'S ORGANIZ ATION 03/03/2024 [facility] DATE CREATED AUTHOR AUTHOR'S ORGANIZ ATION 09/23/2024 [facility] EPIC Source Comments (unrecognize d section and content) [...] for Visit (unrecogniz ed section and content) ReasonCommentsCare Coordinator - OtherReasonCommentsConsultKidney StonesReason CommentsPre-Op ExamReasonCommentsSchedulingReasonCommentsReturning Patient's CallReasonCommentsResultsSpecialtyDiagnoses / ProceduresReferred By Contact Referred To Contact Diagnoses Nephrolithiasis Procedures CYSTO/URETERO W/LITHOTRIPSY &INDWELL STENT INSRT CYSTOURETHROSCOPY W/ URETEROSCOPY AND/OR PYELOSCOPY W/ LITHOTRIPSY INCLUDE INSERTION OF INDWELLING URETERAL STENT Av Surgery [address] [place] [address] Referral IDStatusReasonStart DateExpiration DateVisits RequestedVisits [id number] USReasonCommentsFollow UpKidney StonesReasonCommentsAppointmentReasonCommentsRefill RequestReasonOnset Date CommentsRefill Kqrcenv32/23/2024ReasonCommentsFollow UpReasonCommentsSuspicious Skin Lesion Care Teams (unrecognized sec tion and content) Team MemberRelationshipSpecialtyStart DateEnd Date Sal Jackson MD [address] [place] [address] PCP - GeneralFamily Medicine12/11/22Team MemberRelationshipSpecialtyStart DateEnd Date Sal Jackson MD [address] [place] [address] PCP - GeneralFamily Medicine12/11/22Team MemberRelationshipSpecialtyStart DateEnd Date Sal Jackson MD [address] [facility] [place] [address] PCP - GeneralFamily Medicine12/11/22Team MemberRelationshipSpecialtyStart DateEnd Date Sal Jackson MD [address] [facility] [place] [address] PCP - GeneralFamily Medicine12/11/22Team MemberRelationshipSpecialtyStart DateEnd Date Sal Jackson MD [address] [facility] [place] [address] PCP - GeneralFamily Medicine12/11/22Team MemberRelationshipSpecialtyStart DateEnd Date Sal Jackson MD [address] [place] [facility] [address] PCP - GeneralFamily Medicine12/11/22Team MemberRelationshipSpecialtyStart DateEnd Date Sal Jackson MD [address] [place] [facility] [address] PCP - GeneralFamily Medicine12/11/22Team MemberRelationshipSpecialtyStart DateEnd Date Sal Jackson MD [address] [place] [facility] [address] PCP - GeneralFamily Medicine12/11/22Team MemberRelationshipSpecialtyStart DateEnd Date Sal Jackson MD [address] [place] [facility] [address] PCP - GeneralFamily Medicine12/11/22Te MemberRelationshipSpecialtyStart DateEnd Date Sal Jackson MD [address] [place] [address] PCP - [facility]12/11/22Te MemberRelationshipSpecialtyStart DateEnd [facility] Sal Jackson MD [address] [place] [address] PCP - [facility]12/11/22Te MemberRelationshipSpecialtyStart [facility] Sal Jackson MD [address] [place] [address] PCP - [facility]12/11/22Te MemberRelationshipSpecialtyStart [facility] Sal Jackson MD [address] [place] [facility] [address] PCP - [facility]12/11/22Te MemberRelationshipSpecialtyStart [facility] Sal Jackson MD [address] [place] [address] PCP - [facility]12/11/22 Scheduled Active and Recently Administ ered Medications (unrecognized section and content) Medication Order//11/2022 ceFAZolin iv piggyback 2 g in D5W (iso-osmotic) 100 mL (ANCEF) (COMPLETED) 2 g, INTRAVENOUS, at 200 mL/hr, Administer over 30 Minutes, PRE-OP ONCE, 1 dose, On Fri01/06/23 at 0630, Urology Cases PRE-OP ANTIBIOTIC ADMINISTER ONLY IN SURGICAL AREA DO NOT ADMINSTER ON THE FLOORRefrigerate, Antimicrobial indication: Prophylaxis, Preprocedure * 0646 (Sent with Patient - Provider: Mira Monique RN) * 0748 (Given - Provider: Reshma Dominguez APRN.CRNA) Medication Order/ lactated ringers iv infusion 5-35 mL/hr, INTRAVENOUS, CONTINUOUS, Starting on Fri01/06/23 at 0930, Until Fri01/07/23 at 0305, Recovery or Phase I (only) * 0930 (Due) NaCl 0.9% iv infusion (CANCELED) 75 mL/hr, INTRAVENOUS, CONTINUOUS, Starting on Fri01/06/23 at 0630, Until Fri01/06/23 at 0852, Preprocedure * 0646 (New Bag/Syringe/Bottle - Provider: Mira Monique RN) * 0737 (Continued by Anesthesia - Provider: Reshma Dominguez APRN.CRNA) * 0738 (Rate/Dose Change - Provider: Reshma Dominguez APRN.CRNA) * 0814 (New Bag/Syringe/Bottle - Provider: Reshma Dominguez APRN.CRNA) * 0826 (Infusion Complete - Provider: Reshma Dominguez APRN.CRNA) Medication Order/ fentaNYL 50 mcg/mL 50 mcg injection (SUBLIMAZE) 50 mcg, INTRAVENOUS, EVERY 10 MINUTES NEEDED, 4 doses, Starting on Fri01/06/23 at 0901, Until Fri01/07/23 at 0305, FIRST LINE THERAPY for mild, moderate, or severe pain, USE FOR MILD PAIN ONLY IFPATIENT IS UNABLE TO TOLERATE ORAL THERAPY, Recovery [...] at 0842, Until Fri01/06/23 at 0944, Intraprocedure * 0842 (Given - Provider: Farheen Thompson MD) ondansetron (PF) 4 mg [...] by mouth., Recovery or Phase I (only) Order Group 1: ondansetron 4 mg tab(s) [...] BE BASED ON THE PRIMARY CLINICAL RECORDS. [facility] provides no warranty or guarantee of the accuracy or completeness of information in this document.
[2025-02-17 10:22] LABS: Hematocrit 43.3 % (36.0-48.0); Hemoglobin 14.3 g/dL (12.0-16.0); Immature Granulocytes Abs Auto 0.02 10^3/uL (0.00-0.03); Immature Granulocytes Pct Auto 0.3 % (0.0-0.5); Lymphocytes Absolute Auto 2.3 10^3/uL (1.2-3.8); Mean Corpuscular HGB Conc 33.0 g/dL (29.9-35.2); Mean Corpuscular Hemoglobin 30.8 pg (26.7-34.0); Mean Corpuscular Volume 93.3 fL (81.0-99.0); Platelet Count 244 10^3/uL (150-450); Red Blood Count 4.64 10^6/uL (4.20-5.40); White Blood Count 6.4 10^3/uL (4.0-11.0)
[2025-02-17 11:01] LABS: Alanine Aminotransferase 25 U/L (14-59); Albumin Globulin Ratio 1.2; Albumin Level 4.1 g/dL (3.4-5.0); Alkaline Phosphatase 75 U/L (46-116); Anion Gap 13.6; Aspartate Amino Transferase 18 U/L (15-37); Blood Urea Nitrogen 13.0 mg/dL (7.0-18.0); Calcium 9.0 mg/dL (8.5-10.1); Carbon Dioxide 26.8 mmol/L (21.0-32.0); Chloride 107 mmol/L (98-107); Cholesterol 157 mg/dL (<=200); Estimated GFR (African America >60 (>=60 mL/min/1.73m^2); Estimated GFR (Non-African Ame >60 (>=60 mL/min/1.73m^2); Free T3 2.45 pg/mL (2.18-3.98); Globulin 3.3 g/dL; Glucose 109 mg/dL (74-106); HDL Cholesterol 50 mg/dL (40-60); Potassium 4.4 mmol/L (3.5-5.1); Sodium 143 mmol/L (136-145); Thyroid Stimulating Hormone 1.381 uIU/mL (0.358-3.740); Total Protein 7.4 g/dL (6.4-8.2); Triglycerides 99 mg/dL (<=150); VLDL CHOLESTEROL 19.8 mg/dL
[2025-02-17 11:28] LABS: Iron 122.0 ug/dL (50.0-170.0)
== END 2025-02-17 09:56 | disposition home or self-care (01) ==
LOC: LAB 09:57
PROVIDERS: PCP Family Medicine; Visit Provider Family Medicine
DX: Z00.00 Encounter for general adult medical examination without abnormal findings (principal)
CPT/HCPCS: 36415; 80053; 80061; 82306; 83036; 83540; 84436; 84443; 84481; 85025